=== PATIENT | male | born 1970 | race African-American/Black ===

== ENCOUNTER 2025-02-03 07:50 | Emergency (ER) | payer MEDICARE, BC, SELFPAY ==
--- OUTSIDE RECORDS SUMMARY | 2025-02-03 07:54 | XMS_ITS | Encounter Summary ---
Author Organization [facility] Address [facility] [place] [address] Care Team Providers Care Pattern Changer And Repairer Name Role Phone Jeannine Griggs MD Primary Care Provider [phone] , Generic Conversion Primary Care Provider Unavailable Md Generic Conversion Primary Care Provider Unavailable None, Provider Primary Care Provider Unavaila ble None, Provider Primary Care Provider Unavaila ble Encounter Details Date Type Department Care Team (Late st Contact Info) Description 05/30/2016 Abstract [facility] AT [address] [address] Carolina Hardwick MA Social History Tobacco Use Types Packs/Day Years Used Date Smoking Tobacco: Every Day Cigarettes Alcohol Use Standard Drinks/Week Comments Yes 0 (1 standard drink = 0.6 oz pur e alcohol) heavy alcoholic Sex and Gender Information Value Date Recorded Sex Assigned at Male 01/26/2025 3:23 PM CDT Legal Sex Male 3:52 PM CDT Gender Identity Not on file Sexual Orientation Not on file Occupation Industry Job Start Date Job End Date disability Not on file Not on file Not on file documented as of this encounter Plan of Treatment Not on file documented as of this encounter Procedures Procedure Name Priority Date/Time Associated Diagnosis Comments CBC (OUTSIDE LAB) Routine 04/09/2016 BASIC METABOLIC PANEL Routine 04/09/2016 MAGNESIUM Routine 04/09/2016 CK (CPK) Routine 04/09/2016 HEPATIC FUNCTION PANEL Routine 04/08/2016 documented in this encounter Results * MAGNESIUM (04/09/2016) Pathologist [facility] MAGNESIUM 1.8 04/09/2016 us Doc [facility] Final Result * BASIC METABOLIC PANEL (04/09/2016) Pathologist [facility] SODIUM S/P/B 137 POTASSIUM S/P/B 3.7 CO2 23 CHLORIDE S/P/B 104 GLUCOSE 77 CALCIUM S/P/B 8.5 BUN 5 CREATININE S/P/B 0.83 EGFR AFR. AMER. >60 EGFR NON-AFR. AMER. >60 04/09/2016 us Doc [facility] Final Result * CK (CPK) (04/09/2016) Pathologist [facility] CPK 585 04/09/2016 us Doc [facility] Final Result * CBC (OUTSIDE LAB) (04/09/2016) Pathologist [facility] WBC 4.1 HGB 12.3 HCT 36 PLT 229 04/09/2016 us Doc [facility] Abstract LAB-OUTSIDE/ABSTRACTED Final Result * (ABNORMAL) HEPATIC FUNCTION PANEL (04/08/2016) Pathologist [facility] ALBUMIN S/P/B 2.9(A) 3.5 - 5.0 ALKALINE PHOSPHATASE S/P/B 54 ALT 41 AST 63 BILIRUBIN TOTAL S/P/B 0.7 TOTAL PROTEIN S/P/B 5.7 04/08/2016 us Doc [facility] Final Result documented in this encounter Visit Diagnoses Not on filedocumented in this encounter Additional Health Concerns Infection Onset Date Last Indicated Resolved Time COVID-19 Rule Out 07/07/2020 07/07/2020 07/08/2020 11:00 AM CDT COVID-19 Rule Out 12/12/2020 12/12/2020 12/13/2020 8:34 AM TALENT CONSULTANT COVID-19 Rule Out 12/08/2022 12/08/2022 12/08/2022 11:14 AM TALENT CONSULTANT COVID-19 Rule Out 10/18/2024 10/18/2024 10/19/2024 1:16 AM TALENT CONSULTANT Respiratory Rule-Out 01/26/2025 01/26/2025 025 6:31 PM CDT documented as of this encounter Care Teams Pattern Changer And Repairer Relationship Specialty Start Date End Date Jeannine Griggs MD PCP - General INTERNAL MEDICINE 04/09/16 08/26/16 Md Generic Conversion, PCP - General 03/12/17 Md Generic Conversion, PCP - General 08/27/16 None, Provider, PCP - General 08/22/18 07/06/20 None, Provider, PCP - General 07/07/20 documented as of this encounter
--- OUTSIDE RECORDS SUMMARY | 2025-02-03 07:54 | XMS_ITS | Clinical Summary ---
Author Organization [facility] Address [address] [place] [address] Care Team Providers Care Medical Information Officer Name Role Phone Cailin Hernández Unavailable Unavailable Bernadette Roberts LCSW Unavailable Frank Beltran MD Primary Care Provider [phone] Allergies Active Allergy Reactions Criticality Noted Date Comments Fish Containing Products Hives Medium 07/12/2021 Medications albuterol HFA (PROVENTIL HFA,VENTOLIN HFA,PROAIR HFA) 90 mcg/actuation inhalerIndicati ons:Acute Asthma Attack Inhale 2 puffs every 4 (four) hours as needed for wheezing or shortness of breath Active budesonide-form oteroL (SYMBICORT) 80-4.5 mcg/actuation inhalerIndicati ons:Maintenance Therapy for Asthma Inhale 2 puffs 2 (two) times a day 4 Active multivitamin with minerals tabletIndicatio ns:Vitamin Deficiency Take 1 tablet by mouth daily Active nicotine (NICODERM CQ) 21 mgIndications:S moking Cessation Place 1 patch on the skin daily 30 patch 4 Active Additional Information Patient not taking.Reported on 01/04/2025 divalproex ER (DEPAKOTE ER) 500 mg 24 hr tabletIndicatio ns:Bipolar Disorder Take 1 tablet (500 mg total) by mouth daily 30 tablet 5 Active risperiDONE (RisperDAL) 2 mg tabletIndicatio ns:Bipolar Disorder in Remission Take 1 tablet (2 mg total) by mouth nightly 30 tablet 5 Active sertraline (ZOLOFT) 100 mg tabletIndicatio ns:depression Take 1 tablet (100 mg total) by mouth daily 30 tablet 5 Active traZODone (DESYREL) 100 mg tabletIndicatio ns:insomnia associated with depression Take 1 tablet (100 mg total) by mouth nightly as needed for sleep or depression 30 tablet 5 Active folic acid (FOLVITE) 1 mg tabletIndicatio ns:Folate Deficiency Take 1 tablet (1 mg total) by mouth daily 30 tablet 5 Active thiamine (VITAMIN B1) 100 mg tabletIndicatio ns:Thiamine Deficiency Take 1 tablet (100 mg total) by mouth daily 30 tablet 5 Active naltrexone (DEPADE) 50 mg tablet Take 1 tablet (50 mg total) by mouth daily Active fluticasone propionate (FLONASE) 50 mcg/actuation nasal spray Administer 1 spray into each nostril 2 (two) times a day 1 each Active Additional Information Patient not taking.Reported on 01/04/2025 Active Problems Problem Noted Date Diagnosed Date Alcohol withdrawal syndrome without complication 01/04/2025 Neutrophilia 12/12/2024 Nasal inflammation 12/10/2024 Antibiotic-associated diarrhea 12/10/2024 Alcohol dependence with uncomplicated withdrawal 12/09/2024 Nausea and vomiting, unspecified vomiting type 0 12/08/2024 Alcohol withdrawal delirium 12/08/2024 Acute alcoholic gastritis with hemorrhage 2024 Alcoholic intoxication with complication 025 Hyponatremia 12/08/2024 High anion gap metabolic acidosis 12/08/2024 Hypovolemia dehydration 12/08/2024 Generalized anxiety disorder 12/08/2024 Tobacco use disorder, continuous 12/08/2024 Mild persistent asthma with acute exacerbation 0 12/08/2024 Unspecified mood disorder 11/11/2024 Assessment & Plan (11/14/2024 12:14 PM SALMON TROLL FISHER): Patient has a chart history of bipolar disorder, however this diagnosis is uncertain given concomitant substance use history and unclear presentation. It is entirely possible that the patients symptoms are better explained by substance use disorders alone. However, empiric behavioral evidence supports that when the patient adheres to the following regimen he is improved. As such, will be continued. - Depakote 500mg daily - Decreased from 500mg BID in the interim - Risperidone 2mg nightly - Decreased from 4mg nightly in the interim - Sertraline 100mg daily - Decreased from 200mg in the interim Assessment & Plan (11/11/2024 10:53 AM SALMON TROLL FISHER): Patient has a chart history of bipolar disorder, however this diagnosis is uncertain given concomitant substance use history and unclear presentation. It is entirely possible that the patients symptoms are better explained by substance use disorders alone. However, empiric behavioral evidence supports that when the patient adheres to the following regimen he is improved. As such, will be continued. - Depakote 500mg daily - Decreased from 500mg BID in the interim - Risperidone 2mg nightly - Decreased from 4mg nightly in the interim - Sertraline 100mg daily - Decreased from 200mg in the interim Depression, acute 11/10/2024 Dyspnea, unspecified type 10/06/2024 Elevated LFTs 10/06/2024 COPD with acute exacerbation 08/13/2023 Moderate protein-calorie malnutrition 02/09/2023 Alcohol abuse 02/07/2023 Pharyngeal dysphagia 02/07/2023 Overview (02/09/2023): Added automatically from request for surgery [id number] Polysubstance abuse 01/26/2022 Assessment & Plan (01/26/2022 5:35 AM CDT): Patient uses cocaine daily last use yesterday. He also uses fentanyl occasionally. Denies any IV drug use. States he snorts or smokes his drugs. Warm handoff consulted. Bipolar disorder 01/26/2022 Assessment & Plan (01/26/2022 5:35 AM CDT): Continue home medications Tobacco use 01/26/2022 Assessment & Plan (01/26/2022 5:34 AM CDT): Patient smokes half pack per day. He is not interested in a nicotine patch COPD (chronic obstructive pulmonary disease) Assessment & Plan (11/14/2024 12:14 PM SALMON TROLL FISHER): Symbicort scheduled and albuterol PRN Assessment & Plan (11/11/2024 10:43 AM SALMON TROLL FISHER): Symbicort scheduled and albuterol PRN Assessment & Plan (01/26/2022 5:38 AM CDT): Patient currently has diffuse wheezing but no symptoms of an exacerbation. He has not received his breathing treatment since admission. Will resume breathing treatments. Continue to monitor. Alcohol withdrawal syndrome with complication Assessment & Plan (01/26/2022 5:36 AM CDT): Patient appears calm and cooperative at this time. Continue Librium p.r.n. and CIWA scale. Continue vitamins. Warm handoff consulted. Bipolar depression 06/14/2021 Cocaine use disorder 01/04/2020 Assessment & Plan (11/14/2024 12:14 PM SALMON TROLL FISHER): Medical records indicate patient has long history of cocaine use including using more than intended, making unsuccessful attempts at cutting back, spending a significant amount of time using, having a strong desire to use, having an inability to fulfill their roles at work and in their social life as a result of work, reducing important activities as a result of use, continuing to use despite having persistent problems resulting from use, using within situations where it is physically hazardous, experiencing increased tolerance over time, and withdrawal symptoms. This qualifies the patient for a diagnosis of cocaine use disorder, severe. - for [facility] resources - [facility] C[employer]er cessation Assessment & Plan (11/11/2024 10:44 AM SALMON TROLL FISHER): Medical records indicate patient has long history of cocaine use including using more than intended, making unsuccessful attempts at cutting back, spending a significant amount of time using, having a strong desire to use, having an inability to fulfill their roles at work and in their social life as a result of work, reducing important activities as a result of use, continuing to use despite having persistent problems resulting from use, using within situations where it is physically hazardous, experiencing increased tolerance over time, and withdrawal symptoms. This qualifies the patient for a diagnosis of cocaine use disorder, severe. - SW for [facility]A resources - [employer] C[employer]er cessation Assessment & Plan (06/28/2020 10:01 AM CDT): No withdrawal sx. Will refer to [facility] treatment post d/c Assessment & Plan (06/13/2020 12:01 PM CDT): No withdrawal sx. Will refer to [facility] treatment post d/c Assessment & Plan (06/12/2020 10:51 AM CDT): No withdrawal sx. Will refer to [facility] treatment post d/c Assessment & Plan (06/11/2020 5:20 PM CDT): No withdrawal sx. Will refer to [facility] treatment post d/c Alcohol use disorder, severe 08/13/2018 Assessment & Plan (11/17/2024 11:56 AM SALMON TROLL FISHER): Medical records indicate that the patient has had numerous admissions for alcohol withdrawal and has used alcohol more than intended, along with having issues making unsuccessful attempts at cutting back, spending a significant amount of time using, having a strong desire to use, having an inability to fulfill their roles at work and in their social life as a result of work, reducing important activities as a result of use, continuing to use despite having persistent problems resulting from use, using within situations where it is physically hazardous, experiencing increased tolerance over time, and withdrawal symptoms. This qualifies the patient for a diagnosis of alcohol use disorder, severe. No tremor on assessment today. - Offer pharmacologic treatment -> naltrexone 25mg x 7 days, then up to 50mg - Offer inpatient rehab, plan for discharge to [place] once approved - Continue counselling cessation - Cleared AWAS, continue thiamine, folate Assessment & Plan (11/13/2024 12:46 PM SALMON TROLL FISHER): Medical records indicate that the patient has had numerous admissions for alcohol withdrawal and has used alcohol more than intended, along with having issues making unsuccessful attempts at cutting back, spending a significant amount of time using, having a strong desire to use, having an inability to fulfill their roles at work and in their social life as a result of work, reducing important activities as a result of use, continuing to use despite having persistent problems resulting from use, using within situations where it is physically hazardous, experiencing increased tolerance over time, and withdrawal symptoms. This qualifies the patient for a diagnosis of alcohol use disorder, severe. Patient continues to have tremor. However, tremor looks more consistent with parkinsonian or essential tremor. He has not other signs of alcohol withdrawal. - Offer pharmacologic treatment - Offer inpatient rehab - Channel C[employer]er cessation - AWAS, thiamine, folate Resolved Problems Problem Noted Date Diagnosed Date Resolved Date Polysubstance (excluding opi oids) dependence ([facility]) 01/19/2021 07/13/2021 Recurrent major depression i n partial remission 06/09/2020 07/13/2021 Assessment & Plan (06/28/2020 9:52 AM CDT): Fair progress with no SI. Pt is talking to and his case repairer to go to a chronic inpatient unit for [facility]. - continue zoloft 50mg every day and risperidone 2mg HS - continue monitoring and adjust treatment as needed - SW to assist with housing and OP f/u Assessment & Plan (06/13/2020 12:02 PM CDT): Fair progress with no SI. Pt is talking to and his case repairer to go to a chronic inpatient unit for [facility]. - continue zoloft 50mg every day and risperidone 2mg HS - continue monitoring and adjust treatment as needed - SW to assist with housing and OP f/u Assessment & Plan (06/12/2020 10:52 AM CDT): Fair progress but still has depressive sx. No SI - continue zoloft 50mg every day and risperidone 2mg HS - continue monitoring and adjust treatment as needed - SW to assist with housing and OP f/u Assessment & Plan (06/11/2020 5:20 PM CDT): Fair progress but still has depressive sx and SI - continue zoloft 50mg every day and risperidone 2mg HS - continue monitoring and adjust treatment as needed - SW to assist with housing and OP f/u Alcohol withdrawal syndrome without complication ([facility]) 02/08/2019 07/13/2021 Alcohol withdrawal syndrome without complication 04/10/2018 08/13/2018 Alcohol withdrawal syndrome without complication 01/12/2018 08/13/2018 Depression 06/11/2020 Intentional drug overdose Encounters Date Type Department Care Team Description 01/24/2025 Telephone [facility] Gastroenterology at [address] [facility] [address] [place] [address] Linh Fox EGD & Colonoscopy Referral 01/04/2025 4:58 PM SALMON TROLL FISHER - 01/11/2025 8:37 AM CDT Hospital Encounter [place] [id number] [address] [place] [address] Otilio Vargas MD Sada, MD Deejay Abdul, MD Natalya Arroyo Omar Ali Mohammed, MD Alcohol withdrawal syndrome without complication (HCC) (Primary Dx) Discharge Disposition: Discharge to home or self care 12/09/2024 TCC Initial Eligibility Review [facility] [address] [place] [id number] Krista Corral NP 12/08/2024 6:37 AM SALMON TROLL FISHER - 12/15/2024 10:55 AM SALMON TROLL FISHER Hospital Encounter [address] [address] Devin Rico MD Winston, MD Luís Payton Supriya, MD Saturno Arias, Roger Gonzales MD Nausea and vomiting, unspecified vomiting type (Primary Dx); Acute alcoholic intoxication without complication; Hematemesis, unspecified whether nausea present; Alcoholic intoxication with complication; Acute alcoholic gastritis with hemorrhage; COPD with acute exacerbation (HCC); Hyponatremia; High anion gap metabolic acidosis; Hypovolemia dehydration; Cocaine use disorder (HCC); Alcohol use disorder, severe (HCC); Generalized anxiety disorder; Bipolar depression (HCC); Tobacco use disorder, continuous; Mild persistent asthma with acute exacerbation Discharge Disposition: Discharge to an Rehab facility 11/10/2024 9:57 AM SALMON TROLL FISHER - 11/18/2024 2:20 PM SALMON TROLL FISHER Hospital Encounter [address] [address] Nick Foster MD Garland, Marcie Epstein, MD Holiday, MD Alexandre Mccartney, Jony Piedra MD Alcohol withdrawal syndrome with complication (HCC) (Primary Dx); Polysubstance abuse (HCC); Depression, acute [F32.A] Discharge Disposition: Discharge to home or self care from Last 3 Months Immunizations Immunization Administration Dates Next Due Hep A, Adult 05/28/2004 Influenza, Quadrivalent, Spl it, Preservative Free, Intramuscular 08/17/2023,11/10/2019,09/26/2017 Influenza, Trivalent, Preser vative Free, Intramuscular 12/15/2024(Deferred: Patient Refused - pt.stated, i already have one couple months ago like September last year.) Influenza, Unspecified 08/08/2016 Surgical History Surgery Date Site/Laterality Comments ESOPHAGOGASTRODUODENOSCOPY Medical History Medical History Date Comments Bipolar 1 disorder (HCC) Depression Anxiety COPD (chronic obstructive pulmonary disease) (HC C) Asthma Substance abuse (HCC) cocaine, m arijuana, alcohol Schatzki's ring Hiatal hernia Family History Medical History Relation Name Comments Cancer Father cancer Father lung Cancer Mother cancer Mother breast Relation Name Status Comments Father Mother Social History Tobacco Use Types Packs/Day Years Used Date Smoking Tobacco: Every Day Cigarettes 1 20 Smokeless Tobacco: Never Alcohol Use Standard Drinks/Week Comments Yes 12 (1 standard drink = 0.6 oz pure alcohol) 1 case beer, 1-2 bottles of Vodka daily. [facility] [employer] Answer Date Recorded In the past [address] [facility] [employer], gas, oil, or water [employer] threatened to shut off services in your home? No 01/06/2025 Humiliation, Afraid, Rape, and Kick questionnair e Answer Date Recorded Within the last year, have y ou been afraid of your partner or ex-partner? No 11/11/2024 Within the last year, have y ou been humiliated or emotionally abused in other ways by your partner or ex-partner? No Within the last year, have y ou been kicked, hit, slapped, or otherwise physically hurt by your partner or ex-partner? No 11/11/2024 Within the last year, have y ou been raped or forced to have any kind of sexual activity by your partner or ex-partner? No 11/11/2024 Social Connection and Isolation Panel [NHANES] A nswer Date Recorded In a typical week, how many times do you talk on the phone with family, friends, or neighbors? Three times a week 01/06/2025 How often do you get togethe r with friends or relatives? Three times a week 01/06/2025 How often do you attend chur ch or holiness services? Never 01/06/2025 Do you belong to any clubs o r organizations such as mandaen groups, unions, fraternal or athletic groups, or school groups? No 01/06/2025 How often do you attend meet ings of the clubs or organizations you belong to? Never 01/06/2025 Are you , , di vorced, , never , or living with a partner? Never 01/06/2025 AUDIT-C Answer Date Recorded Q1: How often do you have a drink containing alcohol? 4 or more times a week 11/11/2024 Q2: How many drinks containi ng alcohol do you have on a typical day when you are drinking? 10 or more Q3: How often do you have si x or more drinks on one occasion? Daily or almost daily 11/11/2024 Overall Financial Resource Strain (CARDIA) Answe r Date Recorded How hard is it for you to pa y for the very basics like food, housing, medical care, and heating? Not very hard 01/06/2025 PHQ-2 Answer Date Recorded PHQ-2 Total Score (If total score is 3 or more points, staff should administer the PHQ-9) 1 01/25/2022 [facility] - Occupational Stress Questionnaire Answer Date Recorded Do you feel stress - tense, restless, nervous, or anxious, or unable to sleep at night because your mind is troubled all the time - these days? Rather much 11/11/2024 Exercise Vital Sign Answer Date Recorde d On average, how many days pe r week do you engage in moderate to strenuous exercise (like a brisk walk)? 0 days 11/11/2024 On average, how many minutes do you engage in exercise at this level? 0 min 11/11/2024 Hunger Vital Sign Answer Date Recorded Within the past 12 months, y ou worried that your food would run out before you got the money to buy more. Never true 01/07/20 25 Within the past 12 months, t he food you bought just didn't last and you didn't have money to get more. Never true 01/06/2025 PRAPARE - Transportation Answer Date Re corded In the past 12 months, has l ack of transportation kept you from medical appointments or from getting medications? No 05/2025 In the past 12 months, has l ack of transportation kept you from meetings, work, or from getting things needed for daily living? No 01/06/2025 Housing Stability Vital Sign Answer Krunal e Recorded In the last 12 months, was t here a time when you were not able to pay the mortgage or rent on time? No 06/20/2021 In the last 12 months, how many places have you lived? 1 06/20/2021 In the last 12 months, was t here a time when you did not have a steady place to sleep or slept in a correction (including now)? Yes 06/20/2021 Housing Stability Vital Sign Answer Krunal e Recorded In the last 12 months, was t here a time when you were not able to pay the mortgage or rent on time? No 01/06/2025 In the past 12 months, how m any times have you moved where you were living? 0 01/06/2025 At any time in the past 12 m [facility], were you homeless or living in a correction (including now)? No 01/06/2025 Personal Safety Answer Date Recorded Have you ever been in or are you currently in a harmful physical or emotional relationship or is someone making you feel afraid or unsafe? Denies 01/04/2025 Education Answer Date Recorded What is the highest level of school you have completed or the highest degree you have received? High school graduate 06/09/2020 Sex and Gender Information Value Date Recorded Sex Assigned at Not on file Legal Sex Male 6:20 AM SALMON TROLL FISHER Gender Identity Not on file Sexual Orientation Not on file Occupation Industry Job Start Date Job End Date unemployed, disabled Not on file Not on file Not on file Obstetrics History Last Filed Vital Signs Vital Sign Reading Time Taken Comments Blood Pressure 127/97 01/11/2025 7:48 AM CDT Pulse 87 01/11/2025 7:48 AM CDT Temperature 36.5 C (97.7 F) 01/11/2025 7:48 AM CDT Respiratory Rate 18 01/11/2025 7:48 AM CDT Oxygen Saturation 97% 01/11/2025 7:48 AM CDT Inhaled Oxygen Concentration - - Weight 88.6 kg (195 lb 5.2 oz) 01/04/2025 9:34 P M SALMON TROLL FISHER Height 177.8 cm (5' 10) 01/04/2025 9:34 PM SALMON TROLL FISHER Body Mass Index 28.03 01/04/2025 9:34 PM SALMON TROLL FISHER Plan of Treatment Health Maintenance Due Date Last Done Comments Colon Cancer Screening-Colonoscopy 1971 Prostate Cancer Screening-PSA 1971 DTaP/Tdap/Td Vaccine (1 - Tdap) 1982 Hepatitis B Screening 1989 Regular Well Visit/Exam 18-64 1989 Pneumococcal vaccine <65 (1 of 2 - PCV) 1990 Zoster Vaccine (1 of 2) 1990 Lung Cancer Screening 2021 Depression Screening 01/25/2023 01/25/2022, 06/12/2021, 01/19/2021, Additional history exists Influenza Vaccine (#1) 2024 , 11/10/2019, 09/26/2017, Additional history exists Hepatitis C Screening Completed 10/06/2024 Goals Goal Patient Goal Type Associated Problems Recent Progress Patient-Stated? Author Quit drinking alcohol Alcohol Use No Angela Webster Note: Pt will abstain from alcohol use, will call recovery support and re-engage with tx services. Attend Narcotics Anonymous meetings Drug Use No Angela Webster Note: Attend NA,AA, or CR at least 2xweekly. Stay free of all unprescribed substances General No Angela Webster Note: Pt will abstain from illicit drug use. Keep your medical appointments Lifestyle No Angela Webster Note: Pt will attend scheduled appointments with [facility] on 06/19/21 Procedures Procedure Name Priority Date/Time Associated Diagnosis Comments EGFR Routine 01/10/2025 6:08 AM CDT CBC WITHOUT DIFFERENTIAL Routine 01/10/2025 6:08 AM CDT BASIC METABOLIC PANEL Routine 01/10/2025 6:08 AM CDT EGFR Routine 01/06/2025 1:55 AM SALMON TROLL FISHER COMPREHENSIVE METABOLIC PANEL Routine 01/06/2025 1:55 AM SALMON TROLL FISHER EGFR Routine 01/05/2025 3:49 AM SALMON TROLL FISHER HEMOGLOBIN A1C Routine 01/05/2025 3:49 AM SALMON TROLL FISHER THYROID FUNCTION CASCADE Routine 01/05/2025 3:49 AM SALMON TROLL FISHER COMPREHENSIVE METABOLIC PANEL Routine 01/05/2025 3:[address] HEAD WO CONTRAST ED 01/04/2025 6 :19 PM SALMON TROLL FISHER XR CHEST 1 VIEW ED 01/04/2025 2:31 PM SALMON TROLL FISHER ECG 12-LEAD STAT 01/04/2025 2:21 PM SALMON TROLL FISHER EGFR STAT 01/04/2025 2:17 PM SALMON TROLL FISHER DIFFERENTIAL AUTO STAT 01/04/2025 2:1 7 PM SALMON TROLL FISHER ETHANOL STAT 01/04/2025 2:17 PM SALMON TROLL FISHER TROPONIN T HIGH-SENSITIVITY SERIES (BASELINE, 2HR, 4HR, 6HR) STAT 01/04/2025 2:17 PM SALMON TROLL FISHER COMPREHENSIVE METABOLIC PANEL STAT 01/04/2025 2:17 PM SALMON TROLL FISHER CBC WITH AUTO DIFFERENTIAL STAT 01/04/2025 2:17 PM SALMON TROLL FISHER EGFR Routine 12/14/2024 3:28 AM SALMON TROLL FISHER COMPREHENSIVE METABOLIC PANEL Routine 12/14/2024 3:28 AM SALMON TROLL FISHER EGFR Routine 12/13/2024 12:50 PM SALMON TROLL FISHER COMPREHENSIVE METABOLIC PANEL Routine 12/13/2024 12:50 PM SALMON TROLL FISHER EGFR Routine 12/12/2024 3:01 AM SALMON TROLL FISHER CBC WITHOUT DIFFERENTIAL Routine 12/12/2024 3:01 AM SALMON TROLL FISHER COMPREHENSIVE METABOLIC PANEL Routine 12/12/2024 3:01 AM SALMON TROLL FISHER EGFR Routine 12/11/2024 4:39 AM SALMON TROLL FISHER COMPREHENSIVE METABOLIC PANEL Routine 12/11/2024 4:39 AM SALMON TROLL FISHER CBC WITHOUT DIFFERENTIAL Routine 12/11/2024 4:39 AM SALMON TROLL FISHER EGFR Routine 12/10/2024 6:38 AM SALMON TROLL FISHER COMPREHENSIVE METABOLIC PANEL Routine 12/10/2024 6:38 AM SALMON TROLL FISHER EGFR Routine 12/09/2024 3:39 AM SALMON TROLL FISHER DIFFERENTIAL AUTO Routine 12/09/2024 3:3 9 AM SALMON TROLL FISHER COMPREHENSIVE METABOLIC PANEL Routine 12/09/2024 3:39 AM SALMON TROLL FISHER CBC WITH AUTO DIFFERENTIAL Routine 12/09/2024 3:39 AM SALMON TROLL FISHER MAGNESIUM Routine 12/09/2024 3:39 AM SALMON TROLL FISHER LIPID PANEL Routine 12/09/2024 3:39 AM SALMON TROLL FISHER INFLUENZA A/B, RSV, AND COVID-19 PCR Routine 12/08/2024 8:17 PM SALMON TROLL FISHER MAGNESIUM STAT 12/08/2024 7:28 AM SALMON TROLL FISHER EGFR STAT 12/08/2024 7:28 AM SALMON TROLL FISHER BASIC METABOLIC PANEL STAT 12/08/2024 7:28 AM SALMON TROLL FISHER TROPONIN T HIGH-SENSITIVITY 6-HOUR Timed 12/08/2024 6:17 AM SALMON TROLL FISHER TROPONIN T HIGH-SENSITIVITY 2-HOUR Timed 12/08/2024 2:24 AM SALMON TROLL FISHER XR CHEST 1 VIEW ED 12/08/2024 12:54 AM SALMON TROLL FISHER ECG 12-LEAD STAT 12/08/2024 12:22 AM SALMON TROLL FISHER LIPASE STAT 12/08/2024 12:22 AM [facility]ER EGFR STAT 12/08/2024 12:22 AM [facility]ER DIFFERENTIAL AUTO STAT 12/08/2024 12: 22 AM [facility]ER ETHANOL STAT 12/08/2024 12:22 AM SALMON [facility]OLL [facility]ER TROPONIN T HIGH-SENSITIVITY SERIES (BASELINE, 2HR, 4HR, 6HR) STAT 12/08/2024 12:22 AM SALMON [facility]ER CBC WITH AUTO DIFFERENTIAL STAT 12/08/2024 12:22 AM [facility]ER COMPREHENSIVE METABOLIC PANEL STAT 12/08/2024 12:22 AM [facility]ER XR CHEST PA LATERAL 2 VIEWS ED 11/10/2024 12:08 PM [facility]ER URINALYSIS, MICROSCOPIC ONLY STAT 11/10/2024 11:33 AM SAL[facility]ER DRUGS OF ABUSE SCREEN, URINE WITHOUT CONFIRMATION STAT 11/10/2024 11:33 AM [facility]ER URINALYSIS AND REFLEX TO MICROSCOPIC AND CULTURE STAT 11/10/2024 11:33 AM SAL[facility]ER ECG 12-LEAD STAT 11/10/2024 10:43 AM SALMON [facility]OLL [facility]ER POCT RAPID HIV ANTIBODY COMMUNITY SCREENING-FABI ELIGIBLE Routine 11/10/2024 10:24 AM SALMON TROLL [facility]ER VALPROIC ACID LEVEL, TOTAL STAT 11/10/2024 10:06 AM SAL[facility]ER ETHANOL STAT 11/10/2024 10:06 AM SAL[facility]ER EGFR STAT 11/10/2024 10:06 AM SALMON [facility]ER DIFFERENTIAL AUTO STAT 11/10/2024 10: 06 AM SALMON [facility]OLL [facility]ER PRO B-TYPE NATRIURETIC PEPTIDE STAT 11/10/2024 10:06 AM SALMON TROLL FISHER TROPONIN I HIGH-SENSITIVITY SERIES (BASELINE, 2HR, 4HR, 6HR) STAT 11/10/2024 10:06 AM SALMON [facility]OLL FISHER CBC WITH AUTO DIFFERENTIAL STAT 11/10/2024 10:06 AM SAL[facility]ER COMPREHENSIVE METABOLIC PANEL STAT 11/10/2024 10:06 AM SALMON [facility]OLL [facility]ER HEPATITIS PANEL, ACUTE Routine 12:56 PM SALMON [facility]ER from Last 3 Months or Most Recently Relevant to Health Maintenance Results * eGFR (01/10/2025 6:08 AM CDT) eGFR >90 >=60 mL/min/1. 73 m2 Comment: Interpretive Data Reference Interval Normal >/= 90 mL/min/1.73m2 Mildly decreased* 60 - 89 mL/min/1.73m2 Mildly to moderately decreased 45 - 59 mL/min/1.73m2 Moderately to severely decreased 30 - 44 mL/min/1.73m2 Severely decreased 15 - 29 mL/min/1.73m2 Kidney Failure < 15 mL/min/1.73m2 *Relative to young adult level Estimated glomerular filtration rate is determined by the 2020 CKD-EPI equation recommended by the National Kidney Foundation (A Unifying Approach to GFR Estimation: Recommendations of the NKF-ASK Task Force on Reassessing the Inclusion of Race in Diagnosing Kidney Disease, JASN 202). The CKD-EPI equation should not be used for patients with unstable renal function and has not been validated in children and those over 70. Current interpretive data was last reviewed 2021. Testing performed by: [address] [address] Blood 01/10/2025 6:08 AM CDT 01/10/2025 6:43 AM CDT us Nelson Villalba MD LAB BLOOD ORDERABLES Fi nal Result [facility]U LEM[facility] [place] [address] * (ABNORMAL) CBC without differential (01/10/2025 6:08 AM CDT) WBC 13.7(H) 3.8 - 9.9 K/cumm Comment:Testing performed by : [address] [address] Hgb 11.7(L) 13.0 - 17.5 g/dL RAMU LEMUS Comment:Testing performed by : [address] [address] Hct 35.7(L) 38.9 - 50.3 % RAMU LEMUS Comment:Testing performed by : [address] [address] Plt 326 150 - 400 K/cumm RAMU LEMUS Comment:Testing performed by : [address] [address] MPV 9.4 9.1 - 12.3 fL RAMU LEMUS Comment:Testing performed by : [address] [address] RBC 3.79(L) 4.30 - 5.80 M/cumm RAMU LEMUS Comment:Testing performed by : [address] [address] MCV 94.2 81.3 - 96.4 fL RAMU LEMUS Comment:Testing performed by : [facility], [address] [place] [address]., [address] MCH 30.9 27.1 - 33.3 pg RAMU LEMUS Comment:Testing performed by : [address] [address] MCHC 32.8 32.3 - 35.7 g/dL RAMU LEMUS Comment:Testing performed by : [address] [address] RDW CV 15.2(H) 11.1 - 14.9 % RAMU LEMUS Comment:Testing performed by : [address] [address] RDW SD 51.8(H) 35.7 - 48.1 fL RAMU LEMUS Comment:Testing performed by : [address] [address] NRBC abs 0.00 0.00 - 0.01 K/cumm RAMU Comment:Testing performed by : [address] [address] Blood 01/10/2025 6:08 AM CDT 01/10/2025 6:43 AM CDT Nelson Villalba MD LAB BLOOD ORDERABLES Fi nal Result RAMU [address]99 [facility] Department of Laboratories [place], [place] [id number] * Basic metabolic panel (01/10/2025 6:08 AM CDT) Sodium 141 135 - 145 mmol/L Comment:Testing performed by : [address] [address] Potassium, pl 4.1 3.3 - 4.9 mmol/L RAMU LEMUS Comment: Hemolyzed; Potassium value may be falsely elevated by as much as 1.0 mmol/L. Suggest redraw and reanalysis. Testing performed by: [address] [address] Chloride 106 97 - 110 mmol/L RAMU LEMUS Comment:Testing performed by : [address] [address] CO2 25 22 - 32 mmol/L RAMU Comment:Testing performed by : [address] [address] Anion gap 10 2 - 15 mmol/L RAMU Comment:Testing performed by : [address] [address] BUN 13 6 - 25 mg/dL RAMU Comment:Testing performed by : [address] [address] Creatinine 0.80 0.80 - 1.30 mg/dL RAMU Comment:Testing performed by : [address] [address] Glucose 121 70 - 199 mg/dL RAMU Comment: Interpretive Data Fasting glucose >/= 126 mg/dl is diagnostic for diabetes. Fasting is defined as no caloric intake for at least 8 hours. Fasting glucose between 100 mg/dl to 125 mg/dl is diagnostic of prediabetes. In a patient with classic symptoms of hyperglycemia or hyperglycemic crisis, a random glucose >/= 200 mg/dl is diagnostic for diabetes. In the absence of unequivocal hyperglycemia, results should be confirmed by repeat testing. The classification and Diagnosis of Diabetes Diabetes Care 2022; 46: S19-S40. Current interpretive data was last revised 2022. Testing performed by: [address] [address] Calcium 9.9 8.5 - 10.3 mg/dL RAMU Comment:Testing performed by : [address] [address] Blood 01/10/2025 6:08 AM CDT 01/10/2025 6:43 AM CDT us Nelson Villalba MD LAB BLOOD ORDERABLES Fi nal Result RAMU LEMUS [address] [facility] Department [place] [address] * eGFR (01/06/2025 1:55 AM SALMON TROLL FISHER) Pathologist [facility] eGFR >90 >=60 mL/min/1. 73 m2 Comment: Interpretive Data Reference Interval Normal >/= 90 mL/min/1.73m2 Mildly decreased* 60 - 89 mL/min/1.73m2 Mildly to moderately decreased 45 - 59 mL/min/1.73m2 Moderately to severely decreased 30 - 44 mL/min/1.73m2 Severely decreased 15 - 29 mL/min/1.73m2 Kidney Failure < 15 mL/min/1.73m2 *Relative to young adult level Estimated glomerular filtration rate is determined by the 2020 CKD-EPI equation recommended by the National Kidney Foundation (A Unifying Approach to GFR Estimation: Recommendations of the NKF-ASK Task Force on Reassessing the Inclusion of Race in Diagnosing Kidney Disease, JASN 2020). The CKD-EPI equation should not be used for patients with unstable renal function and has not been validated in children and those over 70. Current interpretive data was last reviewed 2021. Testing performed by: [address] [address] Blood 01/06/2025 1:55 AM SAL[facility]LL FISHER 01/06/2025 2:57 AM [facility]ER Anel Al MD LAB BLOOD ORDER DIANE Final Result RAMU 0714 [facility] Department [place] [address] * (ABNORMAL) Comprehensive metabolic panel (01/06/2025 1:55 AM SALMON TROLL FISHER) Pathologist [facility] Sodium 139 135 - 145 mmol/L Comment:Testing performed by : [address] [address] Potassium, pl 3.9 3.3 - 4.9 mmol/L RAMU LEMUS Comment: Hemolyzed; Potassium value may be falsely elevated by as much as 1.0 mmol/L. Suggest redraw and reanalysis. Testing performed by: [address] [address] Chloride 107 97 - 110 mmol/L RAMU LEMUS Comment:Testing performed by : [address] [address] CO2 23 22 - 32 mmol/L [facility] Comment:Testing performed by : [address] [address] Anion gap 9 2 - 15 mmol/L [facility] Comment:Testing performed by : [address] [address] BUN 8 6 - 25 mg/dL [facility] Comment:Testing performed by : [address] [address] Creatinine 0.82 0.80 - 1.30 mg/dL [facility] Comment:Testing performed by : [address] [address] Glucose 101 70 - 199 mg/dL [facility] Comment: Interpretive Data Fasting glucose >/= 126 mg/dl is diagnostic for diabetes. Fasting is defined as no caloric intake for at least 8 hours. Fasting glucose between 100 mg/dl to 125 mg/dl is diagnostic of prediabetes. In a patient with classic symptoms of hyperglycemia or hyperglycemic crisis, a random glucose >/= 200 mg/dl is diagnostic for diabetes. In the absence of unequivocal hyperglycemia, results should be confirmed by repeat testing. The classification and Diagnosis of Diabetes Diabetes Care 2021; 46: S19-S40. Current interpretive data was last revised 2022. Testing performed by: [address] [address] Calcium 9.0 8.5 - 10.3 mg/dL [facility] Comment:Testing performed by : [address] [address] Bilirubin, total 0.4 0.1 - 1.2 mg/dL [facility] Comment:Testing performed by : [address] [address] Protein, pl 6.1(L) 6.5 - 8.5 g/dL [facility] Comment:Testing performed by : [address] [address] Albumin 3.2(L) 3.5 - 5.0 g/dL [facility] Comment:Testing performed by : [address] [address] Alk phos 67 40 - 130 Units/L RAMU LEMUS Comment:Testing performed by : [address] [address] ALT 23 7 - 55 Units/L RAMU Comment:Testing performed by : [address] [address] AST 26 10 - 50 Units/L RAMU Comment: Hemolyzed; result may be falsely elevated Testing performed by: [address] [address] Blood 01/06/2025 1:55 AM SAL[facility]LL FISHER 01/06/2025 2:57 AM [facility]LL FISHER Anel Al MD LAB BLOOD ORDER DIANE Final Result RAMU [address] [facility] Department [place] [address] * eGFR (01/05/2025 3:49 AM SAL[facility]LL [facility]ER) eGFR >90 >=60 mL/min/1. 73 m2 Comment: Interpretive Data Reference Interval Normal >/= 90 mL/min/1.73m2 Mildly decreased* 60 - 89 mL/min/1.73m2 Mildly to moderately decreased 45 - 59 mL/min/1.73m2 Moderately to severely decreased 30 - 44 mL/min/1.73m2 Severely decreased 15 - 29 mL/min/1.73m2 Kidney Failure < 15 mL/min/1.73m2 *Relative to young adult level Estimated glomerular filtration rate is determined by the 2020 CKD-EPI equation recommended by the National Kidney Foundation (A Unifying Approach to GFR Estimation: Recommendations of the NKF-ASK Task Force on Reassessing the Inclusion of Race in Diagnosing Kidney Disease, JASN 2020). The CKD-EPI equation should not be used for patients with unstable renal function and has not been validated in children and those over 70. Current interpretive data was last reviewed 2021. Testing performed by: [address] [address] Blood 01/05/2025 3:49 AM SAL[facility]OLL FISHER 01/05/2025 5:03 AM [facility]LL FISHER Anel Al MD LAB BLOOD ORDER DIANE Final Result Performing Organization Address [facility] de Phone Number [address] [address] * Thyroid Function [place] (01/05/2025 3:49 AM SALMON [facility]OLL FISHER) TSH 0.88 0.30 - 4.20 mcIUnit/mL Comment:Testing performed by : [address] [address] Blood 01/05/2025 3:49 AM SAL[facility] TROLL FISHER 01/05/2025 5:03 AM SAL[facility]OLL FISHER Anel Al MD LAB BLOOD ORDER DIANE Final Result Performing Organization Address [facility] de Phone Number [address] [address] * Hemoglobin A1c (01/05/2025 3:49 AM SAL[facility]OLL FISHER) Hgb A1C 5.6 4.0 - 5.6 % Comment:Testing performed by : [address] [address] Estimated Average Glucose 114 mg/dL [facility] Comment: The ADA recommends reporting an estimated Average Glucose (eAG) with all Hemoglobin A1c results using the equation derived from a study of 507 normal and diabetic adults. Minority populations were underrepresented and children were not included. (Diabetes Care 31:9865-5095, 2008). The eAG is not equivalent to a fasting glucose. Testing performed by: [address] [address] Blood 01/05/2025 3:49 AM SAL[facility] TROLL FISHER 01/05/2025 5:03 AM SALMON TROLL FISHER Anel Al MD LAB BLOOD ORDER DIANE Final Result Performing Organization Address [facility] de Phone Number [address] Department [place] [address] * (ABNORMAL) Comprehensive metabolic panel (01/05/2025 3:49 AM SALMON TROLL FISHER) Sodium 139 135 - 145 mmol/L Comment:Testing performed by : [facility], [address] [place] [address]., [address] Potassium, pl 3.7 3.3 - 4.9 mmol/L RAMU Comment:Testing performed by : [address], [place]., [address] Chloride 105 97 - 110 mmol/L RAMU Comment:Testing performed by : [address] [address] CO2 25 22 - 32 mmol/L RAMU Comment:Testing performed by : [address], [place]., [address] Anion gap 9 2 - 15 mmol/L RAMU Comment:Testing performed by : [address] [address] BUN 6 6 - 25 mg/dL RAMU Comment:Testing performed by : [address] [address] Creatinine 0.85 0.80 - 1.30 mg/dL RAMU Comment:Testing performed by : [address] [address] Glucose 90 70 - 199 mg/dL RAMU Comment: Interpretive Data Fasting glucose >/= 126 mg/dl is diagnostic for diabetes. Fasting is defined as no caloric intake for at least 8 hours. Fasting glucose between 100 mg/dl to 125 mg/dl is diagnostic of prediabetes. In a patient with classic symptoms of hyperglycemia or hyperglycemic crisis, a random glucose >/= 200 mg/dl is diagnostic for diabetes. In the absence of unequivocal hyperglycemia, results should be confirmed by repeat testing. The classification and Diagnosis of Diabetes Diabetes Care 202; 46: S19-S40. Current interpretive data was last revised 2022. Testing performed by: [address] [address] Calcium 9.1 8.5 - 10.3 mg/dL RAMU Comment:Testing performed by : [address] [address] Bilirubin, total 0.7 0.1 - 1.2 mg/dL [facility]U Comment:Testing performed by : [address] [address] Protein, pl 6.3(L) 6.5 - 8.5 g/dL [facility]U Comment:Testing performed by : [address] [address] Albumin 3.5 3.5 - 5.0 g/dL RAMU Comment:Testing performed by : [address], [place]., [address] Alk phos 70 40 - 130 Units/L RAMU Comment:Testing performed by : [address] [address] ALT 28 7 - 55 Units/L [facility]U Comment:Testing performed by : [address] [address] AST 34 10 - 50 Units/L [facility]U Comment:Testing performed by : [address] [address] Blood 01/05/2025 3:49 AM SALMON [facility]OLL FISHER 01/05/2025 5:03 AM SALMON TROLL FISHER Anel Al MD LAB BLOOD ORDER DIANE Final Result RAM[facility] Department [place] [address] * CT Head WO Contrast (01/04/2025 6:19 PM SALMON TROLL FISHER) Anatomical Region Laterality Modality Head and Neck N/A Computed Tomogra phy 01/04/2025 6:40 PM SALMON TROLL FISHER Narrative 01/04/2025 6:41 PM SALMON TROLL FISHER EXAM DESCRIPTION: CT HEAD WO CONTRAST REASON FOR STUDY: Alcohol withdrawal with syncopal episode last night. No provided focal neurologic deficits. No provided history of trauma. No provided past medical or surgical history. TECHNIQUE: Axial images acquired through the brain without intravenous contrast. Images stored on PACS. Automated exposure control was used as a dose optimization technique for this examination. COMPARISON: CT head without contrast 08/05/2021. FINDINGS: BRAIN: No acute intra-axial hemorrhage. No edema, mass effect, midline shift, or herniation. Normal white matter. No evidence of acute territorial ischemia/infarct. EXTRA-AXIAL SPACES: No extra-axial fluid collection. No unenhanced CT evidence of extra-axial mass. CALVARIUM: No acute calvarial fracture. SINUSES/MASTOIDS: Paranasal sinuses clear. Mastoid air cells well-developed and well aerated. ORBITS: No acute abnormality. Ocular lenses and globes normal in conformation and position. OTHER: No other significant abnormality. IMPRESSION: No acute intracranial process. THIS IS AN ELECTRONICALLY VERIFIED FINAL REPORT 01/04/2025 6:41 PM - Electronically signed by Cameron Moreno M.D. VÍCTOR: VÍCTOR Report ID: [id number] Reading Location: [place] [address] Procedure Note Cameron Moreno MD - 01/04/2025 EXAM DESCRIPTION: CT HEAD WO CONTRAST REASON FOR STUDY: Alcohol withdrawal with syncopal episode last night. No provided focal neurologic deficits. No provided history of trauma. No provided past medical or surgical history. TECHNIQUE: Axial images acquired through the brain without intravenous contrast. Images stored on PACS. Automated exposure control was used asa dose optimization technique for this examination. COMPARISON: CT head without contrast 08/05/2021. FINDINGS: BRAIN: No acute intra-axial hemorrhage. No edema, masseffect, midline shift, or herniation. Normal white matter. No evidence ofacute territorial ischemia/infarct. EXTRA-AXIAL SPACES: No extra-axial fluid collection. No unenhanced CT evidence of extra-axial mass. CALVARIUM: No acute calvarial fracture. SINUSES/MASTOIDS: Paranasal sinuses clear. Mastoid air cellswell-developed and well aerated. ORBITS: No acute abnormality. Ocular lenses and globes normal in conformation and position. OTHER: No other significant abnormality. IMPRESSION: No acute intracranial process. THIS IS AN ELECTRONICALLY VERIFIED FINAL REPORT 01/04/2025 6:41 PM - Electronically signed by Cameron Moreno M.D. VÍCTOR: VÍCTOR Report ID: [id number] Reading Location: [id number] Veronique More CHRISTIAN EDUCATION DIRECTOR IMG CT PROCEDURES Final Result * XR Chest 1 Vw Portable (if patient condition/safety warrant portable) (01/04/2025 2:31 PM SALMON TROLL FISHER) Anatomical Region Laterality Modality Body, Chest N/A Computed Radiogr aphy 01/04/2025 3:02 PM SALMON TROLL FISHER Narrative 01/04/2025 3:06 PM SALMON TROLL FISHER EXAM DESCRIPTION: XR CHEST 1 VIEW REASON FOR STUDY: CHEST PAIN ED for c/o alcohol withdrawal. Came to ED for c/o alcohol withdrawal. Reports wants to get into [facility] but needs med eval first. Reports last drink at 1305. Reports drinks a couple of pints and a 12 pack daily. Also reports has not been taking any other meds. Reports blacked out last night as well TECHNIQUE: Portable upright AP radiographic view(s) of the chest. COMPARISON: December 08, 2024 FINDINGS: LUNGS: No focal opacity, pleural effusion, or pneumothorax. HEART/MEDIASTINUM: Heart upper limits of normal in size. Thoracic aorta moderately tortuous. LINES/TUBES: None. BONES: Several old lateral left rib fractures. No acute osseous abnormality. IMPRESSION: No acute cardiopulmonary abnormality. Heart upper limits of normal in size. THIS IS AN ELECTRONICALLY VERIFIED FINAL REPORT 01/04/2025 3:06 PM - Electronically signed by Noe Redding M.D. RB: ANIKET Report ID: [id number] Reading Location: [id number] Procedure Note Noe Redding MD - 01/04/2025 EXAM DESCRIPTION: XR CHEST 1 VIEW REASON FOR STUDY: CHEST PAIN ED for c/o alcohol withdrawal. Came to ED for c/o alcohol withdrawal. Reports wants to get into [facility] but needs med eval first. Reportslast drink at 1305. Reports drinks a couple of pints and a 12 pack daily. Also reports has not been taking any other meds. Reports blacked out lastnight as well TECHNIQUE: Portable upright AP radiographic view(s) of the chest. COMPARISON: December 08, 2024 FINDINGS: LUNGS: No focal opacity, pleural effusion, or pneumothorax. HEART/MEDIASTINUM: Heart upper limits of normal in size. Thoracic aorta moderately tortuous. LINES/TUBES: None. BONES: Several old lateral left rib fractures. No acute osseousabnormality. IMPRESSION: No acute cardiopulmonary abnormality. Heart upper limits of normal in size. THIS IS AN ELECTRONICALLY VERIFIED FINAL REPORT 01/04/2025 3:06 PM - Electronically signed by oNe Redding M.D. RB: RB Report ID: [id number] Reading Location: [place] [address] us Otilio Vargas MD IMG XR PROCEDURES Final Result * ECG 12 lead (01/04/2025 2:21 PM SALMON TROLL FISHER) Ventricular Rate EKG/Min 81 BPM [facility] Atrial Rate 81 BPM [facility] CO-Interval (MSEC) 152 ms [facility] QRS-Interval (MSEC) 76 ms [facility] QT-Interval (MSEC) 376 ms [facility] QTc 436 ms [facility] P [place] 54 degrees [facility] R [place] -12 degrees [facility] T [place] 21 degrees [facility] Diagnosis Normal sinus rhythm Normal ECG When compared with ECG of 08-DEC-2024 00:22, No significant change was found Confirmed by BECKY TURNER M.D. ([id number]) on 01/09/2025 8:10:25 PM [facility] 01/04/2025 2:21 PM SALMON TROLL FISHER 01/09/2025 8:10 PM CDT Otilio Vargas MD ECG ORDERABLES Final Result [facility] * Troponin T high-sensitivity series (baseline, 2hr, 4hr, 6hr) (01/04/2025 2:17 PM SALMON TROLL FISHER) Trop T hs 9 <=22 ng/L Comment: Interpretive Data For further hscTnT resources including the diagnostic algorithm and an aid in interpretation, copy and paste this link: [email or web address].[email or web address]/[email or web address] Current Interpretive Data last revised 2020. Testing performed by: [facility], [address] [place] [address]., [address] Blood 01/04/2025 2:17 PM SALMON TROLL FISHER 01/04/2025 2:26 PM SALMON TROLL FISHER us Otilio Vargas MD LAB BLOOD ORDERABLES Final [facility]ul t [facility] Department [place] [address] * eGFR (01/04/2025 2:17 PM SALMON TROLL FISHER) eGFR >90 >=60 mL/min/1. 73 m2 Comment: Interpretive Data Reference Interval Normal >/= 90 mL/min/1.73m2 Mildly decreased* 60 - 89 mL/min/1.73m2 Mildly to moderately decreased 45 - 59 mL/min/1.73m2 Moderately to severely decreased 30 - 44 mL/min/1.73m2 Severely decreased 15 - 29 mL/min/1.73m2 Kidney Failure < 15 mL/min/1.73m2 *Relative to young adult level Estimated glomerular filtration rate is determined by the 2020 CKD-EPI equation recommended by the National Kidney Foundation (A Unifying Approach to GFR Estimation: Recommendations of the NKF-ASK Task Force on Reassessing the Inclusion of Race in Diagnosing Kidney Disease, JASN 202). The CKD-EPI equation should not be used for patients with unstable renal function and has not been validated in children and those over 70. Current interpretive data was last reviewed 2021. Testing performed by: [facility], [address] [place] [address]., [address] Blood 01/04/2025 2:17 PM SALMON TROLL FISHER 01/04/2025 2:26 PM SALMON TROLL FISHER us Otilio Vargas MD LAB BLOOD ORDERABLES Final Resul t [facility] [place] [address] * Differential, auto (01/04/2025 2:17 PM SALMON TROLL FISHER) Neutrophil abs 3.4 1.5 - 6.5 K/cumm Comment:Testing performed by : [address] [address] Imm gran abs 0.0 0.0 - 0.1 K/cumm [facility]U Comment:Testing performed by : [address] [address] Lymphocyte abs 2.7 0.8 - 3.3 K/cumm RAMU Comment:Testing performed by : [address] [address] Monocyte abs 0.6 0.2 - 0.8 K/cumm RAMU Comment:Testing performed by : [address] [address] Eosinophil abs 0.1 0.0 - 0.5 K/cumm RAMU Comment:Testing performed by : [address] [address] Basophil abs 0.0 0.0 - 0.1 K/cumm [facility] Comment:Testing performed by : [address] [address] Neutrophil pct 49.5 % [facility]U Comment: Interpretive Data Percent cell count reference ranges are not reported, since discordance with absolute values may lead to misinterpretation of CBC data. Current Interpretive Data was last revised on 2018. Testing performed by: [address] [address] Imm gran pct 0.1 % [facility] Comment: Interpretive Data Percent cell count reference ranges are not reported, since discordance with absolute values may lead to misinterpretation of CBC data. Current Interpretive Data was last revised on 2018. Testing performed by: [address] [address] Lymphocyte pct 40.2 % [facility] Comment: Interpretive Data Percent cell count reference ranges are not reported, since discordance with absolute values may lead to misinterpretation of CBC data. Current Interpretive Data was last revised on 2018. Testing performed by: [address] [address] Monocyte pct 8.1 % [facility] Comment: Interpretive Data Percent cell count reference ranges are not reported, since discordance with absolute values may lead to misinterpretation of CBC data. Current Interpretive Data was last revised on 2018. Testing performed by: [address] [address] Eosinophil pct 1.8 % [facility] Comment: Interpretive Data Percent cell count reference ranges are not reported, since discordance with absolute values may lead to misinterpretation of CBC data. Current Interpretive Data was last revised on 2018. Testing performed by: [address] [address] Basophil pct 0.3 % [facility] Comment: Interpretive Data Percent cell count reference ranges are not reported, since discordance with absolute values may lead to misinterpretation of CBC data. Current Interpretive Data was last revised on 2018. Testing performed by: [address] [address] Blood 01/04/2025 2:17 PM [employer] 01/04/2025 2:26 PM [employer] us Otilio Vargas MD LAB BLOOD ORDERABLES Final Resul t [facility] [address] [facility] Department [place] [address] * (ABNORMAL) CBC with auto differential (01/04/2025 2:17 PM [employer] FISHER) Pathologist [facility] WBC 6.8 3.8 - 9.9 K/cumm Comment:Testing performed by : [address] [address] Hgb 13.7 13.0 - 17.5 g/dL [facility] Comment:Testing performed by : [address] [address] Hct 40.5 38.9 - 50.3 % [facility] Comment:Testing performed by : [address] [address] Plt 285 150 - 400 K/cumm [facility] Comment:Testing performed by : [address] [address] MPV 8.7(L) 9.1 - 12.3 fL [facility] Comment:Testing performed by : [address], [address] RBC 4.35 4.30 - 5.80 M/cumm [facility] Comment:Testing performed by : [address] [address] MCV 93.1 81.3 - 96.4 fL [facility] Comment:Testing performed by : [address] [address] MCH 31.5 27.1 - 33.3 pg [facility] Comment:Testing performed by : [address], [address] MCHC 33.8 32.3 - 35.7 g/dL [facility] Comment:Testing performed by : [address] [address] RDW CV 14.5 11.1 - 14.9 % [facility] Comment:Testing performed by : [address] [address] RDW SD 49.9(H) 35.7 - 48.1 fL [facility] Comment:Testing performed by : [address] [address] NRBC abs 0.00 0.00 - 0.01 K/cumm [facility] Comment:Testing performed by : [address] [address] Blood Venous blood specimen / Unknown 01/04/2025 2:17 PM [employer] 01/04/2025 2:26 PM [employer] us Otilio Vargas MD LAB BLOOD ORDERABLES Final Resul t Performing Organization Address [facility] Co de Phone Number LEYDI[address] [address] * (ABNORMAL) Ethanol (01/04/2025 2:17 PM [employer]ER) Ethanol 207(H) <=10 mg/dL Comment: Interpretive Data Legal limit of intoxication > or = 80 mg/dL Levels > or = 400 mg/dL are potentially TOXIC. Current interpretive data was last revised on 2018. Testing performed by: [address] [address] Blood 01/04/2025 2:17 PM [employer] 01/04/2025 2:26 PM [employer] us Otilio Vargas MD LAB BLOOD ORDERABLES Final Resul t Performing Organization Address [facility] de Phone Number [place] [address] [facility] [place] [address] * (ABNORMAL) Comprehensive metabolic panel (01/04/2025 2:17 PM [employer] FISHER) Pathologist [facility] Sodium 140 135 - 145 mmol/L Comment:Testing performed by : [address] [address] Potassium, pl 3.8 3.3 - 4.9 mmol/L [facility] Comment:Testing performed by : [address] [address] Chloride 103 97 - 110 mmol/L [facility] Comment:Testing performed by : [address] [address] CO2 24 22 - 32 mmol/L [facility] Comment:Testing performed by : [address] [address] Anion gap 13 2 - 15 mmol/L [facility] Comment:Testing performed by : [address] [address] BUN 7 6 - 25 mg/dL [facility] Comment:Testing performed by : [address] [address] Creatinine 0.81 0.80 - 1.30 mg/dL [facility] Comment:Testing performed by : [address] [address] Glucose 90 70 - 199 mg/dL [facility] Comment: Interpretive Data Fasting glucose >/= 126 mg/dl is diagnostic for diabetes. Fasting is defined as no caloric intake for at least 8 hours. Fasting glucose between 100 mg/dl to 125 mg/dl is diagnostic of prediabetes. In a patient with classic symptoms of hyperglycemia or hyperglycemic crisis, a random glucose >/= 200 mg/dl is diagnostic for diabetes. In the absence of unequivocal hyperglycemia, results should be confirmed by repeat testing. The classification and Diagnosis of Diabetes Diabetes Care 202; 46: S19-S40. Current interpretive data was last revised 2022. Testing performed by: [address] [address] Calcium 9.8 8.5 - 10.3 mg/dL [facility] Comment:Testing performed by : [address] [address] Bilirubin, total 0.5 0.1 - 1.2 mg/dL [facility] Comment:Testing performed by : [address] [address] Protein, pl 8.0 6.5 - 8.5 g/dL [facility] Comment:Testing performed by : [address] [address] Albumin 4.4 3.5 - 5.0 g/dL [facility] Comment:Testing performed by : [address] [address] Alk phos 84 40 - 130 Units/L [facility] Comment:Testing performed by : [address] [address] ALT 40 7 - 55 Units/L [facility] Comment:Testing performed by : [address] [address] AST 54(H) 10 - 50 Units/L [facility] Comment:Testing performed by : [address] [address] Blood 01/04/2025 2:17 PM [employer] 01/04/2025 2:26 PM [employer] us Otilio Vargas MD LAB BLOOD ORDERABLES Final Resul t Performing Organization Address City/[facility]/ZIP Co de Phone Number LEYDI[address] [place] [address] * eGFR (12/14/2024 3:28 AM [employer]ER) eGFR >90 >=60 mL/min/1. 73 m2 Comment: Interpretive Data Reference Interval Normal >/= 90 mL/min/1.73m2 Mildly decreased* 60 - 89 mL/min/1.73m2 Mildly to moderately decreased 45 - 59 mL/min/1.73m2 Moderately to severely decreased 30 - 44 mL/min/1.73m2 Severely decreased 15 - 29 mL/min/1.73m2 Kidney Failure < 15 mL/min/1.73m2 *Relative to young adult level Estimated glomerular filtration rate is determined by the 2020 CKD-EPI equation recommended by the National Kidney Foundation (A Unifying Approach to GFR Estimation: Recommendations of the NKF-ASK Task Force on Reassessing the Inclusion of Race in Diagnosing Kidney Disease, JASN 2020). The CKD-EPI equation should not be used for patients with unstable renal function and has not been validated in children and those over 70. Current interpretive data was last reviewed 2021. Blood 12/14/2024 3:28 AM [employer] 12/14/2024 3:55 AM [employer] us Devin Rico MD LAB BLOOD ORDERABLES Final Result Performing Organization Address City/[facility]/ZIP Co de Phone Number [address] [place] [address] * (ABNORMAL) Comprehensive metabolic panel (12/14/2024 3:28 AM [employer]ER) Sodium 137 135 - 145 mmol/L Potassium, pl 4.4 3.3 - 4.9 mmol/L [facility] Comment:Hemolyzed; Potassium value may be falsely elevated by as much as 1.0 mmol/L. Suggest redraw and reanalysis. Chloride 103 97 - 110 mmol/L [facility] CO2 24 22 - 32 mmol/L [facility] Anion gap 10 2 - 15 mmol/L [facility] BUN 16 6 - 25 mg/dL [facility] Creatinine 0.79(L) 0.80 - 1.30 mg/dL [facility] Glucose 130 70 - 199 mg/dL [facility] Comment: Interpretive Data Fasting glucose >/= 126 mg/dl is diagnostic for diabetes. Fasting is defined as no caloric intake for at least 8 hours. Fasting glucose between 100 mg/dl to 125 mg/dl is diagnostic of prediabetes. In a patient with classic symptoms of hyperglycemia or hyperglycemic crisis, a random glucose >/= 200 mg/dl is diagnostic for diabetes. In the absence of unequivocal hyperglycemia, results should be confirmed by repeat testing. The classification and Diagnosis of Diabetes Diabetes Care 2021; 46: S19-S40. Current interpretive data was last revised 2022. Calcium 9.3 8.5 - 10.3 mg/dL [facility] Bilirubin, total <0.2 0.1 - 1.2 mg/dL [facility] Protein, pl 6.7 6.5 - 8.5 g/dL [facility] Albumin 3.6 3.5 - 5.0 g/dL [facility] Alk phos 73 40 - 130 Units/L [facility] ALT 13 7 - 55 Units/L [facility] AST See Comment 10 - 50 [facility] Comment:Credited; Hemolyzed Specimen Blood 12/14/2024 3:28 AM [employer]ER 12/14/2024 3:55 AM [employer] us Devin Rico MD LAB BLOOD ORDERABLES Final Result [facility] [address] [facility] [facility] Department [place] [address] * eGFR (12/13/2024 12:50 PM [employer]) eGFR >90 >=60 mL/min/1. 73 m2 Comment: Interpretive Data Reference Interval Normal >/= 90 mL/min/1.73m2 Mildly decreased* 60 - 89 mL/min/1.73m2 Mildly to moderately decreased 45 - 59 mL/min/1.73m2 Moderately to severely decreased 30 - 44 mL/min/1.73m2 Severely decreased 15 - 29 mL/min/1.73m2 Kidney Failure < 15 mL/min/1.73m2 *Relative to young adult level Estimated glomerular filtration rate is determined by the 2020 CKD-EPI equation recommended by the National Kidney Foundation (A Unifying Approach to GFR Estimation: Recommendations of the NKF-ASK Task Force on Reassessing the Inclusion of Race in Diagnosing Kidney Disease, JASN 2020). The CKD-EPI equation should not be used for patients with unstable renal function and has not been validated in children and those over 70. Current interpretive data was last reviewed 2021. Blood 12/13/2024 12:5 0 PM [employer]ER 12/13/2024 12:58 PM [employer]ER Devin Rico MD LAB BLOOD ORDERABLES Final Result [facility] [address] [facility] [facility] Department [place] [address] * Comprehensive metabolic panel (12/13/2024 12:50 PM [employer]ER) Sodium 136 135 - 145 mmol/L Potassium, pl 3.5 3.3 - 4.9 mmol/L [facility] Chloride 102 97 - 110 mmol/L [facility] CO2 24 22 - 32 mmol/L [facility] Anion gap 10 2 - 15 mmol/L [facility] BUN 18 6 - 25 mg/dL [facility] Creatinine 0.80 0.80 - 1.30 mg/dL [facility] Glucose 113 70 - 199 mg/dL [facility] Comment: Interpretive Data Fasting glucose >/= 126 mg/dl is diagnostic for diabetes. Fasting is defined as no caloric intake for at least 8 hours. Fasting glucose between 100 mg/dl to 125 mg/dl is diagnostic of prediabetes. In a patient with classic symptoms of hyperglycemia or hyperglycemic crisis, a random glucose >/= 200 mg/dl is diagnostic for diabetes. In the absence of unequivocal hyperglycemia, results should be confirmed by repeat testing. The classification and Diagnosis of Diabetes Diabetes Care 202; 46: S19-S40. Current interpretive data was last revised 2022. Calcium 9.3 8.5 - 10.3 mg/dL [facility] Bilirubin, total <0.2 0.1 - 1.2 mg/dL [facility] Protein, pl 6.8 6.5 - 8.5 g/dL [facility] Albumin 3.7 3.5 - 5.0 g/dL [facility] Alk phos 72 40 - 130 Units/L [facility] ALT 13 7 - 55 Units/L [facility] AST 15 10 - 50 Units/L [facility] Blood 12/13/2024 12:5 0 PM [employer]ER 12/13/2024 12:58 PM [employer] us Devin Rico MD LAB BLOOD ORDERABLES Final Result [facility] [address] [facility] [facility] Department [place] [address] * eGFR (12/12/2024 3:01 AM [employer]ER) eGFR >90 >=60 mL/min/1. 73 m2 Comment: Interpretive Data Reference Interval Normal >/= 90 mL/min/1.73m2 Mildly decreased* 60 - 89 mL/min/1.73m2 Mildly to moderately decreased 45 - 59 mL/min/1.73m2 Moderately to severely decreased 30 - 44 mL/min/1.73m2 Severely decreased 15 - 29 mL/min/1.73m2 Kidney Failure < 15 mL/min/1.73m2 *Relative to young adult level Estimated glomerular filtration rate is determined by the 2020 CKD-EPI equation recommended by the National Kidney Foundation (A Unifying Approach to GFR Estimation: Recommendations of the NKF-ASK Task Force on Reassessing the Inclusion of Race in Diagnosing Kidney Disease, JASN 2020). The CKD-EPI equation should not be used for patients with unstable renal function and has not been validated in children and those over 70. Current interpretive data was last reviewed 2021. Blood 12/12/2024 3:01 AM [employer]ER 12/12/2024 3:35 AM [employer]ER Devin Rico MD LAB BLOOD ORDERABLES Final Result Performing Organization Address [facility] Co de Phone Number [facility] [address] [address] * (ABNORMAL) CBC without differential (12/12/2024 3:01 AM SAL[employer] TROLL FISHER) [facility] WBC 12.1(H) 3.8 - 9.9 K/cumm Hgb 13.5 13.0 - 17.5 g/dL [facility] Hct 40.5 38.9 - 50.3 % [facility] Plt 277 150 - 400 K/cumm [facility] MPV 9.3 9.1 - 12.3 fL [facility] RBC 4.32 4.30 - 5.80 M/cumm [facility] MCV 93.8 81.3 - 96.4 fL [facility] MCH 31.3 27.1 - 33.3 pg [facility] MCHC 33.3 32.3 - 35.7 g/dL [facility] RDW CV 14.2 11.1 - 14.9 % [facility] RDW SD 49.0(H) 35.7 - 48.1 fL [facility] NRBC abs 0.00 0.00 - 0.01 K/cumm [facility] Blood 12/12/2024 3:01 AM [employer]ER 12/12/2024 3:34 AM [employer]ER us Davide Guevara MD LAB BLOOD ORDERABLES Final Result Performing Organization Address City/[facility]/ZIP Co de Phone Number [address] [place] [address] * Comprehensive metabolic panel (12/12/2024 3:01 AM [employer] FISHER) [facility] Sodium 137 135 - 145 mmol/L Potassium, pl 4.3 3.3 - 4.9 mmol/L [facility] Comment:Hemolyzed; Potassium value may be falsely elevated by as much as 1.0 mmol/L. Suggest redraw and reanalysis. Chloride 103 97 - 110 mmol/L [facility] CO2 24 22 - 32 mmol/L [facility] Anion gap 10 2 - 15 mmol/L [facility] BUN 17 6 - 25 mg/dL [facility] Creatinine 0.84 0.80 - 1.30 mg/dL [facility] Glucose 120 70 - 199 mg/dL [facility] Comment: Interpretive Data Fasting glucose >/= 126 mg/dl is diagnostic for diabetes. Fasting is defined as no caloric intake for at least 8 hours. Fasting glucose between 100 mg/dl to 125 mg/dl is diagnostic of prediabetes. In a patient with classic symptoms of hyperglycemia or hyperglycemic crisis, a random glucose >/= 200 mg/dl is diagnostic for diabetes. In the absence of unequivocal hyperglycemia, results should be confirmed by repeat testing. The classification and Diagnosis of Diabetes Diabetes Care 202; 46: S19-S40. Current interpretive data was last revised 2022. Calcium 9.6 8.5 - 10.3 mg/dL [facility] Bilirubin, total <0.2 0.1 - 1.2 mg/dL [facility] Protein, pl 6.9 6.5 - 8.5 g/dL [facility] Albumin 3.6 3.5 - 5.0 g/dL [facility] Alk phos 80 40 - 130 Units/L [facility] ALT 15 7 - 55 Units/L [facility] AST See Comment 10 - 50 [facility] Comment:Credited; Hemolyzed Specimen Blood 12/12/2024 3:01 AM [employer]ER 12/12/2024 3:35 AM [employer]ER us Devin Rico MD LAB BLOOD ORDERABLES Final Result [facility] [address] [facility] [facility] Department [place] [address] * eGFR (12/11/2024 4:39 AM [employer]ER) eGFR >90 >=60 mL/min/1. 73 m2 Comment: Interpretive Data Reference Interval Normal >/= 90 mL/min/1.73m2 Mildly decreased* 60 - 89 mL/min/1.73m2 Mildly to moderately decreased 45 - 59 mL/min/1.73m2 Moderately to severely decreased 30 - 44 mL/min/1.73m2 Severely decreased 15 - 29 mL/min/1.73m2 Kidney Failure < 15 mL/min/1.73m2 *Relative to young adult level Estimated glomerular filtration rate is determined by the 2020 CKD-EPI equation recommended by the National Kidney Foundation (A Unifying Approach to GFR Estimation: Recommendations of the NKF-ASK Task Force on Reassessing the Inclusion of Race in Diagnosing Kidney Disease, JASN 202). The CKD-EPI equation should not be used for patients with unstable renal function and has not been validated in children and those over 70. Current interpretive data was last reviewed 2021. Blood 12/11/2024 4:39 AM [employer] FISHER 12/11/2024 4:52 AM [employer]ER us Devin Rico MD LAB BLOOD ORDERABLES Final Result [place] [id number] [facility] Department [place] [address] * (ABNORMAL) CBC without differential (12/11/2024 4:39 AM [employer] FISHER) WBC 13.2(H) 3.8 - 9.9 K/cumm Hgb 12.7(L) 13.0 - 17.5 g/dL [facility] Hct 38.6(L) 38.9 - 50.3 % [facility] Plt 259 150 - 400 K/cumm [facility] MPV 9.0(L) 9.1 - 12.3 fL [facility] RBC 4.05(L) 4.30 - 5.80 M/cumm [facility] MCV 95.3 81.3 - 96.4 fL [facility] MCH 31.4 27.1 - 33.3 pg [facility] MCHC 32.9 32.3 - 35.7 g/dL [facility] RDW CV 14.1 11.1 - 14.9 % [facility] RDW SD 49.5(H) 35.7 - 48.1 fL [facility] NRBC abs 0.00 0.00 - 0.01 K/cumm [facility] Blood 12/11/2024 4:39 AM [employer]ER 12/11/2024 4:53 AM [employer]ER Yesika Lai CHRISTIAN EDUCATION DIRECTOR LAB BLOOD ORDERABLES Final R esult [facility] [address] [facility] [facility] Department [place] [address] * (ABNORMAL) Comprehensive metabolic panel (12/11/2024 4:39 AM SAL[employer]OLL FISHER) Sodium 136 135 - 145 mmol/L Potassium, pl 4.2 3.3 - 4.9 mmol/L [facility] Chloride 105 97 - 110 mmol/L [facility] CO2 22 22 - 32 mmol/L [facility] Anion gap 9 2 - 15 mmol/L [facility] BUN 12 6 - 25 mg/dL [facility] Creatinine 0.74(L) 0.80 - 1.30 mg/dL [facility] Glucose 109 70 - 199 mg/dL [facility] Comment: Interpretive Data Fasting glucose >/= 126 mg/dl is diagnostic for diabetes. Fasting is defined as no caloric intake for at least 8 hours. Fasting glucose between 100 mg/dl to 125 mg/dl is diagnostic of prediabetes. In a patient with classic symptoms of hyperglycemia or hyperglycemic crisis, a random glucose >/= 200 mg/dl is diagnostic for diabetes. In the absence of unequivocal hyperglycemia, results should be confirmed by repeat testing. The classification and Diagnosis of Diabetes Diabetes Care 2021; 46: S19-S40. Current interpretive data was last revised 2022. Calcium 9.6 8.5 - 10.3 mg/dL [facility] Bilirubin, total 0.3 0.1 - 1.2 mg/dL [facility] Protein, pl 6.7 6.5 - 8.5 g/dL [facility] Albumin 3.7 3.5 - 5.0 g/dL [facility] Alk phos 75 40 - 130 Units/L [facility] ALT 16 7 - 55 Units/L [facility] AST 16 10 - 50 Units/L [facility] Blood 12/11/2024 4:39 AM [employer]ER 12/11/2024 4:52 AM [employer]ER Devin Rico MD LAB BLOOD ORDERABLES Final Result Performing Organization Address [facility] Co de Phone Number [facility] [address] [address] * eGFR (12/10/2024 6:38 AM [employer] FISHER) Pathologist [facility] eGFR >90 >=60 mL/min/1. 73 m2 Comment: Interpretive Data Reference Interval Normal >/= 90 mL/min/1.73m2 Mildly decreased* 60 - 89 mL/min/1.73m2 Mildly to moderately decreased 45 - 59 mL/min/1.73m2 Moderately to severely decreased 30 - 44 mL/min/1.73m2 Severely decreased 15 - 29 mL/min/1.73m2 Kidney Failure < 15 mL/min/1.73m2 *Relative to young adult level Estimated glomerular filtration rate is determined by the 2020 CKD-EPI equation recommended by the National Kidney Foundation (A Unifying Approach to GFR Estimation: Recommendations of the NKF-ASK Task Force on Reassessing the Inclusion of Race in Diagnosing Kidney Disease, JASN 2020). The CKD-EPI equation should not be used for patients with unstable renal function and has not been validated in children and those over 70. Current interpretive data was last reviewed 2021. Blood 12/10/2024 6:38 AM [employer] FISHER 12/10/2024 7:22 AM [employer]ER Devin Rico MD LAB BLOOD ORDERABLES Final Result Performing Organization Address [facility] Co de Phone Number [facility] [address] [place] [address] * (ABNORMAL) Comprehensive metabolic panel (12/10/2024 6:38 AM SALMON TROLL FISHER) [facility] Sodium 136 135 - 145 mmol/L Potassium, pl 4.2 3.3 - 4.9 mmol/L [facility] Chloride 104 97 - 110 mmol/L [facility] CO2 23 22 - 32 mmol/L [facility] Anion gap 9 2 - 15 mmol/L [facility] BUN 14 6 - 25 mg/dL [facility] Creatinine 0.77(L) 0.80 - 1.30 mg/dL [facility] Glucose 115 70 - 199 mg/dL [facility] Comment: Interpretive Data Fasting glucose >/= 126 mg/dl is diagnostic for diabetes. Fasting is defined as no caloric intake for at least 8 hours. Fasting glucose between 100 mg/dl to 125 mg/dl is diagnostic of prediabetes. In a patient with classic symptoms of hyperglycemia or hyperglycemic crisis, a random glucose >/= 200 mg/dl is diagnostic for diabetes. In the absence of unequivocal hyperglycemia, results should be confirmed by repeat testing. The classification and Diagnosis of Diabetes Diabetes Care 202; 46: S19-S40. Current interpretive data was last revised 2022. Calcium 9.2 8.5 - 10.3 mg/dL [facility] Bilirubin, total 0.5 0.1 - 1.2 mg/dL [facility] Protein, pl 6.7 6.5 - 8.5 g/dL [facility] Albumin 3.7 3.5 - 5.0 g/dL [facility] Alk phos 69 40 - 130 Units/L [facility] ALT 20 7 - 55 Units/L [facility] AST 22 10 - 50 Units/L [facility] Blood 12/10/2024 6:38 AM [employer] FISHER 12/10/2024 7:22 AM [employer]ER us Devin Rico MD LAB BLOOD ORDERABLES Final Result Performing Organization Address City/State/[facility] Co co Phone Number [facility] [address] [facility] [facility] [place] [address] * eGFR (12/09/2024 3:39 AM SALMON [employer]OLL FISHER) eGFR >90 >=60 mL/min/1. 73 m2 Comment: Interpretive Data Reference Interval Normal >/= 90 mL/min/1.73m2 Mildly decreased* 60 - 89 mL/min/1.73m2 Mildly to moderately decreased 45 - 59 mL/min/1.73m2 Moderately to severely decreased 30 - 44 mL/min/1.73m2 Severely decreased 15 - 29 mL/min/1.73m2 Kidney Failure < 15 mL/min/1.73m2 *Relative to young adult level Estimated glomerular filtration rate is determined by the 2020 CKD-EPI equation recommended by the National Kidney Foundation (A Unifying Approach to GFR Estimation: Recommendations of the NKF-ASK Task Force on Reassessing the Inclusion of Race in Diagnosing Kidney Disease, JASN 2020). The CKD-EPI equation should not be used for patients with unstable renal function and has not been validated in children and those over 70. Current interpretive data was last reviewed 2021. Blood 12/09/2024 3:39 AM [employer] TROLL FISHER 12/09/2024 3:47 AM [employer]ER us Devin Rico MD LAB BLOOD ORDERABLES Final Result [place] [id number] [facility] [place] [address] * (ABNORMAL) Differential, auto (12/09/2024 3:39 AM [employer] FISHER) Neutrophil abs 8.1(H) 1.5 - 6.5 K/cumm Imm gran abs 0.0 0.0 - 0.1 K/cumm [facility] Lymphocyte abs 0.8 0.8 - 3.3 K/cumm [facility] Monocyte abs 0.4 0.2 - 0.8 K/cumm [facility] Eosinophil abs 0.0 0.0 - 0.5 K/cumm [facility] Basophil abs 0.0 0.0 - 0.1 K/cumm [facility] Neutrophil pct 87.0 % [facility] Comment: Interpretive Data Percent cell count reference ranges are not reported, since discordance with absolute values may lead to misinterpretation of CBC data. Current Interpretive Data was last revised on 2018. Imm gran pct 0.2 % [facility] Comment: Interpretive Data Percent cell count reference ranges are not reported, since discordance with absolute values may lead to misinterpretation of CBC data. Current Interpretive Data was last revised on 2018. Lymphocyte pct 8.6 % [facility] Comment: Interpretive Data Percent cell count reference ranges are not reported, since discordance with absolute values may lead to misinterpretation of CBC data. Current Interpretive Data was last revised on 2018. Monocyte pct 4.2 % [facility] Comment: Interpretive Data Percent cell count reference ranges are not reported, since discordance with absolute values may lead to misinterpretation of CBC data. Current Interpretive Data was last revised on 2018. Eosinophil pct 0.0 % [facility] Comment: Interpretive Data Percent cell count reference ranges are not reported, since discordance with absolute values may lead to misinterpretation of CBC data. Current Interpretive Data was last revised on 2018. Basophil pct 0.0 % [facility] Comment: Interpretive Data Percent cell count reference ranges are not reported, since discordance with absolute values may lead to misinterpretation of CBC data. Current Interpretive Data was last revised on 2018. Blood 12/09/2024 3:39 AM [employer]ER 12/09/2024 3:47 AM [employer]ER us Devin Rico MD LAB BLOOD ORDERABLES Final Result [place] [address] [facility] Department [place] [address] * (ABNORMAL) CBC with auto differential (12/09/2024 3:39 AM SAL[employer] FISHER) Pathologist [facility] WBC 9.3 3.8 - 9.9 K/cumm Hgb 13.5 13.0 - 17.5 g/dL [facility] Hct 39.2 38.9 - 50.3 % [facility] Plt 268 150 - 400 K/cumm [facility] MPV 8.8(L) 9.1 - 12.3 fL [facility] RBC 4.27(L) 4.30 - 5.80 M/cumm [facility] MCV 91.8 81.3 - 96.4 fL [facility] MCH 31.6 27.1 - 33.3 pg [facility] MCHC 34.4 32.3 - 35.7 g/dL [facility] RDW CV 13.9 11.1 - 14.9 % [facility] RDW SD 46.6 35.7 - 48.1 fL [facility] NRBC abs 0.00 0.00 - 0.01 K/cumm [facility] Blood 12/09/2024 3:39 AM [employer] FISHER 12/09/2024 3:47 AM [employer]ER us Devin Rico MD LAB BLOOD ORDERABLES Final Result Performing Organization Address [facility] Co de Phone Number [address] [place] [address] * Magnesium (12/09/2024 3:39 AM SAL[employer] FISHER) Magnesium 1.9 1.4 - 2.5 mg/dL Blood 12/09/2024 3:39 AM [employer]ER 12/09/2024 3:47 AM [employer]ER us Yesika Lai NP LAB BLOOD ORDERABLES Final R esult Performing Organization Address City/[facility] Co de Phone Number [address] [place] [address] * Lipid panel (12/09/2024 3:39 AM [employer]ER) Cholesterol 156 30 - 199 mg/dL Comment: Interpretive Data Ages < or = 19 years Acceptable: <170 mg/dL Borderline high: 170-199 mg/dL High: >or= 200 mg/dL Ages > or = 20 years Desirable: <200 mg/dL Borderline high: 200-239 mg/dL High: >or= 240 mg/dL Literature References: 1. Expert Panel on Integrated Guidelines for Cardiovascular Health and Risk Reduction in Children and Adolescents. Pediatrics 2011;128:S213 2. NCEP Expert Panel. Circulation 2004;110:227 Current Interpretive Data was last revised on 2018. Triglycerides 55 <=149 mg/dL [facility] Comment: Interpretive Data Ages < or = 9 years Acceptable: <75 mg/dL Borderline high: 75-99 mg/dL High: >or= 100 mg/dL Ages 10 to 20 years Acceptable: <90 mg/dL Borderline high: 90-129 mg/dL High: >or= 130 mg/dL Ages > or = 20 years Desirable: <150 mg/dL Borderline high: 150-199 mg/dL High: 200-499 mg/dL Very high: >or= 499 mg/dL Literature References: 1. Expert Panel on Integrated Guidelines for Cardiovascular Health and Risk Reduction in Children and Adolescents. Pediatrics 2011;128:S213 2. NCEP Expert Panel. Circulation 2004;110:227 Current Interpretive Data was last revised on 2018. HDL 64 >=40 mg/dL [facility] Comment: Interpretive Data Ages < or = 19 years Acceptable: >45 mg/dL Borderline low: 40-45 mg/dL Low: <40 mg/dL Ages > or = 20 years Desirable: >or= 60 mg/dL Low: <40 mg/dL Literature References: 1. Expert Panel on Integrated Guidelines for Cardiovascular Health and Risk Reduction in Children and Adolescents. Pediatrics 2011;128:S213 2. NCEP Expert Panel. Circulation 2004;110:227 Current Interpretive Data was last revised on 2018. LDL, calculated 81 <=129 mg/dL [facility] Comment: Interpretive Data Ages < or = 19 years Acceptable: <110 mg/dL Borderline high: 110-129 mg/dL High: >or= 130 mg/dL Ages > or = 20 years Optimal: <100 mg/dL Near optimal: 100-129 mg/dL Borderline high: 130-159 mg/dL High: >160 mg/dL Calculated using the Anirudh LDL-C estimating equation. This equation was implemented on 2024. Prior to this date LDL-C was estimated using the Friedewald equation. Literature References: 1. Expert Panel on Integrated Guidelines for Cardiovascular Health and Risk Reduction in Children and Adolescents. Pediatrics 2011;128:S213 2. NCEP Expert Panel. Circulation 2004;110:227 3. Anirudh Villagomez al. ROE Cardiol. 2020 March 02;5(5):540-548. doi: 10.1001/jamacardio.2020.0013 Current Interpretive Data was last revised on 2024. Non-HDL Cholesterol 92 mg/dL [facility] Comment: Interpretive Data Ages < or = 19 years Acceptable: <120 mg/dL Borderline high: 120-144 mg/dL High: >145 mg/dL Ages > or = 20 years When triglycerides are >200 mg/dL, Non-HDL cholesterol is a secondary target of therapy with treatment goals that are 30 mg/dL greater than the LDL cholesterol target. Literature References: 1. Expert Panel on Integrated Guidelines for Cardiovascular Health and Risk Reduction in Children and Adolescents. Pediatrics 2011;128:S213 2. NCEP Expert Panel. Circulation 2004;110:227 Current Interpretive Data was last revised on 2018. Chol/HDL ratio 2 [facility] Blood 12/09/2024 3:39 AM [employer]ER 12/09/2024 3:47 AM [employer]ER Yesika Lai NP LAB BLOOD ORDERABLES Final R esult [facility] [address] [facility] Department [place] [address] * (ABNORMAL) Comprehensive metabolic panel (12/09/2024 3:39 AM [employer]ER) Sodium 134(L) 135 - 145 mmol/L Potassium, pl 4.3 3.3 - 4.9 mmol/L [facility] Chloride 103 97 - 110 mmol/L [facility] CO2 23 22 - 32 mmol/L [facility] Anion gap 8 2 - 15 mmol/L [facility] BUN 11 6 - 25 mg/dL [facility] Creatinine 0.77(L) 0.80 - 1.30 mg/dL [facility] Glucose 136 70 - 199 mg/dL [facility] Comment: Interpretive Data Fasting glucose >/= 126 mg/dl is diagnostic for diabetes. Fasting is defined as no caloric intake for at least 8 hours. Fasting glucose between 100 mg/dl to 125 mg/dl is diagnostic of prediabetes. In a patient with classic symptoms of hyperglycemia or hyperglycemic crisis, a random glucose >/= 200 mg/dl is diagnostic for diabetes. In the absence of unequivocal hyperglycemia, results should be confirmed by repeat testing. The classification and Diagnosis of Diabetes Diabetes Care 202; 46: S19-S40. Current interpretive data was last revised 2022. Calcium 9.3 8.5 - 10.3 mg/dL [facility] Bilirubin, total 0.7 0.1 - 1.2 mg/dL [facility] Protein, pl 7.1 6.5 - 8.5 g/dL [facility] Albumin 3.8 3.5 - 5.0 g/dL [facility] Alk phos 79 40 - 130 Units/L [facility] ALT 25 7 - 55 Units/L [facility] AST 35 10 - 50 Units/L [facility] Blood 12/09/2024 3:39 AM [employer]ER 12/09/2024 3:47 AM [employer]ER Devin Rico MD LAB BLOOD ORDERABLES Final Result Performing Organization Address City/[facility]/ZIP Co de Phone Number [facility] [address] [place] [place] [address] * Influenza A/B, RSV, and COVID-19 PCR Nasopharyngeal (12/08/2024 8:17 PM [employer]ER) COVID-19 RNA Negative Negative Influenza A RNA Negative Negative [facility] Influenza B RNA Negative Negative [facility] RSV RNA Negative Negative [facility] Comment: Interpretive data: Testing performed by [facility]. This test is performed using the [employer] Xpert Xpress CoV-2/Flu/RSV plus assay. This is a multiplex, real-time reverse transcriptase PCR assay intended for the qualitative detection of nucleic acid from SARS-CoV-2, influenza A, influenza B, and respiratory syncytial virus. This assay has been cleared by the [place] Food and Drug administration. The performance characteristics have been verified by the [facility]. Results must be considered in the clinical context, and a negative result does not rule out infection. Interpretive Data last revised 2023 Nasopharyngeal 12/08/2024 8: 17 PM [employer]ER 12/08/2024 8:28 PM [employer]ER Narrative [facility] - 12/08/2024 9:16 PM [employer]ER Is the Patient experiencing symptoms consistent with COVID?->Yes Devin Rico MD LAB MICROBIOLOGY - GE NERAL ORDERABLES Final Result Performing Organization Address City/[facility]/ZIP Co de Phone Number [place] [id number] [facility] [place] [address] * eGFR (12/08/2024 7:28 AM [employer] FISHER) eGFR >90 >=60 mL/min/1. 73 m2 Comment: Interpretive Data Reference Interval Normal >/= 90 mL/min/1.73m2 Mildly decreased* 60 - 89 mL/min/1.73m2 Mildly to moderately decreased 45 - 59 mL/min/1.73m2 Moderately to severely decreased 30 - 44 mL/min/1.73m2 Severely decreased 15 - 29 mL/min/1.73m2 Kidney Failure < 15 mL/min/1.73m2 *Relative to young adult level Estimated glomerular filtration rate is determined by the 2020 CKD-EPI equation recommended by the National Kidney Foundation (A Unifying Approach to GFR Estimation: Recommendations of the NKF-ASK Task Force on Reassessing the Inclusion of Race in Diagnosing Kidney Disease, JASN 2020). The CKD-EPI equation should not be used for patients with unstable renal function and has not been validated in children and those over 70. Current interpretive data was last reviewed 2021. Blood 12/08/2024 7:28 AM [employer] FISHER 12/08/2024 7:33 AM [employer]ER Alex Lunsford PA LAB BLOOD ORDERABLES Final Result Performing Organization Address [facility] Co de Phone Number [address] [place] [address] * Magnesium (12/08/2024 7:28 AM [employer] FISHER) Pathologist [facility] Magnesium 2.0 1.4 - 2.5 mg/dL Blood 12/08/2024 7:28 AM [employer]ER 12/08/2024 7:33 AM [employer]ER Yesika Lai CHRISTIAN EDUCATION DIRECTOR LAB BLOOD ORDERABLES Final R esult Performing Organization Address City/[facility]/ZIP Co de Phone Number [address] [place] [employer] [place] [address] * (ABNORMAL) Basic metabolic panel (12/08/2024 7:28 AM SAL[employer]OLL FISHER) Pathologist [facility] Sodium 137 135 - 145 mmol/L Potassium, pl 4.0 3.3 - 4.9 mmol/L [facility] Comment:Hemolyzed; Potassium value may be falsely elevated by as much as 1.0 mmol/L. Suggest redraw and reanalysis. Chloride 99 97 - 110 mmol/L [facility] CO2 21(L) 22 - 32 mmol/L [facility] Anion gap 17(H) 2 - 15 mmol/L [facility] BUN 10 6 - 25 mg/dL [facility] Creatinine 0.92 0.80 - 1.30 mg/dL [facility] Glucose 83 70 - 199 mg/dL [facility] Comment: Interpretive Data Fasting glucose >/= 126 mg/dl is diagnostic for diabetes. Fasting is defined as no caloric intake for at least 8 hours. Fasting glucose between 100 mg/dl to 125 mg/dl is diagnostic of prediabetes. In a patient with classic symptoms of hyperglycemia or hyperglycemic crisis, a random glucose >/= 200 mg/dl is diagnostic for diabetes. In the absence of unequivocal hyperglycemia, results should be confirmed by repeat testing. The classification and Diagnosis of Diabetes Diabetes Care 202; 46: S19-S40. Current interpretive data was last revised 2022. Calcium 9.5 8.5 - 10.3 mg/dL [facility] Blood 12/08/2024 7:28 AM [employer] FISHER 12/08/2024 7:33 AM [employer] FISHER Alex PEREZ LAB BLOOD ORDERABLES Final Result [facility] [address] [facility] [place] [address] * Troponin T high-sensitivity 6-hour (12/08/2024 6:17 AM [employer] FISHER) Trop T hs 8 <=22 ng/L Comment: Interpretive Data For further hscTnT resources including the diagnostic algorithm and an aid in interpretation, copy and paste this link: [email or web address].testcatalog.org/show/hsTrop Current Interpretive Data last revised 2020. Trop T hs delta 0 ng/L [facility] Trop T hs interp Insignificant [facility] Blood 12/08/2024 6:17 AM [employer] FISHER 12/08/2024 6:19 AM [employer]ER Doc PEREZ LAB BLOOD ORDERABLES Final R esult Performing Organization Address [facility] Co de Phone Number RAMU LEMUS [address] [place] [id number] * Troponin T high-sensitivity 2-hour (12/08/2024 2:24 AM [employer]LL FISHER) Trop T hs 9 <=22 ng/L Comment: Interpretive Data For further hscTnT resources including the diagnostic algorithm and an aid in interpretation, copy and paste this link: https://nrl.testcatalog.org/show/hsTrop Current Interpretive Data last revised 2020. Trop T hs delta 1 ng/L [facility] Trop T hs interp Insignificant [facility] Blood 12/08/2024 2:24 AM [employer]LL FISHER 12/08/2024 2:34 AM [employer] FISHER Doc PEREZ LAB BLOOD ORDERABLES Final R esult Performing Organization Address [facility] Co de Phone Number [facility] [address] [address] * XR Chest 1 Vw Portable (12/08/2024 12:54 AM [employer]LL FISHER) Anatomical Region Laterality Modality Body, Chest N/A Computed Radiogr aphy 12/08/2024 1:26 AM [employer]ER Narrative 12/08/2024 1:26 AM [employer] FISHER EXAM DESCRIPTION: XR CHEST 1 VIEW REASON FOR STUDY: dyspnea BIBEMS for abd pain. Drinking on his medicine and throwing up tonight. Pt reports drinking on naltrexone and throwing up streaky blood. Pt also endorses SOB. TECHNIQUE: 1 radiographic view(s) of the chest. COMPARISON: 11/10/2024 FINDINGS: LUNGS: No focal opacity, pleural effusion, or pneumothorax. HEART/MEDIASTINUM: Cardiac silhouette normal in size. Mediastinal and hilar contours appear normal. LINES/TUBES: None. BONES: No acute osseous abnormality. Old, healed left rib fractures. IMPRESSION: No acute cardiopulmonary abnormality. THIS IS AN ELECTRONICALLY VERIFIED FINAL REPORT 12/08/2024 1:26 AM - Electronically signed by Frank Damon M.D. KT T: Report ID: [id number] Reading Location: [place] [address] Procedure Note Frank Damon MD - 12/08/2024 EXAM DESCRIPTION: XR CHEST 1 VIEW REASON FOR STUDY: dyspnea BIBEMS for abd pain. Drinking on his medicine and throwing up tonight. Pt reports drinking on naltrexone and throwing up streaky blood. Pt alsoendorses SOB. TECHNIQUE: 1 radiographic view(s) of the chest. COMPARISON: 11/10/2024 FINDINGS: LUNGS: No focal opacity, pleural effusion, or pneumothorax. HEART/MEDIASTINUM: Cardiac silhouette normal in size. Mediastinal andhilar contours appear normal. LINES/TUBES: None. BONES: No acute osseous abnormality. Old, healed left rib fractures. IMPRESSION: No acute cardiopulmonary abnormality. THIS IS AN ELECTRONICALLY VERIFIED FINAL REPORT 12/08/2024 1:26 AM - Electronically signed by Frank Damon M.D. KT T: Report ID: [id number] Reading Location: [place] [address] Doc PEREZ IMG XR PROCEDURES Final Resu lt * ECG 12 lead (12/08/2024 12:22 AM SALMON TROLL FISHER) Ventricular Rate EKG/Min 102 BPM [facility] Atrial Rate 102 BPM [facility] CO-Interval (MSEC) 134 ms [facility] QRS-Interval (MSEC) 74 ms [facility] QT-Interval (MSEC) 336 ms [facility] QTc 437 ms [facility] P [place] 80 degrees [facility] R [place] 5 degrees [facility] T [place] 61 degrees [facility] Diagnosis Sinus tachycardia Otherwise normal ECG When compared with ECG of 06-OCT-2024 05:45, Questionable change in QRS axis Confirmed by BECKY TURNER M.D. ([id number]) on 12/08/2024 9:21:09 PM [facility] 12/08/2024 12:2 2 AM [employer]LL FISHER 12/08/2024 9:21 PM SALMON TROLL FISHER Doc PEREZ ECG ORDERABLES Final Result [facility] * Troponin T high-sensitivity series (baseline, 2hr, 4hr, 6hr) (12/08/2024 12:22 AM SALMON TROLL FISHER) Trop T hs 8 <=22 ng/L Comment: Interpretive Data For further hscTnT resources including the diagnostic algorithm and an aid in interpretation, copy and paste this link: https://nrl.testcatalog.org/show/hsTrop Current Interpretive Data last revised 2020. Blood 12/08/2024 12:2 2 AM [employer]OLL FISHER 12/08/2024 12:32 AM SALMON TROLL FISHER us Doc PEREZ LAB BLOOD ORDERABLES Final R esult Performing Organization Address City/[facility]/ZIP Co de Phone Number [facility] [place] [address] * eGFR (12/08/2024 12:22 AM SALMON TROLL FISHER) eGFR >90 >=60 mL/min/1. 73 m2 Comment: Interpretive Data Reference Interval Normal >/= 90 mL/min/1.73m2 Mildly decreased* 60 - 89 mL/min/1.73m2 Mildly to moderately decreased 45 - 59 mL/min/1.73m2 Moderately to severely decreased 30 - 44 mL/min/1.73m2 Severely decreased 15 - 29 mL/min/1.73m2 Kidney Failure < 15 mL/min/1.73m2 *Relative to young adult level Estimated glomerular filtration rate is determined by the 2020 CKD-EPI equation recommended by the National Kidney Foundation (A Unifying Approach to GFR Estimation: Recommendations of the NKF-ASK Task Force on Reassessing the Inclusion of Race in Diagnosing Kidney Disease, JASN 2020). The CKD-EPI equation should not be used for patients with unstable renal function and has not been validated in children and those over 70. Current interpretive data was last reviewed 2021. Blood 12/08/2024 12:2 2 AM [employer] TROLL FISHER 12/08/2024 12:32 AM SALMON TROLL FISHER us Doc PEREZ LAB BLOOD ORDERABLES Final R esult [facility] [address] [facility] [place] [address] * Differential, auto (12/08/2024 12:22 AM SALMON TROLL FISHER) Pathologist [facility] Neutrophil abs 2.1 1.5 - 6.5 K/cumm Imm gran abs 0.0 0.0 - 0.1 K/cumm [facility] Lymphocyte abs 3.1 0.8 - 3.3 K/cumm [facility] Monocyte abs 0.6 0.2 - 0.8 K/cumm [facility] Eosinophil abs 0.2 0.0 - 0.5 K/cumm [facility] Basophil abs 0.1 0.0 - 0.1 K/cumm [facility] Neutrophil pct 34.5 % [facility] Comment: Interpretive Data Percent cell count reference ranges are not reported, since discordance with absolute values may lead to misinterpretation of CBC data. Current Interpretive Data was last revised on 2018. Imm gran pct 0.2 % [facility] Comment: Interpretive Data Percent cell count reference ranges are not reported, since discordance with absolute values may lead to misinterpretation of CBC data. Current Interpretive Data was last revised on 2018. Lymphocyte pct 51.1 % [facility] Comment: Interpretive Data Percent cell count reference ranges are not reported, since discordance with absolute values may lead to misinterpretation of CBC data. Current Interpretive Data was last revised on 2018. Monocyte pct 10.7 % [facility] Comment: Interpretive Data Percent cell count reference ranges are not reported, since discordance with absolute values may lead to misinterpretation of CBC data. Current Interpretive Data was last revised on 2018. Eosinophil pct 2.7 % [facility] Comment: Interpretive Data Percent cell count reference ranges are not reported, since discordance with absolute values may lead to misinterpretation of CBC data. Current Interpretive Data was last revised on 2018. Basophil pct 0.8 % [facility] Comment: Interpretive Data Percent cell count reference ranges are not reported, since discordance with absolute values may lead to misinterpretation of CBC data. Current Interpretive Data was last revised on 2018. Blood 12/08/2024 12:2 2 AM SALMON TROLL FISHER 12/08/2024 12:32 AM SALMON TROLL FISHER Doc PEREZ LAB BLOOD ORDERABLES Final R esult Performing Organization Address [facility] Co de Phone Number [address] [employer] [place], [place] [id number] * (ABNORMAL) CBC with auto differential (12/08/2024 12:22 AM SALMON TROLL FISHER) WBC 6.0 3.8 - 9.9 K/cumm Hgb 14.8 13.0 - 17.5 g/dL [facility] Hct 42.1 38.9 - 50.3 % [facility] Plt 302 150 - 400 K/cumm [facility] MPV 8.6(L) 9.1 - 12.3 fL [facility] RBC 4.72 4.30 - 5.80 M/cumm [facility] MCV 89.2 81.3 - 96.4 fL [facility] MCH 31.4 27.1 - 33.3 pg [facility] MCHC 35.2 32.3 - 35.7 g/dL [facility] RDW CV 13.9 11.1 - 14.9 % [facility] RDW SD 45.0 35.7 - 48.1 fL [facility] NRBC abs 0.00 0.00 - 0.01 K/cumm [facility] Blood 12/08/2024 12:2 2 AM [employer] [employer] [facility]ER 12/08/2024 12:32 AM [employer]ER Doc PEREZ LAB BLOOD ORDERABLES Final R esult Performing Organization Address [facility] Co de Phone Number [address] [employer] [place], [place] [id number] * Lipase (12/08/2024 12:22 AM SALMON TROLL FISHER) Pathologist [facility] Lipase 21 10 - 99 Units/L Blood 12/08/2024 12:2 2 AM [employer]ER 12/08/2024 12:32 AM [employer] Doc PEREZ LAB BLOOD ORDERABLES Final R [facility] Performing Organization Address [facility] de Phone Number [id number] [place] [address] * (ABNORMAL) Ethanol (12/08/2024 12:22 AM SALMON TROLL FISHER) Pathologist [facility] Ethanol 178(H) <=10 mg/dL Comment: Interpretive Data Legal limit of intoxication > or = 80 mg/dL Levels > or = 400 mg/dL are potentially TOXIC. Current interpretive data was last revised on 2018. Blood 12/08/2024 12:2 2 AM [employer]ER 12/08/2024 12:32 AM [employer]ER Doc PEREZ LAB BLOOD ORDERABLES Final R [facility] Performing Organization Address [facility] de Phone Number [address] [address] * (ABNORMAL) Comprehensive metabolic panel (12/08/2024 12:22 AM SALMON TROLL FISHER) [facility] Sodium 134(L) 135 - 145 mmol/L Potassium, pl 3.8 3.3 - 4.9 mmol/L [facility] Chloride 97 97 - 110 mmol/L [facility] CO2 20(L) 22 - 32 mmol/L [facility] Anion gap 17(H) 2 - 15 mmol/L [facility] BUN 9 6 - 25 mg/dL [facility] Creatinine 0.81 0.80 - 1.30 mg/dL [facility] Glucose 95 70 - 199 mg/dL [facility] Comment: Interpretive Data Fasting glucose >/= 126 mg/dl is diagnostic for diabetes. Fasting is defined as no caloric intake for at least 8 hours. Fasting glucose between 100 mg/dl to 125 mg/dl is diagnostic of prediabetes. In a patient with classic symptoms of hyperglycemia or hyperglycemic crisis, a random glucose >/= 200 mg/dl is diagnostic for diabetes. In the absence of unequivocal hyperglycemia, results should be confirmed by repeat testing. The classification and Diagnosis of Diabetes Diabetes Care 2021; 46: S19-S40. Current interpretive data was last revised 2022. Calcium 9.4 8.5 - 10.3 mg/dL [facility] Bilirubin, total 0.4 0.1 - 1.2 mg/dL [facility] Protein, pl 8.1 6.5 - 8.5 g/dL [facility] Albumin 4.3 3.5 - 5.0 g/dL [facility] Alk phos 92 40 - 130 Units/L [facility] ALT 30 7 - 55 Units/L [facility] AST 67(H) 10 - 50 Units/L [facility] Blood 12/08/2024 12:2 2 AM [employer]ER 12/08/2024 12:32 AM [employer]ER Doc PEERZ LAB BLOOD ORDERABLES Final R esult [facility] [address] [facility] Department [place] [address] * XR Chest PA Lateral 2 Views (11/10/2024 12:08 PM SAL[employer] FISHER) Anatomical Region Laterality Modality Body, Chest N/A Computed Radiogr aphy 11/10/2024 12:3 2 PM [employer]ER Impressions 11/10/2024 12:32 PM [employer]ER There is no consolidation, pleural effusion, pneumothorax. A calcified granuloma projects over the right lung base. Old healed left-sided rib fractures are noted. The cardiomediastinal silhouette is within normal limits. Electronically signed by: Yogesh Flaherty M.D. Narrative 11/10/2024 12:32 PM [employer]ER EXAMINATION: XR CHEST PA LATERAL 2 VIEWS COMPARISON: 10/06/2024 Procedure Note Yogesh Flaherty MD PhD - 11/10/2024 EXAMINATION: XR CHEST PA LATERAL 2 VIEWS COMPARISON: 10/06/2024 IMPRESSION: There is no consolidation, pleural effusion, pneumothorax. A calcified granuloma projects over the right lung base. Old healed left-sided rib fractures are noted. The cardiomediastinal silhouette is within normal limits. Electronically signed by: Yogesh Flaherty M.D. Nick Foster MD IMG XR PROCEDURES Final Resul t * (ABNORMAL) Urinalysis reflex to microscopic and culture Urine (11/10/2024 11:33 AM [employer] FISHER) Color, ur Yellow Yellow Clarity, ur Clear Clear [facility] Specific gravity, ur 1.024 1.003 - 1.[address] [facility] pH, urine 7.5 [facility] Comment: Interpretive Data U rine pH is affected by diet, medications, systemic acid-base disturbances, and renal tubular function. pH may affect urinary stone formation. For example, urine pH below 6.0 may help reduce the tendency for calcium phosphate stones and pH greater than 6.0 may reduce the tendency for uric acid stone formation. Source: [facility] [employer] Current Interpretive Data was last revised on 2017 Protein, ur ql 1+(A) Negative [facility] Glucose, ur ql Negative Negative [facility] Ketones, ur Trace Negative [facility] Bilirubin, ur Negative Negative [facility] Blood, ur Negative Negative [facility] Urobilinogen, ur 2.0(A) <2.0 mg/dL [facility] Nitrite, ur Negative Negative [facility] Leukocyte esterase, ur Negative Negative [facility] UA reflex comment Reflex to microscopic UA will be performed. [facility] Urine 11/10/2024 11:3 3 AM [employer]ER 11/10/2024 11:41 AM [employer]ER Nick Foster MD LAB MICROBIOLOGY - GENERAL OR DERABLES Final Result [facility] One [facility] Department [place] [address] * (ABNORMAL) Drugs of Abuse Screen, Urine without Confirmation (11/10/2024 11:33 AM SALMON TROLL FISHER) [facility] Amphetamine, ur Not Detected CutOff 500ng/mL Comment: Interpretive Data - Amphetamines: Samples containing greater than 500 ng/mL d-methamphetamine or other cross-reacting amphetamine compounds are reported as positive. Amphetamine immunoassays are subject to significant false positive rates due to cross-reactivity of non-amphetamine drugs. Confirmatory testing required for definitive results. Current Interpretive Data was last reviewed 2023. Barbiturates, ur Not Detected CutOff 200ng/mL [facility] Comment: Interpretive Data - Barbiturates: Samples containing greater than 200 ng/mL secobarbital or other cross-reacting barbiturate compounds are reported as positive. False positive and false negative results are possible. Confirmatory testing required for definitive results. Current Interpretive Data was last reviewed 2023. Benzodiazepines, ur Screen Positive, presumptive (A) CutOff 100ng/mL [facility] Comment: Interpretive Data - Benzodiazepines: Samples containing greater than 100 ng/mL nordiazepam or other cross-reacting compounds are reported as positive. False positive and false negative results are possible. Confirmatory testing required for definitive results. Current Interpretive Data was last reviewed 2023. Cannabinoids, ur Screen Positive, presumptive (A) CutOff 50 ng/mL [facility] Comment: Interpretive Data - Cannabinoids: Samples containing greater than 50 ng/mL delta-9 THC -COOH or other cross- reacting compounds are reported as positive. False positive and false negative results are possible. Confirmatory testing required for definitive results. Current Interpretive Data was last reviewed 2023. Cocaine, ur Screen Positive, presumptive (A) CutOff 150ng/mL [facility] Comment: Interpretive Data - Cocaine: Samples containing greater than 150 ng/mL benzoylecgonine or other cross- reacting compounds are reported as positive. False positive and false negative results are possible. Confirmatory testing required for definitive results. Current Interpretive Data was last reviewed 2023. Fentanyl, Ur Not Detected CutOff 5 ng/mL [facility] Comment: Interpretive Data - Fentanyl: Samples containing greater than 5 ng/mL norfentanyl, fentanyl, or other cross-reacting fentanyl compounds are reported as positive. False positive and false negative results are possible. Confirmatory testing required for definitive results. Current Interpretive Data was last reviewed 2024. Methadone, ur Not Detected CutOff 300ng/mL [facility] Comment: Interpretive Data - Methadone: Samples containing greater than 300 ng/mL d,l-methadone or other cross-reacting compounds are reported as positive. False positive and false negative results are possible. Confirmatory testing required for definitive results. Current Interpretive Data was last reviewed 2023. Opiates, ur Not Detected CutOff 300ng/mL [facility] Comment: Interpretive Data - Opiates: Samples containing greater than 300 ng/mL morphine or other cross-reacting compounds are reported as positive. False positive and false negative results are possible. Confirmatory testing required for definitive results. Current Interpretive Data was last reviewed 2023. Oxycodone, ur Not Detected CutOff 100ng/mL [facility] Comment: Interpretive Data - Oxycodone: Samples containing greater than 100 ng/mL oxycodone or other cross-reacting compounds are reported as positive. False positive and false negative results are possible. Confirmatory testing required for definitive results. Current Interpretive Data was last reviewed 2023. Phencyclidine, ur Not Detected CutOff 25 ng/mL [facility] Comment: Interpretive Data - Phencyclidine: Samples containing greater than 25 ng/mL phencyclidine or other cross-reacting compounds are reported as positive. False positive and false negative results are possible. Confirmatory testing required for definitive results. Current Interpretive Data was last reviewed 2023. Urine Creatinine 190 mg/dL [facility] Comment: Interpretive Data Urine Creatinine: < 10 mg/dL is extremely dilute = or > 10 but < 20 mg/dL is dilute = or > 20 mg/dL is normal Current Interpretive Data was last revised on 2018. Urine 11/10/2024 11:3 3 AM [employer]ER 11/10/2024 11:41 AM [employer] FISHER Narrative [facility] - 11/10/2024 12:26 PM [employer]MON [employer]OLL FISHER Drug of Abuse screening is performed by immunoassay for medical purposes only. This is not to be used for Pain Management purposes. us Nick Foster MD LAB URINE ORDERABLES Final Re sult [facility] One [facility] Department [place] [address] * (ABNORMAL) Urinalysis, microscopic only (11/10/2024 11:33 AM SALMON TROLL FISHER) WBC, ur 0-5 0 - 5 /HPF RBC, ur 0-2 0 - 2 /HPF [facility] Mucous, ur Present(A) [facility] Culture Reflex Comment Reflex conditions for urine culture (WBC >10) not met. [facility] Urine 11/10/2024 11:3 3 AM [employer] FISHER 11/10/2024 11:41 AM [employer]OLL FISHER us Nick Foster MD LAB URINE ORDERABLES Final Re sult [facility] One [facility] [place] [address] * ECG 12-LEAD (11/10/2024 10:43 AM SALMON TROLL FISHER) Narrative [facility] - 11/10/2024 10:43 AM [employer] FISHER Nick Foster MD 11/10/2024 10:44 AM ECG 12 lead Date/Time: 11/10/2024 10:43 AM Performed by: Nick Foster MD Authorized by: Nick Foster MD Rate: ECG rate: Rate 79. narrow complex, regular, sinus, no stemi. no change Procedure Note Nick Foster MD - 11/10/2024 10:43 AM CST Procedure ECG 12 lead Date/Time: 11/10/2024 10:43 AM Performed by: Nick Foster MD Authorized by: Nick Foster MD Rate: ECG rate: Rate 79. narrow complex, regular, sinus, no stemi. nochange Nick Foster MD 11/10/24 1044 us Nick Foster MD ECG ORDERABLES Final Result [facility] * POCT Rapid HIV Antibody Community Screening-Fabi Eligible (11/10/2024 10:24 AM SALMON TROLL FISHER) [facility] Rapid HIV, POC Negative Negative Lot Number [id number] QC Control Line Acceptable Blood 11/10/2024 10:2 4 AM [employer] FISHER Nick Foster MD POINT OF CARE TEST ORDERABLES Final Result * Troponin I high-sensitivity series (baseline, 2hr, 4hr, 6hr) (11/10/2024 10:06 AM SALMON TROLL FISHER) [facility] Trop I hs 4 <=35 ng/L Comment: Interpretive Data For further hscTnI resources including the diagnostic algorithm and an aid in interpretation, copy and paste this link: https://bjhlab.testcatalog.org/show/[email or web address] Current Interpretive Data last revised 2020. Blood 11/10/2024 10:0 6 AM [employer] FISHER 11/10/2024 10:25 AM [employer]ER Nick Foster MD LAB BLOOD ORDERABLES Final Re sult [facility] One [facility] Department [place] [address] * eGFR (11/10/2024 10:06 AM SALMON TROLL FISHER) [facility] eGFR >90 >=60 mL/min/1. 73 m2 Comment: Interpretive Data Reference Interval Normal >/= 90 mL/min/1.73m2 Mildly decreased* 60 - 89 mL/min/1.73m2 Mildly to moderately decreased 45 - 59 mL/min/1.73m2 Moderately to severely decreased 30 - 44 mL/min/1.73m2 Severely decreased 15 - 29 mL/min/1.73m2 Kidney Failure < 15 mL/min/1.73m2 *Relative to young adult level Estimated glomerular filtration rate is determined by the 2020 CKD-EPI equation recommended by the National Kidney Foundation (A Unifying Approach to GFR Estimation: Recommendations of the NKF-ASK Task Force on Reassessing the Inclusion of Race in Diagnosing Kidney Disease, JASN 2020). The CKD-EPI equation should not be used for patients with unstable renal function and has not been validated in children and those over 70. Current interpretive data was last reviewed 2021. Blood 11/10/2024 10:0 6 AM [employer]OLL FISHER 11/10/2024 10:16 AM [employer]ER Nick Foster MD LAB BLOOD ORDERABLES Final Re sult [facility] One [facility] Department [place] [address] * Differential, auto (11/10/2024 10:06 AM SALMON TROLL FISHER) Neutrophil abs 2.2 1.5 - 6.5 K/cumm Imm gran abs 0.0 0.0 - 0.1 K/cumm [facility] Lymphocyte abs 1.9 0.8 - 3.3 K/cumm [facility] Monocyte abs 0.7 0.2 - 0.8 K/cumm [facility] Eosinophil abs 0.1 0.0 - 0.5 K/cumm [facility] Basophil abs 0.0 0.0 - 0.1 K/cumm [facility] Neutrophil pct 44.1 % [facility] Comment: Interpretive Data Percent cell count reference ranges are not reported, since discordance with absolute values may lead to misinterpretation of CBC data. Current Interpretive Data was last revised on 2018. Imm gran pct 0.2 % [facility] Comment: Interpretive Data Percent cell count reference ranges are not reported, since discordance with absolute values may lead to misinterpretation of CBC data. Current Interpretive Data was last revised on 2018. Lymphocyte pct 38.9 % [facility] Comment: Interpretive Data Percent cell count reference ranges are not reported, since discordance with absolute values may lead to misinterpretation of CBC data. Current Interpretive Data was last revised on 2018. Monocyte pct 13.8 % [facility] Comment: Interpretive Data Percent cell count reference ranges are not reported, since discordance with absolute values may lead to misinterpretation of CBC data. Current Interpretive Data was last revised on 2018. Eosinophil pct 2.4 % [facility] Comment: Interpretive Data Percent cell count reference ranges are not reported, since discordance with absolute values may lead to misinterpretation of CBC data. Current Interpretive Data was last revised on 2018. Basophil pct 0.6 % [facility] Comment: Interpretive Data Percent cell count reference ranges are not reported, since discordance with absolute values may lead to misinterpretation of CBC data. Current Interpretive Data was last revised on 2018. Blood 11/10/2024 10:0 6 AM [employer]OLL FISHER 11/10/2024 10:16 AM SALMON TROLL FISHER us Nick Foster MD LAB BLOOD ORDERABLES Final Re sult [facility] One [facility] Department [place] [address] * Pro B-type natriuretic peptide (11/10/2024 10:06 AM SALMON TROLL FISHER) NT-proBNP <50 <=300 pg/mL Comment: Interpretive Comments: A. Dyspnea in Acute Care Setting All Ages: < 300 pg/ml, acute heart failure unlikely. < 50 yrs: 300 - 450 pg/ml, further investigation warranted. > 450 pg/ml, acute heart failure likely. 50 - 74 yrs: 300 - 900 pg/ml, further investigation warranted. > 900 pg/ml, acute heart failure likely . > or = 75 yrs: 450 - 1800 pg/ml, further investigation warranted. > 1800 pg/ml, acute heart failure likely. B. Non-acute Setting < 75 yrs < 125 pg/ml, rules out heart failure. > or = 125 pg/ml, further investigation warranted. > or = 75 yrs < 450 pg/ml, rules out heart failure. > or = 450 pg/ml, further investigation warranted. - Knowledge of each individual patient's NT-proBNP range may be more useful than using similar cut-points for every patient. Please note that marked elevations in NT-proBNP levels may be observed in state other than Left Ventricular Congestive Failure, including: acute coronary syndromes, right heart strain/failure (including pulmonary embolism and cor pulmonale), critical illness, renal failure, as well as advanced age. - References: 1. Elias QUIROZ et.al. Eur Heart J. 2006:27:330-337. 2. Tiana RW, Esther AM. J. AM Siri Cardiol: Cardiovasc Imag. 2009;2: 216- 225. Interpretive Data Last Revised Date: 2018. Blood 11/10/2024 10:0 6 AM [employer]OLL FISHER 11/10/2024 10:16 AM [employer] FISHER Nick Fostre MD LAB BLOOD ORDERABLES Final Re sult Performing Organization Address [facility]/ZIP Co de Phone Number [facility] Department [place] [address] * (ABNORMAL) CBC with auto differential (11/10/2024 10:06 AM SALMON TROLL FISHER) Pathologist [facility] WBC 5.0 3.8 - 9.9 K/cumm Hgb 16.0 13.0 - 17.5 g/dL [facility] Hct 47.3 38.9 - 50.3 % [facility] Plt 284 150 - 400 K/cumm [facility] MPV 8.9(L) 9.1 - 12.3 fL [facility] RBC 5.09 4.30 - 5.80 M/cumm [facility] MCV 92.9 81.3 - 96.4 fL [facility] MCH 31.4 27.1 - 33.3 pg [facility] MCHC 33.8 32.3 - 35.7 g/dL [facility] RDW CV 14.0 11.1 - 14.9 % [facility] RDW SD 47.8 35.7 - 48.1 fL [facility] NRBC abs 0.00 0.00 - 0.01 K/cumm [facility] Blood 11/10/2024 10:0 6 AM [employer]OLL FISHER 11/10/2024 10:16 AM [employer] FISHER Nick Foster MD LAB BLOOD ORDERABLES Final Re sult Performing Organization Address City/[facility]/ZIP Co de Phone Number [facility] Department [place] [address] * Ethanol (11/10/2024 10:06 AM SALMON TROLL FISHER) Pathologist [facility] Ethanol <10 <=10 mg/dL Comment: Interpretive Data Legal limit of intoxication > or = 80 mg/dL Levels > or = 400 mg/dL are potentially TOXIC. Current interpretive data was last revised on 2018. Blood 11/10/2024 10:0 6 AM [employer] TROLL FISHER 11/10/2024 10:16 AM [employer] FISHER Nick Foster MD LAB BLOOD ORDERABLES Final Re sult Performing Organization Address [facility] [place] [address] * (ABNORMAL) Valproic acid level, total (11/10/2024 10:06 AM SALMON TROLL FISHER) [facility] Valproic Acid <15.0(L) 50.0 - 100.0 mcg/mL Comment: Interpretive Data Therapeutic or toxic effects of anticonvulsant drugs may occur at different concentrations in different patients and the correlation between dose and clinical effect must be evaluated individually. Current interpretative data was last revised on 14. Blood 11/10/2024 10:0 6 AM [employer]OLL FISHER 11/10/2024 10:16 AM [employer]OLL FISHER Nick Foster MD LAB BLOOD ORDERABLES Final Re sult Performing Organization Address City/[facility] Co de Phone Number [facility] [place] [address] * (ABNORMAL) Comprehensive metabolic panel (11/10/2024 10:06 AM SALMON TROLL FISHER) [facility] Sodium 140 135 - 145 mmol/L Potassium, pl 4.1 3.3 - 4.9 mmol/L [facility] Chloride 101 97 - 110 mmol/L [facility] CO2 27 22 - 32 mmol/L [facility] Anion gap 12 2 - 15 mmol/L [facility] BUN 7 6 - 25 mg/dL [facility] Creatinine 0.80 0.80 - 1.30 mg/dL [facility] Glucose 77 70 - 199 mg/dL [facility] Comment: Interpretive Data Fasting glucose >/= 126 mg/dl is diagnostic for diabetes. Fasting is defined as no caloric intake for at least 8 hours. Fasting glucose between 100 mg/dl to 125 mg/dl is diagnostic of prediabetes. In a patient with classic symptoms of hyperglycemia or hyperglycemic crisis, a random glucose >/= 200 mg/dl is diagnostic for diabetes. In the absence of unequivocal hyperglycemia, results should be confirmed by repeat testing. The classification and Diagnosis of Diabetes Diabetes Care 202; 46: S19-S40. Current interpretive data was last revised 2022. Calcium 9.7 8.5 - 10.3 mg/dL [facility] Bilirubin, total 0.7 0.1 - 1.2 mg/dL [facility] Protein, pl 8.6(H) 6.5 - 8.5 g/dL [facility] Albumin 4.6 3.5 - 5.0 g/dL [facility] Alk phos 95 40 - 130 Units/L [facility] ALT 66(H) 7 - 55 Units/L [facility] AST 81(H) 10 - 50 Units/L [facility] Blood 11/10/2024 10:0 6 AM SALMON TROLL FISHER 11/10/2024 10:16 AM [employer]OLL FISHER Nick Foster MD LAB BLOOD ORDERABLES Final Re sult [facility] One [facility] [place] [address] * Hepatitis panel, acute Blood (10/06/2024 12:56 PM SALMON TROLL FISHER) Hep A IgM Nonreactive Nonreactive Comment: Interpretive Data: If Hep A IgM Ab is reported as Equivocal, a new sample should be drawn in two weeks for testing. Current interpretive data was last revised on 20. Hep B core IgM Nonreactive Nonreactive [facility] Comment: Interpretive Data If HepB Core IgM Ab is reported as Equivocal, a new sample should be drawn in two weeks for testing. Current interpretive data was last revised on 20. Hep C Ab Nonreactive Nonreactive [facility] Comment: Antibodies to HCV not detected. Does NOT exclude the possibility of recent exposure to HCV. Current interpretive data was last revised on 22 Interpretive Data Nonreactive: Antibodies to HCV not detected. Does NOT exclude the possibility of recent exposure to HCV. Equivocal: Equivocal for HCV antibodies. Supplemental molecular testing will be automatically performed to determine infection status in accordance with current CDC screening recommendations. Reactive: Positive for HCV antibodies. This may represent current or past HCV infection. Supplemental molecular testing will be automatically performed to determine current infection status in accordance with current CDC screening recommendations. Interpretive data was last revised on 2020. HepBsAg Nonreactive Nonreactive RAMU Blood 10/06/2024 12:5 6 PM SALMON TROLL FISHER 10/06/2024 1:08 PM SALMON TROLL FISHER Ghada [facility]CRO[facility]OLOGY - [facility] L ORDERABLES Final Result [facility]U [address] [facility] [facility] [place] [address] from Last 3 Months or Most Recently Relevant to Health Maintenance [facility] MMAI Advance Directives For more information, please contact: [phone] * Full Code (Latest Code Status on File) Date Activated Date Inactivated Comments 01/04/2025 7:54 PM 01/11/2025 12:42 PM * Full Code Date Activated Date Inactivated Comments 12/08/2024 2:53 PM 12/15/2024 2:56 PM * Full Code Date Activated Date Inactivated Comments 11/10/2024 11:01 PM 11/18/2024 6:26 PM * Full Code Date Activated Date Inactivated Comments 10/06/2024 10:35 AM 10/12/2024 1:11 PM * Full Code Date Activated Date Inactivated Comments 08/13/2023 2:27 PM 08/17/2023 5:13 PM Care Teams Medical Information Officer Relationship Specialty Start Date End Date Frank Beltran MD [address] [facility] [place] [address] PCP - General Internal Medicine 12/09/24 Cailin Hernández Director Of Publications Addiction Medicine 10/23/20 Bernadette Roberts, [facility] [address] [place] [address] International Freight Forwarder 06/20/21
--- OUTSIDE RECORDS SUMMARY | 2025-02-03 07:54 | XMS_ITS | Continuity of Care Document ---
Author Organization [facility] Address [address] [place] [address] Phone Care Team Providers Care Scaler Name Role Phone Antonio Anderson MD Unavailable Unavailable Advance Directives Directive Yes / No Effective Date File Name No Information Encounters Encounter Description Practice Location Reason(s) For Visit Diagnoses Date Provider Providers Copied on Encounter [facility], [address], [place], [place], [id number], [place] tel:[phone] [facility] No Information Justin Alvarez. [address] [place] [address], [address], [place], [place], [id number], [place]. tel:[phone] Family History Family Member Type Diagnosis Age At Onset No Information Payers Payer name Insurance type Covered alliance party ID Rafael davis(s) [facility] [id number] [facility] [id number] Social History Type Description Quantity Date Captured Comments Sex Male Smoking Status No Information Chief Complaint And Reason For Visit No Information Reason For Referral Reason For Referral No Information History Of Present Illness Encounter Date Complaint History Of Prese nt Illness No Information Functional Status Date Functional Assessmen t No Information Instructions Date Instruction Additional Infor mation No Information Assessments Type Assessment Date No Information Patient Care Teams Name Effective Dates (start - stop) Status Members No Information
--- OUTSIDE RECORDS SUMMARY | 2025-02-03 07:54 | XMS_ITS | Clinical Summary ---
Author Organization [facility] Address [address] [place] [address] Care Team Providers Care Oncology Admin Name Role Phone Unavailable Primary Care Provider Unavailabl e Source Comments [facility],non-owned Affiliates and Associated Physician Practices is amultiple site organization consisting of ambulatory clinics and hospital sitesin [place], [place], [place] and [place]. This disclosure is being madepursuant to the Care Everywhere program and may not contain all information available regarding this patient. Last updated 18.[facility] Allergies No known active allergies Medications * Be aware that medications may not be up to date on this document. Alwaysverify current medications with the patient. Medication Sig Dispensed Refills Start Date End Date Status albuterol HFA (PROVENTIL;VENTOLIN ;PROAIR) 108 (90 Base) MCG/ACT inhalerIndications: Chronic Obstructive Pulmonary Disease Inhale 2 puffs by mouth every 4 hours as needed for Shortness of Breath or Wheezing Reasons: Chronic Obstructive Lung Disease 1 Inhaler 1 06/27/2020 Active nicotine (NICODERM CQ) 14 MG/24HR patchIndications:Ni cotine Dependence Apply 1 patch to skin once daily Remove old patch before applying new patch. Reasons: Nicotine Addiction 7 patch 1 06/27/[address] (DEPAKOTE) 500 MG tabletIndications:D epressive Phase Bipolar Mood Disorder Take 1 (one) tablet by mouth 2 times daily Reasons: Depressive Phase of Manic-Depression 30 tablet 2 08/09/2021 Active sertraline (ZOLOFT) 100 MG tabletIndications:M ajor Depressive Disorder Take 1 (one) tablet by mouth once daily Reasons: Major Depressive Disorder 30 tablet 1 08/09/2021 Active traZODone (DESYREL) 150 MG tabletIndications:I nsomnia,Major Depressive Disorder Take 150 (one hundred fifty) mg by mouth at bedtime Reasons: Trouble Sleeping, Major Depressive Disorder 30 tablet 1 08/09/2021 Active risperiDONE (RISPERDAL) 2 MG tabletIndications:M ajor Depressive Disorder Take 1 (one) tablet by mouth at bedtime Reasons: Major Depressive Disorder 30 tablet 1 08/09/2021 Active nicotine polacrilex (NICORETTE) 2 MG gumIndications:Michael bill Dependence Take 1 (one) Each by mouth as needed for Smoking Cessation - Gum should be slowly chewed until a peppery taste emerges, then parked between cheek and gum to facilitate nicotine absorption. - Avoid eating or drinking for 15 minutes before and during chewing gum. Reasons: Nicotine Addiction 08/09/2021 Active Active Problems Problem Noted Date Diagnosed Date Alcohol abuse 08/05/2021 Cocaine use disorder, moderate, dependence 10/24 Cannabis use disorder, moderate, dependence 10/03 Psychosis 10/23/2019 Bipolar I disorder with depression 03/07/2019 Non-compliance with treatment 05/20/2018 Cocaine abuse 03/21/2017 Tobacco use 03/21/2017 Cannabis abuse, uncomplicated 03/21/2017 Uncomplicated alcohol abuse 03/21/2017 Uncomplicated opioid abuse 03/21/2017 Bipolar I disorder, current or most recent episode depressed, with psychotic features 10/10/2015 Generalized anxiety disorder Resolved Problems Problem Noted Date Diagnosed Date Resolved Date Severe episode of recurrent major depressive disorder, without psychotic features 11/08/201905/2020 Suicidal ideation 11/06/2018 08/08/2019 Major depressive disorder, single episode 03/21/2017 08/08/2019 Depression 10/08/2015 08/08/2019 Marijuana use 10/08/2015 08/08/2019 Cocaine abuse 10/08/2015 08/08/2019 Heroin abuse 10/08/2015 08/08/2019 Alcohol dependence with unco mplicated withdrawal 10/08/2015 08/08/2019 Bipolar disorder 09/06/2015 08/08/2019 Bipolar 1 disorder 9 Major depressive disorder wi thout psychotic features 08/08/2019 Cocaine abuse 08/08/2019 Psychosis 08/08/2019 Immunizations Name Administration Dates Next Due INFLUENZA VACCINE, QUADR. (F LUZONE; FLULAVAL; FLUARIX; AFLURIA QUADRIVALENT; 6MO+), 0.5 ML (IIV4) 11/10/2019,10/24/2019(Deferred: Patient Refused),09/26/2017 Family History Medical History Relation Name Comments Drug Abuse Brother Cancer - Other Father Cancer - Breast Mother Relation Name Status Comments Brother Father Mother Social History Tobacco Use Types Packs/Day Years Used Date Smoking Tobacco: Every Day Cigarettes 1 20 Smokeless Tobacco: Never Tobacco Cessation:Ready to Q uit: No; Counseling Given: Yes Comments:refused referral Alcohol Use Standard Drinks/Week Comments Yes 15 (1 standard drink = 0.6 oz pu re alcohol) Sex and Gender Information Value Date Recorded Sex Assigned at Not on file Gender Identity Not on file Sexual Orientation Not on file Last Filed Vital Signs Vital Sign Reading Time Taken Comments Blood Pressure 101/66 08/09/2021 7:50 AM CDT Pulse 92 08/09/2021 7:50 AM CDT Temperature 36.9 C (98.5 F) 08/09/2021 7:50 AM CDT Respiratory Rate 18 08/09/2021 7:50 AM CDT Oxygen Saturation 97% 08/09/2021 7:50 AM CDT Inhaled Oxygen Concentration 21% 08/09/2019 9 :30 PM CDT Weight 87.5 kg (192 lb 14.4 oz) 08/06/2021 3:00 AM CDT Height 177.8 cm (5' 10) 08/06/2021 3:00 AM CDT Body Mass Index 27.68 08/06/2021 3:00 AM CDT Plan of Treatment Health Maintenance Due Date Last Done Comments COLOGUARD (AGES 45-75) - COLON CA SCREENING 1971 COLON MONITORING 1971 COLONOSCOPY - COLON CA SCREENING 1971 CT COLONOGRAPHY - COLON CA SCREENING 1971 Colorectal Cancer Screening 1971 FIT - COLON CA SCREENING 1971 FLEX SIG - COLON CA SCREENING 1971 MEDICARE AWV 12 MONTHS 1971 HIV SCREENING 1986 HEPATITIS C SCREENING 11/02/1989 DTAP/TDAP/TD VACCINES (1 - Tdap) 1990 HEPATITIS B VACCINE (1 of 3 - 19+ 3-dose series) 1990 PNEUMOCOCCAL VACCINE 50+ (1 of 2 - PCV) 1990 PNEUMOCOCCAL VACCINE (1 of 2 - PCV) 1990 ZOSTER VACCINE (1 of 2) 2021 COVID-19 VACCINE (1 - 2023- season) 2024 INFLUENZA VACCINE (#1) 2024 0, 09/26/2017, 08/08/2016 MEDICARE AWV CALENDAR YEAR 2024 LIPID TESTING 08/07/2026 08/07/2021, 10/03, 08/08/2019, Additional history exists HIB VACCINE Aged Out No longer eligi ble based on patient's age to complete this topic HPV VACCINE Aged Out No longer eligi ble based on patient's age to complete this topic MENINGOCOCCAL (Group B) VACCINE SHARED DECISION-MAKING Aged Out No longer eligible based on patient's age to complete this topic MENINGOCOCCAL GROUPS A/C/Y/W VACCINE Aged Out No longer eligible based on patient's age to complete this topic Procedures Procedure Name Priority Date/Time Associated Diagnosis Comments LIPID PROFILE AM Draw 08/07/2021 6:13 AM CDT from Last 3 Months or Most Recently Relevant to Health Maintenance Results * LIPID PROFILE (08/07/2021 6:13 AM CDT) Cholesterol 150 <200 mg/dL 08/07/2021 7:02 AM CDT [facility] Triglycerides 145 <150 mg/dL 08/07/2021 7:02 AM CDT [facility] HDL Cholesterol 46 >40 mg/dL 7:02 AM CDT [facility] Chol HDL Ratio 3.3 1.0 - 6.0 08/07/2021 7:02 AM CDT [facility] LDL Calculated 75 65 - 130 mg/dL 08/07/2021 7:02 AM CDT [facility] VLDL Calculated 29 <=30 mg/dL 7:02 AM CDT [facility] Blood BLOOD SPECIMEN / Unknown Lab Venipuncture / Unknown 08/07/2021 6:13 AM CDT 08/07/2021 6:19 AM CDT Narrative [facility] - 08/07/2021 7:02 AM CDT Lipid Profile Comment: CHOLESTEROL LEVEL..................CLINICAL INTERPRETATION LESS THAN 200 MG/DL..............................DESIRABLE 200-239 MG/DL..............................BORDERLINE HIGH GREATER THAN 240 MG/DL................................HIGH LDL-CHOLESTEROL LEVEL..............CLINICAL INTERPRETATION LESS THAN 100 MG/DL................................OPTIMAL 100-129 MG/DL.................................NEAR OPTIMAL GREATER THAN 160 MG/DL...........................HIGH RISK HDL RISK LEVEL GREATER THEN 60 MG/DL............................DECREASED 40-60 MG/DL........................................AVERAGE LESS THAN 40 MG/DL...............................INCREASED TRIGLYCERIDE LEVEL..................CLINICAL INTERPRETATION LESS THAN 150 MG/DL...............................DESIRABLE 150-199 MG/DL...............................BORDERLINE HIGH 200-499 MG/DL..........................................HIGH GREATER THAN 500..................................VERY HIGH THE NATIONAL CHOLESTEROL EDUCATION PROGRAM HAS SET THE ABOVE GUIDELINES (REFERANCE VALUES) FOR CHOLESTEROL AND HDL. RISK ASSOCIATED WITH CHOLESTEROL/HDL RATIOS RISK....................MALE RATIO.............FEMALE RATIO 1/2 AVERAGE.................<3.4.......................<3.3 LOW RISK.................... 4.0 ...................... 3.8 AVERAGE..................... 5.0 ...................... 4.5 2X AVERAGE.................. 9.5 ...................... 7.0 3X AVERAGE...................>23........................>[address] Claros SENIOR INTEGRATION ARCHITECT-FINISHED CLOTH CHECKER LAB - CHEMISTRY ORDERABLES [facility] [address] [place] [address], [facility] from Last 3 Months or Most Recently Relevant to Health Maintenance Advance Directives * Full Code (Latest Code Status on File) Date Activated Date Inactivated Comments 08/06/2021 12:35 AM 08/09/2021 4:56 PM * Full Code Date Activated Date Inactivated Comments 06/21/2020 2:40 AM 06/28/2020 6:35 PM * Full Code Date Activated Date Inactivated Comments 11/08/2019 3:29 AM 11/15/2019 2:16 PM * Full Code Date Activated Date Inactivated Comments 10/23/2019 9:52 AM 10/31/2019 3:02 PM * Full Code Date Activated Date Inactivated Comments 08/06/2019 2:39 AM 08/10/2019 4:24 PM
--- OUTSIDE RECORDS SUMMARY | 2025-02-03 07:54 | XMS_ITS | Clinical Summary ---
Author Organization [facility] Address [address] [place] [address] Phone Care Team Providers Care Tape Machine Tailer Name Role Phone Provider, Unknown Primary Care Provider Unavaila ble Provider, None Unavailable Unavailable Allergies No known active allergies Medications * This document contains information received from the source organization and may not represent a complete record from that organization. divalproex (DEPAKOTE) 500 MG Tablet Delayed Response Take 500 mg by mouth 2 times daily. Active risperiDONE (RISPERDAL) 2 MG Tablet Take 2 mg by mouth 2 times daily. Active sertraline (ZOLOFT) 50 MG Tablet Take 50 mg by mouth daily. Active traZODone (DESYREL) 150 MG Tablet Take 150 mg by mouth nightly as needed. Active divalproex (Depakote) 500 MG Tablet Delayed Response Take 500 mg by mouth daily. Active sertraline (Zoloft) 50 MG Tablet Take 50 mg by mouth daily. Active risperiDONE (RisperDAL) 2 MG Tablet Take 2 mg by mouth daily. Active traZODone (DESYREL) 100 MG Tablet Take 100 mg by mouth nightly. Active chlordiazePOXIDE (LIBRIUM) 25 MG CapsuleIndication s:Alcohol withdrawal syndrome with complication (HCC) Take 1 Capsule by mouth 3 times daily as needed for Withdrawal. 20 Capsule 5 Active folic acid (FOLVITE) 1 MG Tablet Take 1 Tablet by mouth daily. 30 Tablet 5 Active hydrOXYzine (ATARAX) 50 MG Tablet Take 1 Tablet by mouth every 6 hours as needed for Anxiety (For mild anxiety - patient reported scale of 1-4.). 90 Tablet 5 Active loperamide (IMODIUM) 2 MG Capsule Take 1 Capsule by mouth every 8 hours as needed for Diarrhea (give for continued diarrhea). 30 Capsule 5 Active ondansetron (ZOFRAN-ODT) 4 MG TABLET DISPERSIBLE Take 1 Tablet by mouth every 6 hours as needed for Nausea - 1st line (for nausea or vomiting). 10 Tablet 5 Active thiamine (VITAMIN B1) 100 MG Tablet Take 1 Tablet by mouth daily. 30 Tablet 5 Active Active Problems Problem Noted Date Diagnosed Date Alcohol withdrawal 12/23/2024 Crack cocaine use 12/23/2024 Tobacco use 12/23/2024 Bipolar 1 disorder 12/23/2024 Encounters * This document contains information received from the source organization and may not represent a complete record from that organization. Date Type Department Care Team Description 12/23/2024 8:39 AM GLASS HANDLER - 12/23/2024 3:[address] [facility] Emergency [facility] Emergency [address] [place] [address] Brett Adams MD Alcohol withdrawal syndrome with complication (HCC) Discharge Disposition: Discharged to home or Selfcare 12/23/2024 Travel from Last 3 Months Social History Tobacco Use Types Packs/Day Years Used Date Smoking Tobacco: Every Day Cigarettes Smokeless Tobacco: Never Alcohol Use Standard Drinks/Week Comments Yes 0 (1 standard drink = 0.6 oz pur e alcohol) [facility] Utilities Answer Date Recorded In the past 12 months has e Twist, gas, oil, or water [employer] threatened to shut off services in your home? Patient declined 12/23/2024 Social Connection and Isolation Panel [NHANES] A nswer Date Recorded In a typical week, how many times do you talk on the phone with family, friends, or neighbors? Patient declined 12/23/2024 How often do you get togethe r with friends or relatives? Patient declined 12/23/2024 How often do you attend zoroastrian or gnosticist serv ices? Patient declined 12/23/2024 Do you belong to any clubs o r organizations such as zoroastrian groups, unions, fraternal or athletic groups, or school groups? Patient declined 12/23/2024 How often do you attend meet ings of the clubs or organizations you belong to? Patient declined 12/23/2024 Are you , , di vorced, , never , or living with a partner? Patient declined 12/23/2024 AUDIT-C Answer Date Recorded Q1: How often do you have a drink containing alc ohol? Patient declined 12/23/2024 Q2: How many drinks containi ng alcohol do you have on a typical day when you are drinking? Patient declined 12/23/2024 Q3: How often do you have si x or more drinks on one occasion? Patient declined 12/23/2024 Overall Financial Resource Strain (CARDIA) Answe r Date Recorded How hard is it for you to pa y for the very basics like food, housing, medical care, and heating? Patient declined 12/23/2024 [facility] Occupat ional [facility] - Occupational Stress Questionnaire Answer Date Recorded Do you feel stress - tense, restless, nervous, or anxious, or unable to sleep at night because your mind is troubled all the time - these days? Patient declined 12/23/2024 Exercise Vital Sign Answer Date Recorde d On average, how many days pe r week do you engage in moderate to strenuous exercise (like a brisk walk)? Patient declined On average, how many minutes do you engage in exercise at this level? Patient declined 12/23/2024 Hunger Vital Sign Answer Date Recorded Within the past 12 months, y ou worried that your food would run out before you got the money to buy more. Patient declined Within the past 12 months, t he food you bought just didn't last and you didn't have money to get more. Patient declined PRAPARE - Transportation Answer Date Re corded In the past 12 months, has l ack of transportation kept you from medical appointments or from getting medications? Patient declined 12/23/2024 In the past 12 months, has l ack of transportation kept you from meetings, work, or from getting things needed for daily living? Patient declined 12/23/2024 Housing Stability Vital Sign Answer Krunal e Recorded In the last 12 months, was t here a time when you were not able to pay the mortgage or rent on time? Patient declined 12/23/19 25 In the past 12 months, how m any times have you moved where you were living? 0 12/23/2024 At any time in the past 12 m [facility], were you homeless or living in a skilled nursing (including now)? Patient declined 12/23/2024 Sex and Gender Information Value Date Recorded Sex Assigned at Not on file Legal Sex Male 12:26 AM CDT Gender Identity Not on file Sexual Orientation Not on file Last Filed Vital Signs Vital Sign Reading Time Taken Comments Blood Pressure 138/88 12/27/2024 11:54 AM GLASS HANDLER Pulse 73 12/27/2024 11:54 AM GLASS HANDLER Temperature 36.6 C (97.9 F) 12/27/2024 11:54 AM GLASS HANDLER Respiratory Rate 12 12/27/2024 11:54 AM GLASS HANDLER Oxygen Saturation 100% 12/27/2024 11:54 AM GLASS HANDLER Inhaled Oxygen Concentration - - Weight 86.2 kg (190 lb) 12/23/2024 7:36 PM GLASS HANDLER Height 177.8 cm (5' 10) 12/23/2024 7:36 PM GLASS HANDLER Body Mass Index 27.26 12/23/2024 7:36 PM GLASS HANDLER Plan of Treatment Health Maintenance Due Date Last Done Comments Hepatitis C Virus (HCV) Screening 1971 TdaP Immunization 1971 Hepatitis B Immunization (1 of 3 - 19+ 3-dose series) 1990 Pneumococcal Immunization (5 0+ years) (1 of 2 - PCV) 1990 Colonoscopy 2016 Colorectal Cancer Screening 2016 Cologuard 2021 Immunochemical Fecal Occult Blood 2021 Zoster Immunization (1 of 2) 2021 SARS-COV-2 Immunization ( - 2023- season) 2024 Respiratory Syncytial Virus (RSV) Immunization (Adult) (1 - 1-dose 75+ series) 2046 Influenza Immunization Completed 10/20/2024 Meningococcal Immunization (ACWY) Aged Out No longer eligible based on patient's age to complete this topic Rotavirus Immunization Aged Out No lo nger eligible based on patient's age to complete this topic Procedures Procedure Name Priority Date/Time Associated Diagnosis Comments AEROSOL NEBULIZER-INITIAL Routine 12/23/2024 10:09 PM GLASS HANDLER URINE DRUG SCREEN STAT 12/23/2024 1:1 5 PM GLASS HANDLER URINALYSIS REFLEX IF INDICATED BY ABNORMAL RESULTS STAT 12/23/2024 1:[address] ABDOMEN PELVIS W/O CONTRAST Stat with Interpretation 12/23/2024 11:30 AM GLASS HANDLER TROPONIN I, HIGH SENSITIVITY (HSTRP) STAT 12/23/2024 11:10 AM GLASS HANDLER RSV,SARS-COV-2,INF LUENZA A&B BY PCR STAT 12/23/2024 10:30 AM GLASS HANDLER CBC WITH AUTO DIFFERENTIAL STAT 12/23/2024 9:10 AM GLASS HANDLER PROTIME (PT) (PROTHROMBIN TIME) STAT 12/23/2024 9:10 AM GLASS HANDLER B-TYPE NATRIURETIC PEPTIDE (BNP) STAT 12/23/2024 9:10 AM GLASS HANDLER TROPONIN I, HIGH SENSITIVITY (HSTRP) STAT 12/23/2024 9:10 AM GLASS HANDLER MAGNESIUM (MG) STAT 12/23/2024 9:10 AM GLASS HANDLER LIPASE STAT 12/23/2024 9:10 AM GLASS HANDLER CMP (COMPREHENSIVE METABOLIC PANEL) STAT 12/23/2024 9:10 AM GLASS HANDLER COMPLETE BLOOD COUNT (CBC) WITH DIFF STAT 12/23/2024 9:10 AM GLASS HANDLER ETHYL ALCOHOL (ETHANOL) STAT 12/23/2024 9:10 AM GLASS HANDLER from Last 3 Months Results * (ABNORMAL) Urinalysis w/ Reflex (12/23/2024 1:15 PM GLASS HANDLER) [facility] SPECIFIC GRAVITY 1.025 1.003 - 1.030 12/23/2024 1:39 PM GL[facility]LER [facility] URINE PH 6.0 5.0 - 9.0 12/23/2024 1:39 PM GL[facility] HANDLER [facility] WBC ESTERASE Negative Negative 12/23/2024 1:39 PM GL[facility] HANDLER [facility] NITRITE Negative Negative 12/23/2024 1:39 PM GL[facility] HANDLER [facility] PROTEIN, RANDOM URINE 15 mg/dL(A) Negative 12/23/2024 1:39 PM GLASS HANDLER [facility] URINE GLUCOSE, QUAL Negative Negative 12/23/2024 1:39 PM GLASS HANDLER [facility] URINE KETONES 15 mg/dL(A) Negative 12/23/2024 1:39 PM GLASS HANDLER [facility] UROBILINOGEN Normal Normal mg/dL 12/23/2024 1:39 PM GLASS HANDLER [facility] URINE BLOOD Negative Negative claude/ul 12/23/2024 1:39 PM GLASS HANDLER [facility] URINALYSIS COLOR Yellow 12/23/19 1:39 PM GLASS HANDLER [facility] URINALYSIS CLARITY Clear 12/23/2024 1:39 PM GLASS HANDLER [facility] Urine URINE SPECIMEN / Unknown Non-Phlebotomy Collection / Unknown 12/23/2024 1:15 PM GLASS HANDLER 12/23/2024 1:30 PM GLASS HANDLER Brett Adams MD URINE ORDERABLES Final R esult [facility] [address] [place] [address] * (ABNORMAL) Urine Drug Screen (12/23/2024 1:15 PM GLASS HANDLER) [facility] UR AMPHETAMINE NON DETECTED NON DETECTED 12/23/2024 1:48 PM GLASS HANDLER [facility] Comment: FOR MEDICAL USE ONLY. CUTOFF CONCENTRATION FOR DETECTED RESULT: AMPHETAMINE: 500 NG/ML UR BENZODIAZEPINES NON DETECTED NON DETECTED 12/23/2024 1:48 PM GLASS HANDLER [facility] Comment: FOR MEDICAL USE ONLY. CUTOFF CONCENTRATION FOR DETECTED RESULT: BENZODIAZAPINE: 200 NG/ML UR COCAINE METABOLITE DETECTED(A) NON DETECTED 12/23/2024 1:48 PM GLASS HANDLER [facility] Comment: FOR MEDICAL USE ONLY. CUTOFF CONCENTRATION FOR DETECTED RESULT: COCAINE: 150 NG/ML UR OPIATES NON DETECTED NON DETECTED 12/23/2024 1:48 PM GLASS HANDLER [facility] Comment: FOR MEDICAL USE ONLY. CUTOFF CONCENTRATION FOR DETECTED RESULT: OPIATES: 300 NG/ML UR PHENCYCLIDINE NON DETECTED NON DETECTED 12/23/2024 1:48 PM GLASS HANDLER [facility] Comment: FOR MEDICAL USE ONLY. CUTOFF CONCENTRATION FOR DETECTED RESULT: PCP: 25 NG/ML UR CANNABINOID NON DETECTED NON DETECTED 12/23/2024 1:48 PM GLASS HANDLER [facility] Comment: FOR MEDICAL USE ONLY. CUTOFF CONCENTRATION FOR DETECTED RESULT: THC (MARIJUANA): 50 NG/ML UR BARBITURATE NON DETECTED NON DETECTED 12/23/2024 1:48 PM GLASS HANDLER [facility] Comment: FOR MEDICAL USE ONLY. CUTOFF CONCENTRATION FOR DETECTED RESULT: BARBITUATES: 200 NG/ML UR FENTANYL NON DETECTED NON DETECTED 12/23/2024 1:48 PM GLASS HANDLER [facility] Comment: FOR MEDICAL USE ONLY. CUTOFF CONCENTRATION FOR DETECTED RESULT: FENTANYL: 1.0 NG/ML Urine Non-Phlebotomy Collection / Unknown 12/23/2024 1:15 PM GLASS HANDLER 12/23/2024 1:30 PM GLASS HANDLER us Brett Adams MD URINE ORDERABLES Final R esult [facility] [address] [place] [address] * CT ABDOMEN PELVIS W/O CONTRAST (12/23/2024 11:30 AM GLASS HANDLER) Anatomical Region Laterality Modality Abdomen N/A Computed Tomogra phy 12/23/2024 11:5 0 AM GLASS HANDLER Impressions 12/23/2024 11:52 AM GLASS HANDLER IMPRESSION: No acute finding. Narrative 12/23/2024 11:52 AM GLASS HANDLER EXAM DESCRIPTION: CT ABDOMEN PELVIS W/O CONTRAST REASON FOR STUDY: c/o vomiting, blood in both vomiting and stool, severe shakes and skin crawling sensation.pt relapsed 2 days ago w/ drugs . TECHNIQUE: CT scan of the abdomen and pelvis performed without intravenous and without oral contrast using helical scanning technique. Reconstructed coronal and sagittal MPR images reviewed. All images stored on PACS. Automated exposure control was used as a dose optimization technique for this examination. COMPARISON: None FINDINGS: The sensitivity for detection of visceral lesions is diminished without the use of intravenous contrast. LOWER CHEST: No significant pulmonary abnormalities. No effusion. LIVER: Normal size. No identified cystic or solid masses. GALLBLADDER: No stones identified. No wall thickening or inflammatory changes. BILE DUCTS: No intrahepatic or extrahepatic ductal dilatation. SPLEEN: Normal size. No focal lesions. PANCREAS: No identified cystic or solid masses. No significant calcifications. No adjacent inflammation or peripancreatic fluid collections. Pancreatic duct not dilated. ADRENALS: Normal. KIDNEYS/URINARY TRACT: No identified significant cystic or solid masses. No stones. No hydronephrosis or hydroureter. Urinary bladder is unremarkable. GI: No dilated bowel loops. No obvious wall thickening. Normal appendix. No significant diverticular disease. PERITONEUM: No ascites or free air. RETROPERITONEUM: No mass or adenopathy. REPRODUCTIVE: No significant abnormality. VASCULATURE: No abdominal aortic aneurysm. MUSCULOSKELETAL: No significant abnormality. OTHER: No other abnormality. THIS IS AN ELECTRONICALLY VERIFIED FINAL REPORT 12/23/2024 11:50 AM - Electronically signed by Paul Pennington M.D. JA: TRUDY Report ID: [id number] Reading Location: [id number] Procedure Note Paul Pennington MD - 12/23/2024 EXAM DESCRIPTION: CT ABDOMEN PELVIS W/O CONTRAST REASON FOR STUDY: c/o vomiting, blood in both vomiting and stool, severe shakes and skin crawling sensation.pt relapsed 2 days ago w/ drugs . TECHNIQUE: CT scan of the abdomen and pelvis performed without intravenous and without oral contrast using helical scanning technique. Reconstructed coronal and sagittal MPR images reviewed. All images stored on PACS. Automated exposure control was used as a dose optimization technique for this examination. COMPARISON: None FINDINGS: The sensitivity for detection of visceral lesions is diminished without the use of intravenous contrast. LOWER CHEST: No significant pulmonary abnormalities. No effusion. LIVER: Normal size. No identified cystic or solid masses. GALLBLADDER: No stones identified. No wall thickening or inflammatory changes. BILE DUCTS: No intrahepatic or extrahepatic ductal dilatation. SPLEEN: Normal size. No focal lesions. PANCREAS: No identified cystic or solid masses. No significant calcifications. No adjacent inflammation or peripancreatic fluid collections. Pancreatic duct not dilated. ADRENALS: Normal. KIDNEYS/URINARY TRACT: No identified significant cystic or solid masses. No stones. No hydronephrosis or hydroureter. Urinary bladder is unremarkable. GI: No dilated bowel loops. No obvious wall thickening. Normal appendix. No significant diverticular disease. PERITONEUM: No ascites or free air. RETROPERITONEUM: No mass or adenopathy. REPRODUCTIVE: No significant abnormality. VASCULATURE: No abdominal aortic aneurysm. MUSCULOSKELETAL: No significant abnormality. OTHER: No other abnormality. THIS IS AN ELECTRONICALLY VERIFIED FINAL REPORT 12/23/2024 11:50 AM - Electronically signed by Paul Pennington M.D. JA: TRUDY Report ID: [id number] Reading Location: [place] [address] IMPRESSION: No acute finding. Brett Adams MD IM CT ORDERABLES Final Result * TROPONIN I, HIGH SENSITIVITY (HSTRP) (12/23/2024 11:10 AM GLASS HANDLER) Only the most recent of2 resultswithin the time period is included. TROPONIN I, HIGH SENSITIVITY- [place] 8 <=35 ng/L 12/23/2024 11:56 AM GLASS HANDLER [facility] Comment: High-sensitivity troponin I results are reported in ng/L making the result appear to be 1,000 times higher than the contemporary troponin I value which is reported in ng/ml. Results from [place]. Blood Venipuncture / Unknown 12/23/2024 11:10 AM GLASS HANDLER 12/23/2024 11:23 AM GLASS HANDLER Brett Adams MD CHEMISTRY ORDERABLES Fin al Result Performing Organization Address City/[facility]/ZIP Co de Phone Number [facility] [address] [place] [address] * RSV,SARS-COV-2,INFLUENZA A&B BY PCR (12/23/2024 10:30 AM GLASS HANDLER) FLU A Negative Negative, Error 12/23/2024 11:16 AM GLASS HANDLER [facility] FLU B Negative Negative 12/23/2024 11:16 AM GLASS HANDLER [facility] RESP SYNC VIRUS Negative Negative 11:16 AM GLASS HANDLER [facility] SARSCOV2 NOT DETECTED (Reference Range for this test is Not Detected) 12/23/2024 11:16 AM GLASS HANDLER [facility] Comment:This test was perfor med by a Reverse Party Planner PCR Method. Swab NASOPHARYNGEAL STRUCTURE / Unknown Non-Phlebotomy Collection / Unknown 12/23/2024 10:30 AM GLASS HANDLER 12/23/2024 10:30 AM GLASS HANDLER Brett Adams MD MICROBIOLOGY - GENERAL O RDERABLES Final Result Performing Organization Address City/[facility]/ZIP Co de Phone Number [facility] [address] [place] [address] * (ABNORMAL) CBC with Auto Differential (12/23/2024 9:10 AM GLASS HANDLER) WBC 12.61(H) 4.00 - 12.00 10(3)/mcL 12/23/2024 9:49 AM GLASS HANDLER [facility] RBC 4.83 4.40 - 5.80 10(6)/mcL 12/23/2024 9:49 AM GLASS HANDLER [facility] HEMOGLOBIN (HGB) 15.6 13.0 - 16.5 g/dL 12/23/2024 9:49 AM [facility] HEMATOCRIT (HCT) 44.5 38.0 - 50.0 % 12/23/2024 9:49 AM [facility] MCV 92.1 82.0 - 96.0 fL 12/23/2024 9:49 AM [facility] MCH 32.3(H) 26.0 - 32.0 pg 12/23/2024 9:49 AM [facility] MCHC 35.1 31.0 - 36.0 g/dL 12/23/2024 9:49 AM [facility] PLATELET COUNT 322 140 - 440 10(3)/[facility] 12/23/2024 9:49 AM [facility] RDW 14.3 11.8 - 15.5 % 12/23/2024 9:49 AM [facility] MPV 9.3 8.0 - 12.6 fL 12/23/2024 9:49 AM [facility] NEUTROPHILS 77.2(H) 40.0 - 68.0 % 12/23/2024 9:49 AM [facility] LYMPHOCYTES 15.4(L) 19.0 - 49.0 % 12/23/2024 9:49 AM [facility] MONOCYTES 6.4 3.0 - 13.0 % 12/23/2024 9:49 AM [facility] EOSINOPHILS 0.6 0.0 - 8.0 % 12/23/2024 9:49 AM [facility] BASOPHILS 0.4 0.0 - 1.0 % 12/23/2024 9:49 AM [facility] ABSOLUTE NEUTROPHILS 9.74(H) 1.40 - 5.30 10(3)/mcL 12/23/2024 9:49 AM [facility] ABSOLUTE LYMPHOCYTES 1.94 0.90 - 3.30 10(3)/mcL 12/23/2024 9:49 AM [facility] ABSOLUTE MONOCYTES 0.81 0.10 - 0.90 10(3)/mcL 12/23/2024 9:49 AM GLASS HANDLER [facility] ABSOLUTE EOSINOPHIL 0.07 0.00 - 0.50 10(3)/mcL 12/23/2024 9:49 AM GLASS HANDLER [facility] ABSOLUTE BASOPHILS 0.05 0.00 - 0.10 10(3)/mcL 12/23/2024 9:49 AM GLASS HANDLER [facility] NRBC PER 100 WBC 0 12/23/19 9:49 AM GLASS HANDLER [facility] Blood Venipuncture / Unknown 12/23/2024 9:10 AM GLASS HANDLER 12/23/2024 9:28 AM GLASS HANDLER us Brett Adams MD HEMATOLOGY ORDERABLES Fi nal Result Performing Organization Address [facility]/ZIP Co de Phone Number [facility] [address] [place] [address] * PT / INR (12/23/2024 9:10 AM GLASS HANDLER) PROTIME-PATIENT 12.6 11.6 - 14.8 sec 12/23/2024 9:57 AM GLASS HANDLER [facility] INR 0.9 0.9 - 1.2 12/23/2024 9:57 AM GLASS HANDLER [facility] Comment: Therapeutic Ranges INR = 2.0-3.0: Venous thromb, atrial fib, pul embolism, tissue heart valve, ami. INR = 2.5-3.5: Mechanical heart valve Critical value for INR is >/= 4.5 Blood Venipuncture / Unknown 12/23/2024 9:10 AM GLASS HANDLER 12/23/2024 9:28 AM GLASS HANDLER us Brett Adams MD HEMATOLOGY ORDERABLES Fi nal Result Performing Organization Address City/[facility]/ZIP Co de Phone Number [facility] [address] [place] [address] * Magnesium (12/23/2024 9:10 AM GLASS HANDLER) MAGNESIUM 2.2 1.6 - 2.6 mg/dL 12/23/2024 9:52 AM GLASS HANDLER [facility] Blood Venipuncture / Unknown 12/23/2024 9:10 AM GLASS HANDLER 12/23/2024 9:28 AM GLASS HANDLER us Brett Aadms MD CHEMISTRY ORDERABLES Fin al Result [facility] [address] [place] [address] * Lipase (12/23/2024 9:10 AM GLASS HANDLER) LIPASE 14 8 - 78 U/L 12/23/2024 9:52 AM GLASS HANDLER [facility] Blood Venipuncture / Unknown 12/23/2024 9:10 AM GLASS HANDLER 12/23/2024 9:28 AM GLASS HANDLER us Brett Adams MD CHEMISTRY ORDERABLES Fin al Result Performing Organization Address City/[facility]/ZIP Co de Phone Number [facility] [address] [place] [address] * (ABNORMAL) Ethyl Alcohol(Ethanol) [id number] (12/23/2024 9:10 AM GLASS HANDLER) ETHANOL 67(H) <10 mg/dL 12/23/2024 9:5 2 AM GLASS HANDLER [facility] Blood Venipuncture / Unknown 12/23/2024 9:10 AM GLASS HANDLER 12/23/2024 9:28 AM GLASS HANDLER us Brett Adams MD CHEMISTRY ORDERABLES Fin al Result Performing Organization Address City/[facility]/ZIP Co de Phone Number [facility] [address] [place] [address] * (ABNORMAL) CMP (12/23/2024 9:10 AM GLASS HANDLER) SODIUM 141 136 - 145 mmol/L 12/23/2024 9:52 AM [facility] POTASSIUM 4.0 3.5 - 5.1 mmol/L 12/23/2024 9:52 AM [facility] CHLORIDE 101 98 - 107 mmol/L 12/23/2024 9:52 AM [facility] CO2, VENOUS 23 22 - 30 mmol/L 12/23/2024 9:52 AM [facility] ANION GAP 21.0(H) <18.0 mmol/L 12/23/2024 9:52 AM [facility] GLUCOSE 66(L) 70 - 99 mg/dL 12/23/2024 9:52 AM [facility] BUN 12 8 - 26 mg/dL 12/23/2024 9:52 AM [facility] CREATININE, BLOOD 0.96 0.70 - 1.30 mg/dL 12/23/2024 9:52 AM [facility] BUN/CREATININE RATIO 13 12 - 20 ratio 12/23/2024 9:52 AM [facility] TOTAL PROTEIN 9.4(H) 6.0 - 8.0 g/dL 12/23/2024 9:52 AM [facility] ALBUMIN 4.8 3.5 - 5.0 g/dL 12/23/2024 9:52 AM [facility] A/G RATIO 1.0 1.0 - 2.2 12/23/2024 9:52 AM [facility] CALCIUM 9.6 8.7 - 10.5 mg/dL 12/23/2024 9:52 AM [facility] T BILI 0.4 0.2 - 1.2 mg/dL 12/23/2024 9:52 AM [facility] SGOT (AST) 62(H) <43 U/L 12/23/2024 9:52 AM [facility] SGPT (ALT) 34 <56 U/L 12/23/2024 9:52 AM GLASS HANDLER [facility] ALKALINE PHOSPHATASE 85 40 - 150 U/L 12/23/2024 9:52 AM [facility]ER [facility] [facility] GFR, ESTIMATED >60 >=60 12/23/2024 9:52 AM [facility] Comment: Creatinine Clearance is the preferred criteria for selecting drug dose adjustments in renally impaired patients. The GFR is provided as additional pertinent clinical information. GFR is reported in mL/min/1.73 sq m. Calculation based on the Chronic Kidney Disease Epidemiology Collaboration (CKD- EPI) equation refit without adjustment for race. GFR, EST. >60 >=60 025 9:52 AM [facility] GFR, EST. NONAFRICAN >60 >=60 12/23/2024 9:52 AM [facility] Blood Venipuncture / Unknown 12/23/2024 9:10 AM GLASS HANDLER 12/23/2024 9:28 AM GLASS HANDLER Brett Adams MD CHEMISTRY ORDERABLES Fin al Result Performing Organization Address City/[facility]/ZIP Co de Phone Number [facility] [address] [place] [address] * B-Type Natriuretic Peptide (BNP) (12/23/2024 9:10 AM GLASS HANDLER) B TYPE NATRIURETIC PEPTIDE 26 <100 pg/mL 12/23/2024 10:03 AM [facility] Blood Venipuncture / Unknown 12/23/2024 9:10 AM GLASS HANDLER 12/23/2024 9:28 AM GLASS HANDLER Brett Adams MD CHEMISTRY ORDERABLES Fin al Result [facility] [address] [place] [address] from Last 3 Months Insurance MEDICARE [place] Advance Directives * Full Code (Latest Code Status on File) Date Activated Date Inactivated Comments 12/26/2024 10:33 AM CPR-Full Marcela tment: FULL ARREST: Attempt Resuscitation/CPR wit intubation and mechanical ventilation. PRE-ARREST: Use entire range of life support measures to stabilize the patient. Care Teams Tape Machine Tailer Relationship Specialty Start Date End Date Provider, Unknown UNKNOWN PCP - General 12/23/24 Provider, None [place] 12/23/24
--- OUTSIDE RECORDS SUMMARY | 2025-02-03 07:54 | XMS_ITS | Clinical Summary ---
Author Organization [facility] Address [address] [place] [address] Care Team Providers Care Car Seat Maker Name Role Phone None, Provider MD Primary Care Provider Unavaila ble Allergies Active Allergy Reactions Criticality Noted Date Comments Fish-Derived Products Unknown 10/18/2024 Medications divalproex 500 MG delayed release tablet Take 1 tablet (500 mg total) by mouth 2 (two) times daily. Active trazodone 100 MG tablet Take 1 tablet (100 mg total) by mouth nightly as needed for Sleep. Active risperiDONE 2 MG tablet Take 1 tablet (2 mg total) by mouth nightly at bedtime. 0 Active sertraline 50 MG tablet Take 2 tablets (100 mg total) by mouth daily. 0 Active albuterol sulfate HFA 108 (90 Base) MCG/ACT inhaler Inhale 2 puffs into the lungs every 4 (four) hours as needed for Shortness of breath or Wheezing. 6.7 g 3 Active budesonide-form oterol (SYMBICORT) 80-4.5 MCG/ACT inhaler Inhale 2 puffs into the lungs 2 (two) times daily. 4 Active Active Problems Problem Noted Date Diagnosed Date Alcohol use disorder, modera te, dependence ([facility]) 12/21/2018 Bipolar I disorder, most rec ent episode depressed, severe w psychosis Suicidal ideation Overview (05/09/2016): h/o Cocaine use disorder, moderate, dependence Overview (05/09/2016): h/o Depression Encounters Date Type Department Care Team Description 01/26/2025 2:59 PM CDT - 01/27/2025 7:23 AM CDT [facility] [place] [address] Luzmaria Granado MD [place], Rosie Virk MD Suicidal Ideation Discharge Disposition: [facility] 01/26/2025 Travel from Last 3 Months Family History Medical History Relation Comments Alcohol Abuse Father abnormal heart rhythm Father chronic kidney disease Father Coronary artery disease Other Hypertension Other Stroke Other Cancer Paternal Grandmother in her 40's abnormal heart rhythm Sister Relation Status Comments Father Other Paternal Grandmother Sister Social History Tobacco Use Types Packs/Day Years Used Date Smoking Tobacco: Every Day Cigarettes Smokeless Tobacco: Never Tobacco Cessation:Ready to Q uit: Not Asked; Counseling Given: Not Answered Alcohol Use Standard Drinks/Week Comments Yes 0 [...] file Not on file Not on file Last Filed Vital Signs Vital Sign Reading Time Taken Comments Blood Pressure 102/66 01/27/2025 5:48 AM CDT Pulse 82 01/27/2025 5:48 AM CDT Temperature 36.6 C (97.8 F) 01/26/2025 2:48 PM CDT Respiratory Rate 18 01/27/2025 5:48 AM CDT Oxygen Saturation 97% 01/27/2025 5:48 AM CDT Inhaled Oxygen Concentration - - Weight 93 kg (205 lb) 01/26/2025 2:48 PM CDT Height 177.8 cm (5' 10) 01/26/2025 2:48 PM CDT Body Mass Index 29.41 01/26/2025 2:48 PM CDT Plan of Treatment Health Maintenance Due Date Last Done Comments Colorectal Cancer Screening Colonoscopy (10 Years) 1971 Annual Physical 1974 Pneumococcal Vaccine: Pediat rics (0 to 5 Years) and At-Risk Patients (6 to 64 Years) (1 of 2 - PCV) 1977 Hepatitis C 1989 DTaP, Tdap and Td Vaccines ( 1 - Tdap) 1990 Hepatitis B Vaccines (1 of 3 - 19+ 3-dose series) 1990 Zoster Vaccines (1 of 2) 2021 COVID-19 Vaccine (1 - 2023-2 5 season) 2024 Meningococcal B Vaccine Aged Out No l onger eligible based on patient's age to complete this topic Meningococcal Vaccine Aged Out No aaron jonh eligible based on patient's age to complete this topic RSV Immunizations Under 20 Months Aged Out No longer eligible based on patient's age to complete this topic Procedures Procedure Name Priority Date/Time Associated Diagnosis Comments RESPIRATORY PCR PANEL 2 STAT 01/26/2025 5:21 PM CDT DRUG SCREEN RAPID STAT 01/26/2025 3:1 0 PM CDT URINALYSIS, AUTO, COMPLETE STAT 01/26/2025 3:10 PM CDT SALICYLATE STAT 01/26/2025 3:10 PM CDT THYROID STIM HORMONE TSH STAT 01/26/2025 3:10 PM CDT ACETAMINOPHEN STAT 01/26/2025 3:10 PM CDT ETHANOL STAT 01/26/2025 3:10 PM CDT COMPREHENSIVE METABOLIC PANEL STAT 01/26/2025 3:10 PM CDT CBC W/DIFF AUTOMATED STAT 01/26/2025 3:10 PM CDT ECG 12-LEAD STAT 01/26/2025 3:07 PM CDT from Last 3 Months Results * RESPIRATORY PCR PANEL 2 (01/26/2025 5:21 PM CDT) ADENOVIRUS PCR (RESP) NOT DETECTED NOT DETECTED 01/26/2025 6:30 PM CDT [facility] CORONAVIRUS 229E PCR (RESP) NOT DETECTED NOT DETECTED 01/26/2025 6:30 PM CDT [facility] CORONAVIRUS HKU1 PCR (RESP) NOT DETECTED NOT DETECTED 01/26/2025 6:30 PM CDT [facility] CORONAVIRUS NL63 PCR (RESP) NOT DETECTED NOT DETECTED 01/26/2025 6:30 PM CDT [facility] CORONAVIRUS OC43 PCR (RESP) NOT DETECTED NOT DETECTED 01/26/2025 6:30 PM CDT [facility] METAPNEUMOVIRUS PCR (RESP) NOT DETECTED NOT DETECTED 01/26/2025 6:30 PM CDT [facility] RHINOVIRUS/ENTEROV IRUS PCR (RESP) NOT DETECTED NOT DETECTED 01/26/2025 6:30 PM CDT [facility] INFLUENZA A PCR (RESP) NOT DETECTED NOT DETECTED 01/26/2025 6:30 PM CDT [facility] INFLUENZA B PCR (RESP) NOT DETECTED NOT DETECTED 01/26/2025 6:30 PM CDT [facility] PARAINFLUENZA 1 PCR (RESP) NOT DETECTED NOT DETECTED 01/26/2025 6:30 PM CDT [facility] PARAINFLUENZA 2 PCR (RESP) NOT DETECTED NOT DETECTED 01/26/2025 6:30 PM CDT [facility] PARAINFLUENZA 3 PCR (RESP) NOT DETECTED NOT DETECTED 01/26/2025 6:30 PM CDT [facility] PARAINFLUENZA 4 PCR (RESP) NOT DETECTED NOT DETECTED 01/26/2025 6:30 PM CDT [facility] RSV PCR (RESP) NOT DETECTED NOT DETECTED 01/26/2025 6:30 PM CDT [facility] B PARAPERTUSIS PCR (RESP) NOT DETECTED NOT DETECTED 01/26/2025 6:30 PM CDT [facility] BORDETELLA PERTUSSIS PCR (RESP) NOT DETECTED NOT DETECTED 01/26/2025 6:30 PM CDT [facility] CHLAMYDOPHILA PNEUMONIAE PCR (RESP) NOT DETECTED NOT DETECTED 01/26/2025 6:30 PM CDT [facility] MYCOPLASMA PNEUMONIAE PCR (RESP) NOT DETECTED NOT DETECTED 01/26/2025 6:30 PM CDT [facility] CORONAVIRUS SARS COV 2 PCR (RESP) NOT DETECTED NOT DETECTED 01/26/2025 6:30 PM CDT [facility] NASOPHARYNGEAL SWAB / Unknown 01/26/2025 5:21 PM CDT us Luzmaria Granado MD MICROBIOLOGY - GENERAL ORDERABL ES Final Result [facility] [address] [place] [address], [place] [phone] * (ABNORMAL) DRUG SCREEN RAPID (01/26/2025 3:10 PM CDT) AMPHETAMINE (U) NEGATIVE NEGATIVE 3:48 PM CDT [facility] BARBITURATES SCREEN (U) NEGATIVE NEGATIVE 01/26/2025 3:48 PM CDT [facility] BENZODIAZEPINES SCREEN (U) NEGATIVE NEGATIVE 01/26/2025 3:48 PM CDT [facility] CANNABINOIDS SCREEN (U) NEGATIVE NEGATIVE 01/26/2025 3:48 PM CDT [facility] COCAINE METABOLITES (U) POSITIVE(A) NEGATIVE 01/26/2025 3:48 PM CDT [facility] METHADONE (U) NEGATIVE NEGATIVE 01/26/2025 3:48 PM CDT [facility] OPIATE SCREEN (U) NEGATIVE NEGATIVE 025 3:48 PM CDT [facility] PHENCYCLIDINE PCP (U) NEGATIVE NEGATIVE 01/26/2025 3:48 PM CDT [facility] Comment: NOTE: RESULTS OF THIS DRUG SCREEN SHOULD BE USED FOR MEDICAL PURPOSES ONLY AND NOT FOR LEGAL OR EMPLOYMENT PURPOSES. POSITIVE RESULTS ARE NOT CONFIRMED. MEDICATIONS CONTAINING EPHEDRINE MAY CAUSE FALSE POSITIVE AMPHETAMINE CALL [phone], LAB, TO REQUEST CONFIRMATION TESTING. IF CREATININE IS <40 mg/dL. RECOLLECTION IS SUGGESTED. AMPHETAMINE- 500 NG/ML BARBITURATE- 200 NG/ML BENZODIAZEPINES- 200 NG/ML THC- 50 NG/ML COCAINE- 150 NG/ML METHADONE- 300 NG/ML OPIATE- 300 MG/ML PCP- 25 NG/ML CREATININE (U) 13.2(L) 39 - 259 MG/DL 01/26/2025 3:48 PM CDT [facility] URINE SPECIMEN / Unknown 01/26/2025 3:10 PM CDT us Colby Hwang HAND III CUTTER URINE ORDERABLES Final Result [facility] [address] [place] [address], * URINALYSIS, AUTO, COMPLETE (01/26/2025 3:10 PM CDT) SPECIMEN TYPE URINE CLEAN CATCH 01/26/2025 3:23 PM CDT [facility] COLOR (U) COLORLESS 01/26/2025 3:37 PM CDT [facility] TRANSPARENCY CLEAR 01/26/2025 3:37 PM CDT [facility] SPECIFIC GRAVITY (U) 1.003 1.001 - 1.030 01/26/2025 3:37 PM CDT [facility] U PH 6.0 5.0 - 9.0 01/26/2025 3:37 PM CDT [facility] LEUKOCYTES (U) NEGATIVE NEGATIVE 01/26/2025 3:37 PM CDT [facility] NITRITES NEGATIVE NEGATIVE 01/26/2025 3:37 PM CDT [facility] PROTEIN RANDOM (U) NEGATIVE <30 MG/DL 01/26/2025 3:37 PM CDT [facility] GLUCOSE (U) NORMAL NORMAL MG/DL 01/26/2025 3:37 PM CDT [facility] KETONES MG/DL (U) NEGATIVE NEGATIVE MG/DL 01/26/2025 3:37 PM CDT [facility] UROBILINOGEN NORMAL NORMAL MG/DL 01/26/2025 3:37 PM CDT [facility] BILIRUBIN (U) NEGATIVE NEGATIVE MG/DL 01/26/2025 3:37 PM CDT [facility] BLOOD (U) NEGATIVE NEGATIVE 01/26/2025 3:37 PM CDT [facility] RBC/HPF <1 <6 /HPF 01/26/2025 3:37 PM CDT [facility] URINE SPECIMEN OBTAINED BY CLEAN CATCH PROCEDURE / Unknown 01/26/2025 3:10 PM CDT us Colby Hwang HAND III CUTTER URINE ORDERABLES Final Result [facility] [address] [place] [address], [place] [phone] * (ABNORMAL) COMPREHENSIVE METABOLIC PANEL (01/26/2025 3:10 PM CDT) GLUCOSE 77 70 - 99 MG/DL 01/26/2025 4:46 PM CDT [facility] BUN 11 7 - 18 MG/DL 01/26/2025 4:46 PM CDT [facility] CREATININE S/P/B 0.99 0.7 - 1.3 MG/DL 01/26/2025 4:46 PM CDT [facility] SODIUM S/P/B 133(L) 136 - 145 MMOL/L 01/26/2025 4:46 PM CDT [facility] POTASSIUM S/P/B 3.9 3.5 - 5.1 MMOL/L 01/26/2025 4:46 PM CDT [facility] CHLORIDE S/P/B 101 97 - 115 MMOL/L 01/26/2025 4:46 PM CDT [facility] CO2 24.0 21 - 32 MMOL/L 01/26/2025 4:46 PM CDT [facility] CALCIUM S/P/B 9.2 8.5 - 10.1 MG/DL 01/26/2025 4:46 PM CDT [facility] BILIRUBIN TOTAL S/P/B 0.4 0.2 - 1.2 MG/DL 01/26/2025 4:46 PM CDT [facility] Comment: THIS ASSAY IS NOT RECOMMENDED FOR PATIENTS UNDERGOING TREATMENT WITH ELTROMBOPAG DUE TO THE POTENTIAL FOR FALSELY ELEVATED RESULTS. TOTAL PROTEIN S/P/B 8.3(H) 6.4 - 8.2 G/DL 01/26/2025 4:46 PM CDT [facility] ALBUMIN S/P/B 3.8 3.4 - 5.0 G/DL 01/26/2025 4:46 PM CDT [facility] AST 54(H) 15 - 37 U/L 01/26/2025 4:46 PM CDT [facility] ALT 42 16 - 60 U/L 01/26/2025 4:46 PM T [facility] ALKALINE PHOSPHATASE S/P/B 79 50 - 136 U/L 01/26/2025 4:46 PM CDT [facility] ANION GAP 8.0 2 - 10 MMOL/L 01/26/2025 4:46 PM CDT [facility] BUN CREATININE RATIO 11.1 6 - 26 01/26/2025 4:46 PM CDT [facility] A/G RATIO 0.8(L) 1.0 - 2.0 RATIO 01/26/2025 4:46 PM CDT [facility] GFR ESTIMATE >90 >90 ML/MIN/1.7 3 M2 01/26/2025 4:46 PM CDT [facility] Comment: NOTE: eGFR is not calculated for patients <18 years of age or gender unknown. This is an estimated GFR calculation using the new CKD EPI creatinine equation without race and so does not require a correction factor for race. This estimated GFR should not be used for calculating drug doses. 01/26/2025 3:10 PM CDT Colby Hwang NP LABORATORY Final Result [facility] [address] [place] [address], [place] [phone] * (ABNORMAL) CBC W/DIFF AUTOMATED (01/26/2025 3:10 PM CDT) WBC 10.59 4.5 - 11.0 x10'3/uL 01/26/2025 3:37 PM CDT [facility] RBC 4.45(L) 4.70 - 6.10 x10'6/uL 01/26/2025 3:37 PM CDT [facility] HGB 13.7(L) 14.0 - 18.0 G/DL 01/26/2025 3:37 PM CDT [facility] HCT 40.5(L) 43.0 - 54.0 % 01/26/2025 3:37 PM CDT [facility] MCV 91.0 80.0 - 94.0 FL 01/26/2025 3:37 PM CDT [facility] MCH 30.8 27.0 - 31.0 PG 01/26/2025 3:37 PM CDT [facility] MCHC 33.8 32.0 - 36.0 G/DL 01/26/2025 3:37 PM CDT [facility] RDW 15.1(H) 11.5 - 14.5 % 01/26/2025 3:37 PM CDT [facility] PLT 337 130 - 400 x10'3/uL 01/26/2025 3:37 PM CDT [facility] MPV 8.9(L) 9.3 - 12.2 FL 01/26/2025 3:37 PM CDT [facility] DIFFERENTIAL TYPE AUTOMATED DIFFERENTIAL 01/26/2025 3:37 PM CDT [facility] NEUTROPHILS % 61.2 % 01/26/2025 3:37 PM CDT [facility] LYMPHOCYTES % 24.1 % 01/26/2025 3:37 PM CDT [facility] MONOCYTES % 11.4 % 01/26/2025 3:37 PM CDT [facility] EOSINOPHILS 2.3 % 01/26/2025 3:37 PM CDT [facility] BASOPHILS 0.6 % 01/26/2025 3:37 PM CDT [facility] IMMATURE GRANS % 0.4 % 01/27/20 3:37 PM CDT [facility] ABS. NEUTROPHILS 6.49 1.80 - 7.70 x10'3/uL 01/26/2025 3:37 PM CDT [facility] ABS. LYMPHOCYTES 2.55 1.00 - 4.80 x10'3/uL 01/26/2025 3:37 PM CDT [facility] ABS. MONOCYTES 1.21(H) 0.30 - 0.82 x10'3/uL 01/26/2025 3:37 PM CDT [facility] ABS. EOSINOPHILS 0.24 0.04 - 0.54 x10'3/uL 01/26/2025 3:37 PM CDT [facility] ABS. BASOPHILS 0.06 0.01 - 0.08 x10'3/uL 01/26/2025 3:37 PM CDT [facility] ABS. IMMATURE GRANULOCYTES 0.04 0.00 - 0.49 x10'3/uL 01/26/2025 3:37 PM CDT [facility] 01/26/2025 3:10 PM CDT Colby Hwang NP LABORATORY Final Result [facility] [address] [place] [address], [place] [phone] * THYROID STIM HORMONE, TSH (01/26/2025 3:10 PM CDT) TSH 0.952 0.358 - 3.74 uIU/ML 01/26/2025 4:46 PM CDT [facility] Comment: HIGH DOSES OF BIOTIN MAY INTERFERE WITH THIS TEST RESULT. CORRELATION TO CLINICAL HISTORY AND PRESENTATION RECOMMENDED. 01/26/2025 3:10 PM CDT Colby Hwang NP LABORATORY Final Result [facility] [address] [facility] [place] [address], * (ABNORMAL) SALICYLATE (01/26/2025 3:10 PM CDT) SALICYLATES <1.7(L) 2.8 - 20.0 MG/DL 01/26/2025 4:26 PM CDT [facility] Comment: THERAPEUTIC: 2.8-20.0 Toxic Level: >=30 01/26/2025 3:10 PM CDT Colby Hwang HAND III CUTTER LABORATORY Final Result Performing Organization Address City/[facility]/ZIP Co de Phone Number [facility] [address] [place] [address], * (ABNORMAL) ETHANOL (01/26/2025 3:10 PM CDT) ALCOHOL S/P/B 0.076(H) <0.003 G/DL 01/26/2025 4:46 PM CDT [facility] 01/26/2025 3:10 PM CDT Colby Hwang HAND III CUTTER LABORATORY Final Result [facility] [address] [place] [address], * (ABNORMAL) ACETAMINOPHEN (01/26/2025 3:10 PM CDT) ACETAMINOPHEN S/P/B <2.0(L) 10.0 - 30.0 MCG/ML 01/26/2025 4:46 PM CDT [facility] Comment: THERAPEUTIC: 10-30 TOXIC: >200 01/26/2025 3:10 PM CDT us Colby Hwang HAND III CUTTER LABORATORY Final Result [facility] [address] [place] [address], * ECG 12 lead (01/26/2025 3:07 PM CDT) 01/26/2025 3:07 PM CDT Narrative [facility] ([place] - 01/27/2025 5:50 AM CDT [address] Test Date: 2025-01-26 Pat Name: [facility] Department: 41 Room: Gender: Male 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: : 1970 Requested By: COLBY HWANG Order Number: [id number] Reading YESSENIA So Measurements Intervals Davis Rate: 89 P: 61 RI: 151 QRS: -7 QRSD: 85 T: 36 QT: 356 QTc: 435 Interpretive Statements SINUS RHYTHM Compared to ECG 10/18/2024 22:30:38 No significant changes Procedure Note Perla So MD - 01/27/[address] Test Date: 2025-01-26 Pat Name: [facility] Department: 41 Room: Gender: Male 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
--- OUTSIDE RECORDS SUMMARY | 2025-02-03 07:55 | XMS_ITS | Referral Summary ---
Author Organization [facility] Address [address] [place] [address] Care Team Providers Care Licensed Loan Officer Assistant Name Role Phone Cailin Hernández Unavailable Unavailable Bernadette RobertsW Unavailable [phone] Frank Beltran MD Primary Care Provider [phone] Encounters Date Type Department Care Team Description 01/24/2025 Telephone [facility] [place] [address] [place] [address] Linh Fox EGD & Colonoscopy Referral 01/04/2025 4:58 PM HEALTH SAFETY AND ENVIRONMENT MANAGER - 01/11/2025 8:37 AM CDT Hospital Encounter [place] [address] [address] [place] [address] Otilio Vargas MD Sada, Kahmalia-Kalee Conceptia, MD Smith, MD Natalya Arroyo Omar Ali Mohammed, MD Alcohol withdrawal syndrome without complication (HCC) (Primary Dx) Discharge Disposition: Discharge to home or self care 12/08/2024 6:37 AM HEALTH SAFETY AND ENVIRONMENT MANAGER - 12/15/2024 10:55 AM HEALTH SAFETY AND ENVIRONMENT MANAGER Hospital Encounter [address] [address] Devin Rico MD Winston, MD Luís Payton [...] acute exacerbation Discharge Disposition: Discharge to an IP Rehab facility 12/09/2024 TCC Initial Eligibility Review [facility] [address] [place], [place] [id number] Krista Corral NP 11/10/2024 9:57 AM HEALTH SAFETY AND ENVIRONMENT MANAGER - 11/18/2024 2:20 PM HEALTH SAFETY AND ENVIRONMENT MANAGER Hospital Encounter [facility] [address] [place] [address] Nick Foster MD Garland, MD Edyta Jaramillo, MD Alexandre Mccartney, Jony Piedra MD Alcohol withdrawal syndrome with complication (HCC) (Primary Dx); Polysubstance abuse (HCC); Depression, acute [F32.A] Discharge Disposition: Discharge to home or self care from Last 3 Months Allergies Active Allergy Reactions Criticality Noted Date [...] 11/11/2024 Assessment & Plan (11/14/2024 12:14 PM HEALTH SAFETY AND ENVIRONMENT MANAGER): Patient has a chart history of bipolar [...] interim Assessment & Plan (11/11/2024 10:53 AM HEALTH SAFETY AND ENVIRONMENT MANAGER): Patient has a chart history of bipolar [...] (02/09/2023): Added automatically from request for surgery [id number] Polysubstance abuse 01/26/2022 Assessment & Plan (01/26/2022 [...] disease) Assessment & Plan (11/14/2024 12:14 PM HEALTH SAFETY AND ENVIRONMENT MANAGER): Symbicort scheduled and albuterol PRN Assessment & Plan (11/11/2024 10:43 AM HEALTH SAFETY AND ENVIRONMENT MANAGER): Symbicort scheduled and albuterol PRN Assessment & [...] 01/04/2020 Assessment & Plan (11/14/2024 12:14 PM HEALTH SAFETY AND ENVIRONMENT MANAGER): Medical records indicate patient has long history [...] disorder, severe. - for MARIANELA resources - Diving Instructor cessation Assessment & Plan (11/11/2024 10:44 AM HEALTH SAFETY AND ENVIRONMENT MANAGER): Medical records indicate patient has long history [...] severe. - SW for MARIANELA resources - Diving Instructor cessation Assessment & Plan (06/28/2020 10:01 AM [...] 08/13/2018 Assessment & Plan (11/17/2024 11:56 AM HEALTH SAFETY AND ENVIRONMENT MANAGER): Medical records indicate that the patient has [...] Offer inpatient rehab, plan for discharge to [place] once approved - Continue counselling cessation - Cleared AWAS, continue thiamine, folate Assessment & Plan (11/13/2024 12:46 PM HEALTH SAFETY AND ENVIRONMENT MANAGER): Medical records indicate that the patient has [...] pharmacologic treatment - Offer inpatient rehab - Diving Instructor cessation - AWAS, thiamine, folate Resolved Problems Problem Noted Date Diagnosed Date Resolved Date Polysubstance (excluding opi oids) dependence ([facility]) 01/19/2021 07/13/2021 Recurrent major depression i n partial remission 06/09/2020 07/13/2021 Assessment & Plan (06/28/2020 9:52 AM CDT): Fair progress with no SI. Pt is talking to and his shelter case manager to go to a chronic inpatient unit for MARIANELA. - continue zoloft 50mg every day and risperidone 2mg HS - continue monitoring and adjust treatment as needed - SW to assist with housing and OP f/u Assessment & Plan (06/13/2020 12:02 PM CDT): Fair progress with no SI. Pt is talking to and his shelter case manager to go to a chronic inpatient unit [...] OP f/u Alcohol withdrawal syndrome without complication ([facility]/HCC) 02/08/2019 07/13/2021 Alcohol withdrawal syndrome without complication 04/10/2018 08/13/2018 Alcohol withdrawal syndrome without complication 01/12/2018 08/13/2018 Depression 06/11/2020 Intentional drug overdose Immunizations Immunization Administration Dates Next Due Hep A, Adult 05/28/2004 Influenza, Quadrivalent, Spl it, Preservative Free, Intramuscular 08/17/2023,11/10/2019,09/26/2017 Influenza, Trivalent, Preser vative Free, Intramuscular 12/15/2024(Deferred: Patient Refused - pt.stated, i already have one couple months ago like September last year.) Influenza, Unspecified 08/08/2016 Social History Tobacco Use Types Packs/Day Years Used Date Smoking Tobacco: Every Day Cigarettes 1 20 Smokeless Tobacco: Never Alcohol Use Standard Drinks/Week Comments Yes 12 (1 standard drink = 0.6 oz pure alcohol) 1 case beer, 1-2 bottles of Vodka daily. [facility] Utilities Answer Date Recorded In the past 12 months has Dazo, oil, or water [employer] threatened to shut off services in your [...] week 01/06/2025 How often do you attend [facility] or [facility] services? Never 01/06/2025 Do you belong to any clubs o r organizations such as restorationism groups, unions, fraternal or athletic groups, or [...] staff should administer the PHQ-9) 1 01/25/2022 [facility] - Occupational Stress Questionnaire Answer Date Recorded [...] place to sleep or slept in a fpc (including now)? Yes 06/20/2021 Housing Stability Vital Sign Answer Krunal e Recorded In the last 12 months, was t here a time when you were not able to pay the mortgage or rent on time? No 01/06/2025 In the past 12 months, how m any times have you moved where you were living? 0 01/06/2025 At any time in the past 12 m [facility], were you homeless or living in a fpc (including now)? No 01/06/2025 Personal Safety Answer [...] on file Legal Sex Male 6:20 AM HEALTH SAFETY AND ENVIRONMENT MANAGER Gender Identity Not on file Sexual Orientation [...] lb 5.2 oz) 01/04/2025 9:34 P M HEALTH SAFETY AND ENVIRONMENT MANAGER Height 177.8 cm (5' 10) 01/04/2025 9:34 PM HEALTH SAFETY AND ENVIRONMENT MANAGER Body Mass Index 28.03 01/04/2025 9:34 PM HEALTH SAFETY AND ENVIRONMENT MANAGER Functional Status * Are you deaf or do you have serious difficulty hearing? Answer Date of Assessment Author No 11/11/2024 4:43 PM HEALTH SAFETY AND ENVIRONMENT MANAGER Byers Donnasara Hebert, MACHINE CHAIN MAKER * Are you blind or do you have serious difficulty seeing, even when wearing glasses? Answer Date of Assessment Author No 11/11/2024 4:43 PM HEALTH SAFETY AND ENVIRONMENT MANAGER Byers Donnasara Gaytania, MACHINE CHAIN MAKER * Do you have serious difficulty walking or climbing stairs? Answer Date of Assessment Author No 11/11/2024 4:43 PM HEALTH SAFETY AND ENVIRONMENT MANAGER Byers, Donnasara Bennettricia, MACHINE CHAIN MAKER * Do you have serious difficulty dressing or bathing? Answer Date of Assessment Author No 11/11/2024 4:43 PM HEALTH SAFETY AND ENVIRONMENT MANAGER Byers, Donnasara Gaytania, MACHINE CHAIN MAKER * Because of a physical, mental, or emotional condition, do you have serious difficulty doing errandsalone such as visiting the doctor? Answer Date of Assessment Author Yes 11/11/2024 4:43 PM HEALTH SAFETY AND ENVIRONMENT MANAGER Byers Donnasara Gaytania, MACHINE CHAIN MAKER Mental Status * Because of a physical, mental, or emotional condition, do you have serious difficulty concentrating, remembering, or making decisions? (5 years old or older) Answer Entry Date Author Yes 11/11/2024 4:43 PM HEALTH SAFETY AND ENVIRONMENT MANAGER Byers, Donnasara Hebert, MACHINE CHAIN MAKER Plan of Treatment Not on file Goals Goal Patient Goal Type Associated Problems [...] Note: Pt will attend scheduled appointments with [facility] on 06/19/21 Procedures Procedure Name Priority Date/Time Associated Diagnosis Comments EGFR Routine 01/10/2025 6:08 AM CDT CBC WITHOUT DIFFERENTIAL Routine 01/10/2025 6:08 AM CDT BASIC METABOLIC PANEL Routine 01/10/2025 6:08 AM CDT EGFR Routine 01/06/2025 1:55 AM HEALTH SAFETY AND ENVIRONMENT MANAGER COMPREHENSIVE METABOLIC PANEL Routine 01/06/2025 1:55 AM HEALTH SAFETY AND ENVIRONMENT MANAGER EGFR Routine 01/05/2025 3:49 AM HEALTH SAFETY AND ENVIRONMENT MANAGER HEMOGLOBIN A1C Routine 01/05/2025 3:49 AM HEALTH SAFETY AND ENVIRONMENT MANAGER THYROID FUNCTION CASCADE Routine 01/05/2025 3:49 AM HEALTH SAFETY AND ENVIRONMENT MANAGER COMPREHENSIVE METABOLIC PANEL Routine 01/05/2025 3:49 AM HEALTH SAFETY AND ENVIRONMENT MANAGER CT HEAD WO CONTRAST ED 01/04/2025 6 :19 PM HEALTH SAFETY AND ENVIRONMENT MANAGER XR CHEST 1 VIEW ED 01/04/2025 2:31 PM HEALTH SAFETY AND ENVIRONMENT MANAGER ECG 12-LEAD STAT 01/04/2025 2:21 PM HEALTH SAFETY AND ENVIRONMENT MANAGER EGFR STAT 01/04/2025 2:17 PM HEALTH SAFETY AND ENVIRONMENT MANAGER DIFFERENTIAL AUTO STAT 01/04/2025 2:1 7 PM HEALTH SAFETY AND ENVIRONMENT MANAGER ETHANOL STAT 01/04/2025 2:17 PM HEALTH SAFETY AND ENVIRONMENT MANAGER TROPONIN T HIGH-SENSITIVITY SERIES (BASELINE, 2HR, 4HR, 6HR) STAT 01/04/2025 2:17 PM HEALTH SAFETY AND ENVIRONMENT MANAGER COMPREHENSIVE METABOLIC PANEL STAT 01/04/2025 2:17 PM HEALTH SAFETY AND ENVIRONMENT MANAGER CBC WITH AUTO DIFFERENTIAL STAT 01/04/2025 2:17 PM HEALTH SAFETY AND ENVIRONMENT MANAGER EGFR Routine 12/14/2024 3:28 AM HEALTH SAFETY AND ENVIRONMENT MANAGER COMPREHENSIVE METABOLIC PANEL Routine 12/14/2024 3:28 AM HEALTH SAFETY AND ENVIRONMENT MANAGER EGFR Routine 12/13/2024 12:50 PM HEALTH SAFETY AND ENVIRONMENT MANAGER COMPREHENSIVE METABOLIC PANEL Routine 12/13/2024 12:50 PM HEALTH SAFETY AND ENVIRONMENT MANAGER EGFR Routine 12/12/2024 3:01 AM HEALTH SAFETY AND ENVIRONMENT MANAGER CBC WITHOUT DIFFERENTIAL Routine 12/12/2024 3:01 AM HEALTH SAFETY AND ENVIRONMENT MANAGER COMPREHENSIVE METABOLIC PANEL Routine 12/12/2024 3:01 AM HEALTH SAFETY AND ENVIRONMENT MANAGER EGFR Routine 12/11/2024 4:39 AM HEALTH SAFETY AND ENVIRONMENT MANAGER COMPREHENSIVE METABOLIC PANEL Routine 12/11/2024 4:39 AM HEALTH SAFETY AND ENVIRONMENT MANAGER CBC WITHOUT DIFFERENTIAL Routine 12/11/2024 4:39 AM HEALTH SAFETY AND ENVIRONMENT MANAGER EGFR Routine 12/10/2024 6:38 AM HEALTH SAFETY AND ENVIRONMENT MANAGER COMPREHENSIVE METABOLIC PANEL Routine 12/10/2024 6:38 AM HEALTH SAFETY AND ENVIRONMENT MANAGER EGFR Routine 12/09/2024 3:39 AM HEALTH SAFETY AND ENVIRONMENT MANAGER DIFFERENTIAL AUTO Routine 12/09/2024 3:3 9 AM HEALTH SAFETY AND ENVIRONMENT MANAGER COMPREHENSIVE METABOLIC PANEL Routine 12/09/2024 3:39 AM HEALTH SAFETY AND ENVIRONMENT MANAGER CBC WITH AUTO DIFFERENTIAL Routine 12/09/2024 3:39 AM HEALTH SAFETY AND ENVIRONMENT MANAGER MAGNESIUM Routine 12/09/2024 3:39 AM HEALTH SAFETY AND ENVIRONMENT MANAGER LIPID PANEL Routine 12/09/2024 3:39 AM HEALTH SAFETY AND ENVIRONMENT MANAGER INFLUENZA A/B, RSV, AND COVID-19 PCR Routine 12/08/2024 8:17 PM HEALTH SAFETY AND ENVIRONMENT MANAGER MAGNESIUM STAT 12/08/2024 7:28 AM HEALTH SAFETY AND ENVIRONMENT MANAGER EGFR STAT 12/08/2024 7:28 AM HEALTH SAFETY AND ENVIRONMENT MANAGER BASIC METABOLIC PANEL STAT 12/08/2024 7:28 AM HEALTH SAFETY AND ENVIRONMENT MANAGER TROPONIN T HIGH-SENSITIVITY 6-HOUR Timed 12/08/2024 6:17 AM HEALTH SAFETY AND ENVIRONMENT MANAGER TROPONIN T HIGH-SENSITIVITY 2-HOUR Timed 12/08/2024 2:24 AM HEALTH SAFETY AND ENVIRONMENT MANAGER XR CHEST 1 VIEW ED 12/08/2024 12:54 AM HEALTH SAFETY AND ENVIRONMENT MANAGER ECG 12-LEAD STAT 12/08/2024 12:22 AM HEALTH SAFETY AND ENVIRONMENT MANAGER LIPASE STAT 12/08/2024 12:22 AM HEALTH SAFETY AND ENVIRONMENT MANAGER EGFR STAT 12/08/2024 12:22 AM HEALTH SAFETY AND ENVIRONMENT MANAGER DIFFERENTIAL AUTO STAT 12/08/2024 12: 22 AM HEALTH SAFETY AND ENVIRONMENT MANAGER ETHANOL STAT 12/08/2024 12:22 AM HEALTH SAFETY AND ENVIRONMENT MANAGER TROPONIN T HIGH-SENSITIVITY SERIES (BASELINE, 2HR, 4HR, 6HR) STAT 12/08/2024 12:22 AM HEALTH SAFETY AND ENVIRONMENT MANAGER CBC WITH AUTO DIFFERENTIAL STAT 12/08/2024 12:22 AM HEALTH SAFETY AND ENVIRONMENT MANAGER COMPREHENSIVE METABOLIC PANEL STAT 12/08/2024 12:22 AM HEALTH SAFETY AND ENVIRONMENT MANAGER XR CHEST PA LATERAL 2 VIEWS ED 11/10/2024 12:08 PM HEALTH SAFETY AND ENVIRONMENT MANAGER URINALYSIS, MICROSCOPIC ONLY STAT 11/10/2024 11:33 AM HEALTH SAFETY AND ENVIRONMENT MANAGER DRUGS OF ABUSE SCREEN, URINE WITHOUT CONFIRMATION STAT 11/10/2024 11:33 AM HEALTH SAFETY AND ENVIRONMENT MANAGER URINALYSIS AND REFLEX TO MICROSCOPIC AND CULTURE STAT 11/10/2024 11:33 AM HEALTH SAFETY AND ENVIRONMENT MANAGER ECG 12-LEAD STAT 11/10/2024 10:43 AM HEALTH SAFETY AND ENVIRONMENT MANAGER POCT RAPID HIV ANTIBODY COMMUNITY SCREENING-FABI ELIGIBLE Routine 11/10/2024 10:24 AM HEALTH SAFETY AND ENVIRONMENT MANAGER VALPROIC ACID LEVEL, TOTAL STAT 11/10/2024 10:06 AM HEALTH SAFETY AND ENVIRONMENT MANAGER ETHANOL STAT 11/10/2024 10:06 AM HEALTH SAFETY AND ENVIRONMENT MANAGER EGFR STAT 11/10/2024 10:06 AM HEALTH SAFETY AND ENVIRONMENT MANAGER DIFFERENTIAL AUTO STAT 11/10/2024 10: 06 AM HEALTH SAFETY AND ENVIRONMENT MANAGER PRO B-TYPE NATRIURETIC PEPTIDE STAT 11/10/2024 10:06 AM HEALTH SAFETY AND ENVIRONMENT MANAGER TROPONIN I HIGH-SENSITIVITY SERIES (BASELINE, 2HR, 4HR, 6HR) STAT 11/10/2024 10:06 AM HEALTH SAFETY AND ENVIRONMENT MANAGER CBC WITH AUTO DIFFERENTIAL STAT 11/10/2024 10:06 AM HEALTH SAFETY AND ENVIRONMENT MANAGER COMPREHENSIVE METABOLIC PANEL STAT 11/10/2024 10:06 AM HEALTH SAFETY AND ENVIRONMENT MANAGER HEPATITIS PANEL, ACUTE Routine 12:56 PM HEALTH SAFETY AND ENVIRONMENT MANAGER from Last 3 Months or Most Recently [...] was last reviewed 2021. Testing performed by: [address] [address] Blood 01/10/2025 6:08 AM CDT 01/10/2025 6:43 AM CDT us Nelson Villalba MD LAB BLOOD ORDERABLES Fi nal Result [id number] Department [place] [address] * (ABNORMAL) CBC without differential (01/10/2025 6:08 AM CDT) WBC 13.7(H) 3.8 - 9.9 K/cumm Comment:Testing performed by : [address] [address] Hgb 11.7(L) 13.0 - 17.5 g/dL [facility]U LEMUS Comment:Testing performed by : [address] [address] Hct 35.7(L) 38.9 - 50.3 % [facility]U LEMUS Comment:Testing performed by : [address] [address] Plt 326 150 - 400 K/cumm RAMU LEMUS Comment:Testing performed by : [address] [address] MPV 9.4 9.1 - 12.3 fL [facility]U LEMUS Comment:Testing performed by : [address] [address] RBC 3.79(L) 4.30 - 5.80 M/cumm [facility]U LEMUS Comment:Testing performed by : [address] [address] MCV 94.2 81.3 - 96.4 fL [facility]U LEMUS Comment:Testing performed by : [address] [address] MCH 30.9 27.1 - 33.3 pg [facility]U LEMUS Comment:Testing performed by : [address] [address] MCHC 32.8 32.3 - 35.7 g/dL [facility]U LEMUS Comment:Testing performed by : [address] [address] RDW CV 15.2(H) 11.1 - 14.9 % RAMU LEMUS Comment:Testing performed by : [address] [address] RDW SD 51.8(H) 35.7 - 48.1 fL [facility]U LEMUS Comment:Testing performed by : [address] [address] NRBC abs 0.00 0.00 - 0.01 K/cumm [facility]U LEMUS Comment:Testing performed by : [address] [address] Blood 01/10/2025 6:08 AM CDT 01/10/2025 6:43 AM CDT us Nelson Villalba MD LAB BLOOD ORDERABLES Fi nal Result [facility] [address] [facility] Department of Laboratories [place], [place] [id number] * Basic metabolic panel (01/10/2025 6:08 AM CDT) Sodium 141 135 - 145 mmol/L Comment:Testing performed by : [address] [address] Potassium, pl 4.1 3.3 - 4.9 mmol/L [facility]U LEMUS Comment: Hemolyzed; Potassium value may be falsely elevated by as much as 1.0 mmol/L. Suggest redraw and reanalysis. Testing performed by: [address] [place]., [address] Chloride 106 97 - 110 mmol/L RAMU Comment:Testing performed by : [address] [address] CO2 25 22 - 32 mmol/L RAMU Comment:Testing performed by : [address] [address] Anion gap 10 2 - 15 mmol/L RAMU Comment:Testing performed by : [address] [address] BUN 13 6 - 25 mg/dL RAMU Comment:Testing performed by : [address] [address] Creatinine 0.80 0.80 - 1.30 mg/dL RAMU Comment:Testing performed by : [address] [address] Glucose 121 70 - 199 mg/dL RAMU [...] was last revised 2022. Testing performed by: [address] [address] Calcium 9.9 8.5 - 10.3 mg/dL RAMU Comment:Testing performed by : [address] [address] Blood 01/10/2025 6:08 AM CDT 01/10/2025 6:43 AM CDT us Nelson Villalba MD LAB BLOOD ORDERABLES Fi nal Result [facility] [address] [facility] Department [place] [address] * eGFR (01/06/2025 1:55 AM HEALTH SAFETY AND ENVIRONMENT MANAGER) eGFR >90 >=60 mL/min/1. 73 m2 Comment: [...] was last reviewed 2021. Testing performed by: [address] [address] Blood 01/06/2025 1:55 AM HEALTH SAFETY AND ENVIRONMENT MANAGER 01/06/2025 2:57 AM HEALTH SAFETY AND ENVIRONMENT MANAGER Anel Al MD LAB BLOOD ORDER DIANE Final Result [facility] [address] Department [place] [address] * (ABNORMAL) Comprehensive metabolic panel (01/06/2025 1:55 AM HEALTH SAFETY AND ENVIRONMENT MANAGER) Sodium 139 135 - 145 mmol/L Comment:Testing performed by : [address] [address] Potassium, pl 3.9 3.3 - 4.9 mmol/L RAMU Comment: Hemolyzed; Potassium value may be falsely elevated by as much as 1.0 mmol/L. Suggest redraw and reanalysis. Testing performed by: [address] [address] Chloride 107 97 - 110 mmol/L RAMU Comment:Testing performed by : [address] [address] CO2 23 22 - 32 mmol/L RAMU Comment:Testing performed by : [address] [address] Anion gap 9 2 - 15 mmol/L [facility]U Comment:Testing performed by : [address] [address] BUN 8 6 - 25 mg/dL RAMU Comment:Testing performed by : [address], [place]., [address] Creatinine 0.82 0.80 - 1.30 mg/dL RAMU Comment:Testing performed by : [address] [address] Glucose 101 70 - 199 mg/dL RAMU Comment: Interpretive [...] was last revised 2022. Testing performed by: [address] [address] Calcium 9.0 8.5 - 10.3 mg/dL RAMU Comment:Testing performed by : [address] [address] Bilirubin, total 0.4 0.1 - 1.2 mg/dL RAMU Comment:Testing performed by : [address] [address] Protein, pl 6.1(L) 6.5 - 8.5 g/dL [facility] Comment:Testing performed by : [address] [address] Albumin 3.2(L) 3.5 - 5.0 g/dL [facility]U LEMUS Comment:Testing performed by : [address] [address] Alk phos 67 40 - 130 Units/L [facility]U LEMUS Comment:Testing performed by : [address] [address] ALT 23 7 - 55 Units/L [facility]U LEMUS Comment:Testing performed by : [address] [address] AST 26 10 - 50 Units/L [facility] LEMUS Comment: Hemolyzed; result may be falsely elevated Testing performed by: [address] [address] Blood 01/06/2025 1:55 AM HEALTH SAFETY AND ENVIRONMENT MANAGER 01/06/2025 2:57 AM HEALTH SAFETY AND ENVIRONMENT MANAGER Anel Al MD LAB BLOOD ORDER DIANE Final Result [facility] [address] [facility] Department [place] [address] * eGFR (01/05/2025 3:49 AM HEALTH SAFETY AND ENVIRONMENT MANAGER) eGFR >90 >=60 mL/min/1. 73 m2 Comment: [...] was last reviewed 2021. Testing performed by: [address] [address] Blood 01/05/2025 3:49 AM HEALTH SAFETY AND ENVIRONMENT MANAGER 01/05/2025 5:03 AM HEALTH SAFETY AND ENVIRONMENT MANAGER Anel Al MD LAB BLOOD ORDER DIANE Final Result Performing Organization Address [facility] de Phone Number [address] [address] * Thyroid Function [place] (01/05/2025 3:49 AM HEALTH SAFETY AND ENVIRONMENT MANAGER) TSH 0.88 0.30 - 4.20 mcIUnit/mL Comment:Testing performed by : [address] [address] Blood 01/05/2025 3:49 AM HEALTH SAFETY AND ENVIRONMENT MANAGER 01/05/2025 5:03 AM HEALTH SAFETY AND ENVIRONMENT MANAGER Anel Al MD LAB BLOOD ORDER DIANE Final Result Performing Organization Address [facility] de Phone Number [address] [address] * Hemoglobin A1c (01/05/2025 3:49 AM HEALTH SAFETY AND ENVIRONMENT MANAGER) Pathologist [facility] Hgb A1C 5.6 4.0 - 5.6 % Comment:Testing performed by : [address] [address] Estimated Average Glucose 114 mg/dL RAMU Comment: The ADA recommends reporting an estimated Average Glucose (eAG) with all Hemoglobin A1c results using the equation derived from a study of 507 normal and diabetic adults. Minority populations were underrepresented and children were not included. (Diabetes Care 31:4172-0851, 2008). The eAG is not equivalent to a fasting glucose. Testing performed by: [address] [address] Blood 01/05/2025 3:49 AM HEALTH SAFETY AND ENVIRONMENT MANAGER 01/05/2025 5:03 AM HEALTH SAFETY AND ENVIRONMENT MANAGER Anel Al MD LAB BLOOD ORDER DIANE Final Result [facility] [address] [facility] [address] Department [place] [address] * (ABNORMAL) Comprehensive metabolic panel (01/05/2025 3:49 AM HEALTH SAFETY AND ENVIRONMENT MANAGER) Sodium 139 135 - 145 mmol/L Comment:Testing performed by : [address] [address] Potassium, pl 3.7 3.3 - 4.9 mmol/L RAMU Comment:Testing performed by : [address] [address] Chloride 105 97 - 110 mmol/L [facility] Comment:Testing performed by : [address], [place]., [address] CO2 25 22 - 32 mmol/L [facility]U Comment:Testing performed by : [address] [address] Anion gap 9 2 - 15 mmol/L [facility] Comment:Testing performed by : [address] [address] BUN 6 6 - 25 mg/dL [facility] Comment:Testing performed by : [address] [address] Creatinine 0.85 0.80 - 1.30 mg/dL [facility] Comment:Testing performed by : [address] [address] Glucose 90 70 - 199 mg/dL RAMU [...] was last revised 2022. Testing performed by: [address] [address] Calcium 9.1 8.5 - 10.3 mg/dL [facility] Comment:Testing performed by : [facility], [address] [place] [address]., [address] Bilirubin, total 0.7 0.1 - 1.2 mg/dL RAMU Comment:Testing performed by : [address] [address] Protein, pl 6.3(L) 6.5 - 8.5 g/dL [facility] Comment:Testing performed by : [address] [address] Albumin 3.5 3.5 - 5.0 g/dL [facility] Comment:Testing performed by : [address] [address] Alk phos 70 40 - 130 Units/L RAMU Comment:Testing performed by : [address] [address] ALT 28 7 - 55 Units/L [facility]U Comment:Testing performed by : [address] [address] AST 34 10 - 50 Units/L [facility] Comment:Testing performed by : [address] [address] Blood 01/05/2025 3:49 AM HEALTH SAFETY AND ENVIRONMENT MANAGER 01/05/2025 5:03 AM HEALTH SAFETY AND ENVIRONMENT MANAGER Anel Al MD LAB BLOOD ORDER DIANE Final Result [facility] [address] [facility] Department [place] [address] * CT Head WO Contrast (01/04/2025 6:19 PM HEALTH SAFETY AND ENVIRONMENT MANAGER) Anatomical Region Laterality Modality Head and Neck N/A Computed Tomogra phy 01/04/2025 6:40 PM HEALTH SAFETY AND ENVIRONMENT MANAGER Narrative 01/04/2025 6:41 PM HEALTH SAFETY AND ENVIRONMENT MANAGER EXAM DESCRIPTION: CT HEAD WO CONTRAST REASON [...] Cameron Moreno M.D. VÍCTOR: VÍCTOR Report ID: [id number] Reading Location: [place] [address] Procedure Note Cameron Moreno MD - 01/04/2025 [...] Cameron Moreno M.D. VÍCTOR: VÍCTOR Report ID: [id number] Reading Location: [id number] Veronique More SALES SECRETARY IM CT PROCEDURES Final Result * XR Chest 1 Vw Portable (if patient condition/safety warrant portable) (01/04/2025 2:31 PM HEALTH SAFETY AND ENVIRONMENT MANAGER) Anatomical Region Laterality Modality Body, Chest N/A Computed Radiogr aphy 01/04/2025 3:02 PM HEALTH SAFETY AND ENVIRONMENT MANAGER Narrative 01/04/2025 3:06 PM HEALTH SAFETY AND ENVIRONMENT MANAGER EXAM DESCRIPTION: XR CHEST 1 VIEW REASON FOR STUDY: CHEST PAIN ED for c/o alcohol withdrawal. Came to ED for c/o alcohol withdrawal. Reports [facility] get into [facility] but needs med eval first. Reports last [...] Noe Redding M.D. RB: ANIKET Report ID: [id number] Reading Location: [id number] Procedure Note Noe Redding MD - 01/04/2025 [...] Electronically signed by Noe Redding M.D. RB: RB Report ID: [id number] Reading Location: [id number] Otilio Vargas MD IMG XR PROCEDURES Final Result * ECG 12 lead (01/04/2025 2:21 PM HEALTH SAFETY AND ENVIRONMENT MANAGER) Ventricular Rate EKG/Min 81 BPM [facility] Atrial Rate 81 BPM [facility] AK-Interval (MSEC) 152 ms [facility] QRS-Interval (MSEC) 76 ms [facility] QT-Interval (MSEC) 376 ms [facility] QTc 436 ms [facility] P Herald 54 degrees [facility] R Herald -12 degrees [facility] T Herald 21 degrees [facility] Diagnosis Normal sinus rhythm Normal ECG When compared with ECG of 08-DEC-2024 00:22, No significant change was found Confirmed by BECKY TURNER M.D. ([id number]) on 01/09/2025 8:10:25 PM [facility] 01/04/2025 2:21 PM HEALTH SAFETY AND ENVIRONMENT MANAGER 01/09/2025 8:10 PM CDT Otilio Vargas MD ECG ORDERABLES Final Result [facility] * Troponin T high-sensitivity series (baseline, 2hr, 4hr, 6hr) (01/04/2025 2:17 PM HEALTH SAFETY AND ENVIRONMENT MANAGER) Trop T hs 9 <=22 ng/L Comment: Interpretive Data For further hscTnT resources including the diagnostic algorithm and an aid in interpretation, copy and paste this link: https://nrl.testcatalog.org/show/hsTrop Current Interpretive Data last revised 2020. Testing performed by: [facility], [address] [place] [address]., [id number] Blood 01/04/2025 2:17 PM HEALTH SAFETY AND ENVIRONMENT MANAGER 01/04/2025 2:26 PM HEALTH SAFETY AND ENVIRONMENT MANAGER us Otilio Vargas MD LAB BLOOD ORDERABLES Final Resul t Performing Organization Address City/[facility]/ZIP Co de Phone Number RAMU [facility] Department [place] [address] * eGFR (01/04/2025 2:17 PM HEALTH SAFETY AND ENVIRONMENT MANAGER) eGFR >90 >=60 mL/min/1. 73 m2 Comment: [...] was last reviewed 2021. Testing performed by: [address] [address] Blood 01/04/2025 2:17 PM HEALTH SAFETY AND ENVIRONMENT MANAGER 01/04/2025 2:26 PM HEALTH SAFETY AND ENVIRONMENT MANAGER us Otilio Vargas MD LAB BLOOD ORDERABLES Final Resul t [facility] [address] [facility] Department [place] [address] * Differential, auto (01/04/2025 2:17 PM HEALTH SAFETY AND ENVIRONMENT MANAGER) Neutrophil abs 3.4 1.5 - 6.5 K/cumm Comment:Testing performed by : [address] [address] Imm gran abs 0.0 0.0 - 0.1 K/cumm RAMU Comment:Testing performed by : [address] [address] Lymphocyte abs 2.7 0.8 - 3.3 K/cumm RAMU Comment:Testing performed by : [address] [address] Monocyte abs 0.6 0.2 - 0.8 K/cumm ARMU Comment:Testing performed by : [address] [address] Eosinophil abs 0.1 0.0 - 0.5 K/cumm RAMU Comment:Testing performed by : [address] [address] Basophil abs 0.0 0.0 - 0.1 K/cumm RAMU Comment:Testing performed by : [address] [address] Neutrophil pct 49.5 % RAMU Comment: Interpretive Data Percent cell count reference ranges are not reported, since discordance with absolute values may lead to misinterpretation of CBC data. Current Interpretive Data was last revised on 2018. Testing performed by: [address] [address] Imm gran pct 0.1 % RAMU Comment: Interpretive Data Percent cell count reference ranges are not reported, since discordance with absolute values may lead to misinterpretation of CBC data. Current Interpretive Data was last revised on 2018. Testing performed by: [address] [address] Lymphocyte pct 40.2 % [facility] Comment: Interpretive Data Percent cell count reference ranges are not reported, since discordance with absolute values may lead to misinterpretation of CBC data. Current Interpretive Data was last revised on 2018. Testing performed by: [address] [address] Monocyte pct 8.1 % [facility] Comment: Interpretive Data Percent cell count reference ranges are not reported, since discordance with absolute values may lead to misinterpretation of CBC data. Current Interpretive Data was last revised on 2018. Testing performed by: [address] [address] Eosinophil pct 1.8 % [facility] Comment: Interpretive Data Percent cell count reference ranges are not reported, since discordance with absolute values may lead to misinterpretation of CBC data. Current Interpretive Data was last revised on 2018. Testing performed by: [address] [address] Basophil pct 0.3 % [facility] Comment: Interpretive Data Percent cell count reference ranges are not reported, since discordance with absolute values may lead to misinterpretation of CBC data. Current Interpretive Data was last revised on 2018. Testing performed by: [address] [address] Blood 01/04/2025 2:17 PM HEALTH SAFETY AND ENVIRONMENT MANAGER 01/04/2025 2:26 PM HEALTH SAFETY AND ENVIRONMENT MANAGER us Otilio Vargas MD LAB BLOOD ORDERABLES Final Resul t RAMU [facility] [address] [facility] Department [place] [address] * (ABNORMAL) CBC with auto differential (01/04/2025 2:17 PM HEALTH SAFETY AND ENVIRONMENT MANAGER) WBC 6.8 3.8 - 9.9 K/cumm Comment:Testing performed by : [address] [address] Hgb 13.7 13.0 - 17.5 g/dL RAMU Comment:Testing performed by : [address] [address] Hct 40.5 38.9 - 50.3 % RAMU Comment:Testing performed by : [address] [address] Plt 285 150 - 400 K/cumm RAMU Comment:Testing performed by : [address] [address] MPV 8.7(L) 9.1 - 12.3 fL RAMU Comment:Testing performed by : [address] [address] RBC 4.35 4.30 - 5.80 M/cumm RAMU Comment:Testing performed by : [address] [address] MCV 93.1 81.3 - 96.4 fL RAMU Comment:Testing performed by : [address] [address] MCH 31.5 27.1 - 33.3 pg RAMU Comment:Testing performed by : [address] [address] MCHC 33.8 32.3 - 35.7 g/dL RAMU Comment:Testing performed by : [address] [address] RDW CV 14.5 11.1 - 14.9 % RAMU Comment:Testing performed by : [address] [address] RDW SD 49.9(H) 35.7 - 48.1 fL RAMU Comment:Testing performed by : [address] [address] NRBC abs 0.00 0.00 - 0.01 K/cumm RAMU Comment:Testing performed by : [address] [address] Blood Venous blood specimen / Unknown 01/04/2025 2:17 PM HEALTH SAFETY AND ENVIRONMENT MANAGER 01/04/2025 2:26 PM HEALTH SAFETY AND ENVIRONMENT MANAGER Otilio Vargas MD LAB BLOOD ORDERABLES Final Resul t Performing Organization Address [facility] de Phone Number RAMU [address] [address] * (ABNORMAL) Ethanol (01/04/2025 2:17 PM HEALTH SAFETY AND ENVIRONMENT MANAGER) Ethanol 207(H) <=10 mg/dL Comment: Interpretive Data Legal limit of intoxication > or = 80 mg/dL Levels > or = 400 mg/dL are potentially TOXIC. Current interpretive data was last revised on 2018. Testing performed by: [address] [address] Blood 01/04/2025 2:1 7 PM HEALTH SAFETY AND ENVIRONMENT MANAGER 01/04/2025 2:26 PM HEALTH SAFETY AND ENVIRONMENT MANAGER Otilio Vargas MD LAB BLOOD ORDERABLES Final Resul t Performing Organization Address [facility] de Phone Number LEYDI[address] [place] [address] * (ABNORMAL) Comprehensive metabolic panel (01/04/2025 2:17 PM HEALTH SAFETY AND ENVIRONMENT MANAGER) Pathologist [facility] Sodium 140 135 - 145 mmol/L Comment:Testing performed by : [address] [address] Potassium, pl 3.8 3.3 - 4.9 mmol/L RAMU Comment:Testing performed by : [address] [address] Chloride 103 97 - 110 mmol/L RAMU Comment:Testing performed by : [address] [address] CO2 24 22 - 32 mmol/L RAMU Comment:Testing performed by : [address] [address] Anion gap 13 2 - 15 mmol/L RAMU Comment:Testing performed by : [address] [address] BUN 7 6 - 25 mg/dL RAMU Comment:Testing performed by : [address] [address] Creatinine 0.81 0.80 - 1.30 mg/dL RAMU Comment:Testing performed by : [address] [address] Glucose 90 70 - 199 mg/dL RAMU [...] was last revised 2022. Testing performed by: [address] [address] Calcium 9.8 8.5 - 10.3 mg/dL [facility] Comment:Testing performed by : [address] [address] Bilirubin, total 0.5 0.1 - 1.2 mg/dL [facility] Comment:Testing performed by : [address] [address] Protein, pl 8.0 6.5 - 8.5 g/dL [facility] Comment:Testing performed by : [address] [address] Albumin 4.4 3.5 - 5.0 g/dL [facility] Comment:Testing performed by : [address] [address] Alk phos 84 40 - 130 Units/L RAMU Comment:Testing performed by : [address] [address] ALT 40 7 - 55 Units/L RAMU Comment:Testing performed by : [address] [address] AST 54(H) 10 - 50 Units/L [facility] Comment:Testing performed by : [facility], [address] [place] [address]., [address] Blood 01/04/2025 2:17 PM HEALTH SAFETY AND ENVIRONMENT MANAGER 01/04/2025 2:26 PM HEALTH SAFETY AND ENVIRONMENT MANAGER us Otilio Vargas MD LAB BLOOD ORDERABLES Final Resul t Performing Organization Address City/[facility]/ZIP Co de Phone Number [address] [place] [address] * eGFR (12/14/2024 3:28 AM HEALTH SAFETY AND ENVIRONMENT MANAGER) eGFR >90 >=60 mL/min/1. 73 m2 Comment: [...] last reviewed 2021. Blood 12/14/2024 3:28 AM HEALTH SAFETY AND ENVIRONMENT MANAGER 12/14/2024 3:55 AM HEALTH SAFETY AND ENVIRONMENT MANAGER us Devin Rico MD LAB BLOOD ORDERABLES Final Result Performing Organization Address City/[facility]/ZIP Co de Phone Number [address] [place] [place] [address] * (ABNORMAL) Comprehensive metabolic panel (12/14/2024 3:28 AM HEALTH SAFETY AND ENVIRONMENT MANAGER) [facility] [address] Sodium 137 135 - 145 mmol/L Potassium, pl 4.4 3.3 - 4.9 mmol/L [facility] Comment:Hemolyzed; Potassium value may be falsely elevated by as much as 1.0 mmol/L. Suggest redraw and reanalysis. Chloride 103 97 - 110 mmol/L [facility] CO2 24 22 - 32 mmol/L [facility] Anion gap 10 2 - 15 mmol/L [facility] BUN 16 6 - 25 mg/dL [facility] Creatinine 0.79(L) 0.80 - 1.30 mg/dL [facility] Glucose 130 70 - 199 mg/dL [facility] Comment: Interpretive Data Fasting glucose [...] 2022. Calcium 9.3 8.5 - 10.3 mg/dL [facility] Bilirubin, total <0.2 0.1 - 1.2 mg/dL [facility] Protein, pl 6.7 6.5 - 8.5 g/dL [facility] Albumin 3.6 3.5 - 5.0 g/dL [facility] Alk phos 73 40 - 130 Units/L [facility] ALT 13 7 - 55 Units/L [facility] AST See Comment 10 - 50 [facility] Comment:Credited; Hemolyzed Specimen Blood 12/14/2024 3:28 AM HEALTH SAFETY AND ENVIRONMENT MANAGER 12/14/2024 3:55 AM HEALTH SAFETY AND ENVIRONMENT MANAGER us Devin Rico MD LAB BLOOD ORDERABLES Final Result [facility] [address] [facility] Department [place] [address] * eGFR (12/13/2024 12:50 PM HEALTH SAFETY AND ENVIRONMENT MANAGER) [facility] [address] eGFR >90 >=60 mL/min/1. 73 m2 Comment: [...] reviewed 2021. Blood 12/13/2024 12:5 0 PM HEALTH SAFETY AND ENVIRONMENT MANAGER 12/13/2024 12:58 PM HEALTH SAFETY AND ENVIRONMENT MANAGER us Devin Rico MD LAB BLOOD ORDERABLES Final Result [facility] [address] [facility] Department [place] [address] * Comprehensive metabolic panel (12/13/2024 12:50 PM HEALTH SAFETY AND ENVIRONMENT MANAGER) [facility] [address] Sodium 136 135 - 145 mmol/L Potassium, pl 3.5 3.3 - 4.9 mmol/L [facility] Chloride 102 97 - 110 mmol/L [facility] CO2 24 22 - 32 mmol/L [facility] Anion gap 10 2 - 15 mmol/L [facility] BUN 18 6 - 25 mg/dL [facility] Creatinine 0.80 0.80 - 1.30 mg/dL [facility] Glucose 113 70 - 199 mg/dL [facility] Comment: Interpretive Data Fasting glucose [...] 2022. Calcium 9.3 8.5 - 10.3 mg/dL [facility] Bilirubin, total <0.2 0.1 - 1.2 mg/dL [facility] Protein, pl 6.8 6.5 - 8.5 g/dL [facility] Albumin 3.7 3.5 - 5.0 g/dL [facility] Alk phos 72 40 - 130 Units/L [facility] ALT 13 7 - 55 Units/L [facility] AST 15 10 - 50 Units/L [facility] Blood 12/13/2024 12:5 0 PM HEALTH SAFETY AND ENVIRONMENT MANAGER 12/13/2024 12:58 PM HEALTH SAFETY AND ENVIRONMENT MANAGER Devin Rico MD LAB BLOOD ORDERABLES Final Result [facility] [address] [facility] Department [place] [address] * eGFR (12/12/2024 3:01 AM HEALTH SAFETY AND ENVIRONMENT MANAGER) eGFR >90 >=60 mL/min/1. 73 m2 Comment: [...] last reviewed 2021. Blood 12/12/2024 3:01 AM HEALTH SAFETY AND ENVIRONMENT MANAGER 12/12/2024 3:35 AM HEALTH SAFETY AND ENVIRONMENT MANAGER Devin Rico MD LAB BLOOD ORDERABLES Final Result Performing Organization Address [facility] Co de Phone Number [address] [address] * (ABNORMAL) CBC without differential (12/12/2024 3:01 AM HEALTH SAFETY AND ENVIRONMENT MANAGER) WBC 12.1(H) 3.8 - 9.9 K/cumm Hgb 13.5 13.0 - 17.5 g/dL [facility] Hct 40.5 38.9 - 50.3 % [facility] Plt 277 150 - 400 K/cumm [facility] MPV 9.3 9.1 - 12.3 fL [facility] RBC 4.32 4.30 - 5.80 M/cumm [facility] MCV 93.8 81.3 - 96.4 fL [facility] MCH 31.3 27.1 - 33.3 pg [facility] MCHC 33.3 32.3 - 35.7 g/dL [facility] RDW CV 14.2 11.1 - 14.9 % [facility] RDW SD 49.0(H) 35.7 - 48.1 fL [facility] NRBC abs 0.00 0.00 - 0.01 K/cumm [facility] Blood 12/12/2024 3:01 AM HEALTH SAFETY AND ENVIRONMENT MANAGER 12/12/2024 3:34 AM HEALTH SAFETY AND ENVIRONMENT MANAGER us Davide Guevara MD LAB BLOOD ORDERABLES Final Result Performing Organization Address [facility] Co de Phone Number [address] [address] * Comprehensive metabolic panel (12/12/2024 3:01 AM HEALTH SAFETY AND ENVIRONMENT MANAGER) Sodium 137 135 - 145 mmol/L Potassium, pl 4.3 3.3 - 4.9 mmol/L [facility] Comment:Hemolyzed; Potassium value may be falsely elevated by as much as 1.0 mmol/L. Suggest redraw and reanalysis. Chloride 103 97 - 110 mmol/L [facility] CO2 24 22 - 32 mmol/L [facility] Anion gap 10 2 - 15 mmol/L [facility] BUN 17 6 - 25 mg/dL [facility] Creatinine 0.84 0.80 - 1.30 mg/dL [facility] Glucose 120 70 - 199 mg/dL [facility] Comment: Interpretive Data Fasting glucose [...] 2022. Calcium 9.6 8.5 - 10.3 mg/dL [facility] Bilirubin, total <0.2 0.1 - 1.2 mg/dL [facility] Protein, pl 6.9 6.5 - 8.5 g/dL [facility] Albumin 3.6 3.5 - 5.0 g/dL [facility] Alk phos 80 40 - 130 Units/L [facility] ALT 15 7 - 55 Units/L [facility] AST See Comment 10 - 50 [facility] Comment:Credited; Hemolyzed Specimen Blood 12/12/2024 3:01 AM HEALTH SAFETY AND ENVIRONMENT MANAGER 12/12/2024 3:35 AM HEALTH SAFETY AND ENVIRONMENT MANAGER us Devin Rico MD LAB BLOOD ORDERABLES Final Result [facility] [address] [facility] Department [place] [address] * eGFR (12/11/2024 4:39 AM HEALTH SAFETY AND ENVIRONMENT MANAGER) eGFR >90 >=60 mL/min/1. 73 m2 Comment: [...] last reviewed 2021. Blood 12/11/2024 4:39 AM HEALTH SAFETY AND ENVIRONMENT MANAGER 12/11/2024 4:52 AM HEALTH SAFETY AND ENVIRONMENT MANAGER us Devin Rico MD LAB BLOOD ORDERABLES Final Result [facility] [address] [facility] Department [place] [address] * (ABNORMAL) CBC without differential (12/11/2024 4:39 AM HEALTH SAFETY AND ENVIRONMENT MANAGER) WBC 13.2(H) 3.8 - 9.9 K/cumm Hgb 12.7(L) 13.0 - 17.5 g/dL [facility] Hct 38.6(L) 38.9 - 50.3 % [facility] Plt 259 150 - 400 K/cumm [facility] MPV 9.0(L) 9.1 - 12.3 fL [facility] RBC 4.05(L) 4.30 - 5.80 M/cumm [facility] MCV 95.3 81.3 - 96.4 fL [facility] MCH 31.4 27.1 - 33.3 pg [facility] MCHC 32.9 32.3 - 35.7 g/dL [facility] RDW CV 14.1 11.1 - 14.9 % [facility] RDW SD 49.5(H) 35.7 - 48.1 fL [facility] NRBC abs 0.00 0.00 - 0.01 K/cumm [facility] Blood 12/11/2024 4:39 AM HEALTH SAFETY AND ENVIRONMENT MANAGER 12/11/2024 4:53 AM HEALTH SAFETY AND ENVIRONMENT MANAGER us Yesika Lai [employer] LAB BLOOD ORDERABLES Final R esult [facility] [address] [facility] Department [place] [address] * (ABNORMAL) Comprehensive metabolic panel (12/11/2024 4:39 AM HEALTH SAFETY AND ENVIRONMENT MANAGER) Sodium 136 135 - 145 mmol/L Potassium, pl 4.2 3.3 - 4.9 mmol/L [facility] Chloride 105 97 - 110 mmol/L [facility] CO2 22 22 - 32 mmol/L [facility] Anion gap 9 2 - 15 mmol/L [facility] BUN 12 6 - 25 mg/dL [facility] Creatinine 0.74(L) 0.80 - 1.30 mg/dL [facility] Glucose 109 70 - 199 mg/dL [facility] Comment: Interpretive Data Fasting glucose [...] 2022. Calcium 9.6 8.5 - 10.3 mg/dL [facility] Bilirubin, total 0.3 0.1 - 1.2 mg/dL [facility] Protein, pl 6.7 6.5 - 8.5 g/dL [facility] Albumin 3.7 3.5 - 5.0 g/dL [facility] Alk phos 75 40 - 130 Units/L [facility] ALT 16 7 - 55 Units/L [facility] AST 16 10 - 50 Units/L [facility] Blood 12/11/2024 4:39 AM HEALTH SAFETY AND ENVIRONMENT MANAGER 12/11/2024 4:52 AM HEALTH SAFETY AND ENVIRONMENT MANAGER Devin Rico MD LAB BLOOD ORDERABLES Final Result Performing Organization Address City/[facility]/ZIP Co de Phone Number RAMU [address] [address] * eGFR (12/10/2024 6:38 AM HEALTH SAFETY AND ENVIRONMENT MANAGER) Pathologist [facility] eGFR >90 >=60 mL/min/1. 73 m2 Comment: [...] last reviewed 2021. Blood 12/10/2024 6:38 AM HEALTH SAFETY AND ENVIRONMENT MANAGER 12/10/2024 7:22 AM HEALTH SAFETY AND ENVIRONMENT MANAGER Devin Rico MD LAB BLOOD ORDERABLES Final Result Performing Organization Address City/[facility]/ZIP Co de Phone Number LEYDI[address] [address] * (ABNORMAL) Comprehensive metabolic panel (12/10/2024 6:38 AM HEALTH SAFETY AND ENVIRONMENT MANAGER) Pathologist [facility] Sodium 136 135 - 145 mmol/L Potassium, pl 4.2 3.3 - 4.9 mmol/L [facility] Chloride 104 97 - 110 mmol/L [facility] CO2 23 22 - 32 mmol/L [facility] Anion gap 9 2 - 15 mmol/L [facility] BUN 14 6 - 25 mg/dL [facility] Creatinine 0.77(L) 0.80 - 1.30 mg/dL [facility] Glucose 115 70 - 199 mg/dL [facility] Comment: Interpretive Data Fasting glucose [...] 2022. Calcium 9.2 8.5 - 10.3 mg/dL [facility] Bilirubin, total 0.5 0.1 - 1.2 mg/dL [facility] Protein, pl 6.7 6.5 - 8.5 g/dL [facility] Albumin 3.7 3.5 - 5.0 g/dL [facility] Alk phos 69 40 - 130 Units/L [facility] ALT 20 7 - 55 Units/L [facility] AST 22 10 - 50 Units/L [facility] Blood 12/10/2024 6:38 AM HEALTH SAFETY AND ENVIRONMENT MANAGER 12/10/2024 7:22 AM HEALTH SAFETY AND ENVIRONMENT MANAGER Devin Rico MD LAB BLOOD ORDERABLES Final Result [facility] [address] [facility] Department [place] [address] * eGFR (12/09/2024 3:39 AM HEALTH SAFETY AND ENVIRONMENT MANAGER) eGFR >90 >=60 mL/min/1. 73 m2 Comment: [...] last reviewed 2021. Blood 12/09/2024 3:39 AM HEALTH SAFETY AND ENVIRONMENT MANAGER 12/09/2024 3:47 AM HEALTH SAFETY AND ENVIRONMENT MANAGER Devin Rico MD LAB BLOOD ORDERABLES Final Result [place] [id number] [facility] Department [place] [address] * (ABNORMAL) Differential, auto (12/09/2024 3:39 AM HEALTH SAFETY AND ENVIRONMENT MANAGER) Neutrophil abs 8.1(H) 1.5 - 6.5 K/cumm Imm gran abs 0.0 0.0 - 0.1 K/cumm [facility] Lymphocyte abs 0.8 0.8 - 3.3 K/cumm [facility] Monocyte abs 0.4 0.2 - 0.8 K/cumm [facility] Eosinophil abs 0.0 0.0 - 0.5 K/cumm [facility] Basophil abs 0.0 0.0 - 0.1 K/cumm [facility] Neutrophil pct 87.0 % [facility] Comment: Interpretive Data Percent cell count reference ranges are not reported, since discordance with absolute values may lead to misinterpretation of CBC data. Current Interpretive Data was last revised on 2018. Imm gran pct 0.2 % [facility] Comment: Interpretive Data Percent cell count reference ranges are not reported, since discordance with absolute values may lead to misinterpretation of CBC data. Current Interpretive Data was last revised on 2018. Lymphocyte pct 8.6 % [facility] Comment: Interpretive Data Percent cell count reference ranges are not reported, since discordance with absolute values may lead to misinterpretation of CBC data. Current Interpretive Data was last revised on 2018. Monocyte pct 4.2 % [facility] Comment: Interpretive Data Percent cell count reference ranges are not reported, since discordance with absolute values may lead to misinterpretation of CBC data. Current Interpretive Data was last revised on 2018. Eosinophil pct 0.0 % [facility] Comment: Interpretive Data Percent cell count reference ranges are not reported, since discordance with absolute values may lead to misinterpretation of CBC data. Current Interpretive Data was last revised on 2018. Basophil pct 0.0 % [facility] Comment: Interpretive Data Percent cell count reference ranges are not reported, since discordance with absolute values may lead to misinterpretation of CBC data. Current Interpretive Data was last revised on 2018. Blood 12/09/2024 3:39 AM HEALTH SAFETY AND ENVIRONMENT MANAGER 12/09/2024 3:47 AM HEALTH SAFETY AND ENVIRONMENT MANAGER us Devin Rico MD LAB BLOOD ORDERABLES Final Result [facility] [address] [facility] Department [place] [address] * (ABNORMAL) CBC with auto differential (12/09/2024 3:39 AM HEALTH SAFETY AND ENVIRONMENT MANAGER) WBC 9.3 3.8 - 9.9 K/cumm Hgb 13.5 13.0 - 17.5 g/dL [facility] Hct 39.2 38.9 - 50.3 % [facility] Plt 268 150 - 400 K/cumm [facility] MPV 8.8(L) 9.1 - 12.3 fL [facility] RBC 4.27(L) 4.30 - 5.80 M/cumm [facility] MCV 91.8 81.3 - 96.4 fL [facility] MCH 31.6 27.1 - 33.3 pg [facility] MCHC 34.4 32.3 - 35.7 g/dL [facility] RDW CV 13.9 11.1 - 14.9 % [facility] RDW SD 46.6 35.7 - 48.1 fL [facility] NRBC abs 0.00 0.00 - 0.01 K/cumm [facility] Blood 12/09/2024 3:39 AM HEALTH SAFETY AND ENVIRONMENT MANAGER 12/09/2024 3:47 AM HEALTH SAFETY AND ENVIRONMENT MANAGER Devin Rico MD LAB BLOOD ORDERABLES Final Result Performing Organization Address [facility] Co de Phone Number [address] [place] [address] * Magnesium (12/09/2024 3:39 AM HEALTH SAFETY AND ENVIRONMENT MANAGER) Magnesium 1.9 1.4 - 2.5 mg/dL Blood 12/09/2024 3:39 AM HEALTH SAFETY AND ENVIRONMENT MANAGER 12/09/2024 3:47 AM HEALTH SAFETY AND ENVIRONMENT MANAGER Yesika Lai NP LAB BLOOD ORDERABLES Final R esult Performing Organization Address City/[facility] Co de Phone Number [address] [place] [place] [address] * Lipid panel (12/09/2024 3:39 AM HEALTH SAFETY AND ENVIRONMENT MANAGER) Cholesterol 156 30 - 199 mg/dL Comment: [...] revised on 2018. Triglycerides 55 <=149 mg/dL [facility] Comment: Interpretive Data Ages < or = [...] NCEP Expert Panel. Circulation 2004;110:227 3. Anirudh Mackay et al. ROE Cardiol. 2020 March 02;5(5):540-548. doi: [...] last revised on 2018. Chol/HDL ratio 2 [facility] Blood 12/09/2024 3:39 AM HEALTH SAFETY AND ENVIRONMENT MANAGER 12/09/2024 3:47 AM HEALTH SAFETY AND ENVIRONMENT MANAGER us Yesika Lai NP LAB BLOOD ORDERABLES Final R esult [facility] [address] Department [place] [address] * (ABNORMAL) Comprehensive metabolic panel (12/09/2024 3:39 AM HEALTH SAFETY AND ENVIRONMENT MANAGER) Sodium 134(L) 135 - 145 mmol/L Potassium, pl 4.3 3.3 - 4.9 mmol/L [facility] Chloride 103 97 - 110 mmol/L [facility] CO2 23 22 - 32 mmol/L [facility] Anion gap 8 2 - 15 mmol/L [facility] BUN 11 6 - 25 mg/dL [facility] Creatinine 0.77(L) 0.80 - 1.30 mg/dL [facility] Glucose 136 70 - 199 mg/dL [facility] Comment: Interpretive Data Fasting glucose [...] 2022. Calcium 9.3 8.5 - 10.3 mg/dL [facility] Bilirubin, total 0.7 0.1 - 1.2 mg/dL [facility] Protein, pl 7.1 6.5 - 8.5 g/dL [facility] Albumin 3.8 3.5 - 5.0 g/dL [facility] Alk phos 79 40 - 130 Units/L [facility] ALT 25 7 - 55 Units/L [facility] AST 35 10 - 50 Units/L [facility] Blood 12/09/2024 3:39 AM HEALTH SAFETY AND ENVIRONMENT MANAGER 12/09/2024 3:47 AM HEALTH SAFETY AND ENVIRONMENT MANAGER Devin Rico MD LAB BLOOD ORDERABLES Final Result [facility] [address] [place] [address] [employer] [place], [place] [id number] * Influenza A/B, RSV, and COVID-19 PCR Nasopharyngeal (12/08/2024 8:17 PM HEALTH SAFETY AND ENVIRONMENT MANAGER) Pathologist [facility] COVID-19 RNA Negative Negative Influenza A RNA Negative Negative [facility] Influenza B RNA Negative Negative [facility] RSV RNA Negative Negative [facility] Comment: Interpretive data: Testing performed by [facility]. This test is performed using the [employer] Xpert Xpress CoV-2/Flu/RSV plus assay. This is a multiplex, real-time reverse transcriptase PCR assay intended for the qualitative detection of nucleic acid from SARS-CoV-2, influenza A, influenza B, and respiratory syncytial virus. This assay has been cleared by the [place] Food and Drug administration. The performance characteristics have been verified by the [facility]. Results must be considered in the clinical context, and a negative result does not rule out infection. Interpretive Data last revised 2023 Nasopharyngeal 12/08/2024 8: 17 PM HEALTH SAFETY AND ENVIRONMENT MANAGER 12/08/2024 8:28 PM HEALTH SAFETY AND ENVIRONMENT MANAGER Narrative [facility] - 12/08/2024 9:16 PM HEALTH SAFETY AND ENVIRONMENT MANAGER Is the Patient experiencing symptoms consistent with COVID?->Yes Devin Rico MD LAB MICROBIOLOGY - GE NERAL ORDERABLES Final Result [place] [id number] [facility] [place] [address] * eGFR (12/08/2024 7:28 AM HEALTH SAFETY AND ENVIRONMENT MANAGER) eGFR >90 >=60 mL/min/1. 73 m2 Comment: [...] last reviewed 2021. Blood 12/08/2024 7:28 AM HEALTH SAFETY AND ENVIRONMENT MANAGER 12/08/2024 7:33 AM HEALTH SAFETY AND ENVIRONMENT MANAGER Alex PEREZ LAB BLOOD ORDERABLES Final Result Performing Organization Address [facility]/ZIP Co de Phone Number [address] [address] * Magnesium (12/08/2024 7:28 AM HEALTH SAFETY AND ENVIRONMENT MANAGER) Pathologist [facility] Magnesium 2.0 1.4 - 2.5 mg/dL Blood 12/08/2024 7:28 AM HEALTH SAFETY AND ENVIRONMENT MANAGER 12/08/2024 7:33 AM HEALTH SAFETY AND ENVIRONMENT MANAGER Yesika Lai NP LAB BLOOD ORDERABLES Final R esult Performing Organization Address City/[facility]/ZIP Co de Phone Number [address] [address] * (ABNORMAL) Basic metabolic panel (12/08/2024 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 Suggest redraw and reanalysis. Chloride 99 97 - 110 mmol/L [facility] CO2 21(L) 22 - 32 mmol/L [facility] Anion gap 17(H) 2 - 15 mmol/L [facility] BUN 10 6 - 25 mg/dL [facility] Creatinine 0.92 0.80 - 1.30 mg/dL [facility] Glucose 83 70 - 199 mg/dL [facility] Comment: Interpretive Data Fasting glucose [...] 2022. Calcium 9.5 8.5 - 10.3 mg/dL [facility] Blood 12/08/2024 7:28 AM HEALTH SAFETY AND ENVIRONMENT MANAGER 12/08/2024 7:33 AM HEALTH SAFETY AND ENVIRONMENT MANAGER Alex PEREZ LAB BLOOD ORDERABLES Final Result [facility] [address] Department [place] [address] * Troponin T high-sensitivity 6-hour (12/08/2024 6:17 AM HEALTH SAFETY AND ENVIRONMENT MANAGER) [facility] [address] Trop T hs 8 <=22 ng/L Comment: Interpretive Data For further hscTnT resources including the diagnostic algorithm and an aid in interpretation, copy and paste this link: https://nrl.testcatalog.org/show/hsTrop Current Interpretive Data last revised 2020. Trop T hs delta 0 ng/L [facility] Trop T hs interp Insignificant [facility] Blood 12/08/2024 6:17 AM HEALTH SAFETY AND ENVIRONMENT MANAGER 12/08/2024 6:19 AM HEALTH SAFETY AND ENVIRONMENT MANAGER Doc PEREZ LAB BLOOD ORDERABLES Final R esult Performing Organization Address [facility] de Phone Number RAMU [address] [address] * Troponin T high-sensitivity 2-hour (12/08/2024 2:24 AM HEALTH SAFETY AND ENVIRONMENT MANAGER) Trop T hs 9 <=22 ng/L Comment: Interpretive Data For further hscTnT resources including the diagnostic algorithm and an aid in interpretation, copy and paste this link: https://nrl.testcatalog.org/show/hsTrop Current Interpretive Data last revised 2020. Trop T hs delta 1 ng/L [facility] Trop T hs interp Insignificant [facility] Blood 12/08/2024 2:24 AM HEALTH SAFETY AND ENVIRONMENT MANAGER 12/08/2024 2:34 AM HEALTH SAFETY AND ENVIRONMENT MANAGER Doc PEREZ LAB BLOOD ORDERABLES Final R esult Performing Organization Address [facility] de Phone Number [address] [address] * XR Chest 1 Vw Portable (12/08/2024 12:54 AM HEALTH SAFETY AND ENVIRONMENT MANAGER) Anatomical Region Laterality Modality Body, Chest N/A Computed Radiogr aphy 12/08/2024 1:26 AM HEALTH SAFETY AND ENVIRONMENT MANAGER Narrative 12/08/2024 1:26 AM HEALTH SAFETY AND ENVIRONMENT MANAGER EXAM DESCRIPTION: XR CHEST 1 VIEW REASON [...] Frank Damon M.D. KT T: Report ID: [id number] Reading Location: [place] [address] Procedure Note Frank Damon MD - 12/08/2024 [...] Frank Damon M.D. KT T: Report ID: [id number] Reading Location: [place] [address] Doc PEREZ IMG XR PROCEDURES Final Resu lt * ECG 12 lead (12/08/2024 12:22 AM HEALTH SAFETY AND ENVIRONMENT MANAGER) Ventricular Rate EKG/Min 102 BPM [facility] Atrial Rate 102 BPM [facility] AK-Interval (MSEC) 134 ms [facility] QRS-Interval (MSEC) 74 ms [facility] QT-Interval (MSEC) 336 ms [facility] QTc 437 ms [facility] P Herald 80 degrees [facility] R Herald 5 degrees [facility] T Herald 61 degrees [facility] Diagnosis Sinus tachycardia Otherwise normal ECG When compared with ECG of 06-OCT-2024 05:45, Questionable change in QRS axis Confirmed by BECKY TURNER M.D. ([id number]) on 12/08/2024 9:21:09 PM [facility] 12/08/2024 12:2 2 AM HEALTH SAFETY AND ENVIRONMENT MANAGER 12/08/2024 9:21 PM HEALTH SAFETY AND ENVIRONMENT MANAGER Doc PEREZ ECG ORDERABLES Final Result Performing Organization Address City/[facility]/ZIP Co de Phone Number [facility] * Troponin T high-sensitivity series (baseline, 2hr, 4hr, 6hr) (12/08/2024 12:22 AM HEALTH SAFETY AND ENVIRONMENT MANAGER) Trop T hs 8 <=22 ng/L Comment: Interpretive Data For further hscTnT resources including the diagnostic algorithm and an aid in interpretation, copy and paste this link: https://nrl.testcatalog.org/show/hsTrop Current Interpretive Data last revised 2020. Blood 12/08/2024 12:2 2 AM HEALTH SAFETY AND ENVIRONMENT MANAGER 12/08/2024 12:32 AM HEALTH SAFETY AND ENVIRONMENT MANAGER us Doc PEREZ LAB BLOOD ORDERABLES Final R esult Performing Organization Address City/[facility] Co de Phone Number RAMU [address] Department [place] [address] * eGFR (12/08/2024 12:22 AM HEALTH SAFETY AND ENVIRONMENT MANAGER) eGFR >90 >=60 mL/min/1. 73 m2 Comment: [...] Inclusion of Race in Diagnosing Kidney Disease, PAULAN 2020). The CKD-EPI equation should not be used for patients with unstable renal function and has not been validated in children and those over 70. Current interpretive data was last reviewed 2021. Blood 12/08/2024 12:2 2 AM HEALTH SAFETY AND ENVIRONMENT MANAGER 12/08/2024 12:32 AM HEALTH SAFETY AND ENVIRONMENT MANAGER Doc PEREZ LAB BLOOD ORDERABLES Final R esult [facility] [address] Department [place] [address] * Differential, auto (12/08/2024 12:22 AM HEALTH SAFETY AND ENVIRONMENT MANAGER) Neutrophil abs 2.1 1.5 - 6.5 K/cumm Imm gran abs 0.0 0.0 - 0.1 K/cumm [facility] Lymphocyte abs 3.1 0.8 - 3.3 K/cumm [facility] Monocyte abs 0.6 0.2 - 0.8 K/cumm [facility] Eosinophil abs 0.2 0.0 - 0.5 K/cumm [facility] Basophil abs 0.1 0.0 - 0.1 K/cumm [facility] Neutrophil pct 34.5 % [facility] Comment: Interpretive Data Percent cell count reference ranges are not reported, since discordance with absolute values may lead to misinterpretation of CBC data. Current Interpretive Data was last revised on 2018. Imm gran pct 0.2 % [facility] Comment: Interpretive Data Percent cell count reference ranges are not reported, since discordance with absolute values may lead to misinterpretation of CBC data. Current Interpretive Data was last revised on 2018. Lymphocyte pct 51.1 % [facility] Comment: Interpretive Data Percent cell count reference ranges are not reported, since discordance with absolute values may lead to misinterpretation of CBC data. Current Interpretive Data was last revised on 2018. Monocyte pct 10.7 % [facility] Comment: Interpretive Data Percent cell count reference ranges are not reported, since discordance with absolute values may lead to misinterpretation of CBC data. Current Interpretive Data was last revised on 2018. Eosinophil pct 2.7 % [facility] Comment: Interpretive Data Percent cell count reference ranges are not reported, since discordance with absolute values may lead to misinterpretation of CBC data. Current Interpretive Data was last revised on 2018. Basophil pct 0.8 % [facility] Comment: Interpretive Data Percent cell count reference ranges are not reported, since discordance with absolute values may lead to misinterpretation of CBC data. Current Interpretive Data was last revised on 2018. Blood 12/08/2024 12:2 2 AM HEALTH SAFETY AND ENVIRONMENT MANAGER 12/08/2024 12:32 AM HEALTH SAFETY AND ENVIRONMENT MANAGER us Doc PEREZ LAB BLOOD ORDERABLES Final R esult Performing Organization Address City/[facility] Co de Phone Number [place] [id number] Department [place] [address] * (ABNORMAL) CBC with auto differential (12/08/2024 12:22 AM HEALTH SAFETY AND ENVIRONMENT MANAGER) WBC 6.0 3.8 - 9.9 K/cumm Hgb 14.8 13.0 - 17.5 g/dL [facility] Hct 42.1 38.9 - 50.3 % [facility] Plt 302 150 - 400 K/cumm [facility] MPV 8.6(L) 9.1 - 12.3 fL [facility] RBC 4.72 4.30 - 5.80 M/cumm [facility] MCV 89.2 81.3 - 96.4 fL [facility] MCH 31.4 27.1 - 33.3 pg [facility] MCHC 35.2 32.3 - 35.7 g/dL [facility] RDW CV 13.9 11.1 - 14.9 % [facility] RDW SD 45.0 35.7 - 48.1 fL [facility] NRBC abs 0.00 0.00 - 0.01 K/cumm [facility] Blood 12/08/2024 12:2 2 AM HEALTH SAFETY AND ENVIRONMENT MANAGER 12/08/2024 12:32 AM HEALTH SAFETY AND ENVIRONMENT MANAGER Doc PEREZ LAB BLOOD ORDERABLES Final R esult Performing Organization Address City/State/[facility] Co de Phone Number RAMU [address] [address] * Lipase (12/08/2024 12:22 AM HEALTH SAFETY AND ENVIRONMENT MANAGER) [facility] [address] Lipase 21 10 - 99 Units/L Blood 12/08/2024 12:2 2 AM HEALTH SAFETY AND ENVIRONMENT MANAGER 12/08/2024 12:32 AM HEALTH SAFETY AND ENVIRONMENT MANAGER Doc PEREZ LAB BLOOD ORDERABLES Final R esult Performing Organization Address [facility] de Phone Number RAMU [address] [address] * (ABNORMAL) Ethanol (12/08/2024 12:22 AM HEALTH SAFETY AND ENVIRONMENT MANAGER) [facility] [address] Ethanol 178(H) <=10 mg/dL Comment: Interpretive Data Legal limit of intoxication > or = 80 mg/dL Levels > or = 400 mg/dL are potentially TOXIC. Current interpretive data was last revised on 2018. Blood 12/08/2024 12:2 2 AM HEALTH SAFETY AND ENVIRONMENT MANAGER 12/08/2024 12:32 AM HEALTH SAFETY AND ENVIRONMENT MANAGER Doc PEREZ LAB BLOOD ORDERABLES Final R esult Performing Organization Address [facility] de Phone Number RAMU [address] [address] * (ABNORMAL) Comprehensive metabolic panel (12/08/2024 12:22 AM HEALTH SAFETY AND ENVIRONMENT MANAGER) [facility] [address] Sodium 134(L) 135 - 145 mmol/L Potassium, pl 3.8 3.3 - 4.9 mmol/L [facility] Chloride 97 97 - 110 mmol/L [facility] CO2 20(L) 22 - 32 mmol/L [facility] Anion gap 17(H) 2 - 15 mmol/L [facility] BUN 9 6 - 25 mg/dL [facility] Creatinine 0.81 0.80 - 1.30 mg/dL [facility] Glucose 95 70 - 199 mg/dL [facility] Comment: Interpretive Data Fasting glucose [...] 2022. Calcium 9.4 8.5 - 10.3 mg/dL [facility] Bilirubin, total 0.4 0.1 - 1.2 mg/dL [facility] Protein, pl 8.1 6.5 - 8.5 g/dL [facility] Albumin 4.3 3.5 - 5.0 g/dL [facility] Alk phos 92 40 - 130 Units/L [facility] ALT 30 7 - 55 Units/L [facility] AST 67(H) 10 - 50 Units/L [facility] Blood 12/08/2024 12:2 2 AM HEALTH SAFETY AND ENVIRONMENT MANAGER 12/08/2024 12:32 AM HEALTH SAFETY AND ENVIRONMENT MANAGER us Doc PEREZ LAB BLOOD ORDERABLES Final R esult [facility] [address] Department [place] [address] * XR Chest PA Lateral 2 Views (11/10/2024 12:08 PM HEALTH SAFETY AND ENVIRONMENT MANAGER) Anatomical Region Laterality Modality Body, Chest N/A Computed Radiogr aphy 11/10/2024 12:3 2 PM HEALTH SAFETY AND ENVIRONMENT MANAGER Impressions 11/10/2024 12:32 PM HEALTH SAFETY AND ENVIRONMENT MANAGER There is no consolidation, pleural effusion, pneumothorax. A calcified granuloma projects over the right lung base. Old healed left-sided rib fractures are noted. The cardiomediastinal silhouette is within normal limits. Electronically signed by: Yogesh Flaherty M.D. Narrative 11/10/2024 12:32 PM HEALTH SAFETY AND ENVIRONMENT MANAGER EXAMINATION: XR CHEST PA LATERAL 2 VIEWS [...] microscopic and culture Urine (11/10/2024 11:33 AM HEALTH SAFETY AND ENVIRONMENT MANAGER) Color, ur Yellow Yellow Clarity, ur Clear Clear [facility] Specific gravity, ur 1.024 1.003 - 1.030 [facility] pH, urine 7.5 [facility] Comment: Interpretive Data U rine pH is affected by diet, medications, systemic acid-base disturbances, and renal tubular function. pH may affect urinary stone formation. For example, urine pH below 6.0 may help reduce the tendency for calcium phosphate stones and pH greater than 6.0 may reduce the tendency for uric acid stone formation. Source: [facility] [employer] Current Interpretive Data was last revised on 2017 Protein, ur ql 1+(A) Negative [facility] Glucose, ur ql Negative Negative [facility] Ketones, ur Trace Negative [facility] Bilirubin, ur Negative Negative [facility] Blood, ur Negative Negative [facility] Urobilinogen, ur 2.0(A) <2.0 mg/dL [facility] Nitrite, ur Negative Negative [facility] Leukocyte esterase, ur Negative Negative [facility] UA reflex comment Reflex to microscopic UA will be performed. [facility] Urine 11/10/2024 11:3 3 AM HEALTH SAFETY AND ENVIRONMENT MANAGER 11/10/2024 11:41 AM HEALTH SAFETY AND ENVIRONMENT MANAGER Nick Foster MD LAB MICROBIOLOGY - GENERAL OR DERABLES Final Result [facility] [place] [address] * (ABNORMAL) Drugs of Abuse Screen, Urine without Confirmation (11/10/2024 11:33 AM HEALTH SAFETY AND ENVIRONMENT MANAGER) [facility] [address] Amphetamine, ur Not Detected CutOff 500ng/mL Comment: Interpretive Data - Amphetamines: Samples containing greater than 500 ng/mL d-methamphetamine or other cross-reacting amphetamine compounds are reported as positive. Amphetamine immunoassays are subject to significant false positive rates due to cross-reactivity of non-amphetamine drugs. Confirmatory testing required for definitive results. Current Interpretive Data was last reviewed 2023. Barbiturates, ur Not Detected CutOff 200ng/mL [facility] Comment: Interpretive Data - Barbiturates: Samples containing greater than 200 ng/mL secobarbital or other cross-reacting barbiturate compounds are reported as positive. False positive and false negative results are possible. Confirmatory testing required for definitive results. Current Interpretive Data was last reviewed 2023. Benzodiazepines, ur Screen Positive, presumptive (A) CutOff 100ng/mL [facility] Comment: Interpretive Data - Benzodiazepines: Samples containing greater than 100 ng/mL nordiazepam or other cross-reacting compounds are reported as positive. False positive and false negative results are possible. Confirmatory testing required for definitive results. Current Interpretive Data was last reviewed 2023. Cannabinoids, ur Screen Positive, presumptive (A) CutOff 50 ng/mL [facility] Comment: Interpretive Data - Cannabinoids: Samples containing greater than 50 ng/mL delta-9 THC -COOH or other cross- reacting compounds are reported as positive. False positive and false negative results are possible. Confirmatory testing required for definitive results. Current Interpretive Data was last reviewed 2023. Cocaine, ur Screen Positive, presumptive (A) CutOff 150ng/mL [facility] Comment: Interpretive Data - Cocaine: Samples containing greater than 150 ng/mL benzoylecgonine or other cross- reacting compounds are reported as positive. False positive and false negative results are possible. Confirmatory testing required for definitive results. Current Interpretive Data was last reviewed 2023. Fentanyl, Ur Not Detected CutOff 5 ng/mL [facility] Comment: Interpretive Data - Fentanyl: Samples containing greater than 5 ng/mL norfentanyl, fentanyl, or other cross-reacting fentanyl compounds are reported as positive. False positive and false negative results are possible. Confirmatory testing required for definitive results. Current Interpretive Data was last reviewed 2024. Methadone, ur Not Detected CutOff 300ng/[facility] Comment: Interpretive Data - Methadone: Samples containing greater than 300 ng/mL d,l-methadone or other cross-reacting compounds are reported as positive. False positive and false negative results are possible. Confirmatory testing required for definitive results. Current Interpretive Data was last reviewed 2023. Opiates, ur Not Detected CutOff 300ng/mL [facility] Comment: Interpretive Data - Opiates: Samples containing greater than 300 ng/mL morphine or other cross-reacting compounds are reported as positive. False positive and false negative results are possible. Confirmatory testing required for definitive results. Current Interpretive Data was last reviewed 2023. Oxycodone, ur Not Detected CutOff 100ng/mL [facility] Comment: Interpretive Data - Oxycodone: Samples containing greater than 100 ng/mL oxycodone or other cross-reacting compounds are reported as positive. False positive and false negative results are possible. Confirmatory testing required for definitive results. Current Interpretive Data was last reviewed 2023. Phencyclidine, ur Not Detected CutOff 25 ng/mL [facility] Comment: Interpretive Data - Phencyclidine: Samples containing greater than 25 ng/mL phencyclidine or other cross-reacting compounds are reported as positive. False positive and false negative results are possible. Confirmatory testing required for definitive results. Current Interpretive Data was last reviewed 2023. Urine Creatinine 190 mg/dL [facility] Comment: Interpretive Data Urine Creatinine: < 10 mg/dL is extremely dilute = or > 10 but < 20 mg/dL is dilute = or > 20 mg/dL is normal Current Interpretive Data was last revised on 2018. Urine 11/10/2024 11:3 3 AM HEALTH SAFETY AND ENVIRONMENT MANAGER 11/10/2024 11:41 AM HEALTH SAFETY AND ENVIRONMENT MANAGER Narrative [facility] - 11/10/2024 12:26 PM HEALTH SAFETY AND ENVIRONMENT MANAGER Drug of Abuse screening is performed by immunoassay for medical purposes only. This is not to be used for Pain Management purposes. Nick Foster MD LAB URINE ORDERABLES Final Re sult Performing Organization Address City/[facility] Co de Phone Number [facility] [place] [address] * (ABNORMAL) Urinalysis, microscopic only (11/10/2024 11:33 AM HEALTH SAFETY AND ENVIRONMENT MANAGER) WBC, ur 0-5 0 - 5 /HPF RBC, ur 0-2 0 - 2 /HPF [facility] Mucous, ur Present(A) [facility] Culture Reflex Comment Reflex conditions for urine culture (WBC >10) not met. [facility] Urine 11/10/2024 11:3 3 AM HEALTH SAFETY AND ENVIRONMENT MANAGER 11/10/2024 11:41 AM HEALTH SAFETY AND ENVIRONMENT MANAGER us Nick Foster MD LAB URINE ORDERABLES Final Re sult Performing Organization Address [facility] de Phone Number [facility] [place] [address] * ECG 12-LEAD (11/10/2024 10:43 AM HEALTH SAFETY AND ENVIRONMENT MANAGER) Narrative [facility] - 11/10/2024 10:43 AM HEALTH SAFETY AND ENVIRONMENT MANAGER Nick Foster MD 11/10/2024 10:44 AM ECG [...] Nick Foster MD ECG ORDERABLES Final Result Performing Organization Address [facility] Of [place]/ZIP Co de Phone Number [facility] * POCT Rapid HIV Antibody Community Screening-Fabi Eligible (11/10/2024 10:24 AM HEALTH SAFETY AND ENVIRONMENT MANAGER) Rapid HIV, POC Negative Negative Lot Number [id number] QC Control Line Acceptable Blood 11/10/2024 10:2 4 AM HEALTH SAFETY AND ENVIRONMENT MANAGER us Nick Foster MD POINT OF CARE TEST ORDERABLES Final Result * Troponin I high-sensitivity series (baseline, 2hr, 4hr, 6hr) (11/10/2024 10:06 AM HEALTH SAFETY AND ENVIRONMENT MANAGER) Trop I hs 4 <=35 ng/L Comment: Interpretive Data For further hscTnI resources including the diagnostic algorithm and an aid in interpretation, copy and paste this link: https://bjhlab.testcatalog.org/show/[email or web address] Current Interpretive Data last revised 2020. Blood 11/10/2024 10:0 6 AM HEALTH SAFETY AND ENVIRONMENT MANAGER 11/10/2024 10:25 AM HEALTH SAFETY AND ENVIRONMENT MANAGER us Nick oFster MD LAB BLOOD ORDERABLES Final Re sult [facility] [place] [address] * eGFR (11/10/2024 10:06 AM HEALTH SAFETY AND ENVIRONMENT MANAGER) eGFR >90 >=60 mL/min/1. 73 m2 Comment: [...] reviewed 2021. Blood 11/10/2024 10:0 6 AM HEALTH SAFETY AND ENVIRONMENT MANAGER 11/10/2024 10:16 AM HEALTH SAFETY AND ENVIRONMENT MANAGER us Nick Foster MD LAB BLOOD ORDERABLES Final Re sult [facility] [place] [address] * Differential, auto (11/10/2024 10:06 AM HEALTH SAFETY AND ENVIRONMENT MANAGER) Neutrophil abs 2.2 1.5 - 6.5 K/cumm Imm gran abs 0.0 0.0 - 0.1 K/cumm [facility] Lymphocyte abs 1.9 0.8 - 3.3 K/cumm [facility] Monocyte abs 0.7 0.2 - 0.8 K/cumm [facility] Eosinophil abs 0.1 0.0 - 0.5 K/cumm [facility] Basophil abs 0.0 0.0 - 0.1 K/cumm [facility] Neutrophil pct 44.1 % [facility] Comment: Interpretive Data Percent cell count reference ranges are not reported, since discordance with absolute values may lead to misinterpretation of CBC data. Current Interpretive Data was last revised on 2018. Imm gran pct 0.2 % [facility] Comment: Interpretive Data Percent cell count reference ranges are not reported, since discordance with absolute values may lead to misinterpretation of CBC data. Current Interpretive Data was last revised on 2018. Lymphocyte pct 38.9 % [facility] Comment: Interpretive Data Percent cell count reference ranges are not reported, since discordance with absolute values may lead to misinterpretation of CBC data. Current Interpretive Data was last revised on 2018. Monocyte pct 13.8 % [facility] Comment: Interpretive Data Percent cell count reference ranges are not reported, since discordance with absolute values may lead to misinterpretation of CBC data. Current Interpretive Data was last revised on 2018. Eosinophil pct 2.4 % [facility] Comment: Interpretive Data Percent cell count reference ranges are not reported, since discordance with absolute values may lead to misinterpretation of CBC data. Current Interpretive Data was last revised on 2018. Basophil pct 0.6 % [facility] Comment: Interpretive Data Percent cell count reference ranges are not reported, since discordance with absolute values may lead to misinterpretation of CBC data. Current Interpretive Data was last revised on 2018. Blood 11/10/2024 10:0 6 AM HEALTH SAFETY AND ENVIRONMENT MANAGER 11/10/2024 10:16 AM HEALTH SAFETY AND ENVIRONMENT MANAGER us Nick Foster MD LAB BLOOD ORDERABLES Final Re sult [facility] Department [place] [address] * Pro B-type natriuretic peptide (11/10/2024 10:06 AM HEALTH SAFETY AND ENVIRONMENT MANAGER) NT-proBNP <50 <=300 pg/mL Comment: Interpretive Comments: [...] et.al. Eur Heart J. 2006:27:330-337. 2. Tiana WINCHESTER, Esther FRAZIER. J. AM Siri Cardiol: Cardiovasc Imag. 2009;2: 216- 225. Interpretive Data Last Revised Date: 2018. Blood 11/10/2024 10:0 6 AM HEALTH SAFETY AND ENVIRONMENT MANAGER 11/10/2024 10:16 AM HEALTH SAFETY AND ENVIRONMENT MANAGER Nick Foster MD LAB BLOOD ORDERABLES Final Re sult [facility] [place] [address] * (ABNORMAL) CBC with auto differential (11/10/2024 10:06 AM HEALTH SAFETY AND ENVIRONMENT MANAGER) Pathologist [facility] WBC 5.0 3.8 - 9.9 K/cumm Hgb 16.0 13.0 - 17.5 g/dL [facility] Hct 47.3 38.9 - 50.3 % [facility] Plt 284 150 - 400 K/cumm [facility] MPV 8.9(L) 9.1 - 12.3 fL [facility] RBC 5.09 4.30 - 5.80 M/cumm [facility] MCV 92.9 81.3 - 96.4 fL [facility] MCH 31.4 27.1 - 33.3 pg [facility] MCHC 33.8 32.3 - 35.7 g/dL [facility] RDW CV 14.0 11.1 - 14.9 % [facility] RDW SD 47.8 35.7 - 48.1 fL [facility] NRBC abs 0.00 0.00 - 0.01 K/cumm [facility] Blood 11/10/2024 10:0 6 AM HEALTH SAFETY AND ENVIRONMENT MANAGER 11/10/2024 10:16 AM HEALTH SAFETY AND ENVIRONMENT MANAGER Nick Foster MD LAB BLOOD ORDERABLES Final Re sult Performing Organization Address [facility] [place]/[facility] Co de Phone Number RAMU [facility] [place] [address] * Ethanol (11/10/2024 10:06 AM HEALTH SAFETY AND ENVIRONMENT MANAGER) Ethanol <10 <=10 mg/dL Comment: Interpretive Data Legal limit of intoxication > or = 80 mg/dL Levels > or = 400 mg/dL are potentially TOXIC. Current interpretive data was last revised on 2018. Blood 11/10/2024 10:0 6 AM HEALTH SAFETY AND ENVIRONMENT MANAGER 11/10/2024 10:16 AM HEALTH SAFETY AND ENVIRONMENT MANAGER Nick Foster MD LAB BLOOD ORDERABLES Final Re sult Performing Organization Address [facility] [place]/[facility] de Phone Number [facility] [place] [address] * (ABNORMAL) Valproic acid level, total (11/10/2024 10:06 AM HEALTH SAFETY AND ENVIRONMENT MANAGER) Valproic Acid <15.0(L) 50.0 - 100.0 mcg/mL Comment: Interpretive Data Therapeutic or toxic effects of anticonvulsant drugs may occur at different concentrations in different patients and the correlation between dose and clinical effect must be evaluated individually. Current interpretative data was last revised on 14. Blood 11/10/2024 10:0 6 AM HEALTH SAFETY AND ENVIRONMENT MANAGER 11/10/2024 10:16 AM HEALTH SAFETY AND ENVIRONMENT MANAGER Nick Foster MD LAB BLOOD ORDERABLES Final Re sult Performing Organization Address [facility] [place]/[facility] [place] [address] * (ABNORMAL) Comprehensive metabolic panel (11/10/2024 10:06 AM HEALTH SAFETY AND ENVIRONMENT MANAGER) Sodium 140 135 - 145 mmol/L Potassium, pl 4.1 3.3 - 4.9 mmol/L [facility] Chloride 101 97 - 110 mmol/L [facility] CO2 27 22 - 32 mmol/L [facility] Anion gap 12 2 - 15 mmol/L [facility] BUN 7 6 - 25 mg/dL [facility] Creatinine 0.80 0.80 - 1.30 mg/dL [facility] Glucose 77 70 - 199 mg/dL [facility] Comment: Interpretive Data Fasting glucose >/= [...] 2022. Calcium 9.7 8.5 - 10.3 mg/dL [facility] Bilirubin, total 0.7 0.1 - 1.2 mg/dL [facility] Protein, pl 8.6(H) 6.5 - 8.5 g/dL [facility] Albumin 4.6 3.5 - 5.0 g/dL [facility] Alk phos 95 40 - 130 Units/L [facility] ALT 66(H) 7 - 55 Units/L [facility] AST 81(H) 10 - 50 Units/L [facility] Blood 11/10/2024 10:0 6 AM HEALTH SAFETY AND ENVIRONMENT MANAGER 11/10/2024 10:16 AM HEALTH SAFETY AND ENVIRONMENT MANAGER us Nick Foster MD LAB BLOOD ORDERABLES Final Re sult [facility] Department [place] [address] * Hepatitis panel, acute Blood (10/06/2024 12:56 PM HEALTH SAFETY AND ENVIRONMENT MANAGER) Hep A IgM Nonreactive Nonreactive Comment: Interpretive Data: If Hep A IgM Ab is reported as Equivocal, a new sample should be drawn in two weeks for testing. Current interpretive data was last revised on 20. Hep B core IgM Nonreactive Nonreactive [facility] Comment: Interpretive Data If HepB Core IgM Ab is reported as Equivocal, a new sample should be drawn in two weeks for testing. Current interpretive data was last revised on 20. Hep C Ab Nonreactive Nonreactive [facility] Comment: Antibodies to HCV not detected. Does [...] last revised on 2020. HepBsAg Nonreactive Nonreactive [facility] Blood 10/06/2024 12:5 6 PM HEALTH SAFETY AND ENVIRONMENT MANAGER 10/06/2024 1:08 PM HEALTH SAFETY AND ENVIRONMENT MANAGER us Ghada PEREZ LAB MICROBIOLOGY - GENERA L ORDERABLES Final Result RAMU [address] [facility] Department [place] [address] from Last 3 Months or Most Recently Relevant to Health Maintenance [facility] [id number] [facility] Advance Directives For more information, please contact: [phone] * Full Code (Latest Code Status on [...] 2:27 PM 08/17/2023 5:13 PM Care Teams Licensed Loan Officer Assistant Relationship Specialty Start Date End Date Frank Beltran MD [address] [facility] [address] PCP - General Internal Medicine 12/09/24 Cailin Hernández Produce Inspector Addiction Medicine 10/23/20 Bernadette Roberts, [address] SIEGEL [address] [place] [id number] [employer] 06/20/21
[2025-02-03 08:10] VITALS: BP 146/92; PULSE 85; RESP 21; TEMP 36.6; O2SAT 100
--- NOTE | 2025-02-03 08:10 | ECG_ITS ---
Test Date: 2025-02-03 08:15:25 Measurements Intervals [place] Rate: 90 P: 78 AK: 148 QRS: 36 QRSD: 88 T: 52 QT: 373 QTc: 457 Interpretive Statements SINUS RHYTHM BASELINE ARTIFACT- I, II, III, AVR, AVL, AVF, V1-V6 NORMAL ECG NO PRIOR ECG FOR COMPARISON Electronically Signed On 02-03-2025 08:15:14 CDT by Santos Estes D.O.
--- NOTE | 2025-02-03 08:13 | ED_ITS ---
HPI - General Adult General Chief complaint: Alcohol Stated complaint: ETOH withdrawal, SI tendencies Time Seen by Provider: 02/03/25 08:00 History of Present Illness HPI narrative: 54-year-old male presents emergency department for evaluation for feeling ill with associated nausea vomiting body aches and fatigue. Patient does have a prior history of alcohol abuse, bipolar and depression. Patient states on Thursday he was following up with chest not and was post to get his vivitrol on Thursday but was unable to. Patient states since Thursday he has been drinking and using cocaine. Patient reports he last drank in used cocaine this morning. Patient also reports that he did take multiple doses trazodone this morning and attempted to sleep. Upon arrival to the emergency department patient is complaining alcohol withdrawal and chest pain Related Data Allergies Allergy/AdvReac Type Severity Reaction Status Date / Time No Known Allergies Allergy Unverified 03/12/17 19:23 Review of Systems 2 Review of Systems: All systems reviewed & are unremarkable except as noted in HPI and below Exam 2 Narrative: APPEARANCE: Well appearing, no pain, no distress, well-nourished. HEAD: normocephalic, atraumatic. EYES: PERRLA/EOMI, conjunctivae clear. NOSE: Normal no drainage EARS:TMS clear with good light reflex. THROAT: Pharynx clear, no exudate. NECK: Supple. No adenopathy, no masses. RESPIRATORY: Airway patent, respirations nonlabored. Clear to auscultation bilaterally, no rales, rhonchi, wheezing. CARDIOVASCULAR: Regular rate and rhythm without murmurs rubs or gallops. ABDOMINAL: Soft, nontender, nondistended, normal bowel sounds MUSCULOSKELETAL: Moves all extremities. Strength/ROM intact, No edema, No calf tenderness. NEURO: Alert. Tremor at baseline SKIN: Warm, dry. Normal Color Course Vital Signs Vital signs: Vital Signs Temperature 97.9 F 02/03/25 08:10 Pulse Rate 85 02/03/25 08:10 Respiratory Rate 21 H 02/03/25 08:10 Blood Pressure 146/92 H 02/03/25 08:10 Pulse Oximetry 100 02/03/25 08:10 Temperature 97.9 F 02/03/25 08:10 Pulse Rate 98 02/03/25 12:31 Respiratory Rate 16 02/03/25 12:31 Blood Pressure 123/64 02/03/25 12:31 Pulse Oximetry 98 02/03/25 12:31 Medical Decision Making [facility] Narrative Medical decision making narrative: 54-year-old male presents emergency department for evaluation for alcohol withdrawal. Patient did still have a blood alcohol of greater than 100. Patient was afebrile but did have an elevated leukocytosis of 15.9. Hemoglobin of 13.7. No significant acute abnormalities on his CMP UA was negative for infection. Patient did test positive for cocaine and cannabinoids. Patient was also positive for RSV. On re-evaluation patient states he does feel improved and patient will be discharged home. Differential Diagnosis Differential Diagnosis: COVID, RSV influenza, RSV, alcohol withdrawal, dehydration, nausea vomiting diarrhea Vital Signs Vital Signs: Vital Signs Temperature 97.9 F 02/03/25 08:10 Pulse Rate 85 02/03/25 08:10 Respiratory Rate 21 H 02/03/25 08:10 Blood Pressure 146/92 H 02/03/25 08:10 Pulse Oximetry 100 02/03/25 08:10 Temperature 97.9 F 02/03/25 08:10 Pulse Rate 98 02/03/25 12:31 Respiratory Rate 16 02/03/25 12:31 Blood Pressure 123/64 02/03/25 12:31 Pulse Oximetry 98 02/03/25 12:31 Lab Data Lab results reviewed: Yes I reviewed the patient's lab results. 02/03/25 08:20 02/03/25 08:20 Labs: Lab Results 02/03/25 02/03/25 02/03/25 Range/Units 08:20 08:20 11:22 WBC 15.9 H (4.5-10.0) K/mm3 RBC 4.46 L (4.6-6.20) M/mm3 Hgb 13.7 L (14.0-18.0) g/dL Hct 40.8 L (42.0-52.0) % MCV 91.5 (80-100) fl MCH 30.7 (26-34) pg MCHC 33.6 (32-36) g/dl RDW 14.5 (11.5-14.5) % Plt Count 260 (150-375) k/mm3 MPV 8.7 (7.4-10.4) fl Immature Gran % (Auto) 0.3 (0-0.5) % Neut % (Auto) 74.5 H (45.5-73.1) % Lymph % (Auto) 12.3 L (18.3-44.2) % [place] % (Auto) 11.8 H (2.6-8.5) % Eos % (Auto) 0.8 (0-4.4) % Baso % (Auto) 0.3 (0.2-1.2) % Lymph # (Auto) 1.96 (0.9-3.2) K/mm3 [place] # (Auto) 1.9 H (0.1-0.6) K/mm3 Eos # (Auto) 0.1 (0-0.3) K/mm3 Baso # (Auto) 0.0 (0.0-0.1) K/mm3 Abs Immat Gran (auto) 0.04 H (0.00-0.031) K/mm3 Absolute Neuts (auto) 11.9 H (1.3-6.7) K/mm3 Absolute Nucleated RBC 0.000 (0.0-0.012) K/mm3 Nucleated RBC % 0.0 (0.0-0.2) % Sodium 137 (137-145) mmol/L Potassium 4.0 (3.4-5.0) mmol/L Chloride 96 L (98-107) mmol/L Carbon Dioxide 27 (22-30) mmol/L Anion Gap 14 H (4-12) mmol/L BUN 8 L (9-20) mg/dL Creatinine 0.89 (0.7-1.3) mg/dL Estim Creat Clear Calc Not Reportable Estimated GFR > 60 (59 - ) Glucose 89 (65-110) mg/dL Calcium 9.2 (8.4-10.2) mg/dL Magnesium Cancelled 2.1 Total Bilirubin 1.5 H (0.2-1.3) mg/dL AST 71 H (17-59) U/L ALT 43 (6-50) U/L Alkaline Phosphatase 100 (38-126) U/L Troponin I < 0.012 < 0.012 (0.000-0.034) ng/mL Total Protein 9.0 H (6.3-8.2) g/dL Albumin 5.0 (3.5-5.1) g/dL TSH (Reflex) 1.230 (0.465-4.68) uIU/mL Urine Color Yellow (Yellow) Urine Appearance Clear (Clear) Urine pH 6.0 (5.0-9.0) Ur Specific [place] 1.017 (1.001-1.035) Urine Protein 1+ H (Negative) mg/dL Urine Glucose (UA) Negative (Negative) mg/dL Urine Ketones 2+ H (Negative) mg/dL Ur Blood (Man) Negative (Negative) Urine Nitrate Negative (Negative) Urine Bilirubin Negative (Negative) Urine Urobilinogen 1.0 (<2.0) mg/dL Leukocyte Esterase Rfl Negative (Negative) [place]/UL Urine RBC 0-2 (0-2) /hpf Urine WBC 0-5 (0-3) /hpf Ur Squamous Epith Cells None seen (Few) /hpf Urine Bacteria None seen /hpf Urine Casts 0-2 Salicylates < 1.0 L (2-20) mg/dL Urine Opiates Screen Negative (Negative) Urine Methadone Screen Negative (Negative) Acetaminophen < 10 L (10-30) ug/mL Ur Barbiturates Screen Negative (Negative) Ur Phencyclidine Scrn Negative (Negative) Ur Amphetamine Screen Negative (Negative) U Benzodiazepines Scrn Negative (Negative) Urine Cocaine Screen Positive A (Negative) U Cannabinoids Screen Positive A (Negative) Ethyl Alcohol 105 52 (<10) mg/dL Influenza A (RT-PCR) Negative (Negative) Influenza B (RT-PCR) Negative (Negative) RSV (RT-PCR) Positive A (Negative) SARS-CoV-2 RNA (RT-PCR) Negative (Negative) Discharge Plan Discharge Clinical Impression: Alcoholic intoxication, RSV infection Patient Disposition: Home, Self-Care Condition: Stable Instructions: Antibiotic Form, RSV (Respiratory Syncytial Virus) Infection (ED) Additional Instructions: Tylenol and ibuprofen for fever and body aches. Refrain from alcohol and cocaine use. Continue to have close follow-up with chestnut. If you have any worsening symptoms please call or return to the emergency department. Patient Language: Egyptian Follow-up/Referrals: UNKNOWN,DOCTOR [Primary Care Provider] -
--- OUTSIDE RECORDS SUMMARY | 2025-02-03 08:20 | XMS_ITS | Encounter Summary ---
Author Organization [facility] Address [facility] [place] [address] Care Team Providers Care Audio Visual Specialist Name Role Phone Jeannine Griggs MD Primary Care Provider [phone] , Generic Conversion Primary Care Provider Unavailable Md Generic Conversion Primary Care Provider Unavailable None, Provider Primary Care Provider Unavaila ble None, Provider Primary Care Provider Unavaila ble Encounter Details Date Type Department Care Team (Late st Contact Info) Description 05/30/2016 Abstract [facility] AT [address] [address] [place] Social History Tobacco Use [...] this encounter Results * MAGNESIUM (04/09/2016) Pathologist [facility] MAGNESIUM 1.8 04/09/2016 us Doc [facility] LABORATORY Final Result * BASIC METABOLIC PANEL (04/09/2016) Pathologist [facility] SODIUM S/P/B 137 POTASSIUM S/P/B 3.7 CO2 23 CHLORIDE S/P/B 104 GLUCOSE 77 CALCIUM S/P/B 8.5 BUN 5 CREATININE S/P/B 0.83 EGFR AFR. AMER. >60 EGFR NON-AFR. AMER. >60 04/09/2016 us Doc [facility]ORAT[facility] Final Result * CK (CPK) (04/09/2016) Pathologist [facility] CPK 585 04/09/2016 us Doc [facility] LABORATORY Final Result * CBC (OUTSIDE LAB) (04/09/2016) Pathologist [facility] WBC 4.1 HGB 12.3 HCT 36 PLT 229 04/09/2016 us Doc [facility] Abstract LAB-OUTSIDE/ABSTRACTED Final Result * (ABNORMAL) HEPATIC FUNCTION PANEL (04/08/2016) Pathologist [facility] ALBUMIN S/P/B 2.9(A) 3.5 - 5.0 ALKALINE [...] Rule Out 12/12/2020 12/12/2020 12/13/2020 8:34 AM AIRPLANE RIGGER COVID-19 Rule Out 12/08/2022 12/08/2022 12/08/2022 11:14 AM AIRPLANE RIGGER COVID-19 Rule Out 10/18/2024 10/18/2024 10/19/2024 1:16 AM AIRPLANE RIGGER Respiratory Rule-Out 01/26/2025 01/26/2025 025 6:31 PM CDT documented as of this encounter Care Teams Audio Visual Specialist Relationship Specialty Start Date End Date Jeannine Griggs MD PCP - General INTERNAL MEDICINE 04/09/16 08/26/16 Md Generic Conversion, PCP - General 03/12/17 Md Generic Conversion, PCP - General 08/27/16 None, Provider, PCP - General 08/22/18 07/06/20 None, Provider, PCP - General 07/07/20 documented as of this encounter
--- OUTSIDE RECORDS SUMMARY | 2025-02-03 08:20 | XMS_ITS | CONTINUITY OF CARE DOCUMENT ---
Author Name connie rosales Address Unknown Organization [facility] Address [address] [facility] [address] [place] [address] Phone [phone] Care Team Providers Care Solder Making Laborer Name Role Phone Hill Staley MD Unavailable Hill Staley MD Unavailable INSURANCE PROVIDERS Payer name Policy type / Coverage type [place] red green party ID [facility] [id number] HEALTHCARE AND FAMILY SERVICES Medicaid 1 [id number]
--- OUTSIDE RECORDS SUMMARY | 2025-02-03 08:20 | XMS_ITS | Clinical Summary ---
Author Organization [facility] Address [address] [place] [address] Care Team Providers Care Pack Press Operator Name Role Phone None, Provider MD Primary [...] Date Alcohol use disorder, modera te, dependence ([facility]) 12/21/2018 Bipolar I disorder, most rec ent episode depressed, severe w psychosis Suicidal ideation Overview (05/09/2016): h/o Cocaine use disorder, moderate, dependence Overview (05/09/2016): h/o Depression Encounters Date Type Department Care Team Description 01/26/2025 2:59 PM CDT - 01/27/2025 7:23 AM CDT Emergency [facility] [place] [address] Luzmaria Granado MD [place], Rosie Virk MD [...] DETECTED NOT DETECTED 01/26/2025 6:30 PM CDT [facility] CORONAVIRUS 229E PCR (RESP) NOT DETECTED NOT DETECTED 01/26/2025 6:30 PM CDT [facility] CORONAVIRUS HKU1 PCR (RESP) NOT DETECTED NOT DETECTED 01/26/2025 6:30 PM CDT [facility] CORONAVIRUS NL63 PCR (RESP) NOT DETECTED NOT DETECTED 01/26/2025 6:30 PM CDT [facility] CORONAVIRUS OC43 PCR (RESP) NOT DETECTED NOT DETECTED 01/26/2025 6:30 PM CDT [facility] METAPNEUMOVIRUS PCR (RESP) NOT DETECTED NOT DETECTED 01/26/2025 6:30 PM CDT [facility] RHINOVIRUS/ENTEROV IRUS PCR (RESP) NOT DETECTED NOT DETECTED 01/26/2025 6:30 PM CDT [facility] INFLUENZA A PCR (RESP) NOT DETECTED NOT DETECTED 01/26/2025 6:30 PM CDT [facility] INFLUENZA B PCR (RESP) NOT DETECTED NOT DETECTED 01/26/2025 6:30 PM CDT [facility] PARAINFLUENZA 1 PCR (RESP) NOT DETECTED NOT DETECTED 01/26/2025 6:30 PM CDT [facility] PARAINFLUENZA 2 PCR (RESP) NOT DETECTED NOT DETECTED 01/26/2025 6:30 PM CDT [facility] PARAINFLUENZA 3 PCR (RESP) NOT DETECTED NOT DETECTED 01/26/2025 6:30 PM CDT [facility] PARAINFLUENZA 4 PCR (RESP) NOT DETECTED NOT DETECTED 01/26/2025 6:30 PM CDT [facility] RSV PCR (RESP) NOT DETECTED NOT DETECTED 01/26/2025 6:30 PM CDT [facility] B PARAPERTUSIS PCR (RESP) NOT DETECTED NOT DETECTED 01/26/2025 6:30 PM CDT [facility] BORDETELLA PERTUSSIS PCR (RESP) NOT DETECTED NOT DETECTED 01/26/2025 6:30 PM CDT [facility] CHLAMYDOPHILA PNEUMONIAE PCR (RESP) NOT DETECTED NOT DETECTED 01/26/2025 6:30 PM CDT [facility] MYCOPLASMA PNEUMONIAE PCR (RESP) NOT DETECTED NOT DETECTED 01/26/2025 6:30 PM CDT [facility] CORONAVIRUS SARS COV 2 PCR (RESP) NOT DETECTED NOT DETECTED 01/26/2025 6:30 PM CDT [facility] NASOPHARYNGEAL SWAB / Unknown 01/26/2025 5:21 PM CDT us Luzmaria Granado MD MICROBIOLOGY - GENERAL ORDERABL ES Final Result [facility] [address] [place] [address], [place] [phone] * (ABNORMAL) DRUG SCREEN RAPID (01/26/2025 3:10 PM CDT) AMPHETAMINE (U) NEGATIVE NEGATIVE 3:48 PM CDT [facility] BARBITURATES SCREEN (U) NEGATIVE NEGATIVE 01/26/2025 3:48 PM CDT [facility] BENZODIAZEPINES SCREEN (U) NEGATIVE NEGATIVE 01/26/2025 3:48 PM CDT [facility] CANNABINOIDS SCREEN (U) NEGATIVE NEGATIVE 01/26/2025 3:48 PM CDT [facility] COCAINE METABOLITES (U) POSITIVE(A) NEGATIVE 01/26/2025 3:48 PM CDT [facility] METHADONE (U) NEGATIVE NEGATIVE 01/26/2025 3:48 PM CDT [facility] OPIATE SCREEN (U) NEGATIVE NEGATIVE 025 3:48 PM CDT [facility] PHENCYCLIDINE PCP (U) NEGATIVE NEGATIVE 01/26/2025 3:48 PM CDT [facility] Comment: NOTE: RESULTS OF THIS DRUG SCREEN SHOULD BE USED FOR MEDICAL PURPOSES ONLY AND NOT FOR LEGAL OR EMPLOYMENT PURPOSES. POSITIVE RESULTS ARE NOT CONFIRMED. MEDICATIONS CONTAINING EPHEDRINE MAY CAUSE FALSE POSITIVE AMPHETAMINE CALL [phone], LAB, TO REQUEST CONFIRMATION TESTING. IF CREATININE IS <40 mg/dL. RECOLLECTION IS SUGGESTED. AMPHETAMINE- 500 NG/ML BARBITURATE- 200 NG/ML BENZODIAZEPINES- 200 NG/ML THC- 50 NG/ML COCAINE- 150 NG/ML METHADONE- 300 NG/ML OPIATE- 300 MG/ML PCP- 25 NG/ML CREATININE (U) 13.2(L) 39 - 259 MG/DL 01/26/2025 3:48 PM CDT [facility] URINE SPECIMEN / Unknown 01/26/2025 3:10 PM CDT us Colby Hwang FILLING HAND URINE ORDERABLES Final Result [facility] [address] [place] [address], * URINALYSIS, AUTO, COMPLETE (01/26/2025 3:10 PM CDT) SPECIMEN TYPE URINE CLEAN CATCH 01/26/2025 3:23 PM CDT [facility] COLOR (U) COLORLESS 01/26/2025 3:37 PM CDT [facility] TRANSPARENCY CLEAR 01/26/2025 3:37 PM CDT [facility] SPECIFIC GRAVITY (U) 1.003 1.001 - 1.030 01/26/2025 3:37 PM CDT [facility] U PH 6.0 5.0 - 9.0 01/26/2025 3:37 PM CDT [facility] LEUKOCYTES (U) NEGATIVE NEGATIVE 01/26/2025 3:37 PM CDT [facility] NITRITES NEGATIVE NEGATIVE 01/26/2025 3:37 PM CDT [facility] PROTEIN RANDOM (U) NEGATIVE <30 MG/DL 01/26/2025 3:37 PM CDT [facility] GLUCOSE (U) NORMAL NORMAL MG/DL 01/26/2025 3:37 PM CDT [facility] KETONES MG/DL (U) NEGATIVE NEGATIVE MG/DL 01/26/2025 3:37 PM CDT [facility] UROBILINOGEN NORMAL NORMAL MG/DL 01/26/2025 3:37 PM CDT [facility] BILIRUBIN (U) NEGATIVE NEGATIVE MG/DL 01/26/2025 3:37 PM CDT [facility] BLOOD (U) NEGATIVE NEGATIVE 01/26/2025 3:37 PM CDT [facility] RBC/HPF <1 <6 /HPF 01/26/2025 3:37 PM CDT [facility] URINE SPECIMEN OBTAINED BY CLEAN CATCH PROCEDURE / Unknown 01/26/2025 3:10 PM CDT us Colby Hwang FILLING HAND URINE ORDERABLES Final Result [facility] [address] [place] [address], [place] [phone] * (ABNORMAL) COMPREHENSIVE METABOLIC PANEL (01/26/2025 3:10 PM CDT) GLUCOSE 77 70 - 99 MG/DL 01/26/2025 4:46 PM CDT [facility] BUN 11 7 - 18 MG/DL 01/26/2025 4:46 PM CDT [facility] CREATININE S/P/B 0.99 0.7 - 1.3 MG/DL 01/26/2025 4:46 PM CDT [facility] SODIUM S/P/B 133(L) 136 - 145 MMOL/L 01/26/2025 4:46 PM CDT [facility] POTASSIUM S/P/B 3.9 3.5 - 5.1 MMOL/L 01/26/2025 4:46 PM CDT [facility] CHLORIDE S/P/B 101 97 - 115 MMOL/L 01/26/2025 4:46 PM CDT [facility] CO2 24.0 21 - 32 MMOL/L 01/26/2025 4:46 PM CDT [facility] CALCIUM S/P/B 9.2 8.5 - 10.1 MG/DL 01/26/2025 4:46 PM CDT [facility] BILIRUBIN TOTAL S/P/B 0.4 0.2 - 1.2 MG/DL 01/26/2025 4:46 PM CDT [facility] Comment: THIS ASSAY IS NOT RECOMMENDED FOR PATIENTS UNDERGOING TREATMENT WITH ELTROMBOPAG DUE TO THE POTENTIAL FOR FALSELY ELEVATED RESULTS. TOTAL PROTEIN S/P/B 8.3(H) 6.4 - 8.2 G/DL 01/26/2025 4:46 PM CDT [facility] ALBUMIN S/P/B 3.8 3.4 - 5.0 G/DL 01/26/2025 4:46 PM CDT [facility] AST 54(H) 15 - 37 U/L 01/26/2025 4:46 PM CDT [facility] ALT 42 16 - 60 U/L 01/26/2025 4:46 PM T [facility] ALKALINE PHOSPHATASE S/P/B 79 50 - 136 U/L 01/26/2025 4:46 PM CDT [facility] ANION GAP 8.0 2 - 10 MMOL/L 01/26/2025 4:46 PM CDT [facility] BUN CREATININE RATIO 11.1 6 - 26 01/26/2025 4:46 PM CDT [facility] A/G RATIO 0.8(L) 1.0 - 2.0 RATIO 01/26/2025 4:46 PM CDT [facility] GFR ESTIMATE >90 >90 ML/MIN/1.7 3 M2 01/26/2025 4:46 PM CDT [facility] Comment: NOTE: eGFR is not calculated for patients <18 years of age or gender unknown. This is an estimated GFR calculation using the new CKD EPI creatinine equation without race and so does not require a correction factor for race. This estimated GFR should not be used for calculating drug doses. 01/26/2025 3:10 PM CDT Colby Hwang NP LABORATORY Final Result [facility] [address] [place] [address], [place] [phone] * (ABNORMAL) CBC W/DIFF AUTOMATED (01/26/2025 3:10 PM CDT) WBC 10.59 4.5 - 11.0 x10'3/uL 01/26/2025 3:37 PM CDT [facility] RBC 4.45(L) 4.70 - 6.10 x10'6/uL 01/26/2025 3:37 PM CDT [facility] HGB 13.7(L) 14.0 - 18.0 G/DL 01/26/2025 3:37 PM CDT [facility] HCT 40.5(L) 43.0 - 54.0 % 01/26/2025 3:37 PM CDT [facility] MCV 91.0 80.0 - 94.0 FL 01/26/2025 3:37 PM CDT [facility] MCH 30.8 27.0 - 31.0 PG 01/26/2025 3:37 PM CDT [facility] MCHC 33.8 32.0 - 36.0 G/DL 01/26/2025 3:37 PM CDT [facility] RDW 15.1(H) 11.5 - 14.5 % 01/26/2025 3:37 PM CDT [facility] PLT 337 130 - 400 x10'3/uL 01/26/2025 3:37 PM CDT [facility] MPV 8.9(L) 9.3 - 12.2 FL 01/26/2025 3:37 PM CDT [facility] DIFFERENTIAL TYPE AUTOMATED DIFFERENTIAL 01/26/2025 3:37 PM CDT [facility] NEUTROPHILS % 61.2 % 01/26/2025 3:37 PM CDT [facility] LYMPHOCYTES % 24.1 % 01/26/2025 3:37 PM CDT [facility] MONOCYTES % 11.4 % 01/26/2025 3:37 PM CDT [facility] EOSINOPHILS 2.3 % 01/26/2025 3:37 PM CDT [facility] BASOPHILS 0.6 % 01/26/2025 3:37 PM CDT [facility] IMMATURE GRANS % 0.4 % 01/27/20 3:37 PM CDT [facility] ABS. NEUTROPHILS 6.49 1.80 - 7.70 x10'3/uL 01/26/2025 3:37 PM CDT [facility] ABS. LYMPHOCYTES 2.55 1.00 - 4.80 x10'3/uL 01/26/2025 3:37 PM CDT [facility] ABS. MONOCYTES 1.21(H) 0.30 - 0.82 x10'3/uL 01/26/2025 3:37 PM CDT [facility] ABS. EOSINOPHILS 0.24 0.04 - 0.54 x10'3/uL 01/26/2025 3:37 PM CDT [facility] ABS. BASOPHILS 0.06 0.01 - 0.08 x10'3/uL 01/26/2025 3:37 PM CDT [facility] ABS. IMMATURE GRANULOCYTES 0.04 0.00 - 0.49 x10'3/uL 01/26/2025 3:37 PM CDT [facility] 01/26/2025 3:10 PM CDT Colby Hwang NP LABORATORY Final Result [facility] [address] [place] [address], [place] [phone] * THYROID STIM HORMONE, TSH (01/26/2025 3:10 PM CDT) TSH 0.952 0.358 - 3.74 uIU/ML 01/26/2025 4:46 PM CDT [facility] Comment: HIGH DOSES OF BIOTIN MAY INTERFERE WITH THIS TEST RESULT. CORRELATION TO CLINICAL HISTORY AND PRESENTATION RECOMMENDED. 01/26/2025 3:10 PM CDT Colby Hwang NP LABORATORY Final Result [facility] [address] [place] [address], * (ABNORMAL) SALICYLATE (01/26/2025 3:10 PM CDT) SALICYLATES <1.7(L) 2.8 - 20.0 MG/DL 01/26/2025 4:26 PM CDT [facility] Comment: THERAPEUTIC: 2.8-20.0 Toxic Level: >=30 01/26/2025 3:10 PM CDT Colby Hwang FILLING HAND LABORATORY Final Result Performing Organization Address City/[facility]/ZIP Co de Phone Number [facility] [address] [place] [phone], * (ABNORMAL) ETHANOL (01/26/2025 3:10 PM CDT) ALCOHOL S/P/B 0.076(H) <0.003 G/DL 01/26/2025 4:46 PM CDT [facility] 01/26/2025 3:10 PM CDT Colby Hwang FILLING HAND LABORATORY Final Result [facility] [address] [place] [id number], * (ABNORMAL) ACETAMINOPHEN (01/26/2025 3:10 PM CDT) ACETAMINOPHEN S/P/B <2.0(L) 10.0 - 30.0 MCG/ML 01/26/2025 4:46 PM CDT [facility] Comment: THERAPEUTIC: 10-30 TOXIC: >200 01/26/2025 3:10 PM CDT us Colby Hwang FILLING HAND LABORATORY Final Result [facility] [address] [place] [address], * ECG 12 lead (01/26/2025 3:07 PM CDT) 01/26/2025 3:07 PM CDT Narrative [facility] ([facility] - 01/27/2025 5:50 AM CDT [address] Test Date: 2025-01-26 Pat Name: [facility] Department: 41 Room: Gender: Male It Sales Executive: : 1970 Requested By: COLBY HWANG Order Number: [id number] Reading YESSENIA So Measurements Intervals Marion Rate: 89 P: 61 OR: 151 QRS: -7 QRSD: 85 T: 36 QT: 356 QTc: 435 Interpretive Statements SINUS RHYTHM Compared to ECG 10/18/2024 22:30:38 No significant changes Procedure Note Perla So MD - 01/27/[address] Test Date: 2025-01-26 Pat Name: [facility] Department: 41 Room: Gender: Male It Sales Executive: : 1970 Requested By: COLBY HWANG Order Number: [id number] Reading YESSENIA So Measurements Intervals Marion Rate: 89 P: 61 OR: 151 QRS: -7 QRSD: 85 T: 36 QT: 356 QTc: 435 Interpretive Statements SINUS RHYTHM Compared to ECG 10/18/2024 22:30:38 No significant changes us Colby Hwang FILLING HAND ECG ORDERABLES Final Result [facility] ([facility] from Last 3 Months Insurance [facility] Care Teams Pack Press Operator Relationship Specialty Start Date End Date None, Provider, PCP - General 07/07/20
--- OUTSIDE RECORDS SUMMARY | 2025-02-03 08:20 | XMS_ITS | Continuity of Care Document ---
Author Organization [facility] Address [address] [place] [address] Phone Care Team Providers Care Machine Inker Name Role Phone Antonio Anderson MD Unavailable Unavailable Advance Directives Directive Yes / No Effective Date File Name No Information Encounters Encounter Description Practice Location Reason(s) For Visit Diagnoses Date Provider Providers Copied on Encounter [facility], [address], [place], [place], [id number], [place] tel:[phone] [facility] No Information Justin Alvarez. [address] [place] [address], [address], [place], [place], [id number], [place]. tel:[phone] Family History Family Member Type Diagnosis Age At Onset No Information Payers Payer name Insurance type Covered green party ID Rafael davis(s) [facility] [id number] [facility] [id number] Social History Type Description Quantity Date Captured [...]
--- OUTSIDE RECORDS SUMMARY | 2025-02-03 08:20 | XMS_ITS | Clinical Summary ---
Author Organization [facility] [employer] Address [address] [place] [address] Care Team Providers Care Children'S Entertainer Name Role Phone Unavailable Primary Care Provider Unavailabl e Source Comments [facility] [employer],non-owned Affiliates and Associated Physician Practices is amultiple site organization consisting of ambulatory clinics and hospital sitesin [place], [place]. This disclosure is being madepursuant to the Care Everywhere program and may not contain all information available regarding this patient. Last updated 18.[facility] [employer] Allergies No known active allergies Medications * [...] 150 <200 mg/dL 08/07/2021 7:02 AM CDT [facility] Triglycerides 145 <150 mg/dL 08/07/2021 7:02 AM CDT [facility] HDL Cholesterol 46 >40 mg/dL 7:02 AM CDT [facility] Chol HDL Ratio 3.3 1.0 - 6.0 08/07/2021 7:02 AM CDT [facility] LDL Calculated 75 65 - 130 mg/dL 08/07/2021 7:02 AM CDT [facility] VLDL Calculated 29 <=30 mg/dL 7:02 AM CDT [facility] Blood BLOOD SPECIMEN / Unknown Lab Venipuncture / Unknown 08/07/2021 6:13 AM CDT 08/07/2021 6:19 AM CDT Narrative [facility] - 08/07/2021 7:02 AM CDT [...] 9.5 ...................... 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
--- OUTSIDE RECORDS SUMMARY | 2025-02-03 08:20 | XMS_ITS | Clinical Summary ---
Author Organization [facility] Address [address] [place] [address] Phone Care Team Providers Care Machinist 2Nd Shift Name Role Phone Provider, Unknown Primary Care [...] Department Care Team Description 12/23/2024 8:39 AM [facility]ANCE WILDLIFE SPECIALIST - 12/23/2024 3:07 PM [facility] Emergency [facility] Emergency [address] [place] [address] Brett Adams MD Alcohol withdrawal syndrome with complication (HCC) Discharge Disposition: Discharged to home or Selfcare 12/23/2024 Travel from Last 3 Months Social History Tobacco Use Types Packs/Day Years Used Date Smoking Tobacco: Every Day Cigarettes Smokeless Tobacco: Never Alcohol Use Standard Drinks/Week Comments Yes 0 (1 standard drink = 0.6 oz pur e alcohol) [facility] Utilities Answer Date Recorded In the past 12 months has e [employer], gas, oil, or water [employer] threatened to shut off services in your home? Patient declined 12/23/2024 Social Connection and Isolation Panel [NHANES] A nswer Date Recorded In a typical week, how many times do you talk on the phone with family, friends, or neighbors? Patient declined 12/23/2024 How often do you get togethe r with friends or relatives? Patient declined 12/23/2024 How often do you attend latter day or faith serv ices? Patient declined 12/23/2024 Do you belong to any clubs o r organizations such as latter day groups, unions, fraternal or athletic groups, or [...] medical care, and heating? Patient declined 12/23/2024 [facility] Occupat ional [facility] - Occupational Stress Questionnaire Answer [...] any time in the past 12 m [facility], were you homeless or living in a nursing home (including now)? Patient declined 12/23/2024 Sex and Gender Information Value Date Recorded Sex Assigned at Not on file Legal Sex Male 12:26 AM CDT Gender Identity Not on file Sexual Orientation Not on file Last Filed Vital Signs Vital Sign Reading Time Taken Comments Blood Pressure 138/88 12/27/2024 11:54 AM [facility]ILDL[facility] SPECIALIST Pulse 73 12/27/2024 11:54 AM [facility]ANCE WILDLIFE SPECIALIST Temperature 36.6 C (97.9 F) 12/27/2024 11:54 AM [facility] WILDLIFE SPECIALIST Respiratory Rate 12 12/27/2024 11:54 AM [facility]ANCE WILDLIFE SPECIALIST Oxygen Saturation 100% 12/27/2024 11:54 AM N[employer]ISANCE WILDLIFE SPECIALIST Inhaled Oxygen Concentration - - Weight 86.2 kg (190 lb) 12/23/2024 7:36 PM N[facility]ISANCE WILDLIFE SPECIALIST Height 177.8 cm (5' 10) 12/23/2024 7:36 PM [facility]ANCE WILDLIFE SPECIALIST Body Mass Index 27.26 12/23/2024 7:36 PM N[employer]ISANCE WILDLIFE SPECIALIST Plan of Treatment Health Maintenance Due Date [...] Comments AEROSOL NEBULIZER-INITIAL Routine 12/23/2024 10:09 PM N[employer]ANCE WILDLIFE SPECIALIST URINE DRUG SCREEN STAT 12/23/2024 1:1 5 PM [facility] W[facility] SPECIALIST URINALYSIS REFLEX IF INDICATED BY ABNORMAL RESULTS STAT 12/23/2024 1:[address] [address] ABDOMEN PELVIS W/O CONTRAST Stat with Interpretation 12/23/2024 11:30 AM N[employer]ISANCE WILDLIFE SPECIALIST TROPONIN I, HIGH SENSITIVITY (HSTRP) STAT 12/23/2024 11:10 AM N[employer]ISANCE WILDLIFE SPECIALIST RSV,SARS-COV-2,INF LUENZA A&B BY PCR STAT 12/23/2024 10:30 AM [facility]ANCE WILDLIFE SPECIALIST CBC WITH AUTO DIFFERENTIAL STAT 12/23/2024 9:10 AM N[employer]ANCE WILDLIFE SPECIALIST PROTIME (PT) (PROTHROMBIN TIME) STAT 12/23/2024 9:10 AM N[employer]ISANCE WILDLIFE SPECIALIST B-TYPE NATRIURETIC PEPTIDE (BNP) STAT 12/23/2024 9:10 AM N[employer]ANCE WILDLIFE SPECIALIST TROPONIN I, HIGH SENSITIVITY (HSTRP) STAT 12/23/2024 9:10 AM [facility] WILDLIFE SPECIALIST MAGNESIUM (MG) STAT 12/23/2024 9:10 AM [facility] WILDLIFE SPECIALIST LIPASE STAT 12/23/2024 9:10 AM NUISANCE WILDLIFE SPECIALIST CMP (COMPREHENSIVE METABOLIC PANEL) STAT 12/23/2024 9:10 AM N[employer]ISANCE WILDLIFE SPECIALIST COMPLETE BLOOD COUNT (CBC) WITH DIFF STAT 12/23/2024 9:10 AM N[employer]ANCE WILDLIFE SPECIALIST ETHYL ALCOHOL (ETHANOL) STAT 12/23/2024 9:10 AM NUISANCE WILDLIFE SPECIALIST from Last 3 Months Results * (ABNORMAL) Urinalysis w/ Reflex (12/23/2024 1:15 PM NUISANCE WILDLIFE SPECIALIST) [facility] SPECIFIC GRAVITY 1.025 1.003 - 1.030 12/23/2024 1:39 PM N[employer]ISANCE WILDLIFE SPECIALIST [facility] URINE PH 6.0 5.0 - 9.0 12/23/2024 1:39 PM NUISANCE WILDLIFE SPECIALIST [facility] WBC ESTERASE Negative Negative 12/23/2024 1:39 PM NUISANCE WILDLIFE SPECIALIST [facility] NITRITE Negative Negative 12/23/2024 1:39 PM NUISANCE WILDLIFE SPECIALIST [facility] PROTEIN, RANDOM URINE 15 mg/dL(A) Negative 12/23/2024 1:39 PM N[employer]ISANCE WILDLIFE SPECIALIST [facility] URINE GLUCOSE, QUAL Negative Negative 12/23/2024 1:39 PM N[employer]ISANCE WILDLIFE SPECIALIST [facility] URINE KETONES 15 mg/dL(A) Negative 12/23/2024 1:39 PM N[employer]ISANCE WILDLIFE SPECIALIST [facility] UROBILINOGEN Normal Normal mg/dL 12/23/2024 1:39 PM NUISANCE WILDLIFE SPECIALIST [facility] URINE BLOOD Negative Negative claude/ul 12/23/2024 1:39 PM NUISANCE WILDLIFE SPECIALIST [facility] URINALYSIS COLOR Yellow 12/23/19 1:39 PM N[employer]ISANCE WILDLIFE SPECIALIST [facility] URINALYSIS CLARITY Clear 12/23/2024 1:39 PM NUISANCE WILDLIFE SPECIALIST [facility] Urine URINE SPECIMEN / Unknown Non-Phlebotomy Collection / Unknown 12/23/2024 1:15 PM [facility] WILDLIFE SPECIALIST 12/23/2024 1:30 PM [facility]ILDL[employer] SPECIALIST Brett Adams MD URINE ORDERABLES Final R esult [facility] [address] [place] [address] * (ABNORMAL) Urine Drug Screen (12/23/2024 1:15 PM NUISANCE WILDLIFE SPECIALIST) [facility] UR AMPHETAMINE NON DETECTED NON DETECTED 12/23/2024 1:48 PM NUISANCE WILDLIFE SPECIALIST [facility] Comment: FOR MEDICAL USE ONLY. CUTOFF CONCENTRATION FOR DETECTED RESULT: AMPHETAMINE: 500 NG/ML UR BENZODIAZEPINES NON DETECTED NON DETECTED 12/23/2024 1:48 PM NUISANCE WILDLIFE SPECIALIST [facility] Comment: FOR MEDICAL USE ONLY. CUTOFF CONCENTRATION FOR DETECTED RESULT: BENZODIAZAPINE: 200 NG/ML UR COCAINE METABOLITE DETECTED(A) NON DETECTED 12/23/2024 1:48 PM NUISANCE WILDLIFE SPECIALIST [facility] Comment: FOR MEDICAL USE ONLY. CUTOFF CONCENTRATION FOR DETECTED RESULT: COCAINE: 150 NG/ML UR OPIATES NON DETECTED NON DETECTED 12/23/2024 1:48 PM N[employer]ISANCE WILDLIFE SPECIALIST [facility] Comment: FOR MEDICAL USE ONLY. CUTOFF CONCENTRATION FOR DETECTED RESULT: OPIATES: 300 NG/ML UR PHENCYCLIDINE NON DETECTED NON DETECTED 12/23/2024 1:48 PM NUISANCE WILDLIFE SPECIALIST [facility] Comment: FOR MEDICAL USE ONLY. CUTOFF CONCENTRATION FOR DETECTED RESULT: PCP: 25 NG/ML UR CANNABINOID NON DETECTED NON DETECTED 12/23/2024 1:48 PM NUISANCE WILDLIFE SPECIALIST [facility] Comment: FOR MEDICAL USE ONLY. CUTOFF CONCENTRATION FOR DETECTED RESULT: THC (MARIJUANA): 50 NG/ML UR BARBITURATE NON DETECTED NON DETECTED 12/23/2024 1:48 PM NUISANCE WILDLIFE SPECIALIST [facility] Comment: FOR MEDICAL USE ONLY. CUTOFF CONCENTRATION FOR DETECTED RESULT: BARBITUATES: 200 NG/ML UR FENTANYL NON DETECTED NON DETECTED 12/23/2024 1:48 PM NUISANCE WILDLIFE SPECIALIST [facility] Comment: FOR MEDICAL USE ONLY. CUTOFF CONCENTRATION FOR DETECTED RESULT: FENTANYL: 1.0 NG/ML Urine Non-Phlebotomy Collection / Unknown 12/23/2024 1:15 PM [facility] WILDLIFE SPECIALIST 12/23/2024 1:30 PM NUISANCE WILDLIFE SPECIALIST us Brett Adams MD URINE ORDERABLES Final R esult [facility] [address] [place] [address] * CT ABDOMEN PELVIS W/O CONTRAST (12/23/2024 11:30 AM NU[employer]ANCE WILDLIFE SPECIALIST) Anatomical Region Laterality Modality Abdomen N/A Computed Tomogra phy 12/23/2024 11:5 0 AM N[employer]ANCE WILDLIFE SPECIALIST Impressions 12/23/2024 11:52 AM N[employer]ISANCE WILDLIFE SPECIALIST IMPRESSION: No acute finding. Narrative 12/23/2024 11:52 AM NUISANCE WILDLIFE SPECIALIST EXAM DESCRIPTION: CT ABDOMEN PELVIS W/O CONTRAST [...] Paul Pennington M.D. JA: TRUDY Report ID: [id number] Reading Location: [id number] Procedure Note Paul Pennington MD - 12/23/2024 [...] Paul Pennington M.D. JA: TRUDY Report ID: [id number] Reading Location: [place] [address] IMPRESSION: No acute finding. Brett Adams MD IM CT ORDERABLES Final Result * TROPONIN I, HIGH SENSITIVITY (HSTRP) (12/23/2024 11:10 AM N[employer]ANCE WILDLIFE SPECIALIST) Only the most recent of2 resultswithin the time period is included. TROPONIN I, HIGH SENSITIVITY- [place] 8 <=35 ng/L 12/23/2024 11:56 AM NUISANCE WILDLIFE SPECIALIST [facility] Comment: High-sensitivity troponin I results are reported in ng/L making the result appear to be 1,000 times higher than the contemporary troponin I value which is reported in ng/ml. Results from [place]. Blood Venipuncture / Unknown 12/23/2024 11:10 AM N[employer]ANCE WILDLIFE SPECIALIST 12/23/2024 11:23 AM [facility] WILDLIFE SPECIALIST Brett Adams MD CHEMISTRY ORDERABLES Fin al Result Performing Organization Address City/[facility]/ZIP Co de Phone Number [facility] [address] [place] [address] * RSV,SARS-COV-2,INFLUENZA A&B BY PCR (12/23/2024 10:30 AM NUISANCE WILDLIFE SPECIALIST) FLU A Negative Negative, Error 12/23/2024 11:16 AM NUISANCE WILDLIFE SPECIALIST [facility] FLU B Negative Negative 12/23/2024 11:16 AM NUISANCE WILDLIFE SPECIALIST [facility] RESP SYNC VIRUS Negative Negative 11:16 AM NUISANCE WILDLIFE SPECIALIST [facility] SARSCOV2 NOT DETECTED (Reference Range for this test is Not Detected) 12/23/2024 11:16 AM NUISANCE WILDLIFE SPECIALIST [facility] Comment:This test was perfor med by a Reverse Import Dispatcher PCR Method. Swab NASOPHARYNGEAL STRUCTURE / Unknown Non-Phlebotomy Collection / Unknown 12/23/2024 10:30 AM N[employer]ANCE WILDLIFE SPECIALIST 12/23/2024 10:30 AM [facility] WILDLIFE SPECIALIST Brett Adams MD MICROBIOLOGY - GENERAL O RDERABLES Final Result Performing Organization Address City/[facility]/ZIP Co de Phone Number [facility] [address] [place] [address] * (ABNORMAL) CBC with Auto Differential (12/23/2024 9:10 AM N[employer]ANCE WILDLIFE SPECIALIST) WBC 12.61(H) 4.00 - 12.00 10(3)/mcL 12/23/2024 9:49 AM NUISANCE WILDLIFE SPECIALIST [facility] RBC 4.83 4.40 - 5.80 10(6)/mcL 12/23/2024 9:49 AM NUISANCE WILDLIFE SPECIALIST [facility] HEMOGLOBIN (HGB) 15.6 13.0 - 16.5 g/dL 12/23/2024 9:49 AM [facility] HEMATOCRIT (HCT) 44.5 38.0 - 50.0 % 12/23/2024 9:49 AM [facility] MCV 92.1 82.0 - 96.0 fL 12/23/2024 9:49 AM [facility] MCH 32.3(H) 26.0 - 32.0 pg 12/23/2024 9:49 AM [facility] MCHC 35.1 31.0 - 36.0 g/dL 12/23/2024 9:49 AM [facility] PLATELET COUNT 322 140 - 440 10(3)/[facility] 12/23/2024 9:49 AM [facility] RDW 14.3 11.8 - 15.5 % 12/23/2024 9:49 AM [facility] MPV 9.3 8.0 - 12.6 fL 12/23/2024 9:49 AM [facility] NEUTROPHILS 77.2(H) 40.0 - 68.0 % 12/23/2024 9:49 AM [facility] LYMPHOCYTES 15.4(L) 19.0 - 49.0 % 12/23/2024 9:49 AM [facility] MONOCYTES 6.4 3.0 - 13.0 % 12/23/2024 9:49 AM [facility] EOSINOPHILS 0.6 0.0 - 8.0 % 12/23/2024 9:49 AM [facility] BASOPHILS 0.4 0.0 - 1.0 % 12/23/2024 9:49 AM [facility] ABSOLUTE NEUTROPHILS 9.74(H) 1.40 - 5.30 10(3)/mcL 12/23/2024 9:49 AM [facility] ABSOLUTE LYMPHOCYTES 1.94 0.90 - 3.30 10(3)/mcL 12/23/2024 9:49 AM [facility] ABSOLUTE MONOCYTES 0.81 0.10 - 0.90 10(3)/mcL 12/23/2024 9:49 AM [facility] WILDLIFE SPECIALIST [facility] ABSOLUTE EOSINOPHIL 0.07 0.00 - 0.50 10(3)/mcL 12/23/2024 9:49 AM N[employer]ANCE WILDLIFE SPECIALIST [facility] ABSOLUTE BASOPHILS 0.05 0.00 - 0.10 10(3)/mcL 12/23/2024 9:49 AM NUISANCE WILDLIFE SPECIALIST [facility] NRBC PER 100 WBC 0 12/23/19 9:49 AM N[employer]ANCE WILDLIFE SPECIALIST [facility] Blood Venipuncture / Unknown 12/23/2024 9:10 AM N[employer]ANCE WILDLIFE SPECIALIST 12/23/2024 9:28 AM N[employer]ANCE WILDLIFE SPECIALIST us Brett Adams MD HEMATOLOGY ORDERABLES Fi nal Result Performing Organization Address [facility]/ZIP Co de Phone Number [facility] [address] [place] [address] * PT / INR (12/23/2024 9:10 AM NU[facility]ANCE WILDLIFE SPECIALIST) PROTIME-PATIENT 12.6 11.6 - 14.8 sec 12/23/2024 9:57 AM N[employer]ANCE WILDLIFE SPECIALIST [facility] INR 0.9 0.9 - 1.2 12/23/2024 9:57 AM NUISANCE WILDLIFE SPECIALIST [facility] Comment: Therapeutic Ranges INR = 2.0-3.0: Venous thromb, atrial fib, pul embolism, tissue heart valve, ami. INR = 2.5-3.5: Mechanical heart valve Critical value for INR is >/= 4.5 Blood Venipuncture / Unknown 12/23/2024 9:10 AM [facility]ANCE WILDLIFE SPECIALIST 12/23/2024 9:28 AM N[employer]ANCE WILDLIFE SPECIALIST us Brett Adams MD HEMATOLOGY ORDERABLES Fi nal Result Performing Organization Address City/[facility]/ZIP Co de Phone Number [facility] [address] [place] [address] * Magnesium (12/23/2024 9:10 AM NUISANCE WILDLIFE SPECIALIST) MAGNESIUM 2.2 1.6 - 2.6 mg/dL 12/23/2024 9:52 AM NUISANCE WILDLIFE SPECIALIST [facility] Blood Venipuncture / Unknown 12/23/2024 9:10 AM N[employer]ISANCE WILDLIFE SPECIALIST 12/23/2024 9:28 AM N[employer]ANCE WILDLIFE SPECIALIST us Brett Adams MD CHEMISTRY ORDERABLES Fin al Result [facility] [address] [place] [address] * Lipase (12/23/2024 9:10 AM NUISANCE WILDLIFE SPECIALIST) LIPASE 14 8 - 78 U/L 12/23/2024 9:52 AM NUISANCE WILDLIFE SPECIALIST [facility] Blood Venipuncture / Unknown 12/23/2024 9:10 AM N[employer]ISANCE WILDLIFE SPECIALIST 12/23/2024 9:28 AM N[employer]ANCE WILDLIFE SPECIALIST us Brett Adams MD CHEMISTRY ORDERABLES Fin al Result Performing Organization Address City/[facility]/ZIP Co de Phone Number [facility] [address] [place] [address] * (ABNORMAL) Ethyl Alcohol(Ethanol) [id number] (12/23/2024 9:10 AM NUISANCE WILDLIFE SPECIALIST) ETHANOL 67(H) <10 mg/dL 12/23/2024 9:5 2 AM NUISANCE WILDLIFE SPECIALIST [facility] Blood Venipuncture / Unknown 12/23/2024 9:10 AM NUISANCE WILDLIFE SPECIALIST 12/23/2024 9:28 AM NUISANCE WILDLIFE SPECIALIST us Brett Adams MD CHEMISTRY ORDERABLES Fin al Result Performing Organization Address City/[facility]/ZIP Co de Phone Number [facility] [address] [place] [address] * (ABNORMAL) CMP (12/23/2024 9:10 AM NUISANCE WILDLIFE SPECIALIST) SODIUM 141 136 - 145 mmol/L 12/23/2024 9:52 AM [facility] POTASSIUM 4.0 3.5 - 5.1 mmol/L 12/23/2024 9:52 AM [facility] CHLORIDE 101 98 - 107 mmol/L 12/23/2024 9:52 AM [facility] CO2, VENOUS 23 22 - 30 mmol/L 12/23/2024 9:52 AM [facility] ANION GAP 21.0(H) <18.0 mmol/L 12/23/2024 9:52 AM [facility] GLUCOSE 66(L) 70 - 99 mg/dL 12/23/2024 9:52 AM [facility] BUN 12 8 - 26 mg/dL 12/23/2024 9:52 AM [facility] CREATININE, BLOOD 0.96 0.70 - 1.30 mg/dL 12/23/2024 9:52 AM [facility] BUN/CREATININE RATIO 13 12 - 20 ratio 12/23/2024 9:52 AM [facility] TOTAL PROTEIN 9.4(H) 6.0 - 8.0 g/dL 12/23/2024 9:52 AM [facility] ALBUMIN 4.8 3.5 - 5.0 g/dL 12/23/2024 9:52 AM [facility] A/G RATIO 1.0 1.0 - 2.2 12/23/2024 9:52 AM [facility] CALCIUM 9.6 8.7 - 10.5 mg/dL 12/23/2024 9:52 AM [facility] T BILI 0.4 0.2 - 1.2 mg/dL 12/23/2024 9:52 AM [facility] SGOT (AST) 62(H) <43 U/L 12/23/2024 9:52 AM [facility] SGPT (ALT) 34 <56 U/L 12/23/2024 9:52 AM N[facility]ISANCE WILDLIFE SPECIALIST [facility] ALKALINE PHOSPHATASE 85 40 - 150 U/L 12/23/2024 9:52 AM NUISANCE WILDLIFE SPECIALIST [facility] GFR, ESTIMATED >60 >=60 12/23/2024 9:52 AM NUISANCE WILDLIFE SPECIALIST [facility] Comment: Creatinine Clearance is the preferred criteria for selecting drug dose adjustments in renally impaired patients. The GFR is provided as additional pertinent clinical information. GFR is reported in mL/min/1.73 sq m. Calculation based on the Chronic Kidney Disease Epidemiology Collaboration (CKD- EPI) equation refit without adjustment for race. GFR, EST. >60 >=60 025 9:52 AM NUISANCE WILDLIFE SPECIALIST [facility] GFR, EST. NONAFRICAN >60 >=60 12/23/2024 9:52 AM NUISANCE WILDLIFE SPECIALIST [facility] Blood Venipuncture / Unknown 12/23/2024 9:10 AM N[employer]ISANCE WILDLIFE SPECIALIST 12/23/2024 9:28 AM [facility] WILDLIFE SPECIALIST Brett Adams MD CHEMISTRY ORDERABLES Fin al Result Performing Organization Address City/[facility]/ZIP Co de Phone Number [facility] [address] [place] [address] * B-Type Natriuretic Peptide (BNP) (12/23/2024 9:10 AM NUISANCE WILDLIFE SPECIALIST) B TYPE NATRIURETIC PEPTIDE 26 <100 pg/mL 12/23/2024 10:03 AM NUISANCE WILDLIFE SPECIALIST [facility] Blood Venipuncture / Unknown 12/23/2024 9:10 AM NUISANCE WILDLIFE SPECIALIST 12/23/2024 9:28 AM [facility]ANCE WILDLIFE SPECIALIST Brett Adams MD CHEMISTRY ORDERABLES Fin al Result [facility] [address] [place] [address] from Last 3 Months Insurance MEDICARE [place] Advance Directives * Full Code (Latest Code Status on File) Date Activated Date Inactivated Comments 12/26/2024 10:33 AM CPR-Full Marcela tment: FULL ARREST: Attempt Resuscitation/CPR wit intubation and mechanical ventilation. PRE-ARREST: Use entire range of life support measures to stabilize the patient. Care Teams Machinist 2Nd Shift Relationship Specialty Start Date End Date Provider, Unknown UNKNOWN PCP - General 12/23/24 Provider, None DC 12/23/24
--- OUTSIDE RECORDS SUMMARY | 2025-02-03 08:21 | XMS_ITS | Clinical Summary ---
Author Organization [facility] Address [address] [place] [address] Care Team Providers Care Order Worker Name Role Phone Cailin Hernández Unavailable Unavailable Bernadette Roberts LCSW Unavailable [phone] Frank Beltran MD Primary Care Provider [phone] Allergies Active Allergy Reactions Criticality Noted Date [...] 11/11/2024 Assessment & Plan (11/14/2024 12:14 PM SCAN COORDINATOR): Patient has a chart history of bipolar [...] interim Assessment & Plan (11/11/2024 10:53 AM SCAN COORDINATOR): Patient has a chart history of bipolar [...] (02/09/2023): Added automatically from request for surgery [id number] Polysubstance abuse 01/26/2022 Assessment & Plan (01/26/2022 [...] disease) Assessment & Plan (11/14/2024 12:14 PM SCAN COORDINATOR): Symbicort scheduled and albuterol PRN Assessment & Plan (11/11/2024 10:43 AM SCAN COORDINATOR): Symbicort scheduled and albuterol PRN Assessment & [...] 01/04/2020 Assessment & Plan (11/14/2024 12:14 PM SCAN COORDINATOR): Medical records indicate patient has long history [...] disorder, severe. - for MARIANELA resources - [employer] cessation Assessment & Plan (11/11/2024 10:44 AM SCAN COORDINATOR): Medical records indicate patient has long history [...] severe. 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 Pt is talking to and his insurance case manager to go to a chronic inpatient unit for MARIANELA. - continue zoloft 50mg every day and risperidone 2mg HS - continue monitoring and adjust treatment as needed - SW to assist with housing and OP f/u Assessment & Plan (06/13/2020 12:02 PM CDT): Fair progress with no SI. Pt is talking to and his insurance case manager to go to a chronic [...] OP f/u Alcohol withdrawal syndrome without complication ([facility]) 02/08/2019 07/13/2021 Alcohol withdrawal syndrome without complication 04/10/2018 08/13/2018 Alcohol withdrawal syndrome without complication 01/12/2018 08/13/2018 Depression 06/11/2020 Intentional drug overdose Encounters Date Type Department Care Team Description 01/24/2025 Telephone [facility] G[facility]ology at [place] [address] [facility] [address] [place] [address] Linh Fox EGD & Colonoscopy Referral 01/04/2025 4:58 PM SCAN COORDINATOR - 01/11/2025 8:37 AM CDT Hospital Encounter [place] [address] [address] [place] [address] Otilio Vargas MD Sada, MD Deejay Abdul, MD Natalya Arroyo Omar Ali Mohammed, MD Alcohol withdrawal syndrome without complication (HCC) (Primary Dx) Discharge Disposition: Discharge to home or self care 12/09/2024 TCC Initial Eligibility Review [facility] [address] [place] [id number] Krista Corral NP 12/08/2024 6:37 AM SCAN COORDINATOR - 12/15/2024 10:55 AM SCAN COORDINATOR Hospital Encounter [address] [address] Devin Rico MD Winston, MD Luís Payton [...] to an Rehab facility 11/10/2024 9:57 AM SCAN COORDINATOR - 11/18/2024 2:20 PM SCAN COORDINATOR Hospital Encounter [address] [address] Nick Foster MD Garland, Marcie Epstein, MD [...] 1-2 bottles of Vodka daily. [facility] [employer] Answer Date Recorded In the past 12 months has [facility] [employer], gas, oil, or water [employer] threatened to shut off services in your [...] often do you attend chur ch or temple services? Never 01/06/2025 Do you belong to any clubs o r organizations such as hinduism groups, unions, fraternal or athletic groups, or [...] staff should administer the PHQ-9) 1 01/25/2022 [facility] - Occupational Stress Questionnaire Answer Date [...] any time in the past 12 m [facility], were you homeless or living in [...] on file Legal Sex Male 6:20 AM SCAN COORDINATOR Gender Identity Not on file Sexual Orientation [...] lb 5.2 oz) 01/04/2025 9:34 P M SCAN COORDINATOR Height 177.8 cm (5' 10) 01/04/2025 9:34 PM SCAN COORDINATOR Body Mass Index 28.03 01/04/2025 9:34 PM SCAN COORDINATOR Plan of Treatment Health Maintenance Due Date [...] Note: Pt will attend scheduled appointments with [facility] on 06/19/21 Procedures Procedure Name Priority Date/Time Associated Diagnosis Comments EGFR Routine 01/10/2025 6:08 AM CDT CBC WITHOUT DIFFERENTIAL Routine 01/10/2025 6:08 AM CDT BASIC METABOLIC PANEL Routine 01/10/2025 6:08 AM CDT EGFR Routine 01/06/2025 1:55 AM SCAN COORDINATOR COMPREHENSIVE METABOLIC PANEL Routine 01/06/2025 1:55 AM SCAN COORDINATOR EGFR Routine 01/05/2025 3:49 AM SCAN COORDINATOR HEMOGLOBIN A1C Routine 01/05/2025 3:49 AM SCAN COORDINATOR THYROID FUNCTION CASCADE Routine 01/05/2025 3:49 AM SCAN COORDINATOR COMPREHENSIVE METABOLIC PANEL Routine 01/05/2025 3:[address] HEAD WO CONTRAST ED 01/04/2025 6 :19 PM SCAN COORDINATOR XR CHEST 1 VIEW ED 01/04/2025 2:31 PM SCAN COORDINATOR ECG 12-LEAD STAT 01/04/2025 2:21 PM SCAN COORDINATOR EGFR STAT 01/04/2025 2:17 PM SCAN COORDINATOR DIFFERENTIAL AUTO STAT 01/04/2025 2:1 7 PM SCAN COORDINATOR ETHANOL STAT 01/04/2025 2:17 PM SCAN COORDINATOR TROPONIN T HIGH-SENSITIVITY SERIES (BASELINE, 2HR, 4HR, 6HR) STAT 01/04/2025 2:17 PM SCAN COORDINATOR COMPREHENSIVE METABOLIC PANEL STAT 01/04/2025 2:17 PM SCAN COORDINATOR CBC WITH AUTO DIFFERENTIAL STAT 01/04/2025 2:17 PM SCAN COORDINATOR EGFR Routine 12/14/2024 3:28 AM SCAN COORDINATOR COMPREHENSIVE METABOLIC PANEL Routine 12/14/2024 3:28 AM SCAN COORDINATOR EGFR Routine 12/13/2024 12:50 PM SCAN COORDINATOR COMPREHENSIVE METABOLIC PANEL Routine 12/13/2024 12:50 PM SCAN COORDINATOR EGFR Routine 12/12/2024 3:01 AM SCAN COORDINATOR CBC WITHOUT DIFFERENTIAL Routine 12/12/2024 3:01 AM SCAN COORDINATOR COMPREHENSIVE METABOLIC PANEL Routine 12/12/2024 3:01 AM SCAN COORDINATOR EGFR Routine 12/11/2024 4:39 AM SCAN COORDINATOR COMPREHENSIVE METABOLIC PANEL Routine 12/11/2024 4:39 AM SCAN COORDINATOR CBC WITHOUT DIFFERENTIAL Routine 12/11/2024 4:39 AM SCAN COORDINATOR EGFR Routine 12/10/2024 6:38 AM SCAN COORDINATOR COMPREHENSIVE METABOLIC PANEL Routine 12/10/2024 6:38 AM SCAN COORDINATOR EGFR Routine 12/09/2024 3:39 AM SCAN COORDINATOR DIFFERENTIAL AUTO Routine 12/09/2024 3:3 9 AM SCAN COORDINATOR COMPREHENSIVE METABOLIC PANEL Routine 12/09/2024 3:39 AM SCAN COORDINATOR CBC WITH AUTO DIFFERENTIAL Routine 12/09/2024 3:39 AM SCAN COORDINATOR MAGNESIUM Routine 12/09/2024 3:39 AM SCAN COORDINATOR LIPID PANEL Routine 12/09/2024 3:39 AM SCAN COORDINATOR INFLUENZA A/B, RSV, AND COVID-19 PCR Routine 12/08/2024 8:17 PM SCAN COORDINATOR MAGNESIUM STAT 12/08/2024 7:28 AM SCAN COORDINATOR EGFR STAT 12/08/2024 7:28 AM SCAN COORDINATOR BASIC METABOLIC PANEL STAT 12/08/2024 7:28 AM SCAN COORDINATOR TROPONIN T HIGH-SENSITIVITY 6-HOUR Timed 12/08/2024 6:17 AM SCAN COORDINATOR TROPONIN T HIGH-SENSITIVITY 2-HOUR Timed 12/08/2024 2:24 AM SCAN COORDINATOR XR CHEST 1 VIEW ED 12/08/2024 12:54 AM SCAN COORDINATOR ECG 12-LEAD STAT 12/08/2024 12:22 AM SCAN COORDINATOR LIPASE STAT 12/08/2024 12:22 AM SCAN COORDINATOR EGFR STAT 12/08/2024 12:22 AM SCAN COORDINATOR DIFFERENTIAL AUTO STAT 12/08/2024 12: 22 AM SCAN COORDINATOR ETHANOL STAT 12/08/2024 12:22 AM SCAN COORDINATOR TROPONIN T HIGH-SENSITIVITY SERIES (BASELINE, 2HR, 4HR, 6HR) STAT 12/08/2024 12:22 AM SCAN COORDINATOR CBC WITH AUTO DIFFERENTIAL STAT 12/08/2024 12:22 AM SCAN COORDINATOR COMPREHENSIVE METABOLIC PANEL STAT 12/08/2024 12:22 AM SCAN COORDINATOR XR CHEST PA LATERAL 2 VIEWS ED 11/10/2024 12:08 PM SCAN COORDINATOR URINALYSIS, MICROSCOPIC ONLY STAT 11/10/2024 11:33 AM SCAN COORDINATOR DRUGS OF ABUSE SCREEN, URINE WITHOUT CONFIRMATION STAT 11/10/2024 11:33 AM SCAN COORDINATOR URINALYSIS AND REFLEX TO MICROSCOPIC AND CULTURE STAT 11/10/2024 11:33 AM SCAN COORDINATOR ECG 12-LEAD STAT 11/10/2024 10:43 AM SCAN COORDINATOR POCT RAPID HIV ANTIBODY COMMUNITY SCREENING-FABI ELIGIBLE Routine 11/10/2024 10:24 AM SCAN COORDINATOR VALPROIC ACID LEVEL, TOTAL STAT 11/10/2024 10:06 AM SCAN COORDINATOR ETHANOL STAT 11/10/2024 10:06 AM SCAN COORDINATOR EGFR STAT 11/10/2024 10:06 AM SCAN COORDINATOR DIFFERENTIAL AUTO STAT 11/10/2024 10: 06 AM SCAN COORDINATOR PRO B-TYPE NATRIURETIC PEPTIDE STAT 11/10/2024 10:06 AM SCAN COORDINATOR TROPONIN I HIGH-SENSITIVITY SERIES (BASELINE, 2HR, 4HR, 6HR) STAT 11/10/2024 10:06 AM SCAN COORDINATOR CBC WITH AUTO DIFFERENTIAL STAT 11/10/2024 10:06 AM SCAN COORDINATOR COMPREHENSIVE METABOLIC PANEL STAT 11/10/2024 10:06 AM SCAN COORDINATOR HEPATITIS PANEL, ACUTE Routine 12:56 PM SCAN COORDINATOR from Last 3 Months or Most Recently [...] was last reviewed 2021. Testing performed by: [address] [address] Blood 01/10/2025 6:08 AM CDT 01/10/2025 6:43 AM CDT us Nelson Villalba MD LAB BLOOD ORDERABLES Fi nal Result [facility]U LEMUS [facility] [facility] Department [place] [address] * (ABNORMAL) CBC without differential (01/10/2025 6:08 AM CDT) WBC 13.7(H) 3.8 - 9.9 K/cumm Comment:Testing performed by : [address] [address] Hgb 11.7(L) 13.0 - 17.5 g/dL [facility]U LEMUS Comment:Testing performed by : [address] [address] Hct 35.7(L) 38.9 - 50.3 % RAMU LEMUS Comment:Testing performed by : [address] [address] Plt 326 150 - 400 K/cumm RAMU LEMUS Comment:Testing performed by : [address] [address] MPV 9.4 9.1 - 12.3 fL [facility]U LEMUS Comment:Testing performed by : [address] [address] RBC 3.79(L) 4.30 - 5.80 M/cumm [facility]U LEMUS Comment:Testing performed by : [address] [address] MCV 94.2 81.3 - 96.4 fL [facility]U LEMUS Comment:Testing performed by : [facility], [address] [place] [address]., [address] MCH 30.9 27.1 - 33.3 pg RAMU LEMUS Comment:Testing performed by : [address] [address] MCHC 32.8 32.3 - 35.7 g/dL [facility]U LEMUS Comment:Testing performed by : [address] [address] RDW CV 15.2(H) 11.1 - 14.9 % [facility]U LEMUS Comment:Testing performed by : [address] [address] RDW SD 51.8(H) 35.7 - 48.1 fL [facility]U LEMUS Comment:Testing performed by : [address] [address] NRBC abs 0.00 0.00 - 0.01 K/cumm RAMU Comment:Testing performed by : [address] [address] Blood 01/10/2025 6:08 AM CDT 01/10/2025 6:43 AM CDT Nelson Villalba MD LAB BLOOD ORDERABLES Fi nal Result RAMU [address] [facility] Department of Laboratories [place], [place] [id number] * Basic metabolic panel (01/10/2025 6:08 AM CDT) Sodium 141 135 - 145 mmol/L Comment:Testing performed by : [address] [address] Potassium, pl 4.1 3.3 - 4.9 mmol/L RAMU LEMUS Comment: Hemolyzed; Potassium value may be falsely elevated by as much as 1.0 mmol/L. Suggest redraw and reanalysis. Testing performed by: [address] [address] Chloride 106 97 - 110 mmol/L RAMU LEMUS Comment:Testing performed by : [address] [address] CO2 25 22 - 32 mmol/L RAMU Comment:Testing performed by : [address] [address] Anion gap 10 2 - 15 mmol/L RAMU Comment:Testing performed by : [address] [address] BUN 13 6 - 25 mg/dL RAMU Comment:Testing performed by : [address] [address] Creatinine 0.80 0.80 - 1.30 mg/dL RAMU Comment:Testing performed by : [address] [address] Glucose 121 70 - 199 mg/dL RAMU [...] was last revised 2022. Testing performed by: [address] [address] Calcium 9.9 8.5 - 10.3 mg/dL RAMU Comment:Testing performed by : [address] [address] Blood 01/10/2025 6:08 AM CDT 01/10/2025 6:43 AM CDT us Nelson Villalba MD LAB BLOOD ORDERABLES Fi nal Result RAMU LEMUS [address] [facility] Department [place] [address] * eGFR (01/06/2025 1:55 AM SCAN COORDINATOR) Pathologist [facility] eGFR >90 >=60 mL/min/1. 73 m2 Comment: [...] was last reviewed 2021. Testing performed by: [address] [address] Blood 01/06/2025 1:55 AM SCAN COORDINATOR 01/06/2025 2:57 AM SCAN COORDINATOR Anel Al MD LAB BLOOD ORDER DIANE Final Result RAMU [address] [facility] Department [place] [address] * (ABNORMAL) Comprehensive metabolic panel (01/06/2025 1:55 AM SCAN COORDINATOR) Pathologist [facility] Sodium 139 135 - 145 mmol/L Comment:Testing performed by : [address] [address] Potassium, pl 3.9 3.3 - 4.9 mmol/L RAMU LEMUS Comment: Hemolyzed; Potassium value may be falsely elevated by as much as 1.0 mmol/L. Suggest redraw and reanalysis. Testing performed by: [address] [address] Chloride 107 97 - 110 mmol/L RAMU LEMUS Comment:Testing performed by : [address] [address] CO2 23 22 - 32 mmol/L [facility] Comment:Testing performed by : [address] [address] Anion gap 9 2 - 15 mmol/L [facility] Comment:Testing performed by : [address] [address] BUN 8 6 - 25 mg/dL [facility] Comment:Testing performed by : [address] [address] Creatinine 0.82 0.80 - 1.30 mg/dL [facility] Comment:Testing performed by : [address] [address] Glucose 101 70 - 199 mg/dL [facility] Comment: Interpretive Data Fasting glucose >/= [...] was last revised 2022. Testing performed by: [address] [address] Calcium 9.0 8.5 - 10.3 mg/dL [facility] Comment:Testing performed by : [address] [address] Bilirubin, total 0.4 0.1 - 1.2 mg/dL [facility] Comment:Testing performed by : [address] [address] Protein, pl 6.1(L) 6.5 - 8.5 g/dL [facility] Comment:Testing performed by : [address] [address] Albumin 3.2(L) 3.5 - 5.0 g/dL [facility] Comment:Testing performed by : [address] [address] Alk phos 67 40 - 130 Units/L [facility]U LEMUS Comment:Testing performed by : [address] [address] ALT 23 7 - 55 Units/L RAMU Comment:Testing performed by : [address] [address] AST 26 10 - 50 Units/L RAMU Comment: Hemolyzed; result may be falsely elevated Testing performed by: [address] [address] Blood 01/06/2025 1:55 AM SCAN COORDINATOR 01/06/2025 2:57 AM SCAN COORDINATOR Anel Al MD LAB BLOOD ORDER DIANE Final Result [facility] [address] [facility] Department [place] [address] * eGFR (01/05/2025 3:49 AM SCAN COORDINATOR) eGFR >90 >=60 mL/min/1. 73 m2 Comment: [...] was last reviewed 2021. Testing performed by: [address] [address] Blood 01/05/2025 3:49 AM SCAN COORDINATOR 01/05/2025 5:03 AM SCAN COORDINATOR Anel Al MD LAB BLOOD ORDER DIANE Final Result Performing Organization Address [facility] de Phone Number [address] [address] * Thyroid Function [place] (01/05/2025 3:49 AM SCAN COORDINATOR) TSH 0.88 0.30 - 4.20 mcIUnit/mL Comment:Testing performed by : [address] [address] Blood 01/05/2025 3:49 AM SCAN COORDINATOR 01/05/2025 5:03 AM SCAN COORDINATOR Anel Al MD LAB BLOOD ORDER DIANE Final Result Performing Organization Address [facility] de Phone Number [address] [address] * Hemoglobin A1c (01/05/2025 3:49 AM SCAN COORDINATOR) Hgb A1C 5.6 4.0 - 5.6 % Comment:Testing performed by : [address] [address] Estimated Average Glucose 114 mg/dL [facility] Comment: The ADA recommends reporting an estimated Average Glucose (eAG) with all Hemoglobin A1c results using the equation derived from a study of 507 normal and diabetic adults. Minority populations were underrepresented and children were not included. (Diabetes Care 31:9098-7315, 2008). The eAG is not equivalent to a fasting glucose. Testing performed by: [address] [address] Blood 01/05/2025 3:49 AM SCAN COORDINATOR 01/05/2025 5:03 AM SCAN COORDINATOR Anel Al MD LAB BLOOD ORDER DIANE Final Result Performing Organization Address [facility] de Phone Number [address] Department [place] [address] * (ABNORMAL) Comprehensive metabolic panel (01/05/2025 3:49 AM SCAN COORDINATOR) Sodium 139 135 - 145 mmol/L Comment:Testing performed by : [facility], [address] [place] [address]., [address] Potassium, pl 3.7 3.3 - 4.9 mmol/L RAMU Comment:Testing performed by : [address], [place]., [address] Chloride 105 97 - 110 mmol/L [facility]U Comment:Testing performed by : [address] [address] CO2 25 22 - 32 mmol/L [facility] Comment:Testing performed by : [address], [place]., [address] Anion gap 9 2 - 15 mmol/L [facility] Comment:Testing performed by : [address] [address] BUN 6 6 - 25 mg/dL [facility] Comment:Testing performed by : [address] [address] Creatinine 0.85 0.80 - 1.30 mg/dL [facility] Comment:Testing performed by : [address] [address] Glucose 90 70 - 199 mg/dL RAMU [...] was last revised 2022. Testing performed by: [address] [address] Calcium 9.1 8.5 - 10.3 mg/dL [facility] Comment:Testing performed by : [address] [address] Bilirubin, total 0.7 0.1 - 1.2 mg/dL [facility] Comment:Testing performed by : [address] [address] Protein, pl 6.3(L) 6.5 - 8.5 g/dL [facility] Comment:Testing performed by : [address] [address] Albumin 3.5 3.5 - 5.0 g/dL [facility] Comment:Testing performed by : [address], [place]., [address] Alk phos 70 40 - 130 Units/L [facility] Comment:Testing performed by : [address] [address] ALT 28 7 - 55 Units/L [facility] Comment:Testing performed by : [address] [address] AST 34 10 - 50 Units/L [facility] Comment:Testing performed by : [address] [address] Blood 01/05/2025 3:49 AM SCAN COORDINATOR 01/05/2025 5:03 AM SCAN COORDINATOR Anel Al MD LAB BLOOD ORDER DIANE Final Result [facility] Department [place] [address] * CT Head WO Contrast (01/04/2025 6:19 PM SCAN COORDINATOR) Anatomical Region Laterality Modality Head and Neck N/A Computed Tomogra phy 01/04/2025 6:40 PM SCAN COORDINATOR Narrative 01/04/2025 6:41 PM SCAN COORDINATOR EXAM DESCRIPTION: CT HEAD WO CONTRAST REASON [...] Cameron Moreno M.D. VÍCTOR: VÍCTOR Report ID: [id number] Reading Location: [place] [address] Procedure Note Cameron Moreno MD - 01/04/2025 [...] Cameron Moreno M.D. VÍCTOR: VÍCTOR Report ID: [id number] Reading Location: [id number] Veronique More ACCOUNT EXECUTIVE KEY ACCOUNTS IMG CT PROCEDURES Final Result * XR Chest 1 Vw Portable (if patient condition/safety warrant portable) (01/04/2025 2:31 PM SCAN COORDINATOR) Anatomical Region Laterality Modality Body, Chest N/A Computed Radiogr aphy 01/04/2025 3:02 PM SCAN COORDINATOR Narrative 01/04/2025 3:06 PM SCAN COORDINATOR EXAM DESCRIPTION: XR CHEST 1 VIEW REASON FOR STUDY: CHEST PAIN ED for c/o alcohol withdrawal. Came to ED for c/o alcohol withdrawal. Reports [facility] but needs med eval first. Reports last [...] Noe Redding M.D. RB: ANIKET Report ID: [id number] Reading Location: [id number] Procedure Note Noe Redding MD - 01/04/2025 [...] Noe Redding M.D. RB: RB Report ID: [id number] Reading Location: [place] [address] us Otilio Vargas MD IMG XR PROCEDURES Final Result * ECG 12 lead (01/04/2025 2:21 PM SCAN COORDINATOR) Ventricular Rate EKG/Min 81 BPM [facility] Atrial Rate 81 BPM [facility] NE-Interval (MSEC) 152 ms [facility] QRS-Interval (MSEC) 76 ms [facility] QT-Interval (MSEC) 376 ms [facility] QTc 436 ms [facility] P [place] 54 degrees [facility] R [place] -12 degrees [facility] T [place] 21 degrees [facility] Diagnosis Normal sinus rhythm Normal ECG When compared with ECG of 08-DEC-2024 00:22, No significant change was found Confirmed by BECKY TURNER M.D. ([id number]) on 01/09/2025 8:10:25 PM [facility] 01/04/2025 2:21 PM SCAN COORDINATOR 01/09/2025 8:10 PM CDT Otilio Vargas MD ECG ORDERABLES Final Result [facility] * Troponin T high-sensitivity series (baseline, 2hr, 4hr, 6hr) (01/04/2025 2:17 PM SCAN COORDINATOR) Trop T hs 9 <=22 ng/L Comment: Interpretive Data For further hscTnT resources including the diagnostic algorithm and an aid in interpretation, copy and paste this link: [email or web address].testcatalog.org/show/hsTrop Current Interpretive Data last revised 2020. Testing performed by: [facility], [address] [place] [address]., [address] Blood 01/04/2025 2:17 PM SCAN COORDINATOR 01/04/2025 2:26 PM SCAN COORDINATOR us Otilio Vargas MD LAB BLOOD ORDERABLES Final Resul t [facility]EBK [address] [facility] Department [place] [address] * eGFR (01/04/2025 2:17 PM SCAN COORDINATOR) eGFR >90 >=60 mL/min/1. 73 m2 Comment: [...] was last reviewed 2021. Testing performed by: [facility], [address] [place] [address]., [address] Blood 01/04/2025 2:17 PM SCAN COORDINATOR 01/04/2025 2:26 PM SCAN COORDINATOR us Otilio Vargas MD LAB BLOOD ORDERABLES Final Resul t [facility]CHASE [address] [facility] Department [place] [address] * Differential, auto (01/04/2025 2:17 PM SCAN COORDINATOR) Neutrophil abs 3.4 1.5 - 6.5 K/cumm Comment:Testing performed by : [address] [address] Imm gran abs 0.0 0.0 - 0.1 K/cumm [facility]U Comment:Testing performed by : [address] [address] Lymphocyte abs 2.7 0.8 - 3.3 K/cumm [facility] Comment:Testing performed by : [address] [address] Monocyte abs 0.6 0.2 - 0.8 K/cumm [facility]U Comment:Testing performed by : [address] [address] Eosinophil abs 0.1 0.0 - 0.5 K/cumm [facility] Comment:Testing performed by : [address] [address] Basophil abs 0.0 0.0 - 0.1 K/cumm [facility] Comment:Testing performed by : [address] [address] Neutrophil pct 49.5 % [facility] Comment: Interpretive Data Percent cell count reference ranges are not reported, since discordance with absolute values may lead to misinterpretation of CBC data. Current Interpretive Data was last revised on 2018. Testing performed by: [address] [address] Imm gran pct 0.1 % [facility] Comment: Interpretive Data Percent cell count reference ranges are not reported, since discordance with absolute values may lead to misinterpretation of CBC data. Current Interpretive Data was last revised on 2018. Testing performed by: [address] [address] Lymphocyte pct 40.2 % [facility] Comment: Interpretive Data Percent cell count reference ranges are not reported, since discordance with absolute values may lead to misinterpretation of CBC data. Current Interpretive Data was last revised on 2018. Testing performed by: [address] [address] Monocyte pct 8.1 % [facility] Comment: Interpretive Data Percent cell count reference ranges are not reported, since discordance with absolute values may lead to misinterpretation of CBC data. Current Interpretive Data was last revised on 2018. Testing performed by: [address] [address] Eosinophil pct 1.8 % [facility] Comment: Interpretive Data Percent cell count reference ranges are not reported, since discordance with absolute values may lead to misinterpretation of CBC data. Current Interpretive Data was last revised on 2018. Testing performed by: [address] [address] Basophil pct 0.3 % [facility] Comment: Interpretive Data Percent cell count reference ranges are not reported, since discordance with absolute values may lead to misinterpretation of CBC data. Current Interpretive Data was last revised on 2018. Testing performed by: [address] [address] Blood 01/04/2025 2:17 PM SCAN COORDINATOR 01/04/2025 2:26 PM SCAN COORDINATOR us Otilio Vargas MD LAB BLOOD ORDERABLES Final Resul t [facility]CHASE [address] [facility] Department [place] [address] * (ABNORMAL) CBC with auto differential (01/04/2025 2:17 PM SCAN COORDINATOR) Pathologist [facility] WBC 6.8 3.8 - 9.9 K/cumm Comment:Testing performed by : [address] [address] Hgb 13.7 13.0 - 17.5 g/dL [facility] Comment:Testing performed by : [address] [address] Hct 40.5 38.9 - 50.3 % [facility] Comment:Testing performed by : [address] [address] Plt 285 150 - 400 K/cumm [facility] Comment:Testing performed by : [address] [address] MPV 8.7(L) 9.1 - 12.3 fL [facility] Comment:Testing performed by : [address], [address] RBC 4.35 4.30 - 5.80 M/cumm [facility] Comment:Testing performed by : [address] [address] MCV 93.1 81.3 - 96.4 fL [facility] Comment:Testing performed by : [address] [address] MCH 31.5 27.1 - 33.3 pg [facility] Comment:Testing performed by : [address], [address] MCHC 33.8 32.3 - 35.7 g/dL [facility] Comment:Testing performed by : [address] [address] RDW CV 14.5 11.1 - 14.9 % [facility] Comment:Testing performed by : [address] [address] RDW SD 49.9(H) 35.7 - 48.1 fL [facility] Comment:Testing performed by : [address] [address] NRBC abs 0.00 0.00 - 0.01 K/cumm [facility] Comment:Testing performed by : [address] [address] Blood Venous blood specimen / Unknown 01/04/2025 2:17 PM SCAN COORDINATOR 01/04/2025 2:26 PM SCAN COORDINATOR us Otilio Vargas MD LAB BLOOD ORDERABLES Final Resul t Performing Organization Address [facility] Co de Phone Number LEY[address] [address] * (ABNORMAL) Ethanol (01/04/2025 2:17 PM SCAN COORDINATOR) Ethanol 207(H) <=10 mg/dL Comment: Interpretive Data Legal limit of intoxication > or = 80 mg/dL Levels > or = 400 mg/dL are potentially TOXIC. Current interpretive data was last revised on 2018. Testing performed by: [address] [address] Blood 01/04/2025 2:17 PM SCAN COORDINATOR 01/04/2025 2:26 PM SCAN COORDINATOR us Otilio Vargas MD LAB BLOOD ORDERABLES Final Resul t Performing Organization Address [facility] de Phone Number [place] [address] [facility] [place] [address] * (ABNORMAL) Comprehensive metabolic panel (01/04/2025 2:17 PM SCAN COORDINATOR) Pathologist [facility] Sodium 140 135 - 145 mmol/L Comment:Testing performed by : [address] [address] Potassium, pl 3.8 3.3 - 4.9 mmol/L [facility] Comment:Testing performed by : [address] [address] Chloride 103 97 - 110 mmol/L [facility] Comment:Testing performed by : [address] [address] CO2 24 22 - 32 mmol/L [facility] Comment:Testing performed by : [address] [address] Anion gap 13 2 - 15 mmol/L [facility] Comment:Testing performed by : [address] [address] BUN 7 6 - 25 mg/dL [facility] Comment:Testing performed by : [address] [address] Creatinine 0.81 0.80 - 1.30 mg/dL [facility] Comment:Testing performed by : [address] [address] Glucose 90 70 - 199 mg/dL [facility] [...] was last revised 2022. Testing performed by: [address] [address] Calcium 9.8 8.5 - 10.3 mg/dL [facility] Comment:Testing performed by : [address] [address] Bilirubin, total 0.5 0.1 - 1.2 mg/dL [facility] Comment:Testing performed by : [address] [address] Protein, pl 8.0 6.5 - 8.5 g/dL [facility] Comment:Testing performed by : [address] [address] Albumin 4.4 3.5 - 5.0 g/dL [facility] Comment:Testing performed by : [address] [address] Alk phos 84 40 - 130 Units/L [facility] Comment:Testing performed by : [address] [address] ALT 40 7 - 55 Units/L [facility] Comment:Testing performed by : [address] [address] AST 54(H) 10 - 50 Units/L [facility] Comment:Testing performed by : [address] [address] Blood 01/04/2025 2:17 PM SCAN COORDINATOR 01/04/2025 2:26 PM SCAN COORDINATOR us Otilio Vargas MD LAB BLOOD ORDERABLES Final Resul t Performing Organization Address City/[facility]/ZIP Co de Phone Number LEY[address] [place] [address] * eGFR (12/14/2024 3:28 AM SCAN COORDINATOR) eGFR >90 >=60 mL/min/1. 73 m2 Comment: [...] last reviewed 2021. Blood 12/14/2024 3:28 AM SCAN COORDINATOR 12/14/2024 3:55 AM SCAN COORDINATOR us Devin Rico MD LAB BLOOD ORDERABLES Final Result Performing Organization Address City/[facility]/ZIP Co de Phone Number [address] [place] [address] * (ABNORMAL) Comprehensive metabolic panel (12/14/2024 3:28 AM SCAN COORDINATOR) Sodium 137 135 - 145 mmol/L Potassium, pl 4.4 3.3 - 4.9 mmol/L [facility] Comment:Hemolyzed; Potassium value may be falsely elevated by as much as 1.0 mmol/L. Suggest redraw and reanalysis. Chloride 103 97 - 110 mmol/L [facility] CO2 24 22 - 32 mmol/L [facility] Anion gap 10 2 - 15 mmol/L [facility] BUN 16 6 - 25 mg/dL [facility] Creatinine 0.79(L) 0.80 - 1.30 mg/dL [facility] Glucose 130 70 - 199 mg/dL [facility] Comment: Interpretive Data Fasting glucose >/= [...] 2022. Calcium 9.3 8.5 - 10.3 mg/dL [facility] Bilirubin, total <0.2 0.1 - 1.2 mg/dL [facility] Protein, pl 6.7 6.5 - 8.5 g/dL [facility] Albumin 3.6 3.5 - 5.0 g/dL [facility] Alk phos 73 40 - 130 Units/L [facility] ALT 13 7 - 55 Units/L [facility] AST See Comment 10 - 50 [facility] Comment:Credited; Hemolyzed Specimen Blood 12/14/2024 3:28 AM SCAN COORDINATOR 12/14/2024 3:55 AM SCAN COORDINATOR us Devin Rico MD LAB BLOOD ORDERABLES Final Result [facility] [address] [facility] Department [place] [address] * eGFR (12/13/2024 12:50 PM SCAN COORDINATOR) eGFR >90 >=60 mL/min/1. 73 m2 Comment: [...] reviewed 2021. Blood 12/13/2024 12:5 0 PM SCAN COORDINATOR 12/13/2024 12:58 PM SCAN COORDINATOR Devin Rico MD LAB BLOOD ORDERABLES Final Result [facility] [address] [facility] Department [place] [address] * Comprehensive metabolic panel (12/13/2024 12:50 PM SCAN COORDINATOR) Sodium 136 135 - 145 mmol/L Potassium, pl 3.5 3.3 - 4.9 mmol/L [facility] Chloride 102 97 - 110 mmol/L [facility] CO2 24 22 - 32 mmol/L [facility] Anion gap 10 2 - 15 mmol/L [facility] BUN 18 6 - 25 mg/dL [facility] Creatinine 0.80 0.80 - 1.30 mg/dL [facility] Glucose 113 70 - 199 mg/dL [facility] Comment: Interpretive Data Fasting glucose >/= [...] 2022. Calcium 9.3 8.5 - 10.3 mg/dL [facility] Bilirubin, total <0.2 0.1 - 1.2 mg/dL [facility] Protein, pl 6.8 6.5 - 8.5 g/dL [facility] Albumin 3.7 3.5 - 5.0 g/dL [facility] Alk phos 72 40 - 130 Units/L [facility] ALT 13 7 - 55 Units/L [facility] AST 15 10 - 50 Units/L [facility] Blood 12/13/2024 12:5 0 PM SCAN COORDINATOR 12/13/2024 12:58 PM SCAN COORDINATOR us Devin Rico MD LAB BLOOD ORDERABLES Final Result [facility] [address] [facility] Department [place] [address] * eGFR (12/12/2024 3:01 AM SCAN COORDINATOR) eGFR >90 >=60 mL/min/1. 73 m2 Comment: [...] last reviewed 2021. Blood 12/12/2024 3:01 AM SCAN COORDINATOR 12/12/2024 3:35 AM SCAN COORDINATOR Devin Rico MD LAB BLOOD ORDERABLES Final Result Performing Organization Address [facility] Co de Phone Number [facility]CHASE [address] [address] * (ABNORMAL) CBC without differential (12/12/2024 3:01 AM SCAN COORDINATOR) [facility] WBC 12.1(H) 3.8 - 9.9 K/cumm Hgb 13.5 13.0 - 17.5 g/dL [facility] Hct 40.5 38.9 - 50.3 % [facility] Plt 277 150 - 400 K/cumm [facility] MPV 9.3 9.1 - 12.3 fL [facility] RBC 4.32 4.30 - 5.80 M/cumm [facility] MCV 93.8 81.3 - 96.4 fL [facility] MCH 31.3 27.1 - 33.3 pg [facility] MCHC 33.3 32.3 - 35.7 g/dL [facility] RDW CV 14.2 11.1 - 14.9 % [facility] RDW SD 49.0(H) 35.7 - 48.1 fL [facility] NRBC abs 0.00 0.00 - 0.01 K/cumm [facility] Blood 12/12/2024 3:01 AM SCAN COORDINATOR 12/12/2024 3:34 AM SCAN COORDINATOR us Davide Guevara MD LAB BLOOD ORDERABLES Final Result Performing Organization Address City/[facility]/ZIP Co de Phone Number [address] [place] [address] * Comprehensive metabolic panel (12/12/2024 3:01 AM SCAN COORDINATOR) [facility] Sodium 137 135 - 145 mmol/L Potassium, pl 4.3 3.3 - 4.9 mmol/L [facility] Comment:Hemolyzed; Potassium value may be falsely elevated by as much as 1.0 mmol/L. Suggest redraw and reanalysis. Chloride 103 97 - 110 mmol/L [facility] CO2 24 22 - 32 mmol/L [facility] Anion gap 10 2 - 15 mmol/L [facility] BUN 17 6 - 25 mg/dL [facility] Creatinine 0.84 0.80 - 1.30 mg/dL [facility] Glucose 120 70 - 199 mg/dL [facility] Comment: Interpretive Data Fasting glucose >/= [...] 2022. Calcium 9.6 8.5 - 10.3 mg/dL [facility] Bilirubin, total <0.2 0.1 - 1.2 mg/dL [facility] Protein, pl 6.9 6.5 - 8.5 g/dL [facility] Albumin 3.6 3.5 - 5.0 g/dL [facility] Alk phos 80 40 - 130 Units/L [facility] ALT 15 7 - 55 Units/L [facility] AST See Comment 10 - 50 [facility] Comment:Credited; Hemolyzed Specimen Blood 12/12/2024 3:01 AM SCAN COORDINATOR 12/12/2024 3:35 AM SCAN COORDINATOR us Devin Rico MD LAB BLOOD ORDERABLES Final Result [facility] [address] [facility] Department [place] [address] * eGFR (12/11/2024 4:39 AM SCAN COORDINATOR) eGFR >90 >=60 mL/min/1. 73 m2 Comment: [...] last reviewed 2021. Blood 12/11/2024 4:39 AM SCAN COORDINATOR 12/11/2024 4:52 AM SCAN COORDINATOR us Devin Rico MD LAB BLOOD ORDERABLES Final Result [place] [id number] [facility] Department [place] [address] * (ABNORMAL) CBC without differential (12/11/2024 4:39 AM SCAN COORDINATOR) WBC 13.2(H) 3.8 - 9.9 K/cumm Hgb 12.7(L) 13.0 - 17.5 g/dL [facility] Hct 38.6(L) 38.9 - 50.3 % [facility] Plt 259 150 - 400 K/cumm [facility] MPV 9.0(L) 9.1 - 12.3 fL [facility] RBC 4.05(L) 4.30 - 5.80 M/cumm [facility] MCV 95.3 81.3 - 96.4 fL [facility] MCH 31.4 27.1 - 33.3 pg [facility] MCHC 32.9 32.3 - 35.7 g/dL [facility] RDW CV 14.1 11.1 - 14.9 % [facility] RDW SD 49.5(H) 35.7 - 48.1 fL [facility] NRBC abs 0.00 0.00 - 0.01 K/cumm [facility] Blood 12/11/2024 4:39 AM SCAN COORDINATOR 12/11/2024 4:53 AM SCAN COORDINATOR Yesika Lai ACCOUNT EXECUTIVE KEY ACCOUNTS LAB BLOOD ORDERABLES Final R esult [facility]CHASE [address] [facility] Department [place] [address] * (ABNORMAL) Comprehensive metabolic panel (12/11/2024 4:39 AM SCAN COORDINATOR) Sodium 136 135 - 145 mmol/L Potassium, pl 4.2 3.3 - 4.9 mmol/L [facility] Chloride 105 97 - 110 mmol/L [facility] CO2 22 22 - 32 mmol/L [facility] Anion gap 9 2 - 15 mmol/L [facility] BUN 12 6 - 25 mg/dL [facility] Creatinine 0.74(L) 0.80 - 1.30 mg/dL [facility] Glucose 109 70 - 199 mg/dL [facility] Comment: Interpretive Data Fasting glucose >/= [...] 2022. Calcium 9.6 8.5 - 10.3 mg/dL [facility] Bilirubin, total 0.3 0.1 - 1.2 mg/dL [facility] Protein, pl 6.7 6.5 - 8.5 g/dL [facility] Albumin 3.7 3.5 - 5.0 g/dL [facility] Alk phos 75 40 - 130 Units/L [facility] ALT 16 7 - 55 Units/L [facility] AST 16 10 - 50 Units/L [facility] Blood 12/11/2024 4:39 AM SCAN COORDINATOR 12/11/2024 4:52 AM SCAN COORDINATOR Devin Rico MD LAB BLOOD ORDERABLES Final Result Performing Organization Address [facility] Co de Phone Number RAM[facility] [address] [address] * eGFR (12/10/2024 6:38 AM SCAN COORDINATOR) Pathologist [facility] eGFR >90 >=60 mL/min/1. 73 m2 Comment: [...] last reviewed 2021. Blood 12/10/2024 6:38 AM SCAN COORDINATOR 12/10/2024 7:22 AM SCAN COORDINATOR Devin Rico MD LAB BLOOD ORDERABLES Final Result Performing Organization Address [facility] Co de Phone Number RAMU [address] [place] [address] * (ABNORMAL) Comprehensive metabolic panel (12/10/2024 6:38 AM SCAN COORDINATOR) [facility] Sodium 136 135 - 145 mmol/L Potassium, pl 4.2 3.3 - 4.9 mmol/L [facility] Chloride 104 97 - 110 mmol/L [facility] CO2 23 22 - 32 mmol/L [facility] Anion gap 9 2 - 15 mmol/L [facility] BUN 14 6 - 25 mg/dL [facility] Creatinine 0.77(L) 0.80 - 1.30 mg/dL [facility] Glucose 115 70 - 199 mg/dL [facility] Comment: Interpretive Data Fasting glucose >/= [...] 2022. Calcium 9.2 8.5 - 10.3 mg/dL [facility] Bilirubin, total 0.5 0.1 - 1.2 mg/dL [facility] Protein, pl 6.7 6.5 - 8.5 g/dL [facility] Albumin 3.7 3.5 - 5.0 g/dL [facility] Alk phos 69 40 - 130 Units/L [facility] ALT 20 7 - 55 Units/L [facility] AST 22 10 - 50 Units/L [facility] Blood 12/10/2024 6:38 AM SCAN COORDINATOR 12/10/2024 7:22 AM SCAN COORDINATOR us Devin Rico MD LAB BLOOD ORDERABLES Final Result Performing Organization Address City/State/[facility] Co dc Phone Number [facility] [address] [facility] Department [place] [address] * eGFR (12/09/2024 3:39 AM SCAN COORDINATOR) eGFR >90 >=60 mL/min/1. 73 m2 Comment: [...] last reviewed 2021. Blood 12/09/2024 3:39 AM SCAN COORDINATOR 12/09/2024 3:47 AM SCAN COORDINATOR us Devin Rico MD LAB BLOOD ORDERABLES Final Result [place] [id number] [facility] Department [place] [address] * (ABNORMAL) Differential, auto (12/09/2024 3:39 AM SCAN COORDINATOR) Neutrophil abs 8.1(H) 1.5 - 6.5 K/cumm Imm gran abs 0.0 0.0 - 0.1 K/cumm [facility] Lymphocyte abs 0.8 0.8 - 3.3 K/cumm [facility] Monocyte abs 0.4 0.2 - 0.8 K/cumm [facility] Eosinophil abs 0.0 0.0 - 0.5 K/cumm [facility] Basophil abs 0.0 0.0 - 0.1 K/cumm [facility] Neutrophil pct 87.0 % [facility] Comment: Interpretive Data Percent cell count reference ranges are not reported, since discordance with absolute values may lead to misinterpretation of CBC data. Current Interpretive Data was last revised on 2018. Imm gran pct 0.2 % [facility] Comment: Interpretive Data Percent cell count reference ranges are not reported, since discordance with absolute values may lead to misinterpretation of CBC data. Current Interpretive Data was last revised on 2018. Lymphocyte pct 8.6 % [facility] Comment: Interpretive Data Percent cell count reference ranges are not reported, since discordance with absolute values may lead to misinterpretation of CBC data. Current Interpretive Data was last revised on 2018. Monocyte pct 4.2 % [facility] Comment: Interpretive Data Percent cell count reference ranges are not reported, since discordance with absolute values may lead to misinterpretation of CBC data. Current Interpretive Data was last revised on 2018. Eosinophil pct 0.0 % [facility] Comment: Interpretive Data Percent cell count reference ranges are not reported, since discordance with absolute values may lead to misinterpretation of CBC data. Current Interpretive Data was last revised on 2018. Basophil pct 0.0 % [facility] Comment: Interpretive Data Percent cell count reference ranges are not reported, since discordance with absolute values may lead to misinterpretation of CBC data. Current Interpretive Data was last revised on 2018. Blood 12/09/2024 3:39 AM SCAN COORDINATOR 12/09/2024 3:47 AM SCAN COORDINATOR us Devin Rico MD LAB BLOOD ORDERABLES Final Result [place] [id number] [facility] Department [place] [address] * (ABNORMAL) CBC with auto differential (12/09/2024 3:39 AM SCAN COORDINATOR) Pathologist [facility] WBC 9.3 3.8 - 9.9 K/cumm Hgb 13.5 13.0 - 17.5 g/dL [facility] Hct 39.2 38.9 - 50.3 % [facility] Plt 268 150 - 400 K/cumm [facility] MPV 8.8(L) 9.1 - 12.3 fL [facility] RBC 4.27(L) 4.30 - 5.80 M/cumm [facility] MCV 91.8 81.3 - 96.4 fL [facility] MCH 31.6 27.1 - 33.3 pg [facility] MCHC 34.4 32.3 - 35.7 g/dL [facility] RDW CV 13.9 11.1 - 14.9 % [facility] RDW SD 46.6 35.7 - 48.1 fL [facility] NRBC abs 0.00 0.00 - 0.01 K/cumm [facility] Blood 12/09/2024 3:39 AM SCAN COORDINATOR 12/09/2024 3:47 AM SCAN COORDINATOR us Devin Rico MD LAB BLOOD ORDERABLES Final Result Performing Organization Address [facility] Co de Phone Number [address] [place] [address] * Magnesium (12/09/2024 3:39 AM SCAN COORDINATOR) Magnesium 1.9 1.4 - 2.5 mg/dL Blood 12/09/2024 3:39 AM SCAN COORDINATOR 12/09/2024 3:47 AM SCAN COORDINATOR us Yesika Lai NP LAB BLOOD ORDERABLES Final R esult Performing Organization Address City/[facility] Co de Phone Number [address] [place] [address] * Lipid panel (12/09/2024 3:39 AM SCAN COORDINATOR) Cholesterol 156 30 - 199 mg/dL Comment: [...] last revised on 2018. Chol/HDL ratio 2 [facility] Blood 12/09/2024 3:39 AM SCAN COORDINATOR 12/09/2024 3:47 AM SCAN COORDINATOR Yesika Lai NP LAB BLOOD ORDERABLES Final R esult [facility] [address] [facility] Department [place] [address] * (ABNORMAL) Comprehensive metabolic panel (12/09/2024 3:39 AM SCAN COORDINATOR) Sodium 134(L) 135 - 145 mmol/L Potassium, pl 4.3 3.3 - 4.9 mmol/L [facility] Chloride 103 97 - 110 mmol/L [facility] CO2 23 22 - 32 mmol/L [facility] Anion gap 8 2 - 15 mmol/L [facility] BUN 11 6 - 25 mg/dL [facility] Creatinine 0.77(L) 0.80 - 1.30 mg/dL [facility] Glucose 136 70 - 199 mg/dL [facility] Comment: Interpretive Data Fasting glucose >/= [...] 2022. Calcium 9.3 8.5 - 10.3 mg/dL [facility] Bilirubin, total 0.7 0.1 - 1.2 mg/dL [facility] Protein, pl 7.1 6.5 - 8.5 g/dL [facility] Albumin 3.8 3.5 - 5.0 g/dL [facility] Alk phos 79 40 - 130 Units/L [facility] ALT 25 7 - 55 Units/L [facility] AST 35 10 - 50 Units/L [facility] Blood 12/09/2024 3:39 AM SCAN COORDINATOR 12/09/2024 3:47 AM SCAN COORDINATOR Devin Rico MD LAB BLOOD ORDERABLES Final Result Performing Organization Address City/[facility]/ZIP Co de Phone Number [facility] [address] [place] [address] * Influenza A/B, RSV, and COVID-19 PCR Nasopharyngeal (12/08/2024 8:17 PM SCAN COORDINATOR) COVID-19 RNA Negative Negative Influenza A RNA Negative Negative [facility] Influenza B RNA Negative Negative [facility] RSV RNA Negative Negative [facility] Comment: Interpretive data: Testing performed by [facility]. This test is performed using the [employer] Xpert Xpress CoV-2/Flu/RSV plus assay. This is a multiplex, real-time reverse transcriptase PCR assay intended for the qualitative detection of nucleic acid from SARS-CoV-2, influenza A, influenza B, and respiratory syncytial virus. This assay has been cleared by the [place] Food and Drug administration. The performance characteristics have been verified by the [facility]. Results must be considered in the clinical context, and a negative result does not rule out infection. Interpretive Data last revised 2023 Nasopharyngeal 12/08/2024 8: 17 PM SCAN COORDINATOR 12/08/2024 8:28 PM SCAN COORDINATOR Narrative [facility] - 12/08/2024 9:16 PM SCAN COORDINATOR Is the Patient experiencing symptoms consistent with COVID?->Yes Devin Rico MD LAB MICROBIOLOGY - GE NERAL ORDERABLES Final Result Performing Organization Address City/[facility]/ZIP Co de Phone Number [place] [id number] [facility] [place] [address] * eGFR (12/08/2024 7:28 AM SCAN COORDINATOR) eGFR >90 >=60 mL/min/1. 73 m2 Comment: [...] last reviewed 2021. Blood 12/08/2024 7:28 AM SCAN COORDINATOR 12/08/2024 7:33 AM SCAN COORDINATOR Alex Lunsford PA LAB BLOOD ORDERABLES Final Result Performing Organization Address [facility] Co de Phone Number [address] [place] [address] * Magnesium (12/08/2024 7:28 AM SCAN COORDINATOR) Pathologist [facility] Magnesium 2.0 1.4 - 2.5 mg/dL Blood 12/08/2024 7:28 AM SCAN COORDINATOR 12/08/2024 7:33 AM SCAN COORDINATOR Yesika Lai ACCOUNT EXECUTIVE KEY ACCOUNTS LAB BLOOD ORDERABLES Final R esult Performing Organization Address City/[facility]/ZIP Co de Phone Number [address] [place] [address] * (ABNORMAL) Basic metabolic panel (12/08/2024 7:28 AM SCAN COORDINATOR) Pathologist [facility] Sodium 137 135 - 145 mmol/L Potassium, pl 4.0 3.3 - 4.9 mmol/L [facility] Comment:Hemolyzed; Potassium value may be falsely elevated by as much as 1.0 mmol/L. Suggest redraw and reanalysis. Chloride 99 97 - 110 mmol/L [facility] CO2 21(L) 22 - 32 mmol/L [facility] Anion gap 17(H) 2 - 15 mmol/L [facility] BUN 10 6 - 25 mg/dL [facility] Creatinine 0.92 0.80 - 1.30 mg/dL [facility] Glucose 83 70 - 199 mg/dL [facility] Comment: Interpretive Data Fasting glucose >/= [...] 2022. Calcium 9.5 8.5 - 10.3 mg/dL [facility] Blood 12/08/2024 7:28 AM SCAN COORDINATOR 12/08/2024 7:33 AM SCAN COORDINATOR Alex PEREZ LAB BLOOD ORDERABLES Final Result [facility] [address] [facility] Department [place] [address] * Troponin T high-sensitivity 6-hour (12/08/2024 6:17 AM SCAN COORDINATOR) Trop T hs 8 <=22 ng/L Comment: Interpretive Data For further hscTnT resources including the diagnostic algorithm and an aid in interpretation, copy and paste this link: https://nrl.testcatalog.org/show/hsTrop Current Interpretive Data last revised 2020. Trop T hs delta 0 ng/L [facility] Trop T hs interp Insignificant [facility] Blood 12/08/2024 6:17 AM SCAN COORDINATOR 12/08/2024 6:19 AM SCAN COORDINATOR Doc PEREZ LAB BLOOD ORDERABLES Final R esult Performing Organization Address [facility] Co de Phone Number RAMU LMEUS [address] [place] [phone] * Troponin T high-sensitivity 2-hour (12/08/2024 2:24 AM SCAN COORDINATOR) Trop T hs 9 <=22 ng/L Comment: Interpretive Data For further hscTnT resources including the diagnostic algorithm and an aid in interpretation, copy and paste this link: https://nrl.testcatalog.org/show/hsTrop Current Interpretive Data last revised 2020. Trop T hs delta 1 ng/L [facility] Trop T hs interp Insignificant [facility] Blood 12/08/2024 2:24 AM SCAN COORDINATOR 12/08/2024 2:34 AM SCAN COORDINATOR Doc PEREZ LAB BLOOD ORDERABLES Final R esult Performing Organization Address [facility] Co de Phone Number RAMU [address] [address] * XR Chest 1 Vw Portable (12/08/2024 12:54 AM SCAN COORDINATOR) Anatomical Region Laterality Modality Body, Chest N/A Computed Radiogr aphy 12/08/2024 1:26 AM SCAN COORDINATOR Narrative 12/08/2024 1:26 AM SCAN COORDINATOR EXAM DESCRIPTION: XR CHEST 1 VIEW REASON [...] Frank Damon M.D. KT T: Report ID: [id number] Reading Location: [place] [address] Procedure Note Frank Damon MD - 12/08/2024 [...] Frank Damon M.D. KT T: Report ID: [id number] Reading Location: [place] [address] Doc PEREZ IMG XR PROCEDURES Final Resu lt * ECG 12 lead (12/08/2024 12:22 AM SCAN COORDINATOR) Ventricular Rate EKG/Min 102 BPM [facility] Atrial Rate 102 BPM [facility] NE-Interval (MSEC) 134 ms [facility] QRS-Interval (MSEC) 74 ms [facility] QT-Interval (MSEC) 336 ms [facility] QTc 437 ms [facility] P [place] 80 degrees [facility] R [place] 5 degrees [facility] T [place] 61 degrees [facility] Diagnosis Sinus tachycardia Otherwise normal ECG When compared with ECG of 06-OCT-2024 05:45, Questionable change in QRS axis Confirmed by BECKY TURNER M.D. ([id number]) on 12/08/2024 9:21:09 PM [facility] 12/08/2024 12:2 2 AM SCAN COORDINATOR 12/08/2024 9:21 PM SCAN COORDINATOR Doc PEREZ ECG ORDERABLES Final Result [facility] * Troponin T high-sensitivity series (baseline, 2hr, 4hr, 6hr) (12/08/2024 12:22 AM SCAN COORDINATOR) Trop T hs 8 <=22 ng/L Comment: Interpretive Data For further hscTnT resources including the diagnostic algorithm and an aid in interpretation, copy and paste this link: https://nrl.testcatalog.org/show/hsTrop Current Interpretive Data last revised 2020. Blood 12/08/2024 12:2 2 AM SCAN COORDINATOR 12/08/2024 12:32 AM SCAN COORDINATOR us Doc PEREZ LAB BLOOD ORDERABLES Final R esult Performing Organization Address City/[facility]/ZIP Co de Phone Number RAMU [facility] Department [place] [address] * eGFR (12/08/2024 12:22 AM SCAN COORDINATOR) eGFR >90 >=60 mL/min/1. 73 m2 Comment: [...] reviewed 2021. Blood 12/08/2024 12:2 2 AM SCAN COORDINATOR 12/08/2024 12:32 AM SCAN COORDINATOR us Doc PEREZ LAB BLOOD ORDERABLES Final R esult [facility] [address] [facility] Department [place] [address] * Differential, auto (12/08/2024 12:22 AM SCAN COORDINATOR) Pathologist [facility] Neutrophil abs 2.1 1.5 - 6.5 K/cumm Imm gran abs 0.0 0.0 - 0.1 K/cumm [facility] Lymphocyte abs 3.1 0.8 - 3.3 K/cumm [facility] Monocyte abs 0.6 0.2 - 0.8 K/cumm [facility] Eosinophil abs 0.2 0.0 - 0.5 K/cumm [facility] Basophil abs 0.1 0.0 - 0.1 K/cumm [facility] Neutrophil pct 34.5 % [facility] Comment: Interpretive Data Percent cell count reference ranges are not reported, since discordance with absolute values may lead to misinterpretation of CBC data. Current Interpretive Data was last revised on 2018. Imm gran pct 0.2 % [facility] Comment: Interpretive Data Percent cell count reference ranges are not reported, since discordance with absolute values may lead to misinterpretation of CBC data. Current Interpretive Data was last revised on 2018. Lymphocyte pct 51.1 % [facility] Comment: Interpretive Data Percent cell count reference ranges are not reported, since discordance with absolute values may lead to misinterpretation of CBC data. Current Interpretive Data was last revised on 2018. Monocyte pct 10.7 % [facility] Comment: Interpretive Data Percent cell count reference ranges are not reported, since discordance with absolute values may lead to misinterpretation of CBC data. Current Interpretive Data was last revised on 2018. Eosinophil pct 2.7 % [facility] Comment: Interpretive Data Percent cell count reference ranges are not reported, since discordance with absolute values may lead to misinterpretation of CBC data. Current Interpretive Data was last revised on 2018. Basophil pct 0.8 % [facility] Comment: Interpretive Data Percent cell count reference ranges are not reported, since discordance with absolute values may lead to misinterpretation of CBC data. Current Interpretive Data was last revised on 2018. Blood 12/08/2024 12:2 2 AM SCAN COORDINATOR 12/08/2024 12:32 AM SCAN COORDINATOR Doc PEREZ LAB BLOOD ORDERABLES Final R esult Performing Organization Address [facility] Co de Phone Number [address] [employer] [place], [place] [phone] * (ABNORMAL) CBC with auto differential (12/08/2024 12:22 AM SCAN COORDINATOR) WBC 6.0 3.8 - 9.9 K/cumm Hgb 14.8 13.0 - 17.5 g/dL [facility] Hct 42.1 38.9 - 50.3 % [facility] Plt 302 150 - 400 K/cumm [facility] MPV 8.6(L) 9.1 - 12.3 fL [facility] RBC 4.72 4.30 - 5.80 M/cumm [facility] MCV 89.2 81.3 - 96.4 fL [facility] MCH 31.4 27.1 - 33.3 pg [facility] MCHC 35.2 32.3 - 35.7 g/dL [facility] RDW CV 13.9 11.1 - 14.9 % [facility] RDW SD 45.0 35.7 - 48.1 fL [facility] NRBC abs 0.00 0.00 - 0.01 K/cumm [facility] Blood 12/08/2024 12:2 2 AM SCAN COORDINATOR 12/08/2024 12:32 AM SCAN COORDINATOR Doc PEREZ LAB BLOOD ORDERABLES Final R esult Performing Organization Address [facility] Co de Phone Number [address] [employer] [place], [place] [phone] * Lipase (12/08/2024 12:22 AM SCAN COORDINATOR) Pathologist [facility] Lipase 21 10 - 99 Units/L Blood 12/08/2024 12:2 2 AM SCAN COORDINATOR 12/08/2024 12:32 AM SCAN COORDINATOR Doc PEREZ LAB BLOOD ORDERABLES Final R [facility] Performing Organization Address [facility] de Phone Number [address] [place] [address] * (ABNORMAL) Ethanol (12/08/2024 12:22 AM SCAN COORDINATOR) Pathologist [facility] Ethanol 178(H) <=10 mg/dL Comment: Interpretive Data Legal limit of intoxication > or = 80 mg/dL Levels > or = 400 mg/dL are potentially TOXIC. Current interpretive data was last revised on 2018. Blood 12/08/2024 12:2 2 AM SCAN COORDINATOR 12/08/2024 12:32 AM SCAN COORDINATOR Doc PEREZ LAB BLOOD ORDERABLES Final R [facility] Performing Organization Address [facility] de Phone Number [address] [address] * (ABNORMAL) Comprehensive metabolic panel (12/08/2024 12:22 AM SCAN COORDINATOR) [facility] Sodium 134(L) 135 - 145 mmol/L Potassium, pl 3.8 3.3 - 4.9 mmol/L [facility] Chloride 97 97 - 110 mmol/L [facility] CO2 20(L) 22 - 32 mmol/L [facility] Anion gap 17(H) 2 - 15 mmol/L [facility] BUN 9 6 - 25 mg/dL [facility] Creatinine 0.81 0.80 - 1.30 mg/dL [facility] Glucose 95 70 - 199 mg/dL [facility] Comment: Interpretive Data Fasting glucose >/= [...] 2022. Calcium 9.4 8.5 - 10.3 mg/dL [facility] Bilirubin, total 0.4 0.1 - 1.2 mg/dL [facility] Protein, pl 8.1 6.5 - 8.5 g/dL [facility]NER Albumin 4.3 3.5 - 5.0 g/dL [facility] Alk phos 92 40 - 130 Units/L [facility] ALT 30 7 - 55 Units/L [facility] AST 67(H) 10 - 50 Units/L [facility] Blood 12/08/2024 12:2 2 AM SCAN COORDINATOR 12/08/2024 12:32 AM SCAN COORDINATOR Doc PEREZ LAB BLOOD ORDERABLES Final R esult [facility] [address] [facility] Department [place] [address] * XR Chest PA Lateral 2 Views (11/10/2024 12:08 PM SCAN COORDINATOR) Anatomical Region Laterality Modality Body, Chest N/A Computed Radiogr aphy 11/10/2024 12:3 2 PM SCAN COORDINATOR Impressions 11/10/2024 12:32 PM SCAN COORDINATOR There is no consolidation, pleural effusion, pneumothorax. A calcified granuloma projects over the right lung base. Old healed left-sided rib fractures are noted. The cardiomediastinal silhouette is within normal limits. Electronically signed by: Yogesh Flaherty M.D. Narrative 11/10/2024 12:32 PM SCAN COORDINATOR EXAMINATION: XR CHEST PA LATERAL 2 VIEWS [...] microscopic and culture Urine (11/10/2024 11:33 AM SCAN COORDINATOR) Color, ur Yellow Yellow Clarity, ur Clear Clear [facility] Specific gravity, ur 1.024 1.003 - 1.030 [facility] pH, urine 7.5 [facility] Comment: Interpretive Data U rine pH is affected by diet, medications, systemic acid-base disturbances, and renal tubular function. pH may affect urinary stone formation. For example, urine pH below 6.0 may help reduce the tendency for calcium phosphate stones and pH greater than 6.0 may reduce the tendency for uric acid stone formation. Source: [facility] [employer] Current Interpretive Data was last revised on 2017 Protein, ur ql 1+(A) Negative [facility] Glucose, ur ql Negative Negative [facility] Ketones, ur Trace Negative [facility] Bilirubin, ur Negative Negative [facility] Blood, ur Negative Negative [facility] Urobilinogen, ur 2.0(A) <2.0 mg/dL [facility] Nitrite, ur Negative Negative [facility] Leukocyte esterase, ur Negative Negative [facility] UA reflex comment Reflex to microscopic UA will be performed. [facility] Urine 11/10/2024 11:3 3 AM SCAN COORDINATOR 11/10/2024 11:41 AM SCAN COORDINATOR Nick Foster MD LAB MICROBIOLOGY - GENERAL OR DERABLES Final Result [facility] Department [place] [address] * (ABNORMAL) Drugs of Abuse Screen, Urine without Confirmation (11/10/2024 11:33 AM SCAN COORDINATOR) [facility] Amphetamine, ur Not Detected CutOff [...] Barbiturates, ur Not Detected CutOff 200ng/mL [facility] Comment: Interpretive Data - Barbiturates: Samples containing greater than 200 ng/mL secobarbital or other cross-reacting barbiturate compounds are reported as positive. False positive and false negative results are possible. Confirmatory testing required for definitive results. Current Interpretive Data was last reviewed 2023. Benzodiazepines, ur Screen Positive, presumptive (A) CutOff 100ng/mL [facility] Comment: Interpretive Data - Benzodiazepines: Samples containing greater than 100 ng/mL nordiazepam or other cross-reacting compounds are reported as positive. False positive and false negative results are possible. Confirmatory testing required for definitive results. Current Interpretive Data was last reviewed 2023. Cannabinoids, ur Screen Positive, presumptive (A) CutOff 50 ng/mL [facility] Comment: Interpretive Data - Cannabinoids: Samples containing greater than 50 ng/mL delta-9 THC -COOH or other cross- reacting compounds are reported as positive. False positive and false negative results are possible. Confirmatory testing required for definitive results. Current Interpretive Data was last reviewed 2023. Cocaine, ur Screen Positive, presumptive (A) CutOff 150ng/mL [facility] Comment: Interpretive Data - Cocaine: Samples containing greater than 150 ng/mL benzoylecgonine or other cross- reacting compounds are reported as positive. False positive and false negative results are possible. Confirmatory testing required for definitive results. Current Interpretive Data was last reviewed 2023. Fentanyl, Ur Not Detected CutOff 5 ng/mL [facility] Comment: Interpretive Data - Fentanyl: Samples containing greater than 5 ng/mL norfentanyl, fentanyl, or other cross-reacting fentanyl compounds are reported as positive. False positive and false negative results are possible. Confirmatory testing required for definitive results. Current Interpretive Data was last reviewed 2024. Methadone, ur Not Detected CutOff 300ng/mL [facility] Comment: Interpretive Data - Methadone: Samples containing greater than 300 ng/mL d,l-methadone or other cross-reacting compounds are reported as positive. False positive and false negative results are possible. Confirmatory testing required for definitive results. Current Interpretive Data was last reviewed 2023. Opiates, ur Not Detected CutOff 300ng/mL [facility] Comment: Interpretive Data - Opiates: Samples containing greater than 300 ng/mL morphine or other cross-reacting compounds are reported as positive. False positive and false negative results are possible. Confirmatory testing required for definitive results. Current Interpretive Data was last reviewed 2023. Oxycodone, ur Not Detected CutOff 100ng/mL [facility] Comment: Interpretive Data - Oxycodone: Samples containing greater than 100 ng/mL oxycodone or other cross-reacting compounds are reported as positive. False positive and false negative results are possible. Confirmatory testing required for definitive results. Current Interpretive Data was last reviewed 2023. Phencyclidine, ur Not Detected CutOff 25 ng/mL [facility] Comment: Interpretive Data - Phencyclidine: Samples containing greater than 25 ng/mL phencyclidine or other cross-reacting compounds are reported as positive. False positive and false negative results are possible. Confirmatory testing required for definitive results. Current Interpretive Data was last reviewed 2023. Urine Creatinine 190 mg/dL [facility] Comment: Interpretive Data Urine Creatinine: < 10 mg/dL is extremely dilute = or > 10 but < 20 mg/dL is dilute = or > 20 mg/dL is normal Current Interpretive Data was last revised on 2018. Urine 11/10/2024 11:3 3 AM SCAN COORDINATOR 11/10/2024 11:41 AM SCAN COORDINATOR Narrative [facility] - 11/10/2024 12:26 PM SCAN COORDINATOR Drug of Abuse screening is performed by immunoassay for medical purposes only. This is not to be used for Pain Management purposes. us Nick Foster MD LAB URINE ORDERABLES Final Re sult [facility] Department [place] [address] * (ABNORMAL) Urinalysis, microscopic only (11/10/2024 11:33 AM SCAN COORDINATOR) WBC, ur 0-5 0 - 5 /HPF RBC, ur 0-2 0 - 2 /HPF [facility] Mucous, ur Present(A) [facility] Culture Reflex Comment Reflex conditions for urine culture (WBC >10) not met. [facility] Urine 11/10/2024 11:3 3 AM SCAN COORDINATOR 11/10/2024 11:41 AM SCAN COORDINATOR us Nick Foster MD LAB URINE ORDERABLES Final Re sult [facility] [place] [address] * ECG 12-LEAD (11/10/2024 10:43 AM SCAN COORDINATOR) Narrative [facility] - 11/10/2024 10:43 AM SCAN COORDINATOR Nick Foster MD 11/10/2024 10:44 AM ECG 12 lead Date/Time: 11/10/2024 10:43 AM Performed by: Nick Foster MD Authorized by: Nick Foster MD Rate: ECG rate: Rate 79. narrow complex, regular, sinus, no stemi. no change Procedure Note Nick Foster MD - 11/10/2024 10:43 AM CST Procedure ECG 12 lead Date/Time: 11/10/2024 10:43 AM Performed by: Nikc Foster MD Authorized by: Nick Foster MD Rate: ECG rate: Rate 79. narrow complex, regular, sinus, no stemi. nochange Nick Foster MD 11/10/24 1044 us Nick Foster MD ECG ORDERABLES Final Result [facility] * POCT Rapid HIV Antibody Community Screening-Fabi Eligible (11/10/2024 10:24 AM SCAN COORDINATOR) [facility] Rapid HIV, POC Negative Negative Lot Number [id number] QC Control Line Acceptable Blood 11/10/2024 10:2 4 AM SCAN COORDINATOR Nick Foster MD POINT OF CARE TEST ORDERABLES Final Result * Troponin I high-sensitivity series (baseline, 2hr, 4hr, 6hr) (11/10/2024 10:06 AM SCAN COORDINATOR) [facility] Trop I hs 4 <=35 ng/L Comment: Interpretive Data For further hscTnI resources including the diagnostic algorithm and an aid in interpretation, copy and paste this link: https://bjhlab.testcatalog.org/show/hsTrop-1 Current Interpretive Data last revised 2020. Blood 11/10/2024 10:0 6 AM SCAN COORDINATOR 11/10/2024 10:25 AM SCAN COORDINATOR Nick Foster MD LAB BLOOD ORDERABLES Final Re sult [facility] Department [place] [address] * eGFR (11/10/2024 10:06 AM SCAN COORDINATOR) [facility] eGFR >90 >=60 mL/min/1. 73 [...] reviewed 2021. Blood 11/10/2024 10:0 6 AM SCAN COORDINATOR 11/10/2024 10:16 AM SCAN COORDINATOR Nick Foster MD LAB BLOOD ORDERABLES Final Re sult [facility] Department [place] [address] * Differential, auto (11/10/2024 10:06 AM SCAN COORDINATOR) Neutrophil abs 2.2 1.5 - 6.5 K/cumm Imm gran abs 0.0 0.0 - 0.1 K/cumm [facility] Lymphocyte abs 1.9 0.8 - 3.3 K/cumm [facility] Monocyte abs 0.7 0.2 - 0.8 K/cumm [facility] Eosinophil abs 0.1 0.0 - 0.5 K/cumm [facility] Basophil abs 0.0 0.0 - 0.1 K/cumm [facility] Neutrophil pct 44.1 % [facility] Comment: Interpretive Data Percent cell count reference ranges are not reported, since discordance with absolute values may lead to misinterpretation of CBC data. Current Interpretive Data was last revised on 2018. Imm gran pct 0.2 % [facility] Comment: Interpretive Data Percent cell count reference ranges are not reported, since discordance with absolute values may lead to misinterpretation of CBC data. Current Interpretive Data was last revised on 2018. Lymphocyte pct 38.9 % [facility] Comment: Interpretive Data Percent cell count reference ranges are not reported, since discordance with absolute values may lead to misinterpretation of CBC data. Current Interpretive Data was last revised on 2018. Monocyte pct 13.8 % [facility] Comment: Interpretive Data Percent cell count reference ranges are not reported, since discordance with absolute values may lead to misinterpretation of CBC data. Current Interpretive Data was last revised on 2018. Eosinophil pct 2.4 % [facility] Comment: Interpretive Data Percent cell count reference ranges are not reported, since discordance with absolute values may lead to misinterpretation of CBC data. Current Interpretive Data was last revised on 2018. Basophil pct 0.6 % [facility] Comment: Interpretive Data Percent cell count reference ranges are not reported, since discordance with absolute values may lead to misinterpretation of CBC data. Current Interpretive Data was last revised on 2018. Blood 11/10/2024 10:0 6 AM SCAN COORDINATOR 11/10/2024 10:16 AM SCAN COORDINATOR us Nick Foster MD LAB BLOOD ORDERABLES Final Re sult [facility] Department [place] [address] * Pro B-type natriuretic peptide (11/10/2024 10:06 AM SCAN COORDINATOR) NT-proBNP <50 <=300 pg/mL Comment: Interpretive Comments: [...] Date: 2018. Blood 11/10/2024 10:0 6 AM SCAN COORDINATOR 11/10/2024 10:16 AM SCAN COORDINATOR Nick Foster MD LAB BLOOD ORDERABLES Final Re sult Performing Organization Address [facility]/ZIP Co de Phone Number [facility] Department [place] [address] * (ABNORMAL) CBC with auto differential (11/10/2024 10:06 AM SCAN COORDINATOR) Pathologist [facility] WBC 5.0 3.8 - 9.9 K/cumm Hgb 16.0 13.0 - 17.5 g/dL [facility] Hct 47.3 38.9 - 50.3 % [facility] Plt 284 150 - 400 K/cumm [facility] MPV 8.9(L) 9.1 - 12.3 fL [facility] RBC 5.09 4.30 - 5.80 M/cumm [facility] MCV 92.9 81.3 - 96.4 fL [facility] MCH 31.4 27.1 - 33.3 pg [facility] MCHC 33.8 32.3 - 35.7 g/dL [facility] RDW CV 14.0 11.1 - 14.9 % [facility] RDW SD 47.8 35.7 - 48.1 fL [facility] NRBC abs 0.00 0.00 - 0.01 K/cumm [facility] Blood 11/10/2024 10:0 6 AM SCAN COORDINATOR 11/10/2024 10:16 AM SCAN COORDINATOR Nick Foster MD LAB BLOOD ORDERABLES Final Re sult Performing Organization Address City/[facility]/ZIP Co de Phone Number [facility] Department [place] [address] * Ethanol (11/10/2024 10:06 AM SCAN COORDINATOR) Pathologist [facility] Ethanol <10 <=10 mg/dL Comment: Interpretive Data Legal limit of intoxication > or = 80 mg/dL Levels > or = 400 mg/dL are potentially TOXIC. Current interpretive data was last revised on 2018. Blood 11/10/2024 10:0 6 AM SCAN COORDINATOR 11/10/2024 10:16 AM SCAN COORDINATOR Nick Foster MD LAB BLOOD ORDERABLES Final Re sult Performing Organization Address [facility] [place] [address] * (ABNORMAL) Valproic acid level, total (11/10/2024 10:06 AM SCAN COORDINATOR) [facility] Valproic Acid <15.0(L) 50.0 - 100.0 mcg/mL Comment: Interpretive Data Therapeutic or toxic effects of anticonvulsant drugs may occur at different concentrations in different patients and the correlation between dose and clinical effect must be evaluated individually. Current interpretative data was last revised on 14. Blood 11/10/2024 10:0 6 AM SCAN COORDINATOR 11/10/2024 10:16 AM SCAN COORDINATOR Nick Foster MD LAB BLOOD ORDERABLES Final Re sult Performing Organization Address City/[facility] Co de Phone Number [facility] [place] [address] * (ABNORMAL) Comprehensive metabolic panel (11/10/2024 10:06 AM SCAN COORDINATOR) [facility] Sodium 140 135 - 145 mmol/L Potassium, pl 4.1 3.3 - 4.9 mmol/L [facility] Chloride 101 97 - 110 mmol/L [facility] CO2 27 22 - 32 mmol/L [facility] Anion gap 12 2 - 15 mmol/L [facility] BUN 7 6 - 25 mg/dL [facility] Creatinine 0.80 0.80 - 1.30 mg/dL [facility] Glucose 77 70 - 199 mg/dL [facility] Comment: Interpretive Data Fasting glucose >/= [...] 2022. Calcium 9.7 8.5 - 10.3 mg/dL [facility] Bilirubin, total 0.7 0.1 - 1.2 mg/dL [facility] [facility] Protein, pl 8.6(H) 6.5 - 8.5 g/dL [facility] Albumin 4.6 3.5 - 5.0 g/dL [facility] Alk phos 95 40 - 130 Units/L [facility] ALT 66(H) 7 - 55 Units/L [facility] AST 81(H) 10 - 50 Units/L [facility] Blood 11/10/2024 10:0 6 AM SCAN COORDINATOR 11/10/2024 10:16 AM SCAN COORDINATOR Nick Foster MD LAB BLOOD ORDERABLES Final Re sult [facility] [address] [facility] Department [place] [address] * Hepatitis panel, acute Blood (10/06/2024 12:56 PM SCAN COORDINATOR) Hep A IgM Nonreactive Nonreactive Comment: Interpretive [...] Nonreactive [facility] Blood 10/06/2024 12:5 6 PM SCAN COORDINATOR 10/06/2024 1:08 PM SCAN COORDINATOR Ghada PEREZ LAB MICROBIOLOGY - [facility] L ORDERABLES Final Result [facility] [address] [facility] Department [place] [address] from Last 3 Months or Most Recently Relevant to Health Maintenance [facility] [employer] Advance Directives For more information, please contact: [phone] * Full Code (Latest Code Status on [...] 2:27 PM 08/17/2023 5:13 PM Care Teams Order Worker Relationship Specialty Start Date End Date Frank Beltran MD [address] [place] [address] PCP - General Internal Medicine 12/09/24 Cailin Hernández Rn Pacu Addiction Medicine 10/23/20 Bernadette Roberts, [facility] [address] [place] [address] University President 06/20/21
--- OUTSIDE RECORDS SUMMARY | 2025-02-03 08:21 | XMS_ITS | Referral Summary ---
Author Organization [facility] Address [address] [place] [address] Care Team Providers Care Analytical Tech Name Role Phone Cailin Hernández Unavailable Unavailable Bernadette RobertsW Unavailable [phone] Frank Beltran MD Primary Care Provider [phone] Encounters Date Type Department Care Team Description 01/24/2025 Telephone [facility] Gastroenterology at [place] [address] [facility] [address] [place] [address] Linh Fox EGD & Colonoscopy Referral 01/04/2025 4:58 PM PLATE TAKE OUT WORKER - 01/11/2025 8:37 AM CDT Hospital Encounter [place] [address] [address] [place] [address] Otilio Vargas MD Sada, Kahmalia-Kalee Conceptia, MD Smith, MD Natalya Arroyo Omar Ali Mohammed, MD Alcohol withdrawal syndrome without complication (HCC) (Primary Dx) Discharge Disposition: Discharge to home or self care 12/08/2024 6:37 AM PLATE TAKE OUT WORKER - 12/15/2024 10:55 AM PLATE TAKE OUT WORKER Hospital Encounter [address] [address] Devin Rico MD Winston, MD Luís Payton [...] Rehab facility 12/09/2024 TCC Initial Eligibility Review [facility] [address] [place], [place] [id number] Krista Corral NP 11/10/2024 9:57 AM PLATE TAKE OUT WORKER - 11/18/2024 2:20 PM PLATE TAKE OUT WORKER Hospital Encounter [facility] [address] [place] [address] Nick Foster MD Garland, MD Edyta Jaramillo, [...] 11/11/2024 Assessment & Plan (11/14/2024 12:14 PM PLATE TAKE OUT WORKER): Patient has a chart history of bipolar [...] interim Assessment & Plan (11/11/2024 10:53 AM PLATE TAKE OUT WORKER): Patient has a chart history of bipolar [...] (02/09/2023): Added automatically from request for surgery [id number] Polysubstance abuse 01/26/2022 Assessment & Plan (01/26/2022 [...] disease) Assessment & Plan (11/14/2024 12:14 PM PLATE TAKE OUT WORKER): Symbicort scheduled and albuterol PRN Assessment & Plan (11/11/2024 10:43 AM PLATE TAKE OUT WORKER): Symbicort scheduled and albuterol PRN Assessment & [...] 01/04/2020 Assessment & Plan (11/14/2024 12:14 PM PLATE TAKE OUT WORKER): Medical records indicate patient has long history [...] disorder, severe. - for MARIANELA resources - Cloth Bolt Bander cessation Assessment & Plan (11/11/2024 10:44 AM PLATE TAKE OUT WORKER): Medical records indicate patient has long history [...] severe. - SW for MARIANELA resources - Cloth Bolt Bander cessation Assessment & Plan (06/28/2020 10:01 AM [...] 08/13/2018 Assessment & Plan (11/17/2024 11:56 AM PLATE TAKE OUT WORKER): Medical records indicate that the patient has [...] Offer inpatient rehab, plan for discharge to [facility] once approved - Continue counselling cessation - Cleared AWAS, continue thiamine, folate Assessment & Plan (11/13/2024 12:46 PM PLATE TAKE OUT WORKER): Medical records indicate that the patient has [...] pharmacologic treatment - Offer inpatient rehab - Cloth Bolt Bander cessation - AWAS, thiamine, folate Resolved Problems Problem Noted Date Diagnosed Date Resolved Date Polysubstance (excluding opi oids) dependence ([facility]) 01/19/2021 07/13/2021 Recurrent major depression i n partial remission 06/09/2020 07/13/2021 Assessment & Plan (06/28/2020 9:52 AM CDT): Fair progress with no SI. Pt is talking to and his registered nurse hh case manager to go to a chronic inpatient unit for MARIANELA. - continue zoloft 50mg every day and risperidone 2mg HS - continue monitoring and adjust treatment as needed - SW to assist with housing and OP f/u Assessment & Plan (06/13/2020 12:02 PM CDT): Fair progress with no SI. Pt is talking to and his registered nurse hh case manager to go to a chronic [...] OP f/u Alcohol withdrawal syndrome without complication ([facility]/HCC) 02/08/2019 07/13/2021 Alcohol withdrawal syndrome without complication [...] case beer, 1-2 bottles of Vodka daily. [facility] Utilities Answer Date Recorded In the past 12 months has [employer], oil, or water [employer] threatened to shut off services in your [...] week 01/06/2025 How often do you attend [facility] or advent services? Never 01/06/2025 Do you belong to any clubs o r organizations such as sabianist groups, unions, fraternal or athletic groups, or [...] staff should administer the PHQ-9) 1 01/25/2022 [facility] Occupat ional [facility] - Occupational Stress Questionnaire Answer Date [...] place to sleep or slept in a longterm (including now)? Yes 06/20/2021 Housing Stability Vital Sign Answer Krunal e Recorded In the last 12 months, was t here a time when you were not able to pay the mortgage or rent on time? No 01/06/2025 In the past 12 months, how m any times have you moved where you were living? 0 01/06/2025 At any time in the past 12 m [facility], were you homeless or living in a longterm (including now)? No 01/06/2025 Personal Safety Answer [...] on file Legal Sex Male 6:20 AM PLATE TAKE OUT WORKER Gender Identity Not on file Sexual Orientation [...] lb 5.2 oz) 01/04/2025 9:34 P M PLATE TAKE OUT WORKER Height 177.8 cm (5' 10) 01/04/2025 9:34 PM PLATE TAKE OUT WORKER Body Mass Index 28.03 01/04/2025 9:34 PM PLATE TAKE OUT WORKER Functional Status * Are you deaf or do you have serious difficulty hearing? Answer Date of Assessment Author No 11/11/2024 4:43 PM PLATE TAKE OUT WORKER Byers Donnasara Hebert, QUILT MAKER * Are you blind or do you have serious difficulty seeing, even when wearing glasses? Answer Date of Assessment Author No 11/11/2024 4:43 PM PLATE TAKE OUT WORKER Byers Donnasaar Gaytania, QUILT MAKER * Do you have serious difficulty walking or climbing stairs? Answer Date of Assessment Author No 11/11/2024 4:43 PM PLATE TAKE OUT WORKER Byers, Donnasara Bennettricia, QUILT MAKER * Do you have serious difficulty dressing or bathing? Answer Date of Assessment Author No 11/11/2024 4:43 PM PLATE TAKE OUT WORKER Byers, Donnasara Gaytania, QUILT MAKER * Because of a physical, mental, or emotional condition, do you have serious difficulty doing errandsalone such as visiting the doctor? Answer Date of Assessment Author Yes 11/11/2024 4:43 PM PLATE TAKE OUT WORKER Byers Donnasara Gaytania, QUILT MAKER Mental Status * Because of a physical, mental, or emotional condition, do you have serious difficulty concentrating, remembering, or making decisions? (5 years old or older) Answer Entry Date Author Yes 11/11/2024 4:43 PM PLATE TAKE OUT WORKER Byers, Donnasara Hebert, QUILT MAKER Plan of Treatment Not on file [...] Note: Pt will attend scheduled appointments with [facility] on 06/19/21 Procedures Procedure Name Priority Date/Time Associated Diagnosis Comments EGFR Routine 01/10/2025 6:08 AM CDT CBC WITHOUT DIFFERENTIAL Routine 01/10/2025 6:08 AM CDT BASIC METABOLIC PANEL Routine 01/10/2025 6:08 AM CDT EGFR Routine 01/06/2025 1:55 AM PLATE TAKE OUT WORKER COMPREHENSIVE METABOLIC PANEL Routine 01/06/2025 1:55 AM PLATE TAKE OUT WORKER EGFR Routine 01/05/2025 3:49 AM PLATE TAKE OUT WORKER HEMOGLOBIN A1C Routine 01/05/2025 3:49 AM PLATE TAKE OUT WORKER THYROID FUNCTION CASCADE Routine 01/05/2025 3:49 AM PLATE TAKE OUT WORKER COMPREHENSIVE METABOLIC PANEL Routine 01/05/2025 3:49 AM PLATE TAKE OUT WORKER CT HEAD WO CONTRAST ED 01/04/2025 6 :19 PM PLATE TAKE OUT WORKER XR CHEST 1 VIEW ED 01/04/2025 2:31 PM PLATE TAKE OUT WORKER ECG 12-LEAD STAT 01/04/2025 2:21 PM PLATE TAKE OUT WORKER EGFR STAT 01/04/2025 2:17 PM PLATE TAKE OUT WORKER DIFFERENTIAL AUTO STAT 01/04/2025 2:1 7 PM PLATE TAKE OUT WORKER ETHANOL STAT 01/04/2025 2:17 PM PLATE TAKE OUT WORKER TROPONIN T HIGH-SENSITIVITY SERIES (BASELINE, 2HR, 4HR, 6HR) STAT 01/04/2025 2:17 PM PLATE TAKE OUT WORKER COMPREHENSIVE METABOLIC PANEL STAT 01/04/2025 2:17 PM PLATE TAKE OUT WORKER CBC WITH AUTO DIFFERENTIAL STAT 01/04/2025 2:17 PM PLATE TAKE OUT WORKER EGFR Routine 12/14/2024 3:28 AM PLATE TAKE OUT WORKER COMPREHENSIVE METABOLIC PANEL Routine 12/14/2024 3:28 AM PLATE TAKE OUT WORKER EGFR Routine 12/13/2024 12:50 PM PLATE TAKE OUT WORKER COMPREHENSIVE METABOLIC PANEL Routine 12/13/2024 12:50 PM PLATE TAKE OUT WORKER EGFR Routine 12/12/2024 3:01 AM PLATE TAKE OUT WORKER CBC WITHOUT DIFFERENTIAL Routine 12/12/2024 3:01 AM PLATE TAKE OUT WORKER COMPREHENSIVE METABOLIC PANEL Routine 12/12/2024 3:01 AM PLATE TAKE OUT WORKER EGFR Routine 12/11/2024 4:39 AM PLATE TAKE OUT WORKER COMPREHENSIVE METABOLIC PANEL Routine 12/11/2024 4:39 AM PLATE TAKE OUT WORKER CBC WITHOUT DIFFERENTIAL Routine 12/11/2024 4:39 AM PLATE TAKE OUT WORKER EGFR Routine 12/10/2024 6:38 AM PLATE TAKE OUT WORKER COMPREHENSIVE METABOLIC PANEL Routine 12/10/2024 6:38 AM PLATE TAKE OUT WORKER EGFR Routine 12/09/2024 3:39 AM PLATE TAKE OUT WORKER DIFFERENTIAL AUTO Routine 12/09/2024 3:3 9 AM PLATE TAKE OUT WORKER COMPREHENSIVE METABOLIC PANEL Routine 12/09/2024 3:39 AM PLATE TAKE OUT WORKER CBC WITH AUTO DIFFERENTIAL Routine 12/09/2024 3:39 AM PLATE TAKE OUT WORKER MAGNESIUM Routine 12/09/2024 3:39 AM PLATE TAKE OUT WORKER LIPID PANEL Routine 12/09/2024 3:39 AM PLATE TAKE OUT WORKER INFLUENZA A/B, RSV, AND COVID-19 PCR Routine 12/08/2024 8:17 PM PLATE TAKE OUT WORKER MAGNESIUM STAT 12/08/2024 7:28 AM PLATE TAKE OUT WORKER EGFR STAT 12/08/2024 7:28 AM PLATE TAKE OUT WORKER BASIC METABOLIC PANEL STAT 12/08/2024 7:28 AM PLATE TAKE OUT WORKER TROPONIN T HIGH-SENSITIVITY 6-HOUR Timed 12/08/2024 6:17 AM PLATE TAKE OUT WORKER TROPONIN T HIGH-SENSITIVITY 2-HOUR Timed 12/08/2024 2:24 AM PLATE TAKE OUT WORKER XR CHEST 1 VIEW ED 12/08/2024 12:54 AM PLATE TAKE OUT WORKER ECG 12-LEAD STAT 12/08/2024 12:22 AM PLATE TAKE OUT WORKER LIPASE STAT 12/08/2024 12:22 AM PLATE TAKE OUT WORKER EGFR STAT 12/08/2024 12:22 AM PLATE TAKE OUT WORKER DIFFERENTIAL AUTO STAT 12/08/2024 12: 22 AM PLATE TAKE OUT WORKER ETHANOL STAT 12/08/2024 12:22 AM PLATE TAKE OUT WORKER TROPONIN T HIGH-SENSITIVITY SERIES (BASELINE, 2HR, 4HR, 6HR) STAT 12/08/2024 12:22 AM PLATE TAKE OUT WORKER CBC WITH AUTO DIFFERENTIAL STAT 12/08/2024 12:22 AM PLATE TAKE OUT WORKER COMPREHENSIVE METABOLIC PANEL STAT 12/08/2024 12:22 AM PLATE TAKE OUT WORKER XR CHEST PA LATERAL 2 VIEWS ED 11/10/2024 12:08 PM PLATE TAKE OUT WORKER URINALYSIS, MICROSCOPIC ONLY STAT 11/10/2024 11:33 AM PLATE TAKE OUT WORKER DRUGS OF ABUSE SCREEN, URINE WITHOUT CONFIRMATION STAT 11/10/2024 11:33 AM PLATE TAKE OUT WORKER URINALYSIS AND REFLEX TO MICROSCOPIC AND CULTURE STAT 11/10/2024 11:33 AM PLATE TAKE OUT WORKER ECG 12-LEAD STAT 11/10/2024 10:43 AM PLATE TAKE OUT WORKER POCT RAPID HIV ANTIBODY COMMUNITY SCREENING-FABI ELIGIBLE Routine 11/10/2024 10:24 AM PLATE TAKE OUT WORKER VALPROIC ACID LEVEL, TOTAL STAT 11/10/2024 10:06 AM PLATE TAKE OUT WORKER ETHANOL STAT 11/10/2024 10:06 AM PLATE TAKE OUT WORKER EGFR STAT 11/10/2024 10:06 AM PLATE TAKE OUT WORKER DIFFERENTIAL AUTO STAT 11/10/2024 10: 06 AM PLATE TAKE OUT WORKER PRO B-TYPE NATRIURETIC PEPTIDE STAT 11/10/2024 10:06 AM PLATE TAKE OUT WORKER TROPONIN I HIGH-SENSITIVITY SERIES (BASELINE, 2HR, 4HR, 6HR) STAT 11/10/2024 10:06 AM PLATE TAKE OUT WORKER CBC WITH AUTO DIFFERENTIAL STAT 11/10/2024 10:06 AM PLATE TAKE OUT WORKER COMPREHENSIVE METABOLIC PANEL STAT 11/10/2024 10:06 AM PLATE TAKE OUT WORKER HEPATITIS PANEL, ACUTE Routine 12:56 PM PLATE TAKE OUT WORKER from Last 3 Months or Most Recently [...] was last reviewed 2021. Testing performed by: [address] [address] Blood 01/10/2025 6:08 AM CDT 01/10/2025 6:43 AM CDT us Nelson Villalba MD LAB BLOOD ORDERABLES Fi nal Result RAMU [id number] Department [place] [address] * (ABNORMAL) CBC without differential (01/10/2025 6:08 AM CDT) WBC 13.7(H) 3.8 - 9.9 K/cumm Comment:Testing performed by : [address] [address] Hgb 11.7(L) 13.0 - 17.5 g/dL RAMU LEMUS Comment:Testing performed by : [address] [address] Hct 35.7(L) 38.9 - 50.3 % RAMU LEMUS Comment:Testing performed by : [address] [address] Plt 326 150 - 400 K/cumm RAMU LEMUS Comment:Testing performed by : [address] [address] MPV 9.4 9.1 - 12.3 fL RAMU LEMUS Comment:Testing performed by : [address] [address] RBC 3.79(L) 4.30 - 5.80 M/cumm RAMU LEMUS Comment:Testing performed by : [address] [address] MCV 94.2 81.3 - 96.4 fL RAMU LEMUS Comment:Testing performed by : [address] [address] MCH 30.9 27.1 - 33.3 pg RAMU LEMUS Comment:Testing performed by : [address] [address] MCHC 32.8 32.3 - 35.7 g/dL RAMU LEMUS Comment:Testing performed by : [address] [address] RDW CV 15.2(H) 11.1 - 14.9 % RAMU LEMUS Comment:Testing performed by : [address] [address] RDW SD 51.8(H) 35.7 - 48.1 fL RAMU LEMUS Comment:Testing performed by : [address] [address] NRBC abs 0.00 0.00 - 0.01 K/cumm RAMU LEMUS Comment:Testing performed by : [address] [address] Blood 01/10/2025 6:08 AM CDT 01/10/2025 6:43 AM CDT us Nelson Villalba MD LAB BLOOD ORDERABLES Fi nal Result RAMU [address] [facility] Department of Laboratories [place], [place] [id number] * Basic metabolic panel (01/10/2025 6:08 AM CDT) Sodium 141 135 - 145 mmol/L Comment:Testing performed by : [address] [address] Potassium, pl 4.1 3.3 - 4.9 mmol/L RAMU LEMUS Comment: Hemolyzed; Potassium value may be falsely elevated by as much as 1.0 mmol/L. Suggest redraw and reanalysis. Testing performed by: [address] [place]., [address] Chloride 106 97 - 110 mmol/L RAMU Comment:Testing performed by : [address] [address] CO2 25 22 - 32 mmol/L RAMU Comment:Testing performed by : [address] [address] Anion gap 10 2 - 15 mmol/L RAMU Comment:Testing performed by : [address] [address] BUN 13 6 - 25 mg/dL RAMU Comment:Testing performed by : [address] [address] Creatinine 0.80 0.80 - 1.30 mg/dL RAMU Comment:Testing performed by : [address] [address] Glucose 121 70 - 199 mg/dL RAMU [...] was last revised 2022. Testing performed by: [address] [address] Calcium 9.9 8.5 - 10.3 mg/dL RAMU Comment:Testing performed by : [address] [address] Blood 01/10/2025 6:08 AM CDT 01/10/2025 6:43 AM CDT us Nelson Villalba MD LAB BLOOD ORDERABLES Fi nal Result RAMU [address] [facility] Department [place] [address] * eGFR (01/06/2025 1:55 AM PLATE TAKE OUT WORKER) eGFR >90 >=60 mL/min/1. 73 m2 Comment: [...] was last reviewed 2021. Testing performed by: [address] [address] Blood 01/06/2025 1:55 AM PLATE TAKE OUT WORKER 01/06/2025 2:57 AM PLATE TAKE OUT WORKER Anel Al MD LAB BLOOD ORDER DIANE Final Result [facility] [address] [facility] Department [place] [address] * (ABNORMAL) Comprehensive metabolic panel (01/06/2025 1:55 AM PLATE TAKE OUT WORKER) Sodium 139 135 - 145 mmol/L Comment:Testing performed by : [address] [address] Potassium, pl 3.9 3.3 - 4.9 mmol/L RAMU Comment: Hemolyzed; Potassium value may be falsely elevated by as much as 1.0 mmol/L. Suggest redraw and reanalysis. Testing performed by: [address] [address] Chloride 107 97 - 110 mmol/L RAMU Comment:Testing performed by : [address] [address] CO2 23 22 - 32 mmol/L RAMU Comment:Testing performed by : [address] [address] Anion gap 9 2 - 15 mmol/L RAMU Comment:Testing performed by : [address] [address] BUN 8 6 - 25 mg/dL RAMU Comment:Testing performed by : [address], [place]., [address] Creatinine 0.82 0.80 - 1.30 mg/dL RAMU Comment:Testing performed by : [address] [address] Glucose 101 70 - 199 mg/dL RAMU [...] was last revised 2022. Testing performed by: [address] [address] Calcium 9.0 8.5 - 10.3 mg/dL RAMU Comment:Testing performed by : [address] [address] Bilirubin, total 0.4 0.1 - 1.2 mg/dL RAMU Comment:Testing performed by : [address] [address] Protein, pl 6.1(L) 6.5 - 8.5 g/dL RAMU Comment:Testing performed by : [address] [address] Albumin 3.2(L) 3.5 - 5.0 g/dL RAMU LEMUS Comment:Testing performed by : [address] [address] Alk phos 67 40 - 130 Units/L RAMU LEMUS Comment:Testing performed by : [address] [address] ALT 23 7 - 55 Units/L RAMU LEMUS Comment:Testing performed by : [address] [address] AST 26 10 - 50 Units/L RAMU LEMUS Comment: Hemolyzed; result may be falsely elevated Testing performed by: [address] [address] Blood 01/06/2025 1:55 AM PLATE TAKE OUT WORKER 01/06/2025 2:57 AM PLATE TAKE OUT WORKER Anel Al MD LAB BLOOD ORDER DIANE Final Result RAMU [address] [facility] Department [place] [address] * eGFR (01/05/2025 3:49 AM PLATE TAKE OUT WORKER) eGFR >90 >=60 mL/min/1. 73 m2 Comment: [...] was last reviewed 2021. Testing performed by: [address] [address] Blood 01/05/2025 3:49 AM PLATE TAKE OUT WORKER 01/05/2025 5:03 AM PLATE TAKE OUT WORKER Anel Al MD LAB BLOOD ORDER DIANE Final Result Performing Organization Address [facility] de Phone Number [address] [address] * Thyroid Function Pope (01/05/2025 3:49 AM PLATE TAKE OUT WORKER) TSH 0.88 0.30 - 4.20 mcIUnit/mL Comment:Testing performed by : [address] [address] Blood 01/05/2025 3:49 AM PLATE TAKE OUT WORKER 01/05/2025 5:03 AM PLATE TAKE OUT WORKER Anel Al MD LAB BLOOD ORDER DIANE Final Result Performing Organization Address [facility] de Phone Number [address] [address] * Hemoglobin A1c (01/05/2025 3:49 AM PLATE TAKE OUT WORKER) Pathologist [facility] Hgb A1C 5.6 4.0 - 5.6 % Comment:Testing performed by : [address] [address] Estimated Average Glucose 114 mg/dL RAMU Comment: The ADA recommends reporting an estimated Average Glucose (eAG) with all Hemoglobin A1c results using the equation derived from a study of 507 normal and diabetic adults. Minority populations were underrepresented and children were not included. (Diabetes Care 31:2285-7500, 2008). The eAG is not equivalent to a fasting glucose. Testing performed by: [address] [address] Blood 01/05/2025 3:49 AM PLATE TAKE OUT WORKER 01/05/2025 5:03 AM PLATE TAKE OUT WORKER Anel Al MD LAB BLOOD ORDER DIANE Final Result RAMU [address] [facility] Department [place] [address] * (ABNORMAL) Comprehensive metabolic panel (01/05/2025 3:49 AM PLATE TAKE OUT WORKER) Sodium 139 135 - 145 mmol/L Comment:Testing performed by : [address] [address] Potassium, pl 3.7 3.3 - 4.9 mmol/L RAMU Comment:Testing performed by : [address] [address] Chloride 105 97 - 110 mmol/L RAMU Comment:Testing performed by : [address], [place]., [address] CO2 25 22 - 32 mmol/L RAMU Comment:Testing performed by : [address] [address] Anion gap 9 2 - 15 mmol/L RAMU Comment:Testing performed by : [address] [address] BUN 6 6 - 25 mg/dL RAMU Comment:Testing performed by : [address] [address] Creatinine 0.85 0.80 - 1.30 mg/dL RAMU Comment:Testing performed by : [address] [address] Glucose 90 70 - 199 mg/dL RAMU [...] was last revised 2022. Testing performed by: [address] [address] Calcium 9.1 8.5 - 10.3 mg/dL RAMU Comment:Testing performed by : [facility], [address] [place] [address]., [address] Bilirubin, total 0.7 0.1 - 1.2 mg/dL RAMU Comment:Testing performed by : [address] [address] Protein, pl 6.3(L) 6.5 - 8.5 g/dL RAMU Comment:Testing performed by : [address] [address] Albumin 3.5 3.5 - 5.0 g/dL RAMU Comment:Testing performed by : [address] [address] Alk phos 70 40 - 130 Units/L RAMU Comment:Testing performed by : [address] [address] ALT 28 7 - 55 Units/L RAMU Comment:Testing performed by : [address] [address] AST 34 10 - 50 Units/L [facility] Comment:Testing performed by : [address] [address] Blood 01/05/2025 3:49 AM PLATE TAKE OUT WORKER 01/05/2025 5:03 AM PLATE TAKE OUT WORKER Anel Al MD LAB BLOOD ORDER DIANE Final Result RAM[facility] [address] [facility] Department [place] [address] * CT Head WO Contrast (01/04/2025 6:19 PM PLATE TAKE OUT WORKER) Anatomical Region Laterality Modality Head and Neck N/A Computed Tomogra phy 01/04/2025 6:40 PM PLATE TAKE OUT WORKER Narrative 01/04/2025 6:41 PM PLATE TAKE OUT WORKER EXAM DESCRIPTION: CT HEAD WO CONTRAST REASON [...] Cameron Moreno M.D. VÍCTOR: VÍCTOR Report ID: [id number] Reading Location: [place] [address] Procedure Note Cameron Moreno MD - 01/04/2025 [...] Cameron Moreno M.D. VÍCTOR: VÍCTOR Report ID: [id number] Reading Location: [id number] Veronique More MARK UP DESIGNER IM CT PROCEDURES Final Result * XR Chest 1 Vw Portable (if patient condition/safety warrant portable) (01/04/2025 2:31 PM PLATE TAKE OUT WORKER) Anatomical Region Laterality Modality Body, Chest N/A Computed Radiogr aphy 01/04/2025 3:02 PM PLATE TAKE OUT WORKER Narrative 01/04/2025 3:06 PM PLATE TAKE OUT WORKER EXAM DESCRIPTION: XR CHEST 1 VIEW REASON FOR STUDY: CHEST PAIN ED for c/o alcohol withdrawal. Came to ED for c/o alcohol withdrawal. Reports wants to get into [facility] but needs med eval first. Reports last [...] Noe Redding M.D. RB: ANIKET Report ID: [id number] Reading Location: [id number] Procedure Note Noe Redding MD - 01/04/2025 [...] Noe Redding M.D. RB: RB Report ID: [id number] Reading Location: [id number] Otilio Vargas MD IMG XR PROCEDURES Final Result * ECG 12 lead (01/04/2025 2:21 PM PLATE TAKE OUT WORKER) Ventricular Rate EKG/Min 81 BPM [facility] Atrial Rate 81 BPM [facility] GA-Interval (MSEC) 152 ms [facility] QRS-Interval (MSEC) 76 ms [facility] QT-Interval (MSEC) 376 ms [facility] QTc 436 ms [facility] P Oneill 54 degrees [facility] R Oneill -12 degrees [facility] T Oneill 21 degrees [facility] Diagnosis Normal sinus rhythm Normal ECG When compared with ECG of 08-DEC-2024 00:22, No significant change was found Confirmed by BECKY TURNER M.D. ([id number]) on 01/09/2025 8:10:25 PM [facility] 01/04/2025 2:21 PM PLATE TAKE OUT WORKER 01/09/2025 8:10 PM CDT Otilio Vargas MD ECG ORDERABLES Final Result [facility] * Troponin T high-sensitivity series (baseline, 2hr, 4hr, 6hr) (01/04/2025 2:17 PM PLATE TAKE OUT WORKER) Trop T hs 9 <=22 ng/L Comment: Interpretive Data For further hscTnT resources including the diagnostic algorithm and an aid in interpretation, copy and paste this link: [email or web address].testcatalog.org/show/[email or web address] Current Interpretive Data last revised 2020. Testing performed by: [facility], [address] [place] [address]., [address] Blood 01/04/2025 2:17 PM PLATE TAKE OUT WORKER 01/04/2025 2:26 PM PLATE TAKE OUT WORKER us tOilio Vargas MD LAB BLOOD ORDERABLES Final Resul t Performing Organization Address City/[facility]/ZIP Co de Phone Number RAMU [facility] Department [place] [address] * eGFR (01/04/2025 2:17 PM PLATE TAKE OUT WORKER) eGFR >90 >=60 mL/min/1. 73 m2 Comment: [...] was last reviewed 2021. Testing performed by: [address] [address] Blood 01/04/2025 2:17 PM PLATE TAKE OUT WORKER 01/04/2025 2:26 PM PLATE TAKE OUT WORKER us Otilio Vargas MD LAB BLOOD ORDERABLES Final Resul t [facility] [address] [facility] Department [place] [address] * Differential, auto (01/04/2025 2:17 PM PLATE TAKE OUT WORKER) Neutrophil abs 3.4 1.5 - 6.5 K/cumm Comment:Testing performed by : [address] [address] Imm gran abs 0.0 0.0 - 0.1 K/cumm RAMU Comment:Testing performed by : [address] [address] Lymphocyte abs 2.7 0.8 - 3.3 K/cumm [facility]U Comment:Testing performed by : [address] [address] Monocyte abs 0.6 0.2 - 0.8 K/cumm RAMU Comment:Testing performed by : [address] [address] Eosinophil abs 0.1 0.0 - 0.5 K/cumm RAMU Comment:Testing performed by : [address] [address] Basophil abs 0.0 0.0 - 0.1 K/cumm RAMU Comment:Testing performed by : [address] [address] Neutrophil pct 49.5 % [facility]U Comment: Interpretive Data Percent cell count reference ranges are not reported, since discordance with absolute values may lead to misinterpretation of CBC data. Current Interpretive Data was last revised on 2018. Testing performed by: [address] [address] Imm gran pct 0.1 % [facility]U Comment: Interpretive Data Percent cell count reference ranges are not reported, since discordance with absolute values may lead to misinterpretation of CBC data. Current Interpretive Data was last revised on 2018. Testing performed by: [address] [address] Lymphocyte pct 40.2 % [facility] Comment: Interpretive Data Percent cell count reference ranges are not reported, since discordance with absolute values may lead to misinterpretation of CBC data. Current Interpretive Data was last revised on 2018. Testing performed by: [address] [address] Monocyte pct 8.1 % [facility] Comment: Interpretive Data Percent cell count reference ranges are not reported, since discordance with absolute values may lead to misinterpretation of CBC data. Current Interpretive Data was last revised on 2018. Testing performed by: [address] [address] Eosinophil pct 1.8 % [facility] Comment: Interpretive Data Percent cell count reference ranges are not reported, since discordance with absolute values may lead to misinterpretation of CBC data. Current Interpretive Data was last revised on 2018. Testing performed by: [address] [address] Basophil pct 0.3 % [facility] Comment: Interpretive Data Percent cell count reference ranges are not reported, since discordance with absolute values may lead to misinterpretation of CBC data. Current Interpretive Data was last revised on 2018. Testing performed by: [address] [address] Blood 01/04/2025 2:17 PM PLATE TAKE OUT WORKER 01/04/2025 2:26 PM PLATE TAKE OUT WORKER us Otilio Vargas MD LAB BLOOD ORDERABLES Final Resul t [facility]U [facility]EM[facility] [address] [facility] Department [place] [address] * (ABNORMAL) CBC with auto differential (01/04/2025 2:17 PM PLATE TAKE OUT WORKER) WBC 6.8 3.8 - 9.9 K/cumm Comment:Testing performed by : [address] [address] Hgb 13.7 13.0 - 17.5 g/dL RAMU Comment:Testing performed by : [address] [address] Hct 40.5 38.9 - 50.3 % RAMU Comment:Testing performed by : [address] [address] Plt 285 150 - 400 K/cumm RAMU Comment:Testing performed by : [address] [address] MPV 8.7(L) 9.1 - 12.3 fL RAMU Comment:Testing performed by : [address] [address] RBC 4.35 4.30 - 5.80 M/cumm RAMU Comment:Testing performed by : [address] [address] MCV 93.1 81.3 - 96.4 fL [facility]U Comment:Testing performed by : [address] [address] MCH 31.5 27.1 - 33.3 pg RAMU Comment:Testing performed by : [address] [address] MCHC 33.8 32.3 - 35.7 g/dL RAMU Comment:Testing performed by : [address] [address] RDW CV 14.5 11.1 - 14.9 % RAMU Comment:Testing performed by : [address] [address] RDW SD 49.9(H) 35.7 - 48.1 fL RAMU Comment:Testing performed by : [address] [address] NRBC abs 0.00 0.00 - 0.01 K/cumm RAMU Comment:Testing performed by : [address] [address] Blood Venous blood specimen / Unknown 01/04/2025 2:17 PM PLATE TAKE OUT WORKER 01/04/2025 2:26 PM PLATE TAKE OUT WORKER Otilio Vargas MD LAB BLOOD ORDERABLES Final Resul t Performing Organization Address [facility] de Phone Number RAMU [address] [address] * (ABNORMAL) Ethanol (01/04/2025 2:17 PM PLATE TAKE OUT WORKER) Ethanol 207(H) <=10 mg/dL Comment: Interpretive Data Legal limit of intoxication > or = 80 mg/dL Levels > or = 400 mg/dL are potentially TOXIC. Current interpretive data was last revised on 2018. Testing performed by: [address] [address] Blood 01/04/2025 2:1 7 PM PLATE TAKE OUT WORKER 01/04/2025 2:26 PM PLATE TAKE OUT WORKER Otilio Vargas MD LAB BLOOD ORDERABLES Final Resul t Performing Organization Address [facility] de Phone Number LEYDI[address] [place] [address] * (ABNORMAL) Comprehensive metabolic panel (01/04/2025 2:17 PM PLATE TAKE OUT WORKER) Pathologist [facility] Sodium 140 135 - 145 mmol/L Comment:Testing performed by : [address] [address] Potassium, pl 3.8 3.3 - 4.9 mmol/L RAMU Comment:Testing performed by : [address] [address] Chloride 103 97 - 110 mmol/L RAMU Comment:Testing performed by : [address] [address] CO2 24 22 - 32 mmol/L [facility]U Comment:Testing performed by : [address] [address] Anion gap 13 2 - 15 mmol/L RAMU Comment:Testing performed by : [address] [address] BUN 7 6 - 25 mg/dL [facility]U Comment:Testing performed by : [address] [address] Creatinine 0.81 0.80 - 1.30 mg/dL [facility]U Comment:Testing performed by : [address] [address] Glucose 90 70 - 199 mg/dL RAMU [...] was last revised 2022. Testing performed by: [address] [address] Calcium 9.8 8.5 - 10.3 mg/dL [facility] Comment:Testing performed by : [address] [address] Bilirubin, total 0.5 0.1 - 1.2 mg/dL [facility] Comment:Testing performed by : [address] [address] Protein, pl 8.0 6.5 - 8.5 g/dL [facility] Comment:Testing performed by : [address] [address] Albumin 4.4 3.5 - 5.0 g/dL [facility] Comment:Testing performed by : [address] [address] Alk phos 84 40 - 130 Units/L RAMU Comment:Testing performed by : [address] [address] ALT 40 7 - 55 Units/L [facility]U Comment:Testing performed by : [address] [address] AST 54(H) 10 - 50 Units/L [facility] Comment:Testing performed by : [facility], [address] [place] [address]., [address] Blood 01/04/2025 2:17 PM PLATE TAKE OUT WORKER 01/04/2025 2:26 PM PLATE TAKE OUT WORKER us Otilio Vargas MD LAB BLOOD ORDERABLES Final Resul t Performing Organization Address City/[facility]/ZIP Co de Phone Number [address] [place] [address] * eGFR (12/14/2024 3:28 AM PLATE TAKE OUT WORKER) eGFR >90 >=60 mL/min/1. 73 m2 Comment: [...] last reviewed 2021. Blood 12/14/2024 3:28 AM PLATE TAKE OUT WORKER 12/14/2024 3:55 AM PLATE TAKE OUT WORKER us Devin Rico MD LAB BLOOD ORDERABLES Final Result Performing Organization Address City/[facility]/ZIP Co de Phone Number [address] [place] [employer] [place] [address] * (ABNORMAL) Comprehensive metabolic panel (12/14/2024 3:28 AM PLATE TAKE OUT WORKER) [facility] Sodium 137 135 - 145 mmol/L Potassium, pl 4.4 3.3 - 4.9 mmol/L [facility] Comment:Hemolyzed; Potassium value may be falsely elevated by as much as 1.0 mmol/L. Suggest redraw and reanalysis. Chloride 103 97 - 110 mmol/L [facility] CO2 24 22 - 32 mmol/L [facility] Anion gap 10 2 - 15 mmol/L [facility] BUN 16 6 - 25 mg/dL [facility] Creatinine 0.79(L) 0.80 - 1.30 mg/dL [facility] Glucose 130 70 - 199 mg/dL [facility] Comment: Interpretive Data Fasting glucose [...] 2022. Calcium 9.3 8.5 - 10.3 mg/dL [facility] Bilirubin, total <0.2 0.1 - 1.2 mg/dL [facility] Protein, pl 6.7 6.5 - 8.5 g/dL [facility] Albumin 3.6 3.5 - 5.0 g/dL [facility] Alk phos 73 40 - 130 Units/L [facility] ALT 13 7 - 55 Units/L [facility] AST See Comment 10 - 50 [facility] Comment:Credited; Hemolyzed Specimen Blood 12/14/2024 3:28 AM PLATE TAKE OUT WORKER 12/14/2024 3:55 AM PLATE TAKE OUT WORKER us Devin Rico MD LAB BLOOD ORDERABLES Final Result [facility] [address] [facility] Department [place] [address] * eGFR (12/13/2024 12:50 PM PLATE TAKE OUT WORKER) [facility] eGFR >90 >=60 mL/min/1. 73 m2 Comment: [...] reviewed 2021. Blood 12/13/2024 12:5 0 PM PLATE TAKE OUT WORKER 12/13/2024 12:58 PM PLATE TAKE OUT WORKER us Devin Rico MD LAB BLOOD ORDERABLES Final Result [facility] [address] [facility] Department [place] [address] * Comprehensive metabolic panel (12/13/2024 12:50 PM PLATE TAKE OUT WORKER) [facility] Sodium 136 135 - 145 mmol/L Potassium, pl 3.5 3.3 - 4.9 mmol/L [facility] Chloride 102 97 - 110 mmol/L [facility] CO2 24 22 - 32 mmol/L [facility] Anion gap 10 2 - 15 mmol/L [facility] BUN 18 6 - 25 mg/dL [facility] Creatinine 0.80 0.80 - 1.30 mg/dL [facility] Glucose 113 70 - 199 mg/dL [facility] Comment: Interpretive Data Fasting glucose [...] 2022. Calcium 9.3 8.5 - 10.3 mg/dL [facility] Bilirubin, total <0.2 0.1 - 1.2 mg/dL [facility] Protein, pl 6.8 6.5 - 8.5 g/dL [facility] Albumin 3.7 3.5 - 5.0 g/dL [facility] Alk phos 72 40 - 130 Units/L [facility] ALT 13 7 - 55 Units/L [facility] AST 15 10 - 50 Units/L [facility] Blood 12/13/2024 12:5 0 PM PLATE TAKE OUT WORKER 12/13/2024 12:58 PM PLATE TAKE OUT WORKER Devin Rico MD LAB BLOOD ORDERABLES Final Result [facility] [address] [facility] Department [place] [address] * eGFR (12/12/2024 3:01 AM PLATE TAKE OUT WORKER) eGFR >90 >=60 mL/min/1. 73 m2 Comment: [...] last reviewed 2021. Blood 12/12/2024 3:01 AM PLATE TAKE OUT WORKER 12/12/2024 3:35 AM PLATE TAKE OUT WORKER Devin Rico MD LAB BLOOD ORDERABLES Final Result Performing Organization Address [facility] Co de Phone Number [address] [address] * (ABNORMAL) CBC without differential (12/12/2024 3:01 AM PLATE TAKE OUT WORKER) WBC 12.1(H) 3.8 - 9.9 K/cumm Hgb 13.5 13.0 - 17.5 g/dL [facility] Hct 40.5 38.9 - 50.3 % [facility] Plt 277 150 - 400 K/cumm [facility] MPV 9.3 9.1 - 12.3 fL [facility] RBC 4.32 4.30 - 5.80 M/cumm [facility] MCV 93.8 81.3 - 96.4 fL [facility] MCH 31.3 27.1 - 33.3 pg [facility] MCHC 33.3 32.3 - 35.7 g/dL [facility] RDW CV 14.2 11.1 - 14.9 % [facility] RDW SD 49.0(H) 35.7 - 48.1 fL [facility] NRBC abs 0.00 0.00 - 0.01 K/cumm [facility] Blood 12/12/2024 3:01 AM PLATE TAKE OUT WORKER 12/12/2024 3:34 AM PLATE TAKE OUT WORKER us Davide Guevara MD LAB BLOOD ORDERABLES Final Result Performing Organization Address [facility] Co de Phone Number [address] [address] * Comprehensive metabolic panel (12/12/2024 3:01 AM PLATE TAKE OUT WORKER) Sodium 137 135 - 145 mmol/L Potassium, pl 4.3 3.3 - 4.9 mmol/L [facility] Comment:Hemolyzed; Potassium value may be falsely elevated by as much as 1.0 mmol/L. Suggest redraw and reanalysis. Chloride 103 97 - 110 mmol/L [facility] CO2 24 22 - 32 mmol/L [facility] Anion gap 10 2 - 15 mmol/L [facility] BUN 17 6 - 25 mg/dL [facility] Creatinine 0.84 0.80 - 1.30 mg/dL [facility] Glucose 120 70 - 199 mg/dL [facility] Comment: Interpretive Data Fasting glucose [...] 2022. Calcium 9.6 8.5 - 10.3 mg/dL [facility] Bilirubin, total <0.2 0.1 - 1.2 mg/dL [facility] Protein, pl 6.9 6.5 - 8.5 g/dL [facility] Albumin 3.6 3.5 - 5.0 g/dL [facility] Alk phos 80 40 - 130 Units/L [facility] ALT 15 7 - 55 Units/L [facility] AST See Comment 10 - 50 [facility] Comment:Credited; Hemolyzed Specimen Blood 12/12/2024 3:01 AM PLATE TAKE OUT WORKER 12/12/2024 3:35 AM PLATE TAKE OUT WORKER us Devin Rico MD LAB BLOOD ORDERABLES Final Result [facility] [address] [facility] Department [place] [address] * eGFR (12/11/2024 4:39 AM PLATE TAKE OUT WORKER) eGFR >90 >=60 mL/min/1. 73 m2 Comment: [...] last reviewed 2021. Blood 12/11/2024 4:39 AM PLATE TAKE OUT WORKER 12/11/2024 4:52 AM PLATE TAKE OUT WORKER us Devin Rico MD LAB BLOOD ORDERABLES Final Result [facility] [address] [facility] Department [place] [address] * (ABNORMAL) CBC without differential (12/11/2024 4:39 AM PLATE TAKE OUT WORKER) WBC 13.2(H) 3.8 - 9.9 K/cumm Hgb 12.7(L) 13.0 - 17.5 g/dL [facility] Hct 38.6(L) 38.9 - 50.3 % [facility] Plt 259 150 - 400 K/cumm [facility] MPV 9.0(L) 9.1 - 12.3 fL [facility] RBC 4.05(L) 4.30 - 5.80 M/cumm [facility] MCV 95.3 81.3 - 96.4 fL [facility] MCH 31.4 27.1 - 33.3 pg [facility] MCHC 32.9 32.3 - 35.7 g/dL [facility] RDW CV 14.1 11.1 - 14.9 % [facility] RDW SD 49.5(H) 35.7 - 48.1 fL [facility] NRBC abs 0.00 0.00 - 0.01 K/cumm [facility] Blood 12/11/2024 4:39 AM PLATE TAKE OUT WORKER 12/11/2024 4:53 AM PLATE TAKE OUT WORKER us Yesika Lai MARK UP DESIGNER LAB BLOOD ORDERABLES Final R esult [facility] [address] [facility] Department [place] [address] * (ABNORMAL) Comprehensive metabolic panel (12/11/2024 4:39 AM PLATE TAKE OUT WORKER) Sodium 136 135 - 145 mmol/L Potassium, pl 4.2 3.3 - 4.9 mmol/L [facility] Chloride 105 97 - 110 mmol/L [facility] CO2 22 22 - 32 mmol/L [facility] Anion gap 9 2 - 15 mmol/L [facility] BUN 12 6 - 25 mg/dL [facility] Creatinine 0.74(L) 0.80 - 1.30 mg/dL [facility] Glucose 109 70 - 199 mg/dL [facility] Comment: Interpretive Data Fasting glucose [...] 2022. Calcium 9.6 8.5 - 10.3 mg/dL [facility] Bilirubin, total 0.3 0.1 - 1.2 mg/dL [facility] Protein, pl 6.7 6.5 - 8.5 g/dL [facility] Albumin 3.7 3.5 - 5.0 g/dL [facility] Alk phos 75 40 - 130 Units/L [facility] ALT 16 7 - 55 Units/L [facility] AST 16 10 - 50 Units/L [facility] Blood 12/11/2024 4:39 AM PLATE TAKE OUT WORKER 12/11/2024 4:52 AM PLATE TAKE OUT WORKER Devin Rico MD LAB BLOOD ORDERABLES Final Result Performing Organization Address City/[facility]/ZIP Co de Phone Number RAMU [address] [address] * eGFR (12/10/2024 6:38 AM PLATE TAKE OUT WORKER) Pathologist [facility] eGFR >90 >=60 mL/min/1. 73 m2 Comment: [...] last reviewed 2021. Blood 12/10/2024 6:38 AM PLATE TAKE OUT WORKER 12/10/2024 7:22 AM PLATE TAKE OUT WORKER Devin Rico MD LAB BLOOD ORDERABLES Final Result Performing Organization Address City/[facility]/ZIP Co de Phone Number LEYDI[address] [address] * (ABNORMAL) Comprehensive metabolic panel (12/10/2024 6:38 AM PLATE TAKE OUT WORKER) Pathologist [facility] Sodium 136 135 - 145 mmol/L Potassium, pl 4.2 3.3 - 4.9 mmol/L [facility] Chloride 104 97 - 110 mmol/L [facility] CO2 23 22 - 32 mmol/L [facility] Anion gap 9 2 - 15 mmol/L [facility] BUN 14 6 - 25 mg/dL [facility] Creatinine 0.77(L) 0.80 - 1.30 mg/dL [facility] Glucose 115 70 - 199 mg/dL [facility] Comment: Interpretive Data Fasting glucose [...] 2022. Calcium 9.2 8.5 - 10.3 mg/dL [facility] Bilirubin, total 0.5 0.1 - 1.2 mg/dL [facility] Protein, pl 6.7 6.5 - 8.5 g/dL [facility] Albumin 3.7 3.5 - 5.0 g/dL [facility] Alk phos 69 40 - 130 Units/L [facility] ALT 20 7 - 55 Units/L [facility] AST 22 10 - 50 Units/L [facility] Blood 12/10/2024 6:38 AM PLATE TAKE OUT WORKER 12/10/2024 7:22 AM PLATE TAKE OUT WORKER Devin Rico MD LAB BLOOD ORDERABLES Final Result [facility] [address] [facility] Department [place] [address] * eGFR (12/09/2024 3:39 AM PLATE TAKE OUT WORKER) eGFR >90 >=60 mL/min/1. 73 m2 Comment: [...] last reviewed 2021. Blood 12/09/2024 3:39 AM PLATE TAKE OUT WORKER 12/09/2024 3:47 AM PLATE TAKE OUT WORKER Devin Rico MD LAB BLOOD ORDERABLES Final Result [place] [id number] [facility] Department [place] [address] * (ABNORMAL) Differential, auto (12/09/2024 3:39 AM PLATE TAKE OUT WORKER) Neutrophil abs 8.1(H) 1.5 - 6.5 K/cumm Imm gran abs 0.0 0.0 - 0.1 K/cumm [facility] Lymphocyte abs 0.8 0.8 - 3.3 K/cumm [facility] Monocyte abs 0.4 0.2 - 0.8 K/cumm [facility] Eosinophil abs 0.0 0.0 - 0.5 K/cumm [facility] Basophil abs 0.0 0.0 - 0.1 K/cumm [facility] Neutrophil pct 87.0 % [facility] Comment: Interpretive Data Percent cell count reference ranges are not reported, since discordance with absolute values may lead to misinterpretation of CBC data. Current Interpretive Data was last revised on 2018. Imm gran pct 0.2 % [facility] Comment: Interpretive Data Percent cell count reference ranges are not reported, since discordance with absolute values may lead to misinterpretation of CBC data. Current Interpretive Data was last revised on 2018. Lymphocyte pct 8.6 % [facility] Comment: Interpretive Data Percent cell count reference ranges are not reported, since discordance with absolute values may lead to misinterpretation of CBC data. Current Interpretive Data was last revised on 2018. Monocyte pct 4.2 % [facility] Comment: Interpretive Data Percent cell count reference ranges are not reported, since discordance with absolute values may lead to misinterpretation of CBC data. Current Interpretive Data was last revised on 2018. Eosinophil pct 0.0 % [facility] Comment: Interpretive Data Percent cell count reference ranges are not reported, since discordance with absolute values may lead to misinterpretation of CBC data. Current Interpretive Data was last revised on 2018. Basophil pct 0.0 % [facility] Comment: Interpretive Data Percent cell count reference ranges are not reported, since discordance with absolute values may lead to misinterpretation of CBC data. Current Interpretive Data was last revised on 2018. Blood 12/09/2024 3:39 AM PLATE TAKE OUT WORKER 12/09/2024 3:47 AM PLATE TAKE OUT WORKER us Devin Rico MD LAB BLOOD ORDERABLES Final Result [facility] [address] [facility] Department [place] [address] * (ABNORMAL) CBC with auto differential (12/09/2024 3:39 AM PLATE TAKE OUT WORKER) WBC 9.3 3.8 - 9.9 K/cumm Hgb 13.5 13.0 - 17.5 g/dL [facility] Hct 39.2 38.9 - 50.3 % [facility] Plt 268 150 - 400 K/cumm [facility] MPV 8.8(L) 9.1 - 12.3 fL [facility] RBC 4.27(L) 4.30 - 5.80 M/cumm [facility] MCV 91.8 81.3 - 96.4 fL [facility] MCH 31.6 27.1 - 33.3 pg [facility] MCHC 34.4 32.3 - 35.7 g/dL [facility] RDW CV 13.9 11.1 - 14.9 % [facility] RDW SD 46.6 35.7 - 48.1 fL [facility] NRBC abs 0.00 0.00 - 0.01 K/cumm [facility] Blood 12/09/2024 3:39 AM PLATE TAKE OUT WORKER 12/09/2024 3:47 AM PLATE TAKE OUT WORKER Devin Rico MD LAB BLOOD ORDERABLES Final Result Performing Organization Address [facility] Co de Phone Number [address] [place] [address] * Magnesium (12/09/2024 3:39 AM PLATE TAKE OUT WORKER) Magnesium 1.9 1.4 - 2.5 mg/dL Blood 12/09/2024 3:39 AM PLATE TAKE OUT WORKER 12/09/2024 3:47 AM PLATE TAKE OUT WORKER Yesika Lai NP LAB BLOOD ORDERABLES Final R esult Performing Organization Address City/[facility] Co de Phone Number [address] [place] [employer] [place] [address] * Lipid panel (12/09/2024 3:39 AM PLATE TAKE OUT WORKER) Cholesterol 156 30 - 199 mg/dL Comment: [...] revised on 2018. Triglycerides 55 <=149 mg/dL [facility] Comment: Interpretive Data Ages < or = [...] last revised on 2018. Chol/HDL ratio 2 [facility] Blood 12/09/2024 3:39 AM PLATE TAKE OUT WORKER 12/09/2024 3:47 AM PLATE TAKE OUT WORKER us Yesika Lai NP LAB BLOOD ORDERABLES Final R esult [facility] [address] [facility] Department [place] [address] * (ABNORMAL) Comprehensive metabolic panel (12/09/2024 3:39 AM PLATE TAKE OUT WORKER) Sodium 134(L) 135 - 145 mmol/L Potassium, pl 4.3 3.3 - 4.9 mmol/L [facility] Chloride 103 97 - 110 mmol/L [facility] CO2 23 22 - 32 mmol/L [facility] Anion gap 8 2 - 15 mmol/L [facility] BUN 11 6 - 25 mg/dL [facility] Creatinine 0.77(L) 0.80 - 1.30 mg/dL [facility] Glucose 136 70 - 199 mg/dL [facility] Comment: Interpretive Data Fasting glucose [...] 2022. Calcium 9.3 8.5 - 10.3 mg/dL [facility] Bilirubin, total 0.7 0.1 - 1.2 mg/dL [facility] Protein, pl 7.1 6.5 - 8.5 g/dL [facility] Albumin 3.8 3.5 - 5.0 g/dL [facility] Alk phos 79 40 - 130 Units/L [facility] ALT 25 7 - 55 Units/L [facility] AST 35 10 - 50 Units/L [facility] Blood 12/09/2024 3:39 AM PLATE TAKE OUT WORKER 12/09/2024 3:47 AM PLATE TAKE OUT WORKER Devin Rico MD LAB BLOOD ORDERABLES Final Result [facility] [address] [place] [address] [employer] [place], [place] [id number] * Influenza A/B, RSV, and COVID-19 PCR Nasopharyngeal (12/08/2024 8:17 PM PLATE TAKE OUT WORKER) Pathologist [facility] COVID-19 RNA Negative Negative Influenza A RNA Negative Negative [facility] Influenza B RNA Negative Negative [facility] RSV RNA Negative Negative [facility] Comment: Interpretive data: Testing performed by [facility]. This test is performed using the [employer] Xpert Xpress CoV-2/Flu/RSV plus assay. This is a multiplex, real-time reverse transcriptase PCR assay intended for the qualitative detection of nucleic acid from SARS-CoV-2, influenza A, influenza B, and respiratory syncytial virus. This assay has been cleared by the [place] Food and Drug administration. The performance characteristics have been verified by the [facility]. Results must be considered in the clinical context, and a negative result does not rule out infection. Interpretive Data last revised 2023 Nasopharyngeal 12/08/2024 8: 17 PM PLATE TAKE OUT WORKER 12/08/2024 8:28 PM PLATE TAKE OUT WORKER Narrative [facility] - 12/08/2024 9:16 PM PLATE TAKE OUT WORKER Is the Patient experiencing symptoms consistent with COVID?->Yes Devin Rico MD LAB MICROBIOLOGY - GE NERAL ORDERABLES Final Result [place] [id number] [facility] [place] [address] * eGFR (12/08/2024 7:28 AM PLATE TAKE OUT WORKER) eGFR >90 >=60 mL/min/1. 73 m2 Comment: [...] last reviewed 2021. Blood 12/08/2024 7:28 AM PLATE TAKE OUT WORKER 12/08/2024 7:33 AM PLATE TAKE OUT WORKER Alex PEREZ LAB BLOOD ORDERABLES Final Result Performing Organization Address [facility]/ZIP Co de Phone Number [address] [address] * Magnesium (12/08/2024 7:28 AM PLATE TAKE OUT WORKER) Pathologist [facility] Magnesium 2.0 1.4 - 2.5 mg/dL Blood 12/08/2024 7:28 AM PLATE TAKE OUT WORKER 12/08/2024 7:33 AM PLATE TAKE OUT WORKER Yesika Lai NP LAB BLOOD ORDERABLES Final R esult Performing Organization Address City/[facility]/ZIP Co de Phone Number [address] [address] * (ABNORMAL) Basic metabolic panel (12/08/2024 7:28 AM PLATE TAKE OUT WORKER) Pathologist [facility] Sodium 137 135 - 145 mmol/L Potassium, pl 4.0 3.3 - 4.9 mmol/L [facility] Comment:Hemolyzed; Potassium value may be falsely elevated by as much as 1.0 mmol/L. Suggest redraw and reanalysis. Chloride 99 97 - 110 mmol/L [facility] CO2 21(L) 22 - 32 mmol/L [facility] Anion gap 17(H) 2 - 15 mmol/L [facility] BUN 10 6 - 25 mg/dL [facility] Creatinine 0.92 0.80 - 1.30 mg/dL [facility] Glucose 83 70 - 199 mg/dL [facility] Comment: Interpretive Data Fasting glucose [...] 2022. Calcium 9.5 8.5 - 10.3 mg/dL [facility] Blood 12/08/2024 7:28 AM PLATE TAKE OUT WORKER 12/08/2024 7:33 AM PLATE TAKE OUT WORKER Alex PEREZ LAB BLOOD ORDERABLES Final Result [facility] [id number] [facility] Department [place] [address] * Troponin T high-sensitivity 6-hour (12/08/2024 6:17 AM PLATE TAKE OUT WORKER) [facility] Trop T hs 8 <=22 ng/L Comment: Interpretive Data For further hscTnT resources including the diagnostic algorithm and an aid in interpretation, copy and paste this link: https://nrl.testcatalog.org/show/hsTrop Current Interpretive Data last revised 2020. Trop T hs delta 0 ng/L [facility] Trop T hs interp Insignificant [facility] Blood 12/08/2024 6:17 AM PLATE TAKE OUT WORKER 12/08/2024 6:19 AM PLATE TAKE OUT WORKER Doc PEREZ LAB BLOOD ORDERABLES Final R esult Performing Organization Address [facility] de Phone Number RAMU [address] [address] * Troponin T high-sensitivity 2-hour (12/08/2024 2:24 AM PLATE TAKE OUT WORKER) Trop T hs 9 <=22 ng/L Comment: Interpretive Data For further hscTnT resources including the diagnostic algorithm and an aid in interpretation, copy and paste this link: https://nrl.testcatalog.org/show/hsTrop Current Interpretive Data last revised 2020. Trop T hs delta 1 ng/L [facility] Trop T hs interp Insignificant [facility] Blood 12/08/2024 2:24 AM PLATE TAKE OUT WORKER 12/08/2024 2:34 AM PLATE TAKE OUT WORKER Doc PEREZ LAB BLOOD ORDERABLES Final R esult Performing Organization Address [facility] de Phone Number [address] [address] * XR Chest 1 Vw Portable (12/08/2024 12:54 AM PLATE TAKE OUT WORKER) Anatomical Region Laterality Modality Body, Chest N/A Computed Radiogr aphy 12/08/2024 1:26 AM PLATE TAKE OUT WORKER Narrative 12/08/2024 1:26 AM PLATE TAKE OUT WORKER EXAM DESCRIPTION: XR CHEST 1 VIEW REASON [...] Frank Damon M.D. KT T: Report ID: [id number] Reading Location: [place] [address] Procedure Note Frank Damon MD - 12/08/2024 [...] Frank Damon M.D. KT T: Report ID: [id number] Reading Location: [place] [address] Doc PEREZ IMG XR PROCEDURES Final Resu lt * ECG 12 lead (12/08/2024 12:22 AM PLATE TAKE OUT WORKER) Ventricular Rate EKG/Min 102 BPM [facility] Atrial Rate 102 BPM [facility] GA-Interval (MSEC) 134 ms [facility] QRS-Interval (MSEC) 74 ms [facility] QT-Interval (MSEC) 336 ms [facility] QTc 437 ms [facility] P Oneill 80 degrees [facility] R Oneill 5 degrees [facility] T Oneill 61 degrees [facility] Diagnosis Sinus tachycardia Otherwise normal ECG When compared with ECG of 06-OCT-2024 05:45, Questionable change in QRS axis Confirmed by BECKY TURNRE M.D. ([id number]) on 12/08/2024 9:21:09 PM [facility] 12/08/2024 12:2 2 AM PLATE TAKE OUT WORKER 12/08/2024 9:21 PM PLATE TAKE OUT WORKER Doc PEREZ ECG ORDERABLES Final Result Performing Organization Address City/[facility]/ZIP Co de Phone Number [facility] * Troponin T high-sensitivity series (baseline, 2hr, 4hr, 6hr) (12/08/2024 12:22 AM PLATE TAKE OUT WORKER) Trop T hs 8 <=22 ng/L Comment: Interpretive Data For further hscTnT resources including the diagnostic algorithm and an aid in interpretation, copy and paste this link: https://nrl.testcatalog.org/show/hsTrop Current Interpretive Data last revised 2020. Blood 12/08/2024 12:2 2 AM PLATE TAKE OUT WORKER 12/08/2024 12:32 AM PLATE TAKE OUT WORKER us Doc PEREZ LAB BLOOD ORDERABLES Final R esult Performing Organization Address City/[facility] Co de Phone Number RAMU [address] [facility] Department [place] [address] * eGFR (12/08/2024 12:22 AM PLATE TAKE OUT WORKER) eGFR >90 >=60 mL/min/1. 73 m2 Comment: [...] reviewed 2021. Blood 12/08/2024 12:2 2 AM PLATE TAKE OUT WORKER 12/08/2024 12:32 AM PLATE TAKE OUT WORKER Doc PEREZ LAB BLOOD ORDERABLES Final R esult [facility] [address] [facility] Department [place] [address] * Differential, auto (12/08/2024 12:22 AM PLATE TAKE OUT WORKER) Neutrophil abs 2.1 1.5 - 6.5 K/cumm Imm gran abs 0.0 0.0 - 0.1 K/cumm [facility] Lymphocyte abs 3.1 0.8 - 3.3 K/cumm [facility] Monocyte abs 0.6 0.2 - 0.8 K/cumm [facility] Eosinophil abs 0.2 0.0 - 0.5 K/cumm [facility] Basophil abs 0.1 0.0 - 0.1 K/cumm [facility] Neutrophil pct 34.5 % [facility] Comment: Interpretive Data Percent cell count reference ranges are not reported, since discordance with absolute values may lead to misinterpretation of CBC data. Current Interpretive Data was last revised on 2018. Imm gran pct 0.2 % [facility] Comment: Interpretive Data Percent cell count reference ranges are not reported, since discordance with absolute values may lead to misinterpretation of CBC data. Current Interpretive Data was last revised on 2018. Lymphocyte pct 51.1 % [facility] Comment: Interpretive Data Percent cell count reference ranges are not reported, since discordance with absolute values may lead to misinterpretation of CBC data. Current Interpretive Data was last revised on 2018. Monocyte pct 10.7 % [facility] Comment: Interpretive Data Percent cell count reference ranges are not reported, since discordance with absolute values may lead to misinterpretation of CBC data. Current Interpretive Data was last revised on 2018. Eosinophil pct 2.7 % [facility] Comment: Interpretive Data Percent cell count reference ranges are not reported, since discordance with absolute values may lead to misinterpretation of CBC data. Current Interpretive Data was last revised on 2018. Basophil pct 0.8 % [facility] Comment: Interpretive Data Percent cell count reference ranges are not reported, since discordance with absolute values may lead to misinterpretation of CBC data. Current Interpretive Data was last revised on 2018. Blood 12/08/2024 12:2 2 AM PLATE TAKE OUT WORKER 12/08/2024 12:32 AM PLATE TAKE OUT WORKER us Doc PEREZ LAB BLOOD ORDERABLES Final R esult Performing Organization Address City/[facility] Co de Phone Number [place] [id number] [facility] Department [place] [address] * (ABNORMAL) CBC with auto differential (12/08/2024 12:22 AM PLATE TAKE OUT WORKER) WBC 6.0 3.8 - 9.9 K/cumm Hgb 14.8 13.0 - 17.5 g/dL [facility] Hct 42.1 38.9 - 50.3 % [facility] Plt 302 150 - 400 K/cumm [facility] MPV 8.6(L) 9.1 - 12.3 fL [facility] RBC 4.72 4.30 - 5.80 M/cumm [facility] MCV 89.2 81.3 - 96.4 fL [facility] MCH 31.4 27.1 - 33.3 pg [facility] MCHC 35.2 32.3 - 35.7 g/dL [facility] RDW CV 13.9 11.1 - 14.9 % [facility] RDW SD 45.0 35.7 - 48.1 fL [facility] NRBC abs 0.00 0.00 - 0.01 K/cumm [facility] Blood 12/08/2024 12:2 2 AM PLATE TAKE OUT WORKER 12/08/2024 12:32 AM PLATE TAKE OUT WORKER Doc PEREZ LAB BLOOD ORDERABLES Final R esult Performing Organization Address City/State/[facility] Co de Phone Number RAMU [address] [address] * Lipase (12/08/2024 12:22 AM PLATE TAKE OUT WORKER) [facility] Lipase 21 10 - 99 Units/L Blood 12/08/2024 12:2 2 AM PLATE TAKE OUT WORKER 12/08/2024 12:32 AM PLATE TAKE OUT WORKER Doc PEREZ LAB BLOOD ORDERABLES Final R esult Performing Organization Address [facility] de Phone Number RAMU [address] [address] * (ABNORMAL) Ethanol (12/08/2024 12:22 AM PLATE TAKE OUT WORKER) [facility] Ethanol 178(H) <=10 mg/dL Comment: Interpretive Data Legal limit of intoxication > or = 80 mg/dL Levels > or = 400 mg/dL are potentially TOXIC. Current interpretive data was last revised on 2018. Blood 12/08/2024 12:2 2 AM PLATE TAKE OUT WORKER 12/08/2024 12:32 AM PLATE TAKE OUT WORKER Doc PEREZ LAB BLOOD ORDERABLES Final R esult Performing Organization Address [facility] de Phone Number RAMU [address] [address] * (ABNORMAL) Comprehensive metabolic panel (12/08/2024 12:22 AM PLATE TAKE OUT WORKER) [facility] Sodium 134(L) 135 - 145 mmol/L Potassium, pl 3.8 3.3 - 4.9 mmol/L [facility] Chloride 97 97 - 110 mmol/L [facility] CO2 20(L) 22 - 32 mmol/L [facility] Anion gap 17(H) 2 - 15 mmol/L [facility] BUN 9 6 - 25 mg/dL [facility] Creatinine 0.81 0.80 - 1.30 mg/dL [facility] Glucose 95 70 - 199 mg/dL [facility] Comment: Interpretive Data Fasting glucose [...] 2022. Calcium 9.4 8.5 - 10.3 mg/dL [facility] Bilirubin, total 0.4 0.1 - 1.2 mg/dL [facility] Protein, pl 8.1 6.5 - 8.5 g/dL [facility] Albumin 4.3 3.5 - 5.0 g/dL [facility] Alk phos 92 40 - 130 Units/L [facility] ALT 30 7 - 55 Units/L [facility] AST 67(H) 10 - 50 Units/L [facility] Blood 12/08/2024 12:2 2 AM PLATE TAKE OUT WORKER 12/08/2024 12:32 AM PLATE TAKE OUT WORKER us Doc PEREZ LAB BLOOD ORDERABLES Final R esult RAMU [address] [facility] Department [place] [address] * XR Chest PA Lateral 2 Views (11/10/2024 12:08 PM PLATE TAKE OUT WORKER) Anatomical Region Laterality Modality Body, Chest N/A Computed Radiogr aphy 11/10/2024 12:3 2 PM PLATE TAKE OUT WORKER Impressions 11/10/2024 12:32 PM PLATE TAKE OUT WORKER There is no consolidation, pleural effusion, pneumothorax. A calcified granuloma projects over the right lung base. Old healed left-sided rib fractures are noted. The cardiomediastinal silhouette is within normal limits. Electronically signed by: Yogesh Flaherty M.D. Narrative 11/10/2024 12:32 PM PLATE TAKE OUT WORKER EXAMINATION: XR CHEST PA LATERAL 2 VIEWS [...] microscopic and culture Urine (11/10/2024 11:33 AM PLATE TAKE OUT WORKER) Color, ur Yellow Yellow Clarity, ur Clear Clear [facility] Specific gravity, ur 1.024 1.003 - 1.030 [facility] pH, urine 7.5 [facility] Comment: Interpretive Data U rine pH is affected by diet, medications, systemic acid-base disturbances, and renal tubular function. pH may affect urinary stone formation. For example, urine pH below 6.0 may help reduce the tendency for calcium phosphate stones and pH greater than 6.0 may reduce the tendency for uric acid stone formation. Source: [facility] [employer] Current Interpretive Data was last revised on 2017 Protein, ur ql 1+(A) Negative [facility] Glucose, ur ql Negative Negative [facility] Ketones, ur Trace Negative [facility] Bilirubin, ur Negative Negative [facility] Blood, ur Negative Negative [facility] Urobilinogen, ur 2.0(A) <2.0 mg/dL [facility] Nitrite, ur Negative Negative [facility] Leukocyte esterase, ur Negative Negative [facility] UA reflex comment Reflex to microscopic UA will be performed. [facility] Urine 11/10/2024 11:3 3 AM PLATE TAKE OUT WORKER 11/10/2024 11:41 AM PLATE TAKE OUT WORKER Nick Foster MD LAB MICROBIOLOGY - GENERAL OR DERABLES Final Result [facility] [address] [facility] Department [place] [address] * (ABNORMAL) Drugs of Abuse Screen, Urine without Confirmation (11/10/2024 11:33 AM PLATE TAKE OUT WORKER) [facility] Amphetamine, ur Not Detected CutOff 500ng/mL Comment: [...] 2024. Methadone, ur Not Detected CutOff 300ng/mL [facility] Comment: Interpretive Data - [...] Phencyclidine, ur Not Detected CutOff 25 ng/mL [facility] Comment: Interpretive Data - Phencyclidine: Samples containing greater than 25 ng/mL phencyclidine or other cross-reacting compounds are reported as positive. False positive and false negative results are possible. Confirmatory testing required for definitive results. Current Interpretive Data was last reviewed 2023. Urine Creatinine 190 mg/dL [facility] Comment: Interpretive Data Urine Creatinine: < 10 mg/dL is extremely dilute = or > 10 but < 20 mg/dL is dilute = or > 20 mg/dL is normal Current Interpretive Data was last revised on 2018. Urine 11/10/2024 11:3 3 AM PLATE TAKE OUT WORKER 11/10/2024 11:41 AM PLATE TAKE OUT WORKER Narrative RAMU [facility] - 11/10/2024 12:26 PM PLATE TAKE OUT WORKER Drug of Abuse screening is performed by immunoassay for medical purposes only. This is not to be used for Pain Management purposes. Nick Foster MD LAB URINE ORDERABLES Final Re sult Performing Organization Address City/[facility] Co de Phone Number [facility] [place] [address] * (ABNORMAL) Urinalysis, microscopic only (11/10/2024 11:33 AM PLATE TAKE OUT WORKER) WBC, ur 0-5 0 - 5 /HPF RBC, ur 0-2 0 - 2 /HPF [facility] Mucous, ur Present(A) [facility] Culture Reflex Comment Reflex conditions for urine culture (WBC >10) not met. [facility] Urine 11/10/2024 11:3 3 AM PLATE TAKE OUT WORKER 11/10/2024 11:41 AM PLATE TAKE OUT WORKER us Nick Foster MD LAB URINE ORDERABLES Final Re sult Performing Organization Address [facility] de Phone Number [facility] [place] [address] * ECG 12-LEAD (11/10/2024 10:43 AM PLATE TAKE OUT WORKER) Narrative [facility] - 11/10/2024 10:43 AM PLATE TAKE OUT WORKER Nick Foster MD 11/10/2024 10:44 AM ECG [...] ECG ORDERABLES Final Result Performing Organization Address [facility]/ZIP Co de Phone Number [facility] * POCT Rapid HIV Antibody Community Screening-Fabi Eligible (11/10/2024 10:24 AM PLATE TAKE OUT WORKER) Rapid HIV, POC Negative Negative Lot Number [id number] QC Control Line Acceptable Blood 11/10/2024 10:2 4 AM PLATE TAKE OUT WORKER us Nick Foster MD POINT OF CARE TEST ORDERABLES Final Result * Troponin I high-sensitivity series (baseline, 2hr, 4hr, 6hr) (11/10/2024 10:06 AM PLATE TAKE OUT WORKER) Trop I hs 4 <=35 ng/L Comment: Interpretive Data For further hscTnI resources including the diagnostic algorithm and an aid in interpretation, copy and paste this link: https://bjhlab.testcatalog.org/show/hsTrop-1 Current Interpretive Data last revised 2020. Blood 11/10/2024 10:0 6 AM PLATE TAKE OUT WORKER 11/10/2024 10:25 AM PLATE TAKE OUT WORKER us Nick Foster MD LAB BLOOD ORDERABLES Final Re sult [facility] Department [place] [address] * eGFR (11/10/2024 10:06 AM PLATE TAKE OUT WORKER) eGFR >90 >=60 mL/min/1. 73 m2 Comment: [...] reviewed 2021. Blood 11/10/2024 10:0 6 AM PLATE TAKE OUT WORKER 11/10/2024 10:16 AM PLATE TAKE OUT WORKER us Nick Foster MD LAB BLOOD ORDERABLES Final Re sult [facility] Department [place] [address] * Differential, auto (11/10/2024 10:06 AM PLATE TAKE OUT WORKER) Neutrophil abs 2.2 1.5 - 6.5 K/cumm Imm gran abs 0.0 0.0 - 0.1 K/cumm [facility] Lymphocyte abs 1.9 0.8 - 3.3 K/cumm [facility] Monocyte abs 0.7 0.2 - 0.8 K/cumm [facility] Eosinophil abs 0.1 0.0 - 0.5 K/cumm [facility] Basophil abs 0.0 0.0 - 0.1 K/cumm [facility] Neutrophil pct 44.1 % [facility] Comment: Interpretive Data Percent cell count reference ranges are not reported, since discordance with absolute values may lead to misinterpretation of CBC data. Current Interpretive Data was last revised on 2018. Imm gran pct 0.2 % [facility] Comment: Interpretive Data Percent cell count reference ranges are not reported, since discordance with absolute values may lead to misinterpretation of CBC data. Current Interpretive Data was last revised on 2018. Lymphocyte pct 38.9 % [facility] Comment: Interpretive Data Percent cell count reference ranges are not reported, since discordance with absolute values may lead to misinterpretation of CBC data. Current Interpretive Data was last revised on 2018. Monocyte pct 13.8 % [facility] Comment: Interpretive Data Percent cell count reference ranges are not reported, since discordance with absolute values may lead to misinterpretation of CBC data. Current Interpretive Data was last revised on 2018. Eosinophil pct 2.4 % [facility] Comment: Interpretive Data Percent cell count reference ranges are not reported, since discordance with absolute values may lead to misinterpretation of CBC data. Current Interpretive Data was last revised on 2018. Basophil pct 0.6 % [facility] Comment: Interpretive Data Percent cell count reference ranges are not reported, since discordance with absolute values may lead to misinterpretation of CBC data. Current Interpretive Data was last revised on 2018. Blood 11/10/2024 10:0 6 AM PLATE TAKE OUT WORKER 11/10/2024 10:16 AM PLATE TAKE OUT WORKER us Nick Foster MD LAB BLOOD ORDERABLES Final Re sult [facility] [address] [facility] Department [place] [address] * Pro B-type natriuretic peptide (11/10/2024 10:06 AM PLATE TAKE OUT WORKER) NT-proBNP <50 <=300 pg/mL Comment: Interpretive Comments: [...] Date: 2018. Blood 11/10/2024 10:0 6 AM PLATE TAKE OUT WORKER 11/10/2024 10:16 AM PLATE TAKE OUT WORKER Nick Foster MD LAB BLOOD ORDERABLES Final Re sult [facility] [address] [facility] Department [place] [address] * (ABNORMAL) CBC with auto differential (11/10/2024 10:06 AM PLATE TAKE OUT WORKER) Pathologist [facility] WBC 5.0 3.8 - 9.9 K/cumm Hgb 16.0 13.0 - 17.5 g/dL [facility] Hct 47.3 38.9 - 50.3 % [facility] Plt 284 150 - 400 K/cumm [facility] MPV 8.9(L) 9.1 - 12.3 fL [facility] RBC 5.09 4.30 - 5.80 M/cumm [facility] MCV 92.9 81.3 - 96.4 fL [facility] MCH 31.4 27.1 - 33.3 pg [facility] MCHC 33.8 32.3 - 35.7 g/dL [facility] RDW CV 14.0 11.1 - 14.9 % [facility] RDW SD 47.8 35.7 - 48.1 fL [facility] NRBC abs 0.00 0.00 - 0.01 K/cumm [facility] Blood 11/10/2024 10:0 6 AM PLATE TAKE OUT WORKER 11/10/2024 10:16 AM PLATE TAKE OUT WORKER Nick Foster MD LAB BLOOD ORDERABLES Final Re sult Performing Organization Address [facility] Co de Phone Number RAMU [facility] [place] [place] [address] * Ethanol (11/10/2024 10:06 AM PLATE TAKE OUT WORKER) Ethanol <10 <=10 mg/dL Comment: Interpretive Data Legal limit of intoxication > or = 80 mg/dL Levels > or = 400 mg/dL are potentially TOXIC. Current interpretive data was last revised on 2018. Blood 11/10/2024 10:0 6 AM PLATE TAKE OUT WORKER 11/10/2024 10:16 AM PLATE TAKE OUT WORKER Nick Foster MD LAB BLOOD ORDERABLES Final Re sult Performing Organization Address [facility] de Phone Number [facility] [place] [address] * (ABNORMAL) Valproic acid level, total (11/10/2024 10:06 AM PLATE TAKE OUT WORKER) Valproic Acid <15.0(L) 50.0 - 100.0 mcg/mL Comment: Interpretive Data Therapeutic or toxic effects of anticonvulsant drugs may occur at different concentrations in different patients and the correlation between dose and clinical effect must be evaluated individually. Current interpretative data was last revised on 14. Blood 11/10/2024 10:0 6 AM PLATE TAKE OUT WORKER 11/10/2024 10:16 AM PLATE TAKE OUT WORKER Nick Foster MD LAB BLOOD ORDERABLES Final Re sult Performing Organization Address [facility] [place] [address] * (ABNORMAL) Comprehensive metabolic panel (11/10/2024 10:06 AM PLATE TAKE OUT WORKER) Sodium 140 135 - 145 mmol/L Potassium, pl 4.1 3.3 - 4.9 mmol/L [facility] Chloride 101 97 - 110 mmol/L [facility] CO2 27 22 - 32 mmol/L [facility] Anion gap 12 2 - 15 mmol/L [facility] BUN 7 6 - 25 mg/dL [facility] Creatinine 0.80 0.80 - 1.30 mg/dL [facility] Glucose 77 70 - 199 mg/dL [facility] Comment: Interpretive Data Fasting glucose >/= [...] 2022. Calcium 9.7 8.5 - 10.3 mg/dL [facility] Bilirubin, total 0.7 0.1 - 1.2 mg/dL [facility] Protein, pl 8.6(H) 6.5 - 8.5 g/dL [facility] Albumin 4.6 3.5 - 5.0 g/dL [facility] Alk phos 95 40 - 130 Units/L [facility] ALT 66(H) 7 - 55 Units/L [facility] AST 81(H) 10 - 50 Units/L [facility] Blood 11/10/2024 10:0 6 AM PLATE TAKE OUT WORKER 11/10/2024 10:16 AM PLATE TAKE OUT WORKER us Nick Foster MD LAB BLOOD ORDERABLES Final Re sult [facility] [address] [facility] Department [place] [address] * Hepatitis panel, acute Blood (10/06/2024 12:56 PM PLATE TAKE OUT WORKER) Hep A IgM Nonreactive Nonreactive Comment: Interpretive Data: If Hep A IgM Ab is reported as Equivocal, a new sample should be drawn in two weeks for testing. Current interpretive data was last revised on 20. Hep B core IgM Nonreactive Nonreactive [facility] Comment: Interpretive Data If HepB Core IgM Ab is reported as Equivocal, a new sample should be drawn in two weeks for testing. Current interpretive data was last revised on 20. Hep C Ab Nonreactive Nonreactive [facility] Comment: Antibodies to HCV not detected. Does [...] last revised on 2020. HepBsAg Nonreactive Nonreactive [facility] Blood 10/06/2024 12:5 6 PM PLATE TAKE OUT WORKER 10/06/2024 1:08 PM PLATE TAKE OUT WORKER us Ghada PEREZ LAB MICROBIOLOGY - GENERA L ORDERABLES Final Result [id number] [facility] Department [place] [address] from Last 3 Months or Most Recently Relevant to Health Maintenance [facility] [place] [id number] [facility] Advance Directives For more information, please contact: [phone] * Full Code (Latest Code Status on [...] 2:27 PM 08/17/2023 5:13 PM Care Teams Analytical Tech Relationship Specialty Start Date End Date Frank Beltran MD [address] [facility] [place] [address] PCP - General Internal Medicine 12/09/24 Cailin Hernández [employer] [facility] 10/23/20 Bernadette Roberts, [address] SIEGEL [address] [place] [id number] Filling Operator 06/20/21
[2025-02-03] MEDS: LACTATED RINGERS 1,000 ML 999 ML IV CONT (08:27)
[2025-02-03 08:29] LABS: Basophils Percent Auto 0.3 % (0.2-1.2); Eosinophils Absolute Auto 0.1 K/mm3 (0-0.3); Eosinophils Percent Auto 0.8 % (0-4.4); Hematocrit 40.8 % (42.0-52.0); Hemoglobin 13.7 g/dL (14.0-18.0); Immature Granulocyte Absolute 0.04 K/mm3 (0.00-0.031); Immature Granulocyte Percent A 0.3 % (0-0.5); Lymphocytes Absolute Auto 1.96 K/mm3 (0.9-3.2); Lymphocytes Percent Auto 12.3 % (18.3-44.2); Mean Corpuscular HGB Conc 33.6 g/dl (32-36); Mean Corpuscular Hemoglobin 30.7 pg (26-34); Mean Corpuscular Volume 91.5 fl (80-100); Mean Platelet Volume 8.7 fl (7.4-10.4); Monocytes Absolute Auto 1.9 K/mm3 (0.1-0.6); Monocytes Percent Auto 11.8 % (2.6-8.5); Neutrophils Absolute Auto 11.9 K/mm3 (1.3-6.7); Neutrophils Percent Auto 74.5 % (45.5-73.1); Platelet Count Result 260 k/mm3 (150-375); Red Blood Count 4.46 M/mm3 (4.6-6.20); Red Cell Distribution Width 14.5 % (11.5-14.5); White Blood Count 15.9 K/mm3 (4.5-10.0)
[2025-02-03 08:33] LABS: Add Urine Microscopic? YES; Appearance Urine Clear (Clear); Bacteria Urine None Seen /hpf; Bilirubin Urine Negative (Negative); Blood Urine Negative (Negative); Color Urine Yellow (Yellow); Glucose Urine UA Negative (Negative); Ketones Urine 2+ mg/dL (Negative); Leukocyte Esterase Ur Negative LEU/UL (Negative); Nitrate Urine Negative (Negative); Non Pathogenic Casts 0-2; Protein Urine 1+ mg/dL (Negative); RBC Urine 0-2 /hpf (0-2); Specific Grav Ur 1.017 (1.001-1.035); Squamous Epithelial Cell Urine None Seen /hpf (Few); WBC Urine 0-5 /hpf (0-3)
[2025-02-03 08:40] LABS: Alanine Aminotransferase 43 U/L (6-50); Alkaline Phosphatase 100 U/L (38-126); Anion Gap 14 mmol/L (4-12); Aspartate Amino Transferase 71 U/L (17-59); Bilirubin,Total 1.5 mg/dL (0.2-1.3); Blood Urea Nitrogen 8 mg/dL (9-20); Calcium 9.2 mg/dL (8.4-10.2); Carbon Dioxide 27 mmol/L (22-30); Chloride 96 mmol/L (98-107); Estimated Glomerular Filt Rate > 60; Glucose 89 mg/dL (65-110); Sodium 137 mmol/L (137-145)
[2025-02-03] MEDS: LORazepam INJ (*CRX) 2 MG/ML VIAL IV PUSH (08:48)
[2025-02-03 09:08] LABS: Influenza A QL RT-PCR Negative (Negative); Influenza B QL RT-PCR Negative (Negative); RSV RNA, RT-PCR Positive (Negative); SARS-CoV-2 RNA PCR Negative (Negative)
[2025-02-03 09:35] LABS: Acetaminophen < 10 ug/mL (10-30); Ethanol 105 mg/dL (<10); Salicylate < 1.0 mg/dL (2-20)
[2025-02-03 09:49] LABS: Amphetamine Screen Urine Negative (Negative); Barbiturate Screen Urine Negative (Negative); Benzodiazepines Screen Urine Negative (Negative); Cannabinoid Screen Urine Positive (Negative); Cocaine Screen Urine Positive (Negative); Methadone Screen Urine Negative (Negative); Opiate Screen Urine Negative (Negative); Phencyclidine Screen Urine Negative (Negative)
[2025-02-03 09:59] LABS: Magnesium 2.1 mg/dL (1.6-2.3)
[2025-02-03 10:12] LABS: Troponin I < 0.012 ng/mL (0.000-0.034)
[2025-02-03 10:54] VITALS: BP 128/80; PULSE 87; RESP 18; O2SAT 100
--- NOTE | 2025-02-03 11:03 | ECG_ITS ---
Test Date: 2025-02-03 11:19:02 Measurements Intervals [place] Rate: 88 P: 62 WY: 149 QRS: 19 QRSD: 82 T: 54 QT: 377 QTc: 457 Interpretive Statements SINUS RHYTHM NORMAL ECG Compared to ECG 02/03/2025 08:15:25 No significant changes Electronically Signed On 02-03-2025 11:30:35 CDT by Santos Estes D.O.
[2025-02-03 11:42] LABS: Ethanol 52 mg/dL (<10)
[2025-02-03 11:55] LABS: Troponin I < 0.012 ng/mL (0.000-0.034)
[2025-02-03 12:31] VITALS: BP 123/64; PULSE 98; RESP 16; O2SAT 98
== END 2025-02-03 12:52 | disposition home or self-care (01) ==
PROVIDERS: Emergency Provider Emergency Medicine
DX: F10.129 Alcohol abuse with intoxication, unspecified (principal); Y90.5 Blood alcohol level of 100-119 mg/100 ml; B97.4 Respiratory syncytial virus as the cause of diseases classified elsewhere; Z20.822 Contact with and (suspected) exposure to COVID-19; F14.90 Cocaine use, unspecified, uncomplicated; F12.90 Cannabis use, unspecified, uncomplicated; R53.83 Other fatigue
CPT/HCPCS: 36415; 80053; 80143; 80179; 80307; 81001; 82077; 83735; 84443; 84484; 85025; 87637; 93005; 96361; 96374; 99284; J2060; J7120